=== PATIENT | male | born 1960 | race Caucasian/White ===

== ENCOUNTER 2023-11-09 09:16 | Inpatient (IN) | payer MEDICARE, SELFPAY ==
[2023-11-09] VITALS (14 sets, daily range): BP systolic 151–194; BP diastolic 68–86; PULSE 67–102; RESP 16–25; TEMP 36.3–36.8; O2SAT 96–100; BMI 25.4
--- NOTE | ~2023-11-09 | US_ITS ---
Renal-Bladder ultrasound Clinical History: Acute renal insufficiency Technique: Real-time sonographic imaging of the kidneys and urinary bladder was performed. Findings: The right kidney measures 9.4 cm in length and the left kidney measures 8.8 cm. There is mi ld bilateral hydronephrosis. No renal stone evident. Renal cortical echogenicity is within normal luna its. No renal mass lesion is identified. The urinary bladder is not visualized. Impression: Mild bilateral hydronephrosis. Urinary bladder not visualized. Reviewed, dictated and finalized at location M. Impression: Mild bilateral hydronephrosis. Urinary bladder not visualized.
--- NOTE | ~2023-11-09 | XR_ITS ---
EXAMINATION: XR retrograde pyelo w/stent BI DATE: 11/13/2023 14:24 INDICATION: Bilateral hydronephrosis. TECHNIQUE: 13 intraoperative fluoroscopic views of the abdomen and pelvis were obtained. I was not pr esent. Fluoroscopy exposure time was 39 seconds. COMPARISON: CT abdomen and pelvis 11/12/2023 FINDINGS: The bilateral retrograde pyelograms demonstrate mild hydronephrosis and hydroureter. There are bilateral internal ureteral stents in expected positions. IMPRESSION: 1. Mild bilateral hydronephrosis and hydroureter. Bilateral internal ureteral stents in expected posi tions. Reviewed, dictated and finalized at location A. IMPRESSION: 1. Mild bilateral hydronephrosis and hydroureter. Bilateral internal ureteral s tents in expected positions.
--- NOTE | ~2023-11-09 | NM_ITS ---
EXAMINATION: NM lung vent and perfusion DATE: 11/11/2023 14:58 INDICATION: Shortness of breath. TECHNIQUE: 25.7 mCi Xenon-133 was given for ventilation images. 4.7 mCi Tc-99m MAA was administered i ntravenously for perfusion images. Scintigraphic images of the chest were obtained. COMPARISON: Chest single view 11/09/2023 FINDINGS: Ventilation images demonstrate retention in the mid and lower lung zones. Perfusion images demonstrat e small defects in the lower lobes. IMPRESSION: 1. Low probability for pulmonary embolus. Reviewed, dictated and finalized at location A.
--- NOTE | ~2023-11-09 | CT_ITS ---
CT abdomen pelvis wo con Ordering provider: Reza Harvey MD History: 63 years Male with . bilateral hydronephrosis . Comparison: None. Technique: CT abdomen and pelvis without IV and without oral contrast. Automated exposure control and iterative reconstruction technique were employed. The dose-length product was 555.02 mGy-cm. Findings: VISUALIZED LOWER CHEST: Atelectatic changes in the left lung base posteriorly with minimal effusion. UPPER ABDOMINAL ORGANS: Liver: Slight hepatomegaly. Gallbladder: Contracted. Spleen: Normal. Stomach/duodenum: Normal. Pancreas: Normal. Adrenals: Normal. Kidneys: Bilateral perinephric fat stranding with mild left and moderate right hydronephrosis. No def inite ureteric stones. PELVIC ORGANS: The bladder shows markedly thickened wall with underfilling. Clinical evaluation for c ystitis advised. BOWEL AND MESENTERY: Colon: Mild sigmoid diverticulosis without diverticulitis. Postoperative changes in the rectum with t hickening and minimal fluid in the area. Fecal material is loaded in the colon. Left colostomy. Appen meli is not demonstrated. Small Bowel: Localization of the distal small bowel is noted. Slightly dilated small bowel loops is s een with no evidence of obstruction. No thickening of the wall.. Peritoneum/mesentery: No free air. Minimal right pelvic free fluid. No mesenteric lymphadenopathy. RETROPERITONEUM: Mild atheromatous disease of the abdominal aorta.. Multiple para-aortic lymph nodes with the largest measures 1.6 cm. MUSCULOSKELETAL: Superficial soft tissues: Right inguinal fat containing hernia. Small fat-containing umbilical hernia . Subcutaneous fat stranding. Otherwise, normal superficial tissues. Mild hepatomegaly. Bones: Age appropriate degenerative changes of the spine. IMPRESSION: 1. Bilateral hydronephrotic changes more on the right side with no definite stones in the ureters. 2. Thickened wall of the urinary bladder suggestive of cystitis. Clinical evaluation advised. 3. Minimal fluid in the pelvis. Clinical correlation and Follow-up advised. 4. Constipation. Reviewed, dictated and finalized at location A. IMPRESSION: 1. Bilateral hydronephrotic changes more on the right side with no definite st ones in the ureters. 2. Thickened wall of the urinary bladder suggestive of cystitis. Clinical eval uation advised. 3. Minimal fluid in the pelvis. Clinical correlation and Follow-up advised. 4. Constipation.
--- NOTE | ~2023-11-09 | XR_ITS ---
XR chest 1V portable Ordering provider: Harvey Mcknight MD History: 63 years Male with . SOB . Comparison: None. FINDINGS: MEDIASTINUM: The cardiac silhouette is not enlarged. LUNGS: No infiltrates, effusions or pneumothorax. OTHER: No free air under the diaphragm. Degenerative changes of the spine. IMPRESSION: No acute cardiopulmonary pathology. Reviewed, dictated and finalized at location A.
--- NOTE | 2023-11-09 10:17 | ED.GENADULT ---
HPI - General Adult General Chief complaint: Upper Respiratory Infection Stated complaint: cough/congestion Time Seen by Provider: 11/09/23 09:55 History of Present Illness HPI narrative: 63-year-old male presented to the emergency department for evaluation for increased cough congestion that is been going on for approximately 1 week. Patient is a smoker but denies any prior diagnosis of COPD. Patient denies any current chest pain. Patient denies any prior cardiac history. Patient does have a prior history of colorectal cancel with an ostomy since 2019 Related Data Home Medications Medication Instructions Recorded Confirmed No Home Medications 11/09/23 11/09/23 Allergies Allergy/AdvReac Type Severity Reaction Status Date / Time No Known Allergies Allergy Verified 11/09/23 17:24 Review of Systems Review of Systems: All systems reviewed & are unremarkable except as noted in HPI and below PMFSH Past Medical History Medical History (Updated 11/09/23 @ 20:54 by Gege Dickey DO) Colorectal cancer Surgical History Surgical History (Updated 11/09/23 @ 20:52 by Gege Dickey DO) Status post colostomy Family History Family History (Updated 11/09/23 @ 17:14 by Renetta Don RN) Father Cancer Mother Cancer Sibling Cancer Social History Social History Smoking packs per day: 1 Smoking cigarettes per day: 20.0 Smoking status: Current every day smoker Tobacco type: cigarettes Alcohol intake: current Drinks per week: 56 Substance use: never Do You Feel Safe in your Home?: Yes Lack of Transportation: No Lack of Food: Never True Current Housing: I Have Housing Concerned About Future Housing: No Difficulty Paying Gas/Electric Bills: No Difficulty Paying for Meds: No Currently Unemployed: No Education: Don't Know Difficulty w/ Childcare or Family Care: No Spiritual care concerns: No Exam Narrative: APPEARANCE: Well appearing, no pain, no distress, well-nourished. HEAD: normocephalic, atraumatic. EYES: PERRLA/EOMI, conjunctivae clear. NOSE: Normal no drainage EARS:TMS clear with good light reflex. THROAT: Pharynx clear, no exudate. NECK: Supple. No adenopathy, no masses. RESPIRATORY: Wheeze on exam CARDIOVASCULAR: Regular rate and rhythm without murmurs rubs or gallops. ABDOMINAL: Soft, nontender, nondistended, normal bowel sounds MUSCULOSKELETAL: Moves all extremities. Strength/ROM intact, No edema, No calf tenderness. NEURO: Alert. Cranial nerves II through XII intact. Good gait. Good coordination SKIN: Warm, dry. Normal Color PSYCHIATRIC: Normal affect/mood. Course Vital Signs Vital signs: Vital Signs Temperature 98.3 F 11/09/23 09:17 Pulse Rate 79 11/09/23 09:17 Respiratory Rate 18 11/09/23 09:17 Blood Pressure 189/86 H 11/09/23 09:17 Pulse Oximetry 100 11/09/23 09:17 Oxygen Delivery Room Air 11/09/23 09:17 Temperature 97.4 F L 11/09/23 21:23 Pulse Rate 77 11/09/23 21:41 Respiratory Rate 18 11/09/23 21:41 Blood Pressure 151/68 H 11/09/23 21:23 Pulse Oximetry 100 11/09/23 21:23 Oxygen Delivery Room Air 11/09/23 10:35 Fraction of Inspired Oxygen 21 11/09/23 10:35 Medical Decision Making [facility] Narrative Medical decision making narrative: 61-year-old male presents emergency department for evaluation for shortness of breath. Patient is afebrile with no ketosis and a stable hemoglobin of 11.3. Patient does not have any previous labs on file but does have a creatinine of 3.0. Patient denies any prior history of underlying kidney disease. Patient's potassium was 5.1. Patient was treated with IV fluids. Patient did have a urinary tract infection but had no retained urine on the bladder scan. Patient was negative for influenza RSV and for COVID. Patient was started on Rocephin for is underlying urinary tract infection and treated with Solu-Medrol for suspected COPD exacerbation. Mitchel
[2023-11-09] MEDS: ALBUTEROL SULFATE NEB 2.5 MG/3 ML INH INHALATION ×2 (10:29→21:29)
[2023-11-09 10:35] LABS: Influenza A QL RT-PCR Negative (Negative); Influenza B QL RT-PCR Negative (Negative); RSV RNA, RT-PCR Negative (Negative); SARS-CoV-2 RNA PCR Negative (Negative)
[2023-11-09 11:08] LABS: Basophils Percent Auto 0.2 % (0.2-1.2); Eosinophils Absolute Auto 0.6 K/mm3 (0-0.3); Eosinophils Percent Auto 6.1 % (0-4.4); Hematocrit 33.5 % (42.0-52.0); Hemoglobin 11.3 g/dL (14.0-18.0); Immature Granulocyte Absolute 0.03 K/mm3 (0.00-0.031); Immature Granulocyte Percent A 0.3 % (0-0.5); Lymphocytes Absolute Auto 1.36 K/mm3 (0.9-3.2); Lymphocytes Percent Auto 14.8 % (18.3-44.2); Mean Corpuscular HGB Conc 33.7 g/dl (32-36); Mean Corpuscular Hemoglobin 31.9 pg (26-34); Mean Corpuscular Volume 94.6 fl (80-100); Mean Platelet Volume 9.9 fl (7.4-10.4); Monocytes Absolute Auto 0.9 K/mm3 (0.1-0.6); Monocytes Percent Auto 9.8 % (2.6-8.5); Neutrophils Absolute Auto 6.3 K/mm3 (1.3-6.7); Neutrophils Percent Auto 68.8 % (45.5-73.1); Platelet Count Result 147 k/mm3 (150-375); Red Blood Count 3.54 M/mm3 (4.6-6.20); Red Cell Distribution Width 13.6 % (11.5-14.5); White Blood Count 9.2 K/mm3 (4.5-10.0)
[2023-11-09 11:24] LABS: D Dimer 2.32 ug/mL (<0.48)
[2023-11-09 11:26] LABS: Alanine Aminotransferase 26 U/L (6-50); Albumin Level 4.6 g/dL (3.5-5.1); Alkaline Phosphatase 105 U/L (38-126); Anion Gap 8 mmol/L (4-12); Aspartate Amino Transferase 56 U/L (17-59); Bilirubin,Total 0.7 mg/dL (0.2-1.3); Blood Urea Nitrogen 36 mg/dL (9-20); Calcium 9.2 mg/dL (8.4-10.2); Carbon Dioxide 19 mmol/L (22-30); Chloride 104 mmol/L (98-107); Estimated CRCL calculation 22 ml/min; Estimated Glomerular Filt Rate 21; Glucose 111 mg/dL (65-110); Potassium 5.1 mmol/L (3.4-5.0); Sodium 131 mmol/L (137-145)
[2023-11-09] MEDS: methylPREDNISolone SOD SUCC 125 MG VIAL IV PUSH (13:30)
[2023-11-09] MEDS: SODIUM CHLORIDE 0.9% IV 1,000 ML 999 ML IV CONT (15:16)
[2023-11-09 15:32] LABS: Add Urine Microscopic? YES; Appearance Urine Turbid (Clear); Bacteria Urine 4+ /hpf; Bilirubin Urine Negative (Negative); Blood Urine 2+ (Negative); Color Urine Yellow (Yellow); Glucose Urine UA Negative (Negative); Ketones Urine Negative (Negative); Leukocyte Esterase Ur 3+ LEU/UL (Negative); Nitrate Urine Negative (Negative); Non Pathogenic Casts 0-2; Protein Urine 1+ mg/dL (Negative); RBC Urine 0-2 /hpf (0-2); Specific Grav Ur 1.004 (1.001-1.035); Squamous Epithelial Cell Urine None Seen /hpf (Few); Urobilinogen Urine 0.2 mg/dL (<2.0); WBC Urine >100 /hpf (0-3); pH Urine 5.5 (5.0-9.0)
--- NOTE | 2023-11-09 17:12 | ADMGEN ---
This patient, Chuy Amezquita, was admitted to [facility] Surg Room 314-01. Patient/family oriented to hospital policies and general routines including ID bracelet, bed and alarms, visiting hours, pain management, procedures, bathroom and other care routines, personal items, smoking policy, room service/diet, and visiting hours. Information on how to activate the Rapid Response Team has been discussed. Patient/Family are encouraged to report perceived risks to care and to ask questions if they do not understand what they are told or what they should do. Report from [place]ra.
[2023-11-09] MEDS: methylPREDNISolone SOD SUCC 125 MG VIAL 60 MG IV PUSH (17:28)
[2023-11-09] MEDS: SODIUM CHLORIDE 0.9% IV 1,000 ML 125 ML IV CONT (20:05)
--- NOTE | 2023-11-09 20:40 | PM.IMHP ---
H&P: HPI History of Present Illness Date/Time: 11/09/23 20:40 Chief Complaint: Cough, congestion Narrative: 63-year-old male with past medical history colorectal cancer with colostomy, essential hypertension not on medications and chronic smoking who presented to the ER from home with cough and congestion for 1 week. Patient reports cough was productive and has not tried any medications at home to improve his symptoms. He reports that his brother similar symptoms recently but his brother symptoms have resolved. The patient denies a known diagnosis of COPD and does not use inhalers. He admits he has not followed up with her primary care physician since his colostomy in 2019. He still continues to smoke about 1.5 packs of cigarettes per day. He reports that he usually has smoker's cough and coughs each morning until he gets nauseated and retch is or vomits. Usually his sputum is thick and white. But over the last week his sputum has become more copious and is clear to yellow in color. He has also had significant rhinorrhea and postnasal drip which is unusual for him. He reports that his shortness of breath has improved since being nebulizers in the ER. He also received Solu-Medrol ER. He denies any fevers or chills. He denies any chest pain. He does admit to having significant decreased appetite and has not been eating or drinking well. He does admit that he has chronic urinary incontinence ever since he had his colostomy/chemotherapy and radiation therapy for his colorectal cancer. Amalia gets up and tries to urinate every 4 hours at home and attempt to not have to by his many adult diapers. He does not know if he empties his bladder completely. He reports that he does not have any sensation of when he is going to urinate so he does not know if he is having any dysuria. He has not noticed any hematuria. Postvoid residual after admission demonstrated that his bladder was completely empty. In the ER patient's labs did demonstrate an elevated creatinine to 3. Patient denies known history of kidney stones or renal disease. Patient's UA did have 4+ bacteria and significant leukocytes with some blood. The patient does not have a white count is not been having any fevers or chills. He has had slight decrease in his ostomy output but denies any abdominal pain. He has not noticed any blood in his stools. Review of Systems Review of Systems: 12 systems were reviewed with pertinent positives and negatives per HPI. Except as documented in the HPI, all other systems were reviewed and are negative. [facility] Past Medical History Medical History (Updated 11/09/23 @ 23:09 by Gege Dickey DO) Bilateral hearing loss Colorectal cancer (~2019) Treated with colectomy, radiation therapy and chemotherapy. Patient received care in [place] Essential hypertension Surgical History Surgical History (Updated 11/09/23 @ 23:09 by Gege Dickey DO) Status post cataract extraction and insertion of intraocular lens of left eye Status post colostomy (~2019) Family History Family History (Updated 11/09/23 @ 23:04 by Gege Dickey DO) Father , Age 62 Cancer ?stomach cancer? Mother Breast cancer, Onset Age: 44 Sibling Cancer ?stomach cancer? 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 Since that time he and his (depending catheter for over 20 years been for only few years) have been traveling around the [place] They are currently living with the patient's brother for the last year while he helps brother remodeled a house. He has smoked between 0.5 up to 2 packs of cigarettes per day for about 40 years. He drinks 6-9 beers a day. He sometimes go a co
[2023-11-09] MEDS: ENOXAPARIN 80 MG/0.8 ML SYRINGE 73 MG SUB-Q (21:25)
[2023-11-10] VITALS (19 sets, daily range): BP systolic 156–184; BP diastolic 81–87; PULSE 70–103; RESP 18–22; TEMP 36.3–36.5; O2SAT 94–99
[2023-11-10] MEDS: ALBUTEROL SULFATE NEB 2.5 MG/3 ML INH INHALATION ×4 (02:46→20:19)
[2023-11-10] MEDS: methylPREDNISolone SOD SUCC 125 MG VIAL 60 MG IV PUSH ×4 (06:37→17:02)
[2023-11-10 06:54] LABS: Hematocrit 33.6 % (42.0-52.0); Hemoglobin 10.8 g/dL (14.0-18.0); Immature Granulocyte Absolute 0.05 K/mm3 (0.00-0.031); Immature Granulocyte Percent A 0.9 % (0-0.5); Lymphocytes Absolute Auto 0.24 K/mm3 (0.9-3.2); Lymphocytes Percent Auto 4.2 % (18.3-44.2); Mean Corpuscular HGB Conc 32.1 g/dl (32-36); Mean Corpuscular Hemoglobin 30.9 pg (26-34); Mean Platelet Volume 9.7 fl (7.4-10.4); Monocytes Absolute Auto 0.2 K/mm3 (0.1-0.6); Monocytes Percent Auto 3.1 % (2.6-8.5); Neutrophils Absolute Auto 5.3 K/mm3 (1.3-6.7); Neutrophils Percent Auto 91.8 % (45.5-73.1); Platelet Count Result 127 k/mm3 (150-375); Red Cell Distribution Width 13.2 % (11.5-14.5); White Blood Count 5.7 K/mm3 (4.5-10.0)
[2023-11-10 07:13] LABS: Anion Gap 10 mmol/L (4-12); Blood Urea Nitrogen 49 mg/dL (9-20); Calcium 8.8 mg/dL (8.4-10.2); Carbon Dioxide 15 mmol/L (22-30); Chloride 108 mmol/L (98-107); Estimated CRCL calculation 23 ml/min; Estimated Glomerular Filt Rate 23; Glucose 283 mg/dL (65-110); Magnesium 1.9 mg/dL (1.6-2.3); Phosphorus 2.7 mg/dL (2.5-4.5); Potassium 4.1 mmol/L (3.4-5.0); Sodium 133 mmol/L (137-145)
[2023-11-10 08:10] LABS: Folic Acid 10.9 ng/mL (2.76->20)
[2023-11-10] MEDS: METOPROLOL SUCCINATE EXT REL 25 MG TABCR PO (08:26)
[2023-11-10] MEDS: FOLIC ACID 1 MG TABLET PO (08:26)
[2023-11-10] MEDS: MULTIVITAMINS THERAPEUTIC TAB (*BKC) 1 TABLET PO (08:26)
[2023-11-10] MEDS: THIAMINE HCL 100 MG TABLET PO (08:26)
[2023-11-10] MEDS: NICOTINE (*PBKC) 21 MG PATCH 1 PATCH TRANSDERM (08:27)
[2023-11-10] MEDS: AZITHROMYCIN 250 MG TABLET 500 MG PO (08:30)
[2023-11-10 09:40] LABS: Cholesterol 193 mg/dL (0-200); HDL Direct 92 mg/dL; Triglycerides 82 mg/dL (<150)
[2023-11-10 09:51] LABS: LDL Cholesterol Direct 91 mg/dL
[2023-11-10 10:09] LABS: Hemoglobin A1C 4.8 % (<5.7)
[2023-11-10] MEDS: guaiFENesin 12 HR 600 MG TABCR PO ×2 (10:48→20:40)
[2023-11-10] MEDS: SODIUM CHLORIDE 0.9% IV 1,000 ML 125 ML IV CONT ×2 (12:01→20:39)
--- NOTE | 2023-11-10 15:17 | P.PNIM_ITS ---
Progress Note: A&P Assessment and Plan (1) COPD (chronic obstructive pulmonary disease): Qualifiers: COPD type: COPD with acute exacerbation Qualified Code(s): J44.1 - Chronic obstructive pulmonary disease with (acute) exacerbation Code(s): J44.9 - Chronic obstructive pulmonary disease, unspecified Status: Acute Assessment and Plan: * Bronchodilators. * Chest x-ray: NO acute cardiopulmonary issues * incentive spirometry while awake. * steroids initiated * azithromycin 500 x 1 day/250 daily * supplemental oxygen therapy to maintain oxygen 92% on RA * Smoking cessation counseling done (2) Acute UTI: Code(s): N39.0 - Urinary tract infection, site not specified Status: Acute Assessment and Plan: * UA suspicious of UTI * patient has difficulty with incontinence ever since colostomy * worse depends * Rocephin IV pending cultures * No blood cultures done prior to antibiotic administration (3) ELIA (acute kidney injury): Code(s): N17.9 - Acute kidney failure, unspecified Status: Acute Assessment and Plan: * Could be secondary to dehydration and ETOH abuse * Gentle IV hydration. * consult nephrology if there is no improvement to renal function * Avoid nephrotoxic drugs. * Monitor antihypertensive drug therapy. * Avoid NSAIDs. * Routine CMP monitoring GFR. * Monitor electrolytes especially potassium. * Antibiotic doses depending on creatinine clearance. * Pharmacy does medications. (4) Hypertension: Code(s): I10 - Essential (primary) hypertension Status: Acute Assessment and Plan: * hypertensive systolics greater than 180s POA * hydralazine IV push p.r.n. was added * I added metoprolol 25 XL * BP per protocol * adjust BP medication as needed (5) ETOH abuse: Code(s): F10.10 - Alcohol abuse, uncomplicated Status: Acute Assessment and Plan: * HX ETOH abuse * IV fluids * Last drink 48hrs * Thiamine, folic acid, and multi-vitamin * PPI daily * librium if indicated * Ativan PRN for seizure activity * CIWA daily * Monitor and replenish electrolytes as needed * Seizure precautions if indicated Plan Code status: Full code per patient DVT prophylaxis: Lovenox Stress ulcer prophylaxis: Protonix 40 daily PT/OT notes: ambulatory Disposition: patient was admitted to medical unit for further evaluation and treatment UTI, aching home, and COPD exacerbation. Patient is ambulatory on in plan will be to discharge back to home when medically stable Time Spent With Patient Time with patient: 15 - 25 minutes Subjective Date/time seen: 11/10/23 15:17 Interval history: Patient is a 63-year-old male was admitted to the unit further evaluation and treatment COPD exacerbation, urinary tract infection, ELIA, and metabolic acidosis. 11/10/2023: Assumed Care Patient denied CP or difficulty urinating. Denied N/V, ABD pain but did report productive cough. Patient denied any issue
--- NOTE | 2023-11-10 15:17 | PM.IMPN ---
Progress Note: A&P Assessment and Plan (1) COPD (chronic obstructive pulmonary disease): Qualifiers: COPD type: COPD with acute exacerbation Qualified Code(s): J44.1 - Chronic obstructive pulmonary disease with (acute) exacerbation Code(s): J44.9 - Chronic obstructive pulmonary disease, unspecified Status: Acute Assessment and Plan: Bronchodilators. Chest x-ray: NO acute cardiopulmonary issues incentive spirometry while awake. steroids initiated azithromycin 500 x 1 day/250 daily supplemental oxygen therapy to maintain oxygen 92% on RA Smoking cessation counseling done (2) Acute UTI: Code(s): N39.0 - Urinary tract infection, site not specified Status: Acute Assessment and Plan: UA suspicious of UTI patient has difficulty with incontinence ever since colostomy worse depends Rocephin IV pending cultures No blood cultures done prior to antibiotic administration (3) ELIA (acute kidney injury): Code(s): N17.9 - Acute kidney failure, unspecified Status: Acute Assessment and Plan: Could be secondary to dehydration and ETOH abuse Gentle IV hydration. consult nephrology if there is no improvement to renal function Avoid nephrotoxic drugs. Monitor antihypertensive drug therapy. Avoid NSAIDs. Routine CMP monitoring GFR. Monitor electrolytes especially potassium. Antibiotic doses depending on creatinine clearance. Pharmacy does medications. (4) Hypertension: Code(s): I10 - Essential (primary) hypertension Status: Acute Assessment and Plan: hypertensive systolics greater than 180s POA hydralazine IV push p.r.n. was added I added metoprolol 25 XL BP per protocol adjust BP medication as needed (5) ETOH abuse: Code(s): F10.10 - Alcohol abuse, uncomplicated Status: Acute Assessment and Plan: HX ETOH abuse IV fluids Last drink 48hrs Thiamine, folic acid, and multi-vitamin PPI daily librium if indicated Ativan PRN for seizure activity CIWA daily Monitor and replenish electrolytes as needed Seizure precautions if indicated Plan Code status: Full code per patient DVT prophylaxis: Lovenox Stress ulcer prophylaxis: Protonix 40 daily PT/OT notes: ambulatory Disposition: patient was admitted to medical unit for further evaluation and treatment UTI, aching home, and COPD exacerbation. Patient is ambulatory on in plan will be to discharge back to home when medically stable Time Spent With Patient Time with patient: 15 - 25 minutes Subjective Date/time seen: 11/10/23 15:17 Interval history: Patient is a 63-year-old male was admitted to the unit further evaluation and treatment COPD exacerbation, urinary tract infection, ELIA, and metabolic acidosis. 11/10/2023: Assumed Care Patient denied CP or difficulty urinating. Denied N/V, ABD pain but did report productive cough. Patient denied any issues with his colostomy at this time. Review of Systems Review of Systems: All systems reviewed & are unremarkable except as noted in HPI and below Exam Narrative: Physical Exam: GENERAL: Alert and oriented x 3. No acute distress. HEENT: Moist mucous membranes. LUNGS: Diminished BLL auscultation bilaterally. No accessory muscle use. CARDIOVASCULAR: Regular rate and rhythm. No murmur. No JVD. S1-S2 ABDOMEN: Soft, non tenderness and non-distended. ostomy in the left periumbilical region small amount of stool present EXTREMITIES: No edema. Non-tender SKIN: No rashes or lesions. Skin warm, dry. NEUROLOGIC: No focal neurological deficits. CN II-XII grossly intact PSYCHIATRIC: Appropriate mood and affect. Good judgement and insight. No visual or auditory hallucinations. No suicidal or homicidal ideation. Objective Data Vital Signs Vital Signs: Vital Signs - 24 hr 11/09/23
[2023-11-11] VITALS (18 sets, daily range): BP systolic 160–171; BP diastolic 73–87; PULSE 68–92; RESP 16–18; TEMP 36.3–36.7; O2SAT 97–100
[2023-11-11] MEDS: methylPREDNISolone SOD SUCC 125 MG VIAL 60 MG IV PUSH ×5 (00:01→23:49)
[2023-11-11] MEDS: SODIUM CHLORIDE 0.9% IV 1,000 ML 125 ML IV CONT ×3 (02:30→23:55)
[2023-11-11] MEDS: ALBUTEROL SULFATE NEB 2.5 MG/3 ML INH INHALATION ×4 (02:37→19:50)
[2023-11-11 06:28] LABS: Hematocrit 32.6 % (42.0-52.0); Hemoglobin 10.5 g/dL (14.0-18.0); Mean Corpuscular HGB Conc 32.2 g/dl (32-36); Mean Corpuscular Hemoglobin 31.2 pg (26-34); Mean Corpuscular Volume 96.7 fl (80-100); Mean Platelet Volume 9.9 fl (7.4-10.4); Platelet Count Result 144 k/mm3 (150-375); Red Blood Count 3.37 M/mm3 (4.6-6.20); Red Cell Distribution Width 13.6 % (11.5-14.5); White Blood Count 12.4 K/mm3 (4.5-10.0)
[2023-11-11 06:37] LABS: Alanine Aminotransferase 22 U/L (6-50); Albumin Level 4.1 g/dL (3.5-5.1); Alkaline Phosphatase 78 U/L (38-126); Anion Gap 9 mmol/L (4-12); Aspartate Amino Transferase 32 U/L (17-59); Bilirubin,Total 0.3 mg/dL (0.2-1.3); Blood Urea Nitrogen 53 mg/dL (9-20); Calcium 8.9 mg/dL (8.4-10.2); Carbon Dioxide 16 mmol/L (22-30); Chloride 112 mmol/L (98-107); Estimated CRCL calculation 22 ml/min; Estimated Glomerular Filt Rate 21; Glucose 218 mg/dL (65-110); Magnesium 1.8 mg/dL (1.6-2.3); Sodium 137 mmol/L (137-145)
[2023-11-11] MEDS: METOPROLOL SUCCINATE EXT REL 50 MG TABCR PO (08:55)
[2023-11-11] MEDS: guaiFENesin 12 HR 600 MG TABCR PO ×2 (08:55→20:21)
[2023-11-11] MEDS: MULTIVITAMINS THERAPEUTIC TAB (*BKC) 1 TABLET PO (08:56)
[2023-11-11] MEDS: FOLIC ACID 1 MG TABLET PO (08:56)
[2023-11-11] MEDS: PANTOPRAZOLE 40 MG TABLET PO (08:56)
[2023-11-11] MEDS: AZITHROMYCIN 250 MG TABLET PO (08:56)
[2023-11-11] MEDS: THIAMINE HCL 100 MG TABLET PO (08:56)
--- NOTE | 2023-11-11 09:55 | PM.CNNEP ---
Assessment and Plan Assessment and plan (1) ELIA (acute kidney injury): Code(s): N17.9 - Acute kidney failure, unspecified Status: Acute Assessment and Plan: acute versus chronic versus acute on chronic??? reports no recent labs done since 2019 (back when he was living in [place], [place]) despite IVF hydration since admission, no real improvement noted acute infection (UTI) could be playing a role check urine studies, CPK, and renal ultrasound consider serological evaluation/testing as well follow trend of repeat labs and UOP (2) Acute UTI: Code(s): N39.0 - Urinary tract infection, site not specified Status: Acute Assessment and Plan: admission UA highly suggestive urine culture with Klebs aerogenes (Enterobacter) and Group B Streptococcus on antibiotics (3) Hypertension: Code(s): I10 - Essential (primary) hypertension Status: Acute Assessment and Plan: elevated on admission (180 systolic) on no medications prior to admission started on metoprolol; suspect may need another oral agent PRN IV hydralazine added follow trend of hemodynamics (4) COPD (chronic obstructive pulmonary disease): Qualifiers: COPD type: COPD with acute exacerbation Qualified Code(s): J44.1 - Chronic obstructive pulmonary disease with (acute) exacerbation Code(s): J44.9 - Chronic obstructive pulmonary disease, unspecified Status: Chronic Assessment and Plan: on bronchodilators and steroids CXR negative on azithromycin supplemental oxygen PRN follow respiratory status (5) ETOH abuse: Code(s): F10.10 - Alcohol abuse, uncomplicated Status: Chronic Assessment and Plan: known history on thiamine, folate, and MVI on CIWA IVF hydration I will continue to follow the patient with you while he remains hospitalized and make further recommendations as deemed necessary. Thank you for allowing me to participate in the care of this patient. History of Present Illness Reason for Consult Consult date: 11/11/23 Reason for consult: acute renal failure Chief Complaint Chief complaint: COPD/ELIA History of Present Illness Narrative: A 63-year-old male with a past medical history as outlined below who presented to [facility] Emergency room for further evaluation of cough and congestion. The patient reports that the symptoms have been present for the last week if not longer. His cough is productive of white/ yellow sputum has progressively worsened over the last few days. He has not tried any medications at home to improve these symptoms. He reports that his brother had similar symptoms but has resolved at this time. The patient is a known smoker but has no reported history of COPD. Further complicating matters is that he has not seen a physician in almost four years since he has colostomy in 2019. he does report a chronic cough that is worse each morning in general to the point where sometimes E has dry heaves and vomits. Other associated symptoms include postnasal drip and rhinorrhea. Given these constellation of symptoms and the fact that it has been progressively getting worse, he came to the emergency room for further assessment. Workup and evaluation emergency room demonstrated the patient to be hemodynamically stable and in no apparent distress. Given his ongoing shortness of breath and cough, he did receive a nebulizer treatment in the ER which seemed to improve his symptoms. Given his smoking history of a concern for underlying reactive airway disease / asthma / COPD, he received a dose of steroids as well. On further questioning, he denies any fevers or chills but does admit to poor oral intake and diminished eating /drinking in general. He also states that he has chronic urinary incontinence ever since his colostomy / chemotherapy plus radiation therapy for his history of colorectal cancer. No reported
--- NOTE | 2023-11-11 13:05 | P.PNIM_ITS ---
Progress Note: A&P Assessment and Plan (1) COPD (chronic obstructive pulmonary disease): Qualifiers: COPD type: COPD with acute exacerbation Qualified Code(s): J44.1 - Chronic obstructive pulmonary disease with (acute) exacerbation Code(s): J44.9 - Chronic obstructive pulmonary disease, unspecified Status: Chronic Assessment and Plan: * Bronchodilators. * Chest x-ray: NO acute cardiopulmonary issues * incentive spirometry while awake. * steroids initiated * azithromycin 500 x 1 day/250 daily * supplemental oxygen therapy to maintain oxygen 92% on RA * Smoking cessation counseling done (2) Acute UTI: Code(s): N39.0 - Urinary tract infection, site not specified Status: Acute Assessment and Plan: * UA suspicious of UTI * patient has difficulty with incontinence ever since colostomy * worse depends * Rocephin IV pending cultures * No blood cultures done prior to antibiotic administration 11/11/23: * Klebs aerogens/Group B Strep pending sensitivities (3) ELIA (acute kidney injury): Code(s): N17.9 - Acute kidney failure, unspecified Status: Acute Assessment and Plan: * Acute vs Chronic vs A/C KD * Could be secondary to dehydration and ETOH abuse * Gentle IV hydration. * consult nephrology if there is no improvement to renal function * Avoid nephrotoxic drugs. * Monitor antihypertensive drug therapy. * Avoid NSAIDs. * Routine CMP monitoring GFR. * Monitor electrolytes especially potassium. * Antibiotic doses depending on creatinine clearance. * Pharmacy does medications. 11/11/23: * CR with no improvement with fluids * Nephrology consulted for further recs * Could be from UTI * Renal US pending (4) Hypertension: Code(s): I10 - Essential (primary) hypertension Status: Acute Assessment and Plan: * hypertensive systolics greater than 180s POA * hydralazine IV push p.r.n. was added * I added metoprolol 25 XL * BP per protocol * adjust BP medication as needed 11/11/23 * Still hypertensive * Increased her metoprolol to 50 (5) ETOH abuse: Code(s): F10.10 - Alcohol abuse, uncomplicated Status: Chronic Assessment and Plan: * HX ETOH abuse * IV fluids * Last drink 48hrs * Thiamine, folic acid, and multi-vitamin * PPI daily * librium if indicated * Ativan PRN for seizure activity * CIWA daily * Monitor and replenish electrolytes as needed * Seizure precautions if indicated Plan Code status: Full code per patient DVT prophylaxis: Lovenox Stress ulcer prophylaxis: Protonix 40 daily PT/OT notes: ambulatory Disposition: patient was admitted to medical unit for further evaluation and treatment UTI, acute Kidney injury, and COPD exacerbation. Patient is ambulatory on in plan will be to discharge back to home when medically stable Time Spent With Patient Time with patient: 15 - 25 minutes Subjective Date/time seen: 11/11/23 13:05 Interval history:
--- NOTE | 2023-11-11 13:05 | PM.IMPN ---
Progress Note: A&P Assessment and Plan (1) COPD (chronic obstructive pulmonary disease): Qualifiers: COPD type: COPD with acute exacerbation Qualified Code(s): J44.1 - Chronic obstructive pulmonary disease with (acute) exacerbation Code(s): J44.9 - Chronic obstructive pulmonary disease, unspecified Status: Chronic Assessment and Plan: Bronchodilators. Chest x-ray: NO acute cardiopulmonary issues incentive spirometry while awake. steroids initiated azithromycin 500 x 1 day/250 daily supplemental oxygen therapy to maintain oxygen 92% on RA Smoking cessation counseling done (2) Acute UTI: Code(s): N39.0 - Urinary tract infection, site not specified Status: Acute Assessment and Plan: UA suspicious of UTI patient has difficulty with incontinence ever since colostomy worse depends Rocephin IV pending cultures No blood cultures done prior to antibiotic administration 11/11/23: Klebs aerogens/Group B Strep pending sensitivities (3) ELIA (acute kidney injury): Code(s): N17.9 - Acute kidney failure, unspecified Status: Acute Assessment and Plan: Acute vs Chronic vs A/C KD Could be secondary to dehydration and ETOH abuse Gentle IV hydration. consult nephrology if there is no improvement to renal function Avoid nephrotoxic drugs. Monitor antihypertensive drug therapy. Avoid NSAIDs. Routine CMP monitoring GFR. Monitor electrolytes especially potassium. Antibiotic doses depending on creatinine clearance. Pharmacy does medications. 11/11/23: CR with no improvement with fluids Nephrology consulted for further recs Could be from UTI Renal US pending (4) Hypertension: Code(s): I10 - Essential (primary) hypertension Status: Acute Assessment and Plan: hypertensive systolics greater than 180s POA hydralazine IV push p.r.n. was added I added metoprolol 25 XL BP per protocol adjust BP medication as needed 11/11/23 Still hypertensive Increased her metoprolol to 50 (5) ETOH abuse: Code(s): F10.10 - Alcohol abuse, uncomplicated Status: Chronic Assessment and Plan: HX ETOH abuse IV fluids Last drink 48hrs Thiamine, folic acid, and multi-vitamin PPI daily librium if indicated Ativan PRN for seizure activity CIWA daily Monitor and replenish electrolytes as needed Seizure precautions if indicated Plan Code status: Full code per patient DVT prophylaxis: Lovenox Stress ulcer prophylaxis: Protonix 40 daily PT/OT notes: ambulatory Disposition: patient was admitted to medical unit for further evaluation and treatment UTI, acute Kidney injury, and COPD exacerbation. Patient is ambulatory on in plan will be to discharge back to home when medically stable Time Spent With Patient Time with patient: 15 - 25 minutes Subjective Date/time seen: 11/11/23 13:05 Interval history: Patient is a 63-year-old male was admitted to the unit further evaluation and treatment COPD exacerbation, urinary tract infection, ELIA, and metabolic acidosis. 11/11/2023: Patient reported improvement to breathing still gets SOB with any activity and productive cough. Patient denied CP N/V, fever of chills. Review of Systems Review of Systems: 12 systems were reviewed with pertinent positives and negatives per HPI. Except as documented in the HPI, all other systems were reviewed and are negative. All systems reviewed & are unremarkable except as noted in HPI and below Exam Narrative: Physical Exam: GENERAL: Alert and oriented x 3. No acute distress. HEENT: Moist mucous membranes. LUNGS: Diminished BLL auscultation bilaterally. No accessory muscle use. CARDIOVASCULAR: Regular rate and rhythm. No murmur. No JVD. S1-S2 ABDOMEN: Soft, non tenderness and non-distended. ostomy in the left periumbi
[2023-11-11 15:40] LABS: Total Protein Urine Random 65 mg/dL; Ur Ttl Prot Creatinine Ratio 1.67 mg/mg (0-0.20)
[2023-11-11 15:46] LABS: Sodium Urine Random 48 meq/L; Urea Random Urine 399 MG/DL
[2023-11-11 17:03] LABS: Eosinophil Urine None Seen % (None Seen)
[2023-11-12] VITALS (18 sets, daily range): BP systolic 174–182; BP diastolic 86–90; PULSE 61–101; RESP 16–20; TEMP 36.4–36.7; O2SAT 96–100
[2023-11-12] MEDS: ALBUTEROL SULFATE NEB 2.5 MG/3 ML INH INHALATION ×4 (02:22→20:38)
[2023-11-12] MEDS: hydrALAZINE HCL 20 MG/ML VIAL 10 MG IV PUSH (04:50)
[2023-11-12] MEDS: methylPREDNISolone SOD SUCC 125 MG VIAL 60 MG IV PUSH (05:50)
[2023-11-12] MEDS: SODIUM CHLORIDE 0.9% IV 1,000 ML 125 ML IV CONT ×2 (05:50→17:01)
[2023-11-12 07:23] LABS: Hematocrit 34.5 % (42.0-52.0); Hemoglobin 11.1 g/dL (14.0-18.0); Mean Corpuscular HGB Conc 32.2 g/dl (32-36); Mean Corpuscular Hemoglobin 31.6 pg (26-34); Mean Corpuscular Volume 98.3 fl (80-100); Mean Platelet Volume 10.4 fl (7.4-10.4); Platelet Count Result 163 k/mm3 (150-375); Red Blood Count 3.51 M/mm3 (4.6-6.20); White Blood Count 10.9 K/mm3 (4.5-10.0)
[2023-11-12 07:36] LABS: Alanine Aminotransferase 29 U/L (6-50); Alkaline Phosphatase 75 U/L (38-126); Anion Gap 10 mmol/L (4-12); Aspartate Amino Transferase 34 U/L (17-59); Bilirubin,Total 0.3 mg/dL (0.2-1.3); Blood Urea Nitrogen 59 mg/dL (9-20); Calcium 8.7 mg/dL (8.4-10.2); Carbon Dioxide 17 mmol/L (22-30); Chloride 110 mmol/L (98-107); Creatine Kinase 98 U/L (55-170); Estimated CRCL calculation 23 ml/min; Estimated Glomerular Filt Rate 22; Glucose 273 mg/dL (65-110); Magnesium 1.7 mg/dL (1.6-2.3); Potassium 3.6 mmol/L (3.4-5.0); Sodium 137 mmol/L (137-145)
[2023-11-12 08:12] LABS: Thyroid Stimulating Hormone Reflex 0.387 uIU/mL (0.465-4.68)
[2023-11-12 08:47] LABS: Free T4 Free Thyroxine Reflex 0.72 ng/dL (0.78-2.19)
[2023-11-12] MEDS: PANTOPRAZOLE 40 MG TABLET PO (08:48)
[2023-11-12] MEDS: guaiFENesin 12 HR 600 MG TABCR PO ×2 (08:48→20:24)
[2023-11-12] MEDS: FOLIC ACID 1 MG TABLET PO (08:48)
[2023-11-12] MEDS: predniSONE 20 MG TABLET 40 MG PO (08:48)
[2023-11-12] MEDS: METOPROLOL SUCCINATE EXT REL 50 MG TABCR PO (08:49)
[2023-11-12] MEDS: THIAMINE HCL 100 MG TABLET PO (08:49)
[2023-11-12] MEDS: MULTIVITAMINS THERAPEUTIC TAB (*BKC) 1 TABLET PO (08:49)
--- NOTE | 2023-11-12 09:25 | WPDURCON ---
Assessment and Plan Assessment and plan (1) Bilateral hydronephrosis: Code(s): N13.30 - Unspecified hydronephrosis Status: Acute Assessment and Plan: Mild bilateral hydronephrosis noted on renal ultrasound. Will obtain CT of abdomen/pelvis for further evaluation of possible obstruction/compression. Check repeat bladder scan to ensure no evidence of retention/overflow incontinence. (2) ELIA (acute kidney injury): Code(s): N17.9 - Acute kidney failure, unspecified Status: Acute Assessment and Plan: Creatinine ranging from 2.8-3.0 this admission. No prior labs to determine baseline. (3) Abnormal finding on urinalysis: Code(s): R82.90 - Unspecified abnormal findings in urine Status: Acute Assessment and Plan: UA abnormal on presentation, however patient without any acute urinary symptoms. Urine culture is positive, however felt to be indicative of asymptomatic bacteriuria and antibiotics were discontinued Urology Consult Note HPI Date Seen: 11/12/23 Requesting Physician: Yoselyn Temple APRN Primary Care Provider: HE[employer] SCIENCES MANAGER PHYSICIAN Consult Narrative Narrative: Chuy Amezquita is a 63 year old male with history of colorectal cancer s/p chemotherapy, radiation, and colostomy with subsequent urinary incontinence who is being seen in consultation for bilateral hydronephrosis. Patient was admitted on 11/09/2023 for COPD exacerbation. He was found have an elevated creatinine of 3.0. He has been seen in consultation by Nephrology and renal ultrasound was obtained which demonstrates mild bilateral hydronephrosis without stones or mass lesion. His urinalysis on presentation was abnormal with 2+ blood and 3+ leukocytes. Urine culture has demonstrated growth of Klebsiella aerogenes and group B strep. The patient reports possibly slight worsening of his chronic urinary incontinence. He denies dysuria or hematuria. Denies flank pain or back pain. He reportedly had postvoid residual on admission that demonstrated an empty bladder. He denies suprapubic pain, fullness, or pressure. He reports a brief period of time where he required a Costa catheter after his colorectal surgery and did see a urologist for follow-up in [facility]. He did not require any additional urology follow-up and this was completed in [place]. He denies any history of kidney stones, recurrent urinary tract infections, and reports no prior urologic surgeries. Review of Systems Review of Systems: All systems reviewed & are unremarkable except as noted in HPI and below PMFSH Past Medical History Medical History (Updated 11/12/23 @ 09:31 by Anastasiya Mcdonnell PA-C) Bilateral hearing loss Colorectal cancer (~2019) Treated with colectomy, radiation therapy and chemotherapy. Patient received care in [place] Essential hypertension Surgical History Surgical History (Updated 11/09/23 @ 23:09 by Gege Dickey DO) Status post cataract extraction and insertion of intraocular lens of left eye Status post colostomy (~2019) Family History Family History (Updated 11/09/23 @ 23:04 by Gege Dickey DO) Father , Age 62 Cancer ?stomach cancer? Mother Breast cancer, Onset Age: 44 Sibling Cancer ?stomach cancer? 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 Since that time he and his (depending catheter for over 20 years been for only few years) have been traveling around the [place] They are currently living with the patient's brother for the last year while he helps brother remodeled a house. He has smoked between 0.5 up to 2 packs of cigarettes per day for about 40 years. He drinks 6-9 beers a day. He
--- NOTE | 2023-11-12 10:38 | PM.PNNEP ---
Progress Note: A&P Assessment and Plan (1) ELIA (acute kidney injury): Code(s): N17.9 - Acute kidney failure, unspecified Status: Acute Assessment and Plan: acute versus chronic versus acute on chronic??? reports no recent labs done since 2019 (back when he was living in [place], [place]) despite IVF hydration since admission, no real improvement noted acute infection (UTI) could be playing a role evaluation to date noted: renal u/s with bilateral hydronephrosis (suspect chronic) follow trend of repeat labs and UOP (2) Acute UTI: Code(s): N39.0 - Urinary tract infection, site not specified Status: Acute Assessment and Plan: admission UA highly suggestive urine culture with Klebs aerogenes (Enterobacter) and Group B Streptococcus on antibiotics (3) Hypertension: Code(s): I10 - Essential (primary) hypertension Status: Acute Assessment and Plan: elevated on admission (180 systolic) on no medications prior to admission started on metoprolol; suspect may need another oral agent PRN IV hydralazine added follow trend of hemodynamics (4) COPD (chronic obstructive pulmonary disease): Qualifiers: COPD type: COPD with acute exacerbation Qualified Code(s): J44.1 - Chronic obstructive pulmonary disease with (acute) exacerbation Code(s): J44.9 - Chronic obstructive pulmonary disease, unspecified Status: Chronic Assessment and Plan: on bronchodilators and steroids CXR negative on azithromycin supplemental oxygen PRN follow respiratory status (5) ETOH abuse: Code(s): F10.10 - Alcohol abuse, uncomplicated Status: Chronic Assessment and Plan: known history on thiamine, folate, and MVI on CIWA IVF hydration Will continue to follow. Subjective Date/time seen: 11/12/23 10:38 Interval history: Follow-up for presumed acute kidney injury/acute renal failure. Seen by Urology this morning given renal ultrasound results -- noted plans for CT of A/P for further evaluation; renal function/creatinine is essentially unchanged (no worse but not really significantly any better) in spite of interventions to date; no apparent distress noted; no issues/events overnight or earlier this morning. Exam Narrative: General: WD/WN male in NAD Heart: normal S1 and S2; no rub Lungs: clear to auscultation Abdomen: soft, nontender, nondistended, positive bowel sounds; + ostomy Extremities: no cyanosis or clubbing; no edema Skin: warm and dry Objective Data Vital Signs Vital Signs: Vital Signs Temp Pulse Resp BP Pulse Ox O2 Del Method 11/12/23 09:20 Room Air 11/12/23 09:20 178/90 H 11/12/23 09:20 81 11/12/23 08:49 72 11/12/23 07:49 86 20 11/12/23 07:34 82 20 11/12/23 07:34 96 Room Air 11/12/23 06:32 77 174/89 H 11/12/23 04:00 88 11/12/23 06:11 96 11/12/23 05:21 97.5 F L 101 H 20 182/87 H 98 11/12/23 02:29 90 16 11/12/23 02:23 84 16 11/12/23 00:00 61 11/11/23 20:00 68 11/11/23 20:38 98.0 F 83 16 165/79 H 98 11/11/23 19:57 88 16 11/11/23 19:51 85 16 11/11/23 16:00 160/79 H 11/11/23 16:00 78 11/11/23 13:37 91 18 11/11/23 13:30 86 18 11/11/23 13:13 97.4 F L 81 18 171/73 H 100 Intake/Output Intake/Output: Intake & Output 11/09/23 11/10/23 11/11/23 11/12/23 23:59 23:59 23:59 23:59 Intake Total 472 3306 6200 1760 Output Total 300 Balance 172 3306 6200 1760 Meds/Results Medications: Active Medications Generic Name Dose Route Start Last Admin Trade Name Jimmieq PRN Reason Stop Dose Admin Albuterol 2.5 mg 11/09/23 20:00 11/12/23 07:33 Albuterol Sulfate Neb 2.5 Mg/3 Ml Inh INHALATION 2.5 mg Q6HRT CLAUDIA Administration Folic Acid 1 mg 11/10/23 09:00 11/12/23 08:48 Folic Acid 1 Mg Tablet PO
--- NOTE | 2023-11-12 10:38 | P.PNNP_ITS ---
Progress Note: A&P Assessment and Plan (1) ELIA (acute kidney injury): Code(s): N17.9 - Acute kidney failure, unspecified Status: Acute Assessment and Plan: * acute versus chronic versus acute on chronic??? * reports no recent labs done since 2019 (back when he was living in [place], [place]) * despite IVF hydration since admission, no real improvement noted * acute infection (UTI) could be playing a role * evaluation to date noted: * renal u/s with bilateral hydronephrosis (suspect chronic) * * follow trend of repeat labs and UOP (2) Acute UTI: Code(s): N39.0 - Urinary tract infection, site not specified Status: Acute Assessment and Plan: * admission UA highly suggestive * urine culture with Klebs aerogenes (Enterobacter) and Group B Streptococcus * on antibiotics (3) Hypertension: Code(s): I10 - Essential (primary) hypertension Status: Acute Assessment and Plan: * elevated on admission (180 systolic) * on no medications prior to admission * started on metoprolol; suspect may need another oral agent * PRN IV hydralazine added * follow trend of hemodynamics (4) COPD (chronic obstructive pulmonary disease): Qualifiers: COPD type: COPD with acute exacerbation Qualified Code(s): J44.1 - Chronic obstructive pulmonary disease with (acute) exacerbation Code(s): J44.9 - Chronic obstructive pulmonary disease, unspecified Status: Chronic Assessment and Plan: * on bronchodilators and steroids * CXR negative * on azithromycin * supplemental oxygen PRN * follow respiratory status (5) ETOH abuse: Code(s): F10.10 - Alcohol abuse, uncomplicated Status: Chronic Assessment and Plan: * known history * on thiamine, folate, and MVI * on CIWA * IVF hydration Will continue to follow. Subjective Date/time seen: 11/12/23 10:38 Interval history: Follow-up for presumed acute kidney injury/acute renal failure. Seen by Urology this morning given renal ultrasound results -- noted plans for CT of A/P for further evaluation; renal function/creatinine is essentially unchanged (no worse but not really significantly any better) in spite of interventions to date; no apparent distress noted; no issues/events overnight or earlier this morning. Exam Narrative: General: WD/WN male in NAD Heart: normal S1 and S2; no rub Lungs: clear to auscultation Abdomen: soft, nontender, nondistended, positive bowel sounds; + ostomy Extremities: no cyanosis or clubbing; no edema Skin: warm and dry Objective Data Vital Signs Vital Signs: Vital Signs Temp Pulse Resp BP Pulse Ox O2 Del Method 11/12/23 09:20 Room Air 11/12/23 09:20 178/90 H 11/12/23 09:20 81 11/12/23 08:49 72 11/12/23 07:49 86 20 11/12/23 07:34 82 20 11/12/23 07:34 96 Room Air 11/12/23 06:32 77 174/89 H 11/12/23 04:00 88 11/12/23 06:11 96 11/12/23 05:21 97.5 F L 101 H 20 182/87 H 98 11/12/23 02:29 90 16 11/12/23 02:23 84 16 11/12/23 00:00 61 11/11/23 20:00 68 11/11/23 20:38 98.0 F 83 16 165/79 H 98 11/11/23 19:57 88 16 11/11/23 19:51 85 16 11/11/23 16:0
[2023-11-12] MEDS: levoFLOXacin 750 MG TABLET PO (12:22)
[2023-11-12] MEDS: hydrALAZINE HCL 50 MG TABLET PO ×2 (12:22→17:01)
--- NOTE | 2023-11-12 13:47 | P.PNIM_ITS ---
Progress Note: A&P Assessment and Plan (1) Bilateral hydronephrosis: Code(s): N13.30 - Unspecified hydronephrosis Status: Acute Assessment and Plan: * Urology consulted * CT ABD bilateral hydro nephrotic changes * creatinine unchanged * NPO after midnight possible procedure tomorrow 11/12/2023 * Bladder scan monitor for retention (2) COPD (chronic obstructive pulmonary disease): Qualifiers: COPD type: COPD with acute exacerbation Qualified Code(s): J44.1 - Chronic obstructive pulmonary disease with (acute) exacerbation Code(s): J44.9 - Chronic obstructive pulmonary disease, unspecified Status: Chronic Assessment and Plan: * Bronchodilators. * Chest x-ray: NO acute cardiopulmonary issues * incentive spirometry while awake. * steroids initiated * azithromycin 500 x 1 day/250 daily * supplemental oxygen therapy to maintain oxygen 92% on RA * Smoking cessation counseling done 11/12/23: * transition to p.o. prednisone (3) Acute UTI: Code(s): N39.0 - Urinary tract infection, site not specified Status: Acute Assessment and Plan: * UA suspicious of UTI * patient has difficulty with incontinence ever since colostomy * worse depends * Rocephin IV pending cultures * No blood cultures done prior to antibiotic administration 11/11/23: * Klebs aerogens/Group B Strep pending sensitivities 11/12/23: * Transitioned to PO Levaquin per sensitivities (4) ELIA (acute kidney injury): Code(s): N17.9 - Acute kidney failure, unspecified Status: Acute Assessment and Plan: * Acute vs Chronic vs A/C KD * Could be secondary to dehydration and ETOH abuse * Gentle IV hydration. * consult nephrology if there is no improvement to renal function * Avoid nephrotoxic drugs. * Monitor antihypertensive drug therapy. * Avoid NSAIDs. * Routine CMP monitoring GFR. * Monitor electrolytes especially potassium. * Antibiotic doses depending on creatinine clearance. * Pharmacy does medications. 11/11/23: * CR with no improvement with fluids * Nephrology consulted for further recs * Could be from UTI * Renal US pending (5) Hypertension: Code(s): I10 - Essential (primary) hypertension Status: Acute Assessment and Plan: * hypertensive systolics greater than 180s POA * hydralazine IV push p.r.n. was added * I added metoprolol 25 XL * BP per protocol * adjust BP medication as needed 11/11/23 * Still hypertensive * Increased her metoprolol to 50 11/12/23: * still hypertensive started on PO hydralazine BID yes (6) ETOH abuse: Code(s): F10.10 - Alcohol abuse, uncomplicated Status: Chronic Assessment and Plan: * HX ETOH abuse * IV fluids * Last drink 48hrs * Thiamine, folic acid, and multi-vitamin * PPI daily * librium if indicated * Ativan PRN for seizure activity * CIWA daily * Monitor and replenish electrolytes as needed * Seizure precautions if indicated ---------
--- NOTE | 2023-11-12 13:47 | PM.IMPN ---
Progress Note: A&P Assessment and Plan (1) Bilateral hydronephrosis: Code(s): N13.30 - Unspecified hydronephrosis Status: Acute Assessment and Plan: Urology consulted CT ABD bilateral hydro nephrotic changes creatinine unchanged NPO after midnight possible procedure tomorrow 11/12/2023 Bladder scan monitor for retention (2) COPD (chronic obstructive pulmonary disease): Qualifiers: COPD type: COPD with acute exacerbation Qualified Code(s): J44.1 - Chronic obstructive pulmonary disease with (acute) exacerbation Code(s): J44.9 - Chronic obstructive pulmonary disease, unspecified Status: Chronic Assessment and Plan: Bronchodilators. Chest x-ray: NO acute cardiopulmonary issues incentive spirometry while awake. steroids initiated azithromycin 500 x 1 day/250 daily supplemental oxygen therapy to maintain oxygen 92% on RA Smoking cessation counseling done 11/12/23: transition to p.o. prednisone (3) Acute UTI: Code(s): N39.0 - Urinary tract infection, site not specified Status: Acute Assessment and Plan: UA suspicious of UTI patient has difficulty with incontinence ever since colostomy worse depends Rocephin IV pending cultures No blood cultures done prior to antibiotic administration 11/11/23: Klebs aerogens/Group B Strep pending sensitivities 11/12/23: Transitioned to PO Levaquin per sensitivities (4) ELIA (acute kidney injury): Code(s): N17.9 - Acute kidney failure, unspecified Status: Acute Assessment and Plan: Acute vs Chronic vs A/C KD Could be secondary to dehydration and ETOH abuse Gentle IV hydration. consult nephrology if there is no improvement to renal function Avoid nephrotoxic drugs. Monitor antihypertensive drug therapy. Avoid NSAIDs. Routine CMP monitoring GFR. Monitor electrolytes especially potassium. Antibiotic doses depending on creatinine clearance. Pharmacy does medications. 11/11/23: CR with no improvement with fluids Nephrology consulted for further recs Could be from UTI Renal US pending (5) Hypertension: Code(s): I10 - Essential (primary) hypertension Status: Acute Assessment and Plan: hypertensive systolics greater than 180s POA hydralazine IV push p.r.n. was added I added metoprolol 25 XL BP per protocol adjust BP medication as needed 11/11/23 Still hypertensive Increased her metoprolol to 50 11/12/23: still hypertensive started on PO hydralazine BID yes (6) ETOH abuse: Code(s): F10.10 - Alcohol abuse, uncomplicated Status: Chronic Assessment and Plan: HX ETOH abuse IV fluids Last drink 48hrs Thiamine, folic acid, and multi-vitamin PPI daily librium if indicated Ativan PRN for seizure activity CIWA daily Monitor and replenish electrolytes as needed Seizure precautions if indicated Plan Code status: Full code per patient DVT prophylaxis: Lovenox Stress ulcer prophylaxis: Protonix 40 daily PT/OT notes: ambulatory Disposition: patient was admitted to medical unit for further evaluation and treatment UTI, acute Kidney injury, bilateral hydronephrosis, and COPD exacerbation. Patient is ambulatory on in plan will be to discharge back to home when medically stable Time Spent With Patient Time with patient: 15 - 25 minutes Subjective Date/time seen: 11/12/23 13:47 Interval history: Patient is a 63-year-old male was admitted to the unit further evaluation and treatment COPD exacerbation, urinary tract infection, ELIA, and metabolic acidosis. 11/12/2023: Patient denied SOB or CP minimal urinary symptoms but did state he has some mild lower back discomfort. Review of Systems Review of Systems: All systems reviewed & are unremarkable except as noted in HPI and below Exam Narrative:
[2023-11-13] VITALS (21 sets, daily range): BP systolic 137–192; BP diastolic 65–92; PULSE 62–95; RESP 14–20; TEMP 35.6–37.2; O2SAT 97–100
[2023-11-13] MEDS: ALBUTEROL SULFATE NEB 2.5 MG/3 ML INH INHALATION ×3 (01:55→20:48)
[2023-11-13] MEDS: hydrALAZINE HCL 20 MG/ML VIAL 10 MG IV PUSH (06:35)
[2023-11-13 06:56] LABS: Hematocrit 34.2 % (42.0-52.0); Hemoglobin 11.2 g/dL (14.0-18.0); Mean Corpuscular HGB Conc 32.7 g/dl (32-36); Mean Corpuscular Hemoglobin 31.5 pg (26-34); Mean Corpuscular Volume 96.3 fl (80-100); Mean Platelet Volume 9.8 fl (7.4-10.4); Platelet Count Result 162 k/mm3 (150-375); Red Blood Count 3.55 M/mm3 (4.6-6.20); Red Cell Distribution Width 13.6 % (11.5-14.5); White Blood Count 9.3 K/mm3 (4.5-10.0)
[2023-11-13 07:14] LABS: Alanine Aminotransferase 32 U/L (6-50); Albumin Level 3.9 g/dL (3.5-5.1); Alkaline Phosphatase 62 U/L (38-126); Anion Gap 11 mmol/L (4-12); Aspartate Amino Transferase 36 U/L (17-59); Bilirubin,Total 0.4 mg/dL (0.2-1.3); Blood Urea Nitrogen 66 mg/dL (9-20); Calcium 8.8 mg/dL (8.4-10.2); Carbon Dioxide 17 mmol/L (22-30); Chloride 111 mmol/L (98-107); Estimated CRCL calculation 21 ml/min; Estimated Glomerular Filt Rate 20; Glucose 152 mg/dL (65-110); Magnesium 1.6 mg/dL (1.6-2.3); Potassium 3.4 mmol/L (3.4-5.0); Sodium 139 mmol/L (137-145)
--- NOTE | 2023-11-13 07:40 | P.PNIM_ITS ---
Progress Note: A&P Assessment and Plan (1) Bilateral hydronephrosis: Code(s): N13.30 - Unspecified hydronephrosis Status: Acute Assessment and Plan: * Urology consulted * CT ABD bilateral hydro nephrotic changes * Creatinine slightly worsened * S/p cysto with stent and ace placement * Hoping to see creatinine decrease in the morning now that stent has been placed * Bladder scan monitor for retention (2) COPD (chronic obstructive pulmonary disease): Qualifiers: COPD type: COPD with acute exacerbation Qualified Code(s): J44.1 - Chronic obstructive pulmonary disease with (acute) exacerbation Code(s): J44.9 - Chronic obstructive pulmonary disease, unspecified Status: Chronic Assessment and Plan: * Bronchodilators. * Chest x-ray: NO acute cardiopulmonary issues * incentive spirometry while awake. * steroids initiated * azithromycin 500 x 1 day/250 daily * supplemental oxygen therapy to maintain oxygen 92% on RA * Smoking cessation counseling done 11/12/23: * transition to p.o. prednisone (3) Acute UTI: Code(s): N39.0 - Urinary tract infection, site not specified Status: Acute Assessment and Plan: * UA suspicious of UTI * patient has difficulty with incontinence ever since colostomy * worse depends * Rocephin IV pending cultures * No blood cultures done prior to antibiotic administration 11/11/23: * Klebs aerogens/Group B Strep pending sensitivities 11/12/23: * Transitioned to PO Levaquin per sensitivities for Klebs aerogens. Added amoxicillin for group B coverage. (4) ELIA (acute kidney injury): Code(s): N17.9 - Acute kidney failure, unspecified Status: Acute Assessment and Plan: * Acute vs Chronic vs A/C KD * Could be secondary to dehydration and ETOH abuse * Gentle IV hydration. * consult nephrology if there is no improvement to renal function * Avoid nephrotoxic drugs. * Monitor antihypertensive drug therapy. * Avoid NSAIDs. * Routine CMP monitoring GFR. * Monitor electrolytes especially potassium. * Antibiotic doses depending on creatinine clearance. * Pharmacy does medications. 11/11/23: * CR with no improvement with fluids * Nephrology consulted for further recs * Could be from UTI * Renal US bilateral mild bilateral hydronephrosis and urinary bladder. 11/16/23: * Cr 3.0-->2.80-->3.00-->3.00-->2.90-->3.20 * Going for cysto with stent and Ace placement * Repeat labs in the AM (5) Hypertension: Code(s): I10 - Essential (primary) hypertension Status: Acute Assessment and Plan: * hypertensive systolics greater than 180s POA * hydralazine IV push p.r.n. was added * I added metoprolol 25 XL * BP per protocol * adjust BP medication as needed 11/11/23 * Still hypertensive * Increased her metoprolol to 50 11/12/23: * still hypertensive started on PO hydralazine BID 11/13/23: * 137/80, HR 66 after sedation. 170-190/80-70 this morning. May end up adding amlodipine (6)
--- NOTE | 2023-11-13 07:40 | PM.IMPN ---
Progress Note: A&P Assessment and Plan (1) Bilateral hydronephrosis: Code(s): N13.30 - Unspecified hydronephrosis Status: Acute Assessment and Plan: Urology consulted CT ABD bilateral hydro nephrotic changes Creatinine slightly worsened S/p cysto with stent and ace placement Hoping to see creatinine decrease in the morning now that stent has been placed Bladder scan monitor for retention (2) COPD (chronic obstructive pulmonary disease): Qualifiers: COPD type: COPD with acute exacerbation Qualified Code(s): J44.1 - Chronic obstructive pulmonary disease with (acute) exacerbation Code(s): J44.9 - Chronic obstructive pulmonary disease, unspecified Status: Chronic Assessment and Plan: Bronchodilators. Chest x-ray: NO acute cardiopulmonary issues incentive spirometry while awake. steroids initiated azithromycin 500 x 1 day/250 daily supplemental oxygen therapy to maintain oxygen 92% on RA Smoking cessation counseling done 11/12/23: transition to p.o. prednisone (3) Acute UTI: Code(s): N39.0 - Urinary tract infection, site not specified Status: Acute Assessment and Plan: UA suspicious of UTI patient has difficulty with incontinence ever since colostomy worse depends Rocephin IV pending cultures No blood cultures done prior to antibiotic administration 11/11/23: Klebs aerogens/Group B Strep pending sensitivities 11/12/23: Transitioned to PO Levaquin per sensitivities for Klebs aerogens. Added amoxicillin for group B coverage. (4) ELIA (acute kidney injury): Code(s): N17.9 - Acute kidney failure, unspecified Status: Acute Assessment and Plan: Acute vs Chronic vs A/C KD Could be secondary to dehydration and ETOH abuse Gentle IV hydration. consult nephrology if there is no improvement to renal function Avoid nephrotoxic drugs. Monitor antihypertensive drug therapy. Avoid NSAIDs. Routine CMP monitoring GFR. Monitor electrolytes especially potassium. Antibiotic doses depending on creatinine clearance. Pharmacy does medications. 11/11/23: CR with no improvement with fluids Nephrology consulted for further recs Could be from UTI Renal US bilateral mild bilateral hydronephrosis and urinary bladder. 11/16/23: Cr 3.0-->2.80-->3.00-->3.00-->2.90-->3.20 Going for cysto with stent and Ace placement Repeat labs in the AM (5) Hypertension: Code(s): I10 - Essential (primary) hypertension Status: Acute Assessment and Plan: hypertensive systolics greater than 180s POA hydralazine IV push p.r.n. was added I added metoprolol 25 XL BP per protocol adjust BP medication as needed 11/11/23 Still hypertensive Increased her metoprolol to 50 11/12/23: still hypertensive started on PO hydralazine BID 11/13/23: 137/80, HR 66 after sedation. 170-190/80-70 this morning. May end up adding amlodipine (6) ETOH abuse: Code(s): F10.10 - Alcohol abuse, uncomplicated Status: Chronic Assessment and Plan: HX ETOH abuse IV fluids Last drink 48hrs Thiamine, folic acid, and multi-vitamin PPI daily Librium if indicated Ativan PRN for seizure activity CIWA daily Monitor and replenish electrolytes as needed Seizure precautions if indicated Plan Code status: Full code per patient DVT prophylaxis: Lovenox Stress ulcer prophylaxis: Protonix 40 daily PT/OT notes: ambulatory Disposition: patient was admitted to medical unit for further evaluation and treatment UTI, acute Kidney injury, bilateral hydronephrosis, and COPD exacerbation. Patient is ambulatory on in plan will be to discharge back to home when medically stable Subjective Date/time seen: 11/13/23 07:40 Interval history: No acute events overnight. He says his breathing is much improved. H
[2023-11-13] MEDS: guaiFENesin 12 HR 600 MG TABCR PO ×2 (09:00→21:04)
[2023-11-13] MEDS: hydrALAZINE HCL 50 MG TABLET PO ×2 (09:00→16:39)
[2023-11-13] MEDS: PANTOPRAZOLE 40 MG TABLET PO (09:00)
[2023-11-13] MEDS: METOPROLOL SUCCINATE EXT REL 50 MG TABCR PO (09:00)
--- NOTE | 2023-11-13 09:15 | WPDUROPN2 ---
Progress Note: A&P Assessment and Plan (1) Bilateral hydronephrosis: Code(s): N13.30 - Unspecified hydronephrosis Status: Acute Assessment and Plan: Mild bilateral hydronephrosis noted on renal ultrasound. Follow-up CT of abdomen/pelvis shows mild left and moderate right hydronephrosis with no definite stones. Will plan for cystoscopy, bilateral retrograde pyelogram, bilateral ureteral stent placement this afternoon with Dr. Harvey. Continue NPO diet. (2) ELIA (acute kidney injury): Code(s): N17.9 - Acute kidney failure, unspecified Status: Acute Assessment and Plan: Creatinine ranging from 2.8-3.2 this admission. No prior labs to determine baseline. Continue to monitor renal function closely following bilateral stent placement (3) Abnormal finding on urinalysis: Code(s): R82.90 - Unspecified abnormal findings in urine Status: Acute Assessment and Plan: UA abnormal on presentation, however patient without any acute urinary symptoms. Urine culture is positive, however felt to be indicative of asymptomatic bacteriuria and antibiotics were discontinued Subjective Subjective Date/Time Seen: 11/13/23 09:15 Interval history: Chuy is doing well today. Offers no concerns. Continues to have urinary incontinence and using depends. Denies flank pain, back pain, nausea, vomiting, fever, or chills. Review of Systems Review of Systems: All systems reviewed & are unremarkable except as noted in HPI and below Exam Narrative: General: Awake, alert, comfortable, no acute distress HEENT: Normocephalic, atraumatic, sclerae anicteric Respiratory: Normal respiratory effort, no accessory muscle use Abdomen: Nondistended, soft, nontender Skin: Normal coloration, warm and dry Neurologic: No focal neuro deficits noted Psychiatric: Appropriate mood and affect, judgment and insight intact Objective Data Vital Signs Vital Signs: Vital Signs - 24 hr 11/12/23 13:42 11/12/23 13:49 11/12/23 14:00 Temperature 98.0 F Pulse Rate 84 85 79 Respiratory Rate 20 20 16 Blood Pressure Pulse Oximetry 100 Oxygen Delivery 11/12/23 20:38 11/12/23 20:40 11/12/23 20:48 Temperature Pulse Rate 84 80 Respiratory Rate 20 20 Blood Pressure Pulse Oximetry 96 Oxygen Delivery Room Air 11/12/23 20:58 11/12/23 20:00 11/13/23 01:56 Temperature 97.8 F Pulse Rate 77 79 Respiratory Rate 18 20 Blood Pressure 176/86 H Pulse Oximetry 100 Oxygen Delivery Room Air 11/13/23 02:08 11/13/23 06:00 11/13/23 07:21 Temperature 98.8 F Pulse Rate 77 93 95 Respiratory Rate 20 20 20 Blood Pressure 192/92 H Pulse Oximetry 100 Oxygen Delivery 11/13/23 07:31 11/13/23 09:00 11/13/23 12:29 Temperature 97.6 F Pulse Rate 77 84 67 Respiratory Rate 20 Blood Pressure 171/84 H Pulse Oximetry 100 Oxygen Delivery Room Air Intake/Output Intake/Output: Intake & Output 11/10/23 11/11/23 11/12/23 11/13/23 23:59 23:59 23:59 23:59 Intake Total 3306 6200 3460 550 Balance 3306 6200 3460 550 Meds/Results Medications: Active Medications Generic Name Dose Route Start Last Admin Trade Name Freq PRN Reason Stop Dose Admin Albuterol 2.5 mg 11/09/23 20:00 11/13/23 07:20 Albuterol Sulfate Neb 2.5 Mg/3 Ml Inh INHALATION 2.5 mg Q6HRT CLAUDIA Administration Amlodipine Besylate 10 mg 11/13/23 12:05 Amlodipine Besylate 10 Mg Tablet PO DAILY CLAUDIA Folic Acid 1 mg 11/10/23 09:00 11/13/23 08:25 Folic Acid 1 Mg Tablet PO Not Given DAILY CLAUDIA Guaifenesin 600 mg 11/10/23 10:45 11/13/23 09:00 Guaifenesin 12 Hr 600 Mg Tabcr PO 600 mg Q12HR CLAUDIA Administration Hydralazine HCl 10 mg 11/09/23 20:04 11/13/23 06:35 Hydralazine Hcl 20 Mg/Ml Vial IV PUSH 10 mg Q4H PRN Administration SBP greater than 180 Hydralazine HCl 50 mg 11/12/23 11:10 11/13/23 09:00 Hydralazine Hcl 50 Mg
--- NOTE | 2023-11-13 12:05 | PC.NURSE ---
To OR per [ ], IV [ ]. Report given to [CAMPOS].
--- NOTE | 2023-11-13 12:29 | WPDHPUPDATE1 ---
History and Physical Update Update Date/Time: 11/13/23 12:29 History and Physical has been reviewed, including an updated exam of the patient. There are NO changes in the patient's condition. Risks, benefits, and alternatives have been discussed and questions answered. Patient agrees to proceed with procedure. Proceed with cystoscopy, bilateral retrogrades, bilateral ureteral stent placement.
[2023-11-13] MEDS: LACTATED RINGERS 1,000 ML 30 ML IV CONT ×2 (13:25→13:40)
--- NOTE | 2023-11-13 13:27 | WPDANESEPPF ---
Anes - Initial Pre Proc Eval Procedure: Operation Date: 11/13/23 13:30 Proposed Procedures p Cystoscopy, Bilateral Retrograde Pyelogram, Possible Bilateral Ureteral Stent Placement - Reza Harvey MD Date/Time: 11/13/23 13:27 Surgeon: Di Kovacs APRN Pre Op Diagnosis: COPD/ELIA Patient Data Age: 63 Gender: M Height: 1.7 m Weight: 73.7 kg Last Vital Signs Temp 97.6 F 11/13/23 12:29 Pulse 67 11/13/23 12:29 Resp 20 11/13/23 07:31 BP 171/84 H 11/13/23 12:29 Pulse Ox 100 11/13/23 12:29 O2 Del Method Room Air 11/13/23 12:29 FiO2 21 11/11/23 08:00 Allergies Allergy/AdvReac Type Severity Reaction Status Date / Time No Known Allergies Allergy Verified 11/09/23 17:24 Home Medications Medication Instructions Recorded Confirmed Type No Home Medications 11/09/23 11/09/23 History Laboratory Tests 11/13/23 06:42 WBC 9.3 K/mm3 (4.5-10.0) RBC 3.55 L M/mm3 (4.6-6.20) Hgb 11.2 L g/dL (14.0-18.0) Hct 34.2 L % (42.0-52.0) MCV 96.3 fl (80-100) MCH 31.5 pg (26-34) MCHC 32.7 g/dl (32-36) RDW 13.6 % (11.5-14.5) Plt Count 162 k/mm3 (150-375) MPV 9.8 fl (7.4-10.4) Sodium 139 mmol/L (137-145) Potassium 3.4 mmol/L (3.4-5.0) Chloride 111 H mmol/L (98-107) Carbon Dioxide 17 L mmol/L (22-30) Anion Gap 11 mmol/L (4-12) BUN 66 H mg/dL (9-20) Creatinine 3.20 H mg/dL (0.7-1.3) Estim Creat Clear Calc 21 ml/min Estimated GFR 20 L (59 - ) Glucose 152 H mg/dL (65-110) Calcium 8.8 mg/dL (8.4-10.2) Magnesium 1.6 mg/dL (1.6-2.3) Total Bilirubin 0.4 mg/dL (0.2-1.3) AST 36 U/L (17-59) ALT 32 U/L (6-50) Alkaline Phosphatase 62 U/L (38-126) Total Protein 7.0 g/dL (6.3-8.2) Albumin 3.9 g/dL (3.5-5.1) Patient hx anesthesia problems: none Family hx anesthesia problems: none Results Review: All pre-operative results and documents have been reviewed as part of the pre-operative evaluation. [facility] Past Medical History Medical History (Updated 11/12/23 @ 09:31 by Anastasiya Mcdonnell PA-C) Bilateral hearing loss Colorectal cancer (~2019) Treated with colectomy, radiation therapy and chemotherapy. Patient received care in [place] Essential hypertension Surgical History Surgical History (Updated 11/09/23 @ 23:09 by Gege Dickey DO) Status post cataract extraction and insertion of intraocular lens of left eye Status post colostomy (~2019) Family History Family History (Updated 11/09/23 @ 23:04 by Gege Dickey DO) Father , Age 62 Cancer ?stomach cancer? Mother Breast cancer, Onset Age: 44 Sibling Cancer ?stomach cancer? 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 Since that time he and his (depending catheter for over 20 years been for only few years) have been traveling around the [place] They are currently living with the patient's brother for the last year while he helps brother remodeled a house. He has smoked between 0.5 up to 2 packs of cigarettes per day for about 40 years. He drinks 6-9 beers a day. He sometimes go a couple of months without drinking at all. He denies history of illicit substance use. Code status: Full code (patient states that he would not want long-term ventilation or feeding tube. He states he would not want to be on a ventilator from more than a couple of weeks.) Surrogate decision maker: Kira jimenez these ) Smoking packs per day: 1.5 Smoking cigarettes per day: 30.0 Years smoked: 40 Smoking pack-years: 60.00 Smoking status: Current every day smoker Tobacco type:
[2023-11-13] MEDS: LIDOCAINE HCL 2% GEL UROJET 10 ML PKG MUCOUS MEM (14:10)
--- NOTE | 2023-11-13 14:22 | W.PM.PROC2 ---
Procedure Note - Detailed Date of Procedure 11/13/23 Pre-op Diagnosis COPD/ELIA, bilateral hydronephrosis Post-op Diagnosis Same Procedure Performed Cystoscopy, bilateral retrogrades, bilateral ureteral stent placement 4.8 Colombian contour, complex Costa catheter placement Surgeon Reza Harvey MD Anesthesia General Findings Tight UVJ bilaterally, irregular right ureter with tortuous proximal ureter Description of Procedure Patient was taken to the operative suite correctly identified. Once anesthesia was obtained was placed in dorsal lithotomy position and prepped and draped usual sterile fashion. Twenty-two Colombian scope was inserted the bladder. The bladder is nonobstructive. The bladder itself has 3 to 4+ trabeculation present. The ureteral orifice ease are on a trabeculated ridge in our an unusual location. There anterior to the ridge. I could not place a Sensor wire through either UO. At this point a ureteral catheter was placed at the opening and a pyelogram was performed on the left. This contrast made its way up into the kidney. I was able to get angled Glidewire through the orifice up to the kidney. I then advanced the ureteral catheter which appeared to somewhat dilate the orifice area. The orifice itself appears open but the narrowing is intramural. Once the catheter was advanced the Sensor wire was exchanged. 4.8 Colombian contour stent was then placed on the left with the proximal end coiled the renal pelvis and the distal in the bladder. A similar pyelogram was done on the right. Again he has somewhat of a irregular appearing ureter in the mid ureter. We were able to again advance a angled Glidewire up the ureter then became tortuous proximally. We were finally able to manipulate the angled Glidewire into the renal pelvis. This collecting system was slightly more dilated. I then exchanged the angled Glidewire for a Sensor wire. Another 4.8 Colombian contour stent was placed with the proximal end coiled in the renal pelvis and the distal in the bladder. 2% viscous lidocaine was then inserted into the urethra. Sixteen Colombian Costa was placed for maximal drainage. Will see how his interval courses. Will need to make a decision regarding stent exchange versus trial of removing the stents if his creatinine function normalizes. This completes dictation. Please send a copy of op note to my office Estimated Blood Loss 0 Urine Output 300 Drains Yes Packing No Pathology None sent Complications No immediate complications Condition Stable Disposition PACU
--- NOTE | 2023-11-13 15:33 | PC.NURSE ---
Returned from OR per [ ]. Report received from [AROLDO ].
[2023-11-13 21:01] LABS: Glucose Point of Care 235 mg/dl (65-105)
[2023-11-14] VITALS (9 sets, daily range): BP systolic 150–158; BP diastolic 69–87; PULSE 68–83; RESP 16–18; TEMP 36.4–37.2; O2SAT 98–99
[2023-11-14] MEDS: ALBUTEROL SULFATE NEB 2.5 MG/3 ML INH INHALATION ×3 (02:52→15:32)
[2023-11-14] MEDS: SODIUM CHLORIDE 0.9% IV 1,000 ML 125 ML IV CONT (06:32)
[2023-11-14 07:13] LABS: Hematocrit 35.3 % (42.0-52.0); Hemoglobin 11.4 g/dL (14.0-18.0); Mean Corpuscular HGB Conc 32.3 g/dl (32-36); Mean Corpuscular Hemoglobin 31.4 pg (26-34); Mean Corpuscular Volume 97.2 fl (80-100); Mean Platelet Volume 9.9 fl (7.4-10.4); Platelet Count Result 184 k/mm3 (150-375); Red Blood Count 3.63 M/mm3 (4.6-6.20); White Blood Count 8.3 K/mm3 (4.5-10.0)
[2023-11-14 07:27] LABS: Alanine Aminotransferase 56 U/L (6-50); Albumin Level 3.5 g/dL (3.5-5.1); Alkaline Phosphatase 61 U/L (38-126); Anion Gap 9 mmol/L (4-12); Aspartate Amino Transferase 69 U/L (17-59); Bilirubin,Total 0.5 mg/dL (0.2-1.3); Blood Urea Nitrogen 60 mg/dL (9-20); Calcium 8.5 mg/dL (8.4-10.2); Carbon Dioxide 18 mmol/L (22-30); Chloride 111 mmol/L (98-107); Estimated CRCL calculation 21 ml/min; Estimated Glomerular Filt Rate 20; Glucose 107 mg/dL (65-110); Magnesium 1.6 mg/dL (1.6-2.3); Potassium 4.1 mmol/L (3.4-5.0); Sodium 138 mmol/L (137-145)
[2023-11-14] MEDS: FOLIC ACID 1 MG TABLET PO (08:56)
[2023-11-14] MEDS: PANTOPRAZOLE 40 MG TABLET PO (08:56)
[2023-11-14] MEDS: MULTIVITAMINS THERAPEUTIC TAB (*BKC) 1 TABLET PO (08:56)
[2023-11-14] MEDS: amLODIPine BESYLATE 10 MG TABLET PO (08:56)
[2023-11-14] MEDS: guaiFENesin 12 HR 600 MG TABCR PO (08:56)
[2023-11-14] MEDS: THIAMINE HCL 100 MG TABLET PO (08:56)
[2023-11-14] MEDS: hydrALAZINE HCL 50 MG TABLET PO ×2 (08:56→16:35)
[2023-11-14] MEDS: METOPROLOL SUCCINATE EXT REL 50 MG TABCR PO (08:56)
[2023-11-14] MEDS: SODIUM BICARBONATE TAB 325 MG TABLET PO ×2 (09:17→16:35)
--- NOTE | 2023-11-14 09:35 | WPDUROPN2 ---
Progress Note: A&P Assessment and Plan (1) Bilateral hydronephrosis: Code(s): N13.30 - Unspecified hydronephrosis Status: Acute Assessment and Plan: Mild bilateral hydronephrosis noted on renal ultrasound. Follow-up CT of abdomen/pelvis shows mild left and moderate right hydronephrosis with no definite stones. Underwent cystoscopy, bilateral retrograde pyelogram, bilateral ureteral stent placement on 11/13/[address] Harvey. He tolerated this procedure well. Will determine need for stent exchange vs trial of stent removal based on renal function (2) ELIA (acute kidney injury): Code(s): N17.9 - Acute kidney failure, unspecified Status: Acute Assessment and Plan: Creatinine ranging from 2.8-3.2 this admission. No prior labs to determine baseline. Continue to monitor renal function closely following bilateral stent placement (3) Abnormal finding on urinalysis: Code(s): R82.90 - Unspecified abnormal findings in urine Status: Acute Assessment and Plan: UA abnormal on presentation, however patient without any acute urinary symptoms. Urine culture is positive, however felt to be indicative of asymptomatic bacteriuria and antibiotics were discontinued Subjective Subjective Date/Time Seen: 11/14/23 09:35 Interval history: Feeling well today. Offers no concerns. No flank pain back pain. No nausea, vomiting, fever, chills. No issues with Costa catheter which is draining clear yellow urine. He is very eager for discharge home. Review of Systems Review of Systems: All systems reviewed & are unremarkable except as noted in HPI and below Exam Narrative: General: Awake, alert, comfortable, no acute distress HEENT: Normocephalic, atraumatic, sclerae anicteric Respiratory: Normal respiratory effort, no accessory muscle use Abdomen: Nondistended, soft, nontender : Costa catheter draining clear yellow urine Skin: Normal coloration, warm and dry Neurologic: No focal neuro deficits noted Psychiatric: Appropriate mood and affect, judgment and insight intact Objective Data Vital Signs Vital Signs: Vital Signs - 24 hr 11/13/23 12:29 11/13/23 14:25 11/13/23 14:30 Temperature 97.6 F 98.3 F Pulse Rate 67 72 66 Respiratory Rate 14 14 Blood Pressure 171/84 H 144/72 H 137/80 Pulse Oximetry 100 99 100 Oxygen Delivery Room Air Simple Face Mask Simple Face Mask Oxygen Flow Rate 8 8 Fraction of Inspired Oxygen 11/13/23 14:45 11/13/23 15:00 11/13/23 15:15 Temperature Pulse Rate 67 64 63 Respiratory Rate 14 14 14 Blood Pressure 169/75 H 180/88 H 157/90 H Pulse Oximetry 100 100 98 Oxygen Delivery Room Air Room Air Room Air Oxygen Flow Rate Fraction of Inspired Oxygen 11/13/23 15:30 11/13/23 15:55 11/13/23 16:25 Temperature 96.3 F L 97.0 F L Pulse Rate 66 62 69 Respiratory Rate 18 20 20 Blood Pressure 172/86 H 182/72 H 142/65 H Pulse Oximetry 100 100 100 Oxygen Delivery Room Air Oxygen Flow Rate Fraction of Inspired Oxygen 11/13/23 19:36 11/13/23 20:48 11/13/23 20:59 Temperature 97.1 F L Pulse Rate 77 75 76 Respiratory Rate 20 20 20 Blood Pressure 156/71 H Pulse Oximetry 97 Oxygen Delivery Oxygen Flow Rate Fraction of Inspired Oxygen 11/13/23 22:00 11/13/23 20:00 11/14/23 02:54 Temperature 99.0 F Pulse Rate 70 70 72 Respiratory Rate 16 16 18 Blood Pressure 155/85 H Pulse Oximetry 99 99 Oxygen Delivery Room Air Oxygen Flow Rate Fraction of Inspired Oxygen 21 11/14/23 03:01 11/14/23 06:00 11/14/23 07:53 Temperature 99.0 F Pulse Rate 74 77 Respiratory Rate 18 16 Blood Pressure 158/87 H Pulse Oximetry 99 98 Oxygen Delivery Room Air Oxygen Flow Rate Fraction of Inspired Oxygen 11/14/23 07:53 11/14/23 08:07 11/14/23 08:56 Temperature Pulse Rate 71 68 68 Respiratory Rate 18 18 Blood Pressure Pulse Oximetry Oxygen Delivery Oxygen Marvin
[2023-11-14 10:30] LABS: Phosphorus 3.6 mg/dL (2.5-4.5)
--- NOTE | 2023-11-14 12:21 | P.PNNP_ITS ---
Progress Note: A&P Assessment and Plan (1) ELIA (acute kidney injury): Code(s): N17.9 - Acute kidney failure, unspecified Status: Acute Assessment and Plan: * acute versus chronic versus acute on chronic??? * reports no recent labs done since 2019 (back when he was living in [place], [place]) * despite IVF hydration since admission, no real improvement noted * acute infection (UTI) could be playing a role * evaluation to date noted: * renal u/s with bilateral hydronephrosis (suspect chronic) * urine eosimophils negative * urine electrolytes non-prerenal (suggestive of intrinsic renal disease) * moderate proteinuria * CPK normal * moderate proteinuria * reasonable urine output and no critical electrolytes * given the lack of improvement in renal function despite all interventions to date, I am starting to suspect that her renal function has been abnormal for a significant period of time before admission and her current creatinine may be his new baseline....however, I suppose it could improve with time... * follow trend of repeat labs and UOP (2) Acute UTI: Code(s): N39.0 - Urinary tract infection, site not specified Status: Acute Assessment and Plan: * admission UA highly suggestive * urine culture with Klebs aerogenes (Enterobacter) and Group B Streptococcus * on antibiotics (3) Hypertension: Code(s): I10 - Essential (primary) hypertension Status: Acute Assessment and Plan: * elevated on admission (180 systolic) * on no medications prior to admission * started on metoprolol; suspect may need another oral agent * PRN IV hydralazine added * follow trend of hemodynamics (4) COPD (chronic obstructive pulmonary disease): Qualifiers: COPD type: COPD with acute exacerbation Qualified Code(s): J44.1 - Chronic obstructive pulmonary disease with (acute) exacerbation Code(s): J44.9 - Chronic obstructive pulmonary disease, unspecified Status: Chronic Assessment and Plan: * on bronchodilators and steroids * CXR negative * on azithromycin * supplemental oxygen PRN * follow respiratory status (5) ETOH abuse: Code(s): F10.10 - Alcohol abuse, uncomplicated Status: Chronic Assessment and Plan: * known history * on thiamine, folate, and MVI * on CIWA * IVF hydration Will continue to follow. Subjective Date/time seen: 11/14/23 12:21 Interval history: Follow-up for presumed acute kidney injury/acute renal failure. Unable to see yesterday due to being out of room for procedure in OR -- s/p cystoscopy, bilateral retrograde pyelogram, and bilateral ureteral stent placement and tolerated the procedure reasonably well; unfortunately, no significant change noted in renal function/creatinine at this time; no apparent distress noted. Exam Narrative: General: WD/WN male in NAD Heart: normal S1 and S2; no rub Lungs: clear to auscultation Abdomen: soft, nontender, nondistended, positive bowel sounds; + ostomy Extremities: no cyanosis or clubbing; no edema Skin: warm and intact Objective Data Vital Signs Vital Signs: Vital Signs Temp Pulse Resp BP Pulse Ox O2 Del Method O2 Flow Rate 11/14/23 08:00 Room Air 11/14/23 08:56 68 11/14/23 08:07 68 18 11/14/23 07:53 71 18 11/14/23 07:53 98 Room
--- NOTE | 2023-11-14 12:21 | PM.PNNEP ---
Progress Note: A&P Assessment and Plan (1) ELIA (acute kidney injury): Code(s): N17.9 - Acute kidney failure, unspecified Status: Acute Assessment and Plan: acute versus chronic versus acute on chronic??? reports no recent labs done since 2019 (back when he was living in [place], [place]) despite IVF hydration since admission, no real improvement noted acute infection (UTI) could be playing a role evaluation to date noted: renal u/s with bilateral hydronephrosis (suspect chronic) urine eosimophils negative urine electrolytes non-prerenal (suggestive of intrinsic renal disease) moderate proteinuria CPK normal moderate proteinuria reasonable urine output and no critical electrolytes given the lack of improvement in renal function despite all interventions to date, I am starting to suspect that her renal function has been abnormal for a significant period of time before admission and her current creatinine may be his new baseline....however, I suppose it could improve with time... follow trend of repeat labs and UOP (2) Acute UTI: Code(s): N39.0 - Urinary tract infection, site not specified Status: Acute Assessment and Plan: admission UA highly suggestive urine culture with Klebs aerogenes (Enterobacter) and Group B Streptococcus on antibiotics (3) Hypertension: Code(s): I10 - Essential (primary) hypertension Status: Acute Assessment and Plan: elevated on admission (180 systolic) on no medications prior to admission started on metoprolol; suspect may need another oral agent PRN IV hydralazine added follow trend of hemodynamics (4) COPD (chronic obstructive pulmonary disease): Qualifiers: COPD type: COPD with acute exacerbation Qualified Code(s): J44.1 - Chronic obstructive pulmonary disease with (acute) exacerbation Code(s): J44.9 - Chronic obstructive pulmonary disease, unspecified Status: Chronic Assessment and Plan: on bronchodilators and steroids CXR negative on azithromycin supplemental oxygen PRN follow respiratory status (5) ETOH abuse: Code(s): F10.10 - Alcohol abuse, uncomplicated Status: Chronic Assessment and Plan: known history on thiamine, folate, and MVI on CIWA IVF hydration Will continue to follow. Subjective Date/time seen: 11/14/23 12:21 Interval history: Follow-up for presumed acute kidney injury/acute renal failure. Unable to see yesterday due to being out of room for procedure in OR -- s/p cystoscopy, bilateral retrograde pyelogram, and bilateral ureteral stent placement and tolerated the procedure reasonably well; unfortunately, no significant change noted in renal function/creatinine at this time; no apparent distress noted. Exam Narrative: General: WD/WN male in NAD Heart: normal S1 and S2; no rub Lungs: clear to auscultation Abdomen: soft, nontender, nondistended, positive bowel sounds; + ostomy Extremities: no cyanosis or clubbing; no edema Skin: warm and intact Objective Data Vital Signs Vital Signs: Vital Signs Temp Pulse Resp BP Pulse Ox O2 Del Method O2 Flow Rate 11/14/23 08:00 Room Air 11/14/23 08:56 68 11/14/23 08:07 68 18 11/14/23 07:53 71 18 11/14/23 07:53 98 Room Air 11/14/23 06:00 99.0 F 77 16 158/87 H 99 11/14/23 03:01 74 18 11/14/23 02:54 72 18 11/13/23 20:00 70 16 99 Room Air 11/13/23 22:00 99.0 F 70 16 155/85 H 99 11/13/23 20:59 76 20 11/13/23 20:48 75 20 11/13/23 19:36 97.1 F L 77 20 156/71 H 97 11/13/23 16:25 97.0 F L 69 20 142/65 H 100 11/13/23 15:55 96.3 F L 62 20 182/72 H 100 11/13/23 15:30 66 18 172/86 H 100 Room Air 11/13/23 15:15 63 14 157/90 H 98 Room Air 11/13/23 15:00 64 14 180/88 H 100 Room Air 11/13/23 14:45 67 14 169/75 H 100 Ro
[2023-11-14] MEDS: levoFLOXacin 750 MG TABLET PO (12:52)
--- NOTE | 2023-11-14 14:35 | WPDANESPN ---
Anes - Prog Note Post-Op Date/Time: 11/14/23 14:35 Vital Signs: Last Vital Signs Temp 36.4 C 11/14/23 14:00 Pulse 83 11/14/23 14:00 Resp 16 11/14/23 14:00 BP 150/69 H 11/14/23 14:00 Pulse Ox 99 11/14/23 14:00 O2 Del Method Room Air 11/14/23 08:00 O2 Flow Rate 8 11/13/23 14:30 FiO2 21 11/13/23 20:00 Pain Score (VAS): 0 I/O: Intake & Output 11/13/23 11/14/23 11/14/23 23:59 07:59 15:59 Intake Total 1860 55 700 Output Total 2250 450 Balance 1860 -2195 250 Laboratory Tests 11/14/23 06:52 11/14/23 06:52 11/13/23 11/14/23 20:48 06:52 WBC 8.3 RBC 3.63 L Hgb 11.4 L Hct 35.3 L MCV 97.2 MCH 31.4 MCHC 32.3 RDW 14.0 Plt Count 184 MPV 9.9 Sodium 138 Potassium 4.1 Chloride 111 H Carbon Dioxide 18 L Anion Gap 9 BUN 60 H Creatinine 3.20 H Estim Creat Clear Calc 21 Estimated GFR 20 L Glucose 107 POC Capillary Glucose 235 H Calcium 8.5 Phosphorus 3.6 Magnesium 1.6 Total Bilirubin 0.5 AST 69 H ALT 56 H Alkaline Phosphatase 61 Total Protein 7.0 Albumin 3.5 Patient Feedback: Patient satisfied with anesthetic care.
--- NOTE | 2023-11-14 16:12 | PM.DS ---
DS: Admitting Diagnosis Discharge Date 11/13 Admitting Diagnosis Shortness of breath DS: Discharge Diagnosis Discharge Diagnosis (1) Bilateral hydronephrosis: Code(s): N13.30 - Unspecified hydronephrosis Status: Acute Assessment and Plan: Mild bilateral hydronephrosis noted on renal ultrasound. Follow-up CT of abdomen/pelvis shows mild left and moderate right hydronephrosis with no definite stones. Underwent cystoscopy, bilateral retrograde pyelogram, bilateral ureteral stent placement on 11/13/[address] Harvey. He tolerated this procedure well. Will determine need for stent exchange vs trial of stent removal based on renal function (2) ELIA (acute kidney injury): Code(s): N17.9 - Acute kidney failure, unspecified Status: Acute Assessment and Plan: Creatinine ranging from 2.8-3.2 this admission. No prior labs to determine baseline. Continue to monitor renal function closely following bilateral stent placement (3) Abnormal finding on urinalysis: Code(s): R82.90 - Unspecified abnormal findings in urine Status: Acute Assessment and Plan: UA abnormal on presentation, however patient without any acute urinary symptoms. Urine culture is positive, however felt to be indicative of asymptomatic bacteriuria and antibiotics were discontinued DS: Summary Hospital Course Reason for hospitalization: COPD exacerbation, UTI, ELIA on CKD Hospital Course: 63-year-old male with past medical history colorectal cancer with colostomy, essential hypertension not on medications and chronic smoking who presented to the ER from home with cough and congestion for 1 week. Patient reports cough was productive and has not tried any medications at home to improve his symptoms. He reports that his brother similar symptoms recently but his brother symptoms have resolved. The patient denies a known diagnosis of COPD and does not use inhalers. He admits he has not followed up with her primary care physician since his colostomy in 2019. He still continues to smoke about 1.5 packs of cigarettes per day. He reports that he usually has smoker's cough and coughs each morning until he gets nauseated and retch is or vomits. Usually his sputum is thick and white. But over the last week his sputum has become more copious and is clear to yellow in color. He has also had significant rhinorrhea and postnasal drip which is unusual for him. He reports that his shortness of breath has improved since being nebulizers in the ER. Labs on admission showed a normal WBC of 9.2, hemoglobin 11.3, platelet of 147, sodium 131, K 5.1, Cl 104, CO2 19, BUN 36, Cr 3.00, glucose 111, and elevated D-dime of 2.32. Viral respiratory panel was negative. Chest x-ray showed no acute cardiopulmonary pathology. Based on his symptoms of worsening shortness of breath with increased production of yellow, thick sputum and his significant smoking history it was decided to treat this as a probable COPD exacerbation. He received IV steroids, nebulizers, and mucolytics. CTA was unable to be completed due to his ELIA. VQ scan showed a low probability for PE. Nephrology was consulted for his ELIA. The patient is new to the area within the last few years from [place]. He is not a good historian and it is unclear if he has CKD at baseline. He was started on IV fluids but his Cr did not improve despite this. Renal ultrasound was completed and showed mild bilateral hydronephrosis. He then had a CT abdomen and pelvis which showed bilateral hydronephrotic changes, thickened urinary bladder, minimal fluid in the pelvis, and constipation. Urology was consulted and the patient underwent cysto with bilateral ureteral stent placement and complex ace catheter placement. The following day his renal function remained unchanged. Urine culture on admission grew group b strep and klebs aerogenes (enterobacter). He was treated with Levaquin. Urology recommended follow up
[2023-11-14] MEDS: EPOETIN ALFA 20,000 UNITS/ML VIAL 20000 UNITS SUB-Q (16:39)
== END 2023-11-14 17:15 | disposition home or self-care (01) | DRG 660 ==
LOC: ANHED 15:49 → ANH3MEDSUR 16:35
PROVIDERS: Emergency Medicine; Internal Medicine; Internal Medicine Nephrology; Nurse Practitioner Family; Urology; Admitting Provider General Practice; Emergency Provider Emergency Medicine; Visit Provider Nurse Practitioner Acute Care
PROC: 0T788DZ Dilation of Bilateral Ureters with Intraluminal Device, Via Natural or Artificial Opening Endoscopic (ICD-10-PCS; CPT 52352; principal; 2023-11-13 13:30)
DX: N17.9 Acute kidney failure, unspecified (principal); E87.1 Hypo-osmolality and hyponatremia; J44.1 Chronic obstructive pulmonary disease with (acute) exacerbation; E87.21 Acute metabolic acidosis; N13.30 Unspecified hydronephrosis; R82.71 Bacteriuria; B96.1 Klebsiella pneumoniae [K. pneumoniae] as the cause of diseases classified elsewhere; B95.1 Streptococcus, group B, as the cause of diseases classified elsewhere; E86.0 Dehydration; E87.5 Hyperkalemia; I12.9 Hypertensive chronic kidney disease with stage 1 through stage 4 chronic kidney disease, or unspecified chronic kidney disease; N18.9 Chronic kidney disease, unspecified; D64.9 Anemia, unspecified; R32 Unspecified urinary incontinence; F10.10 Alcohol abuse, uncomplicated; F17.210 Nicotine dependence, cigarettes, uncomplicated; Z20.822 Contact with and (suspected) exposure to COVID-19; Z85.038 Personal history of other malignant neoplasm of large intestine; Z96.1 Presence of intraocular lens; Z98.42 Cataract extraction status, left eye
CPT/HCPCS: 36415; 71045; 74176; 74420; 76775; 78582; 80048; 80053; 80061; 81001; 82550; 82570; 82607; 82746; 82948; 83036; 83735; 84100; 84156; 84300; 84439; 84443; 84540; 85025; 85027; 85380; 85999; 87077; 87086; 87088; 87186; 87637; 94640; 96365; 96372; 96374; 96375; 99285; A9270; A9540; A9558; C1758; C1769; C2617; G0378; J0360; J0696; J1650; J2003; J2250; J2405; J2704; J2919; J3010; J7030; J7120; J7512; Q4081; Q9966

== ENCOUNTER 2023-11-30 18:07 | Inpatient (IN) | payer MEDICARE, SELFPAY ==
[2023-11-30] VITALS (22 sets, daily range): BP systolic 135–158; BP diastolic 65–99; PULSE 78–89; RESP 13–24; TEMP 36.4–36.6; O2SAT 86–100; BMI 28.2
--- NOTE | ~2023-11-30 | XR_ITS ---
XR chest 1V portable Ordering provider: Caron Mccracken MD History: 63 years Male with . sob . Comparison: November 09, 2023 FINDINGS: MEDIASTINUM: The cardiac silhouette is slightly enlarged. Congestive will. LUNGS: No effusions or pneumothorax. Bilateral interstitial thickening with prominent markings bilate rally. OTHER: No free air under the diaphragm. Degenerative spine. IMPRESSION: Cardiomegaly with cardiac decompensation and pulmonary edema. Superimposed pneumonitis is highly suggestive. Reviewed, dictated and finalized at location A.
--- NOTE | ~2023-11-30 | XR_ITS ---
EXAMINATION: XR chest 1V portable DATE: 12/03/2023 14:46 INDICATION: Congestive heart failure. TECHNIQUE: A single frontal view of the chest was obtained. COMPARISON: Chest single view 11/30/2023, CT abdomen and pelvis 11/12/2023 FINDINGS: There are airspace and interstitial opacities in all lung zones bilaterally. There are smal l pleural effusions. No pneumothorax. The heart size is normal. IMPRESSION: 1. Worsened diffuse lung disease, likely moderate pulmonary edema. 2. Small pleural effusions. Reviewed, dictated and finalized at location A.
--- NOTE | ~2023-11-30 | CT_ITS ---
CT facial bones wo con Ordering provider: Caron Mccracken MD History: . fall . Comparison: None. Technique: Thin slice axial CT of the facial bones was performed without contrast. Coronal and sagit elke reformatted images were also obtained. . Automated exposure control and iterative reconstruction technique were employed. The dose-length product was 566.62 mGy-cm. FINDINGS: PARANASAL SINUSES: Bilateral maxillary sinus BONES: No facial fracture including no nasal bone fracture. Dental caries in the lower mandible. ORBITS AND SUPERFICIAL SOFT TISSUES: The optic globes and orbits are normal. The superficial soft tis sues are normal. VISUALIZED MASTOIDS: Well aerated. LIMITED VISUALIZED BRAIN PARENCHYMA: Normal. Prominent uvula. IMPRESSION: No facial fracture. Reviewed, dictated and finalized at location A. IMPRESSION: No facial fracture.
--- NOTE | ~2023-11-30 | CT_ITS ---
CT brain wo con Ordering provider: Caron Mccracken MD History: 63 years Male with . fall . Comparison: None. Technique: CT of the head without contrast. Radiation reduction technique utilized. The dose-length product was 1362 mGy-cm. FINDINGS: BRAIN PARENCHYMA AND CSF SPACES: No midline shift, mass effect or hemorrhage. The brain parenchyma a nd CSF spaces are otherwise normal. VISUALIZED PARANASAL SINUSES: Present thickening of the left maxillary sinus MASTOIDS: Well aerated. BONES: The bones appear intact. SOFT TISSUES: Visualized nasopharynx is normal. Superficial soft tissues are normal. IMPRESSION: No acute intracranial findings. Reviewed, dictated and finalized at location A.
--- NOTE | 2023-11-30 19:10 | PC.NURSE ---
Assumed care of patient at this time.
--- NOTE | 2023-11-30 19:27 | ED.GENADULT ---
HPI - General Adult General Chief complaint: Shortness of Breath/Dyspnea Stated complaint: SOB, bilat swollen ext. Time Seen by Provider: 11/30/23 18:59 History of Present Illness HPI narrative: Patient is a 63-year-old male who presents to the emergency department this evening complaining of shortness of breath, wheezing and bilateral lower extremity edema the patient's is present with him at bedside and states that the patient complained to his primary care physician about his symptoms so he prescribed him some albuterol nebulizers. states that they only gave them the solution but the doctor did not prescribe him any actual nebulizer so they were unable to use the medication. Patient admits that he was recently admitted to our facility for kidney problems and had kidney stents placed. Patient is a current smoker but denies any known history of COPD. Patient does have a history of colorectal cancer and has a colostomy bag in place. Patient admits that within the last 2 days his stools have turned black. He is currently denying any chest pain, abdominal pain, denies any fevers or chills at home and is denying any dysuria or hematuria. Denies any additional symptoms or concerns at this time. Related Data Allergies Allergy/AdvReac Type Severity Reaction Status Date / Time No Known Allergies Allergy Verified 11/09/23 17:24 Review of Systems Review of Systems: All systems are reviewed and are negative unless stated otherwise in the HPI. [facility] Past Medical History Medical History Bilateral hearing loss Colorectal cancer (~2019) Treated with colectomy, radiation therapy and chemotherapy. Patient received care in [place] Essential hypertension Surgical History Surgical History Status post cataract extraction and insertion of intraocular lens of left eye Status post colostomy (~2019) Family History Family History Father , Age 62 Cancer ?stomach cancer? Mother Breast cancer, Onset Age: 44 Sibling Cancer ?stomach cancer? 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 Since that time he and his (depending catheter for over 20 years been for only few years) have been traveling around the [place] They are currently living with the patient's brother for the last year while he helps brother remodeled a house. He has smoked between 0.5 up to 2 packs of cigarettes per day for about 40 years. He drinks 6-9 beers a day. He sometimes go a couple of months without drinking at all. He denies history of illicit substance use. Code status: Full code (patient states that he would not want long-term ventilation or feeding tube. He states he would not want to be on a ventilator from more than a couple of weeks.) Surrogate decision maker: Kira jimenez these ) Smoking packs per day: 1.5 Smoking cigarettes per day: 30.0 Years smoked: 40 Smoking pack-years: 60.00 Smoking status: Current every day smoker Tobacco type: cigarettes Alcohol intake: current Drinks per week: 56 Substance use: never Do You Feel Safe in your Home?: Yes Lack of Transportation: No Lack of Food: Never True Current Housing: I Have Housing Concerned About Future Housing: No Difficulty Paying Gas/Electric Bills: No Difficulty Paying for Meds: No Currently Unemployed: No Education: Don't Know Difficulty w/ Childcare or Family Care: No 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
[2023-11-30 20:02] LABS: Eosinophils Percent Auto 0.1 % (0-4.4); Immature Granulocyte Absolute 0.04 K/mm3 (0.00-0.031); Immature Granulocyte Percent A 0.5 % (0-0.5); Lymphocytes Absolute Auto 0.59 K/mm3 (0.9-3.2); Lymphocytes Percent Auto 7.9 % (18.3-44.2); Mean Corpuscular HGB Conc 36.2 g/dl (32-36); Mean Corpuscular Hemoglobin 31.5 pg (26-34); Mean Corpuscular Volume 86.9 fl (80-100); Mean Platelet Volume 10.1 fl (7.4-10.4); Monocytes Absolute Auto 0.9 K/mm3 (0.1-0.6); Neutrophils Percent Auto 79.5 % (45.5-73.1); Platelet Count Result 146 k/mm3 (150-375); Red Blood Count 2.13 M/mm3 (4.6-6.20); Red Cell Distribution Width 11.9 % (11.5-14.5); White Blood Count 7.5 K/mm3 (4.5-10.0)
--- NOTE | 2023-11-30 20:07 | PC.NURSE ---
Patient was covered in own feces with his stoma open to air. Patient was cleaned up and changed. New ostomy supplies ordered from central supply and new bag placed over stoma. Patient tolerated well.
[2023-11-30 20:11] LABS: Hematocrit 18.5 % (42.0-52.0); Hemoglobin 6.7 g/dL (14.0-18.0)
[2023-11-30] MEDS: methylPREDNISolone SOD SUCC 125 MG VIAL IV PUSH (20:11)
[2023-11-30] MEDS: IPRATROPIUM 0.5 MG/ALBUTEROL SULFATE 2.5 MG AMPUL.NEB 3 ML INHALATION (20:17)
[2023-11-30 20:21] LABS: NT Pro B Type Natriuretic Pept 9310 pg/mL (19.9-100)
[2023-11-30 20:23] LABS: Alanine Aminotransferase 59 U/L (6-50); Albumin Level 3.4 g/dL (3.5-5.1); Alkaline Phosphatase 96 U/L (38-126); Anion Gap 10 mmol/L (4-12); Aspartate Amino Transferase 174 U/L (17-59); Bilirubin,Total 0.5 mg/dL (0.2-1.3); Blood Urea Nitrogen 43 mg/dL (9-20); Calcium 7.5 mg/dL (8.4-10.2); Carbon Dioxide 21 mmol/L (22-30); Chloride 76 mmol/L (98-107); Estimated CRCL calculation 24 ml/min; Estimated Glomerular Filt Rate 25; Glucose 112 mg/dL (65-110); Magnesium 1.8 mg/dL (1.6-2.3); Potassium 3.9 mmol/L (3.4-5.0); Sodium 107 mmol/L (137-145)
--- NOTE | 2023-11-30 20:29 | PC.NURSE ---
RT in room at this time given patient treatment.
[2023-11-30 20:39] LABS: Influenza A QL RT-PCR Negative (Negative); Influenza B QL RT-PCR Negative (Negative); SARS-CoV-2 RNA PCR Negative (Negative)
--- NOTE | 2023-11-30 20:51 | PM.IMHP ---
H&P: HPI History of Present Illness Date/Time: 11/30/23 20:51 Chief Complaint: blood in the stools Narrative: This is a 63-year-old male with past medical history significant for COPD/emphysema, alcohol dependence, colostomy in place. Patient presents to the emergency room due to melena present in his colostomy bag, most of the history has been obtained from who is at bedside however she is circumstantial brings several issues states that was wearing her oxygen at nighttime due to shortness of breath noted melena calming out of his colostomy bag, patient can not really give much detail in to the history. Preliminary workup was significant for hemoglobin of 6.7 hematocrit of 18 sodium is 107 chloride is 76 creatinine is 2.6 BUN is 44. later when patient arrived to the IMU he volunteered to drink of 12 pack of beer daily. XR chest 1V portable Ordering provider: Caron Mccracken MD History: 63 years Male with . sob . Comparison: November 09, 2023 FINDINGS: MEDIASTINUM: The cardiac silhouette is slightly enlarged. Congestive will. LUNGS: No effusions or pneumothorax. Bilateral interstitial thickening with prominent markings bilaterally. OTHER: No free air under the diaphragm. Degenerative spine. IMPRESSION: Cardiomegaly with cardiac decompensation and pulmonary edema. Superimposed pneumonitis is highly suggestive. CT brain wo con Ordering provider: Caron Mccracken MD History: 63 years Male with . fall . Comparison: None. Technique: CT of the head without contrast. Radiation reduction technique utilized. The dose-length product was 1362 mGy-cm. FINDINGS: BRAIN PARENCHYMA AND CSF SPACES: No midline shift, mass effect or hemorrhage. The brain parenchyma and CSF spaces are otherwise normal. VISUALIZED PARANASAL SINUSES: Present thickening of the left maxillary sinus MASTOIDS: Well aerated. BONES: The bones appear intact. SOFT TISSUES: Visualized nasopharynx is normal. Superficial soft tissues are normal. IMPRESSION: No acute intracranial findings. CT facial bones wo con Ordering provider: Caron Mccracken MD History: . fall . Comparison: None. Technique: Thin slice axial CT of the facial bones was performed without contrast. Coronal and sagittal reformatted images were also obtained. . Automated exposure control and iterative reconstruction technique were employed. The dose-length product was 566.62 mGy-cm. FINDINGS: PARANASAL SINUSES: Bilateral maxillary sinus BONES: No facial fracture including no nasal bone fracture. Dental caries in the lower mandible. ORBITS AND SUPERFICIAL SOFT TISSUES: The optic globes and orbits are normal. The superficial soft tissues are normal. VISUALIZED MASTOIDS: Well aerated. LIMITED VISUALIZED BRAIN PARENCHYMA: Normal. Prominent uvula. IMPRESSION: No facial fracture. Review of Systems Review of Systems: melena collected in colostomy bag. [facility] Past Medical History Medical History Bilateral hearing loss Colorectal cancer (~2019) Treated with colectomy, radiation therapy and chemotherapy. Patient received care in [place] Essential hypertension Surgical History Surgical History Status post cataract extraction and insertion of intraocular lens of left eye Status post colostomy (~2019) Family History Family History Father , Age 62 Cancer ?stomach cancer? Mother Breast cancer, Onset Age: 44 Sibling Cancer ?stomach cancer? 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
[2023-11-30] MEDS: FUROSEMIDE INJ 40 MG/4 ML VIAL IV PUSH (20:55)
--- NOTE | 2023-11-30 20:59 | PC.NURSE ---
Patient placed on 2L via NC for RA sat of 86% while sleeping. Patient now saturating at 95% on 2L via NC.
[2023-11-30] MEDS: SODIUM CHLORIDE 0.9% IV 250 ML 30 ML IV CONT (22:33)
[2023-11-30] MEDS: TUBING, BLOOD PLUM PUMP TUBING 1 EACH XX (22:33)
--- NOTE | 2023-11-30 23:33 | ADMGEN ---
This patient, Chuy Amezquita, was admitted to IMU Room 204-01. Patient/family oriented to hospital policies and general routines including ID bracelet, bed and alarms, visiting hours, pain management, procedures, bathroom and other care routines, personal items, smoking policy, room service/diet, and visiting hours. Information on how to activate the Rapid Response Team has been discussed. Patient/Family are encouraged to report perceived risks to care and to ask questions if they do not understand what they are told or what they should do.
[2023-12-01] VITALS (22 sets, daily range): BP systolic 139–167; BP diastolic 65–79; PULSE 89–107; RESP 18–22; TEMP 36.3–36.8; O2SAT 95–99
[2023-12-01 00:09] LABS: Total Protein Urine Random 57 mg/dL; Urea Random Urine 280 MG/DL
[2023-12-01 00:11] LABS: Sodium Urine Random 25 meq/L
[2023-12-01 00:18] LABS: Amphetamine Screen Urine Negative (Negative); Barbiturate Screen Urine Negative (Negative); Benzodiazepines Screen Urine Negative (Negative); Cannabinoid Screen Urine Negative (Negative); Cocaine Screen Urine Negative (Negative); Methadone Screen Urine Negative (Negative); Opiate Screen Urine Negative (Negative); Phencyclidine Screen Urine Negative (Negative)
[2023-12-01 00:27] LABS: IFOB Positive Control Positive; Immunochemical Fecal Occult Bl Positive (N)
[2023-12-01 01:30] LABS: Ethanol 76 mg/dL (<10)
[2023-12-01 01:34] LABS: Anion Gap 13 mmol/L (4-12); Blood Urea Nitrogen 44 mg/dL (9-20); Calcium 7.5 mg/dL (8.4-10.2); Carbon Dioxide 20 mmol/L (22-30); Chloride 76 mmol/L (98-107); Estimated CRCL calculation 25 ml/min; Estimated Glomerular Filt Rate 25; Glucose 155 mg/dL (65-110); Potassium 3.9 mmol/L (3.4-5.0); Sodium 109 mmol/L (137-145)
[2023-12-01 02:18] LABS: Hematocrit 21.6 % (42.0-52.0); Hemoglobin 7.8 g/dL (14.0-18.0)
[2023-12-01 03:05] LABS: Thyroid Stimulating Hormone Reflex 0.425 uIU/mL (0.465-4.68)
[2023-12-01 04:36] LABS: Free T4 Free Thyroxine Reflex 1.32 ng/dL (0.78-2.19)
[2023-12-01 05:02] LABS: Hematocrit 22.9 % (42.0-52.0); Hemoglobin 7.9 g/dL (14.0-18.0); Immature Granulocyte Absolute 0.03 K/mm3 (0.00-0.031); Immature Granulocyte Percent A 0.5 % (0-0.5); Lymphocytes Absolute Auto 0.13 K/mm3 (0.9-3.2); Lymphocytes Percent Auto 2.3 % (18.3-44.2); Mean Corpuscular HGB Conc 34.5 g/dl (32-36); Mean Corpuscular Hemoglobin 31.6 pg (26-34); Mean Corpuscular Volume 91.6 fl (80-100); Mean Platelet Volume 10.1 fl (7.4-10.4); Monocytes Absolute Auto 0.1 K/mm3 (0.1-0.6); Monocytes Percent Auto 1.6 % (2.6-8.5); Neutrophils Absolute Auto 5.3 K/mm3 (1.3-6.7); Neutrophils Percent Auto 95.6 % (45.5-73.1); Platelet Count Result 127 k/mm3 (150-375); Red Cell Distribution Width 11.9 % (11.5-14.5); White Blood Count 5.6 K/mm3 (4.5-10.0)
[2023-12-01 05:13] LABS: Prothrombin Time 13.2 Seconds (11.1-14.7)
[2023-12-01 05:15] LABS: Total Triiodothyronine (T3) 0.64 NG/ML (0.97-1.69)
[2023-12-01 05:19] LABS: Alanine Aminotransferase 62 U/L (6-50); Albumin Level 3.6 g/dL (3.5-5.1); Alkaline Phosphatase 99 U/L (38-126); Anion Gap 14 mmol/L (4-12); Aspartate Amino Transferase 143 U/L (17-59); Bilirubin,Total 0.9 mg/dL (0.2-1.3); Blood Urea Nitrogen 48 mg/dL (9-20); Calcium 7.9 mg/dL (8.4-10.2); Carbon Dioxide 18 mmol/L (22-30); Chloride 77 mmol/L (98-107); Estimated CRCL calculation 25 ml/min; Estimated Glomerular Filt Rate 25; Glucose 157 mg/dL (65-110); Potassium 3.9 mmol/L (3.4-5.0); Sodium 109 mmol/L (137-145)
--- NOTE | 2023-12-01 08:47 | PM.IMPN ---
Progress Note: A&P Assessment and Plan (1) Acute hyponatremia: Code(s): E87.1 - Hypo-osmolality and hyponatremia Status: Acute (2) Acute blood loss anemia: Code(s): D62 - Acute posthemorrhagic anemia Status: Acute (3) Bilateral hydronephrosis: Code(s): N13.30 - Unspecified hydronephrosis Status: Acute (4) COPD (chronic obstructive pulmonary disease): Qualifiers: COPD type: COPD with acute exacerbation Qualified Code(s): J44.1 - Chronic obstructive pulmonary disease with (acute) exacerbation Code(s): J44.9 - Chronic obstructive pulmonary disease, unspecified Status: Chronic (5) Alcohol dependence: Code(s): F10.20 - Alcohol dependence, uncomplicated Status: Acute Plan this is a 63 her male who presents to the ED with shortness of breath wheezing bilateral lower extremity edema. He was prescribed albuterol nebulized by her PCP however did not need she unable to use medication. You recently admitted for kidney problems kidney stent placed. Current smoker no prior history diagnosed COPD. History of colorectal cancer and has colostomy bag in place. Reports black stool past 2 days. No chest pain abdominal pain fever chills or urinary symptoms. In the ED evaluation his vitals were stable. He was given DuoNeb treatment and received 125 mg of Solu-Medrol. Influenza COVID swab was negative. BNP was 9310. Laboratory evaluation revealed hemoglobin 6.7 prior level earlier this month was 11. 1 unit of PRBC was initiated. Came panel shows sodium level of 107 BNP 9310 creatinine of 2.6 BUN 43 chloride 76 AST 174 ALT 59. GI has been consulted. Nephrology consulted. IV Lasix was given. Chest x-ray showed cardiomegaly with cardiac decompensation and pulmonary edema superimposed pneumonitis highly suggestive. CT brain and facial bones with no acute process. Acute on chronic anemia down to 6.7 with evidence of dark stool suggestive of GI bleed. FOBT positive. transfuse p.r.n. to get hemoglobin more than 7 GI has been consulted . Trend H&H GI bleed with melanotic stool trend H&H PPI drip. Does have history of alcohol use chronically. Mild hepatomegaly on CT. Will empirically place on octreotide drip as well. acute on chronic Hyponatremia acute severe 107 on admission. likely Hypervolemia related with bilateral lower extremity edema. Also has chronic alcohol abuse. Received IV Lasix. Continue to monitor sodium level. Nephrology on board . last sodium level normal at discharge at 138. Further diuresis per Nephrology Mildly elevated liver enzymes likely due to alcohol use ELIA creatinine 2.6 Creatinine ranged from 2.8-3.2 this admission. No prior baseline level present Recent bilateral hydronephrosis mild left moderate right with no definitive stones. Bilateral ureteral stent placement on 11/13/2023. recent urine culture grew group B Streptococcus and Klebsiella aerogenes treated with Levaquin. history of Colorectal cancer treated with colectomy radiation therapy chemotherapy Status post colostomy placement Hypertension Nicotine dependence Alcohol dependence Continue to drink 12 pack beer every day DVT prophylaxis SCDs Code status full code Subjective Date/time seen: 12/01/23 08:47 Interval history: No overnight events. No new complaints. Wants to eat. Denies any abdominal pain. No nausea vomiting. Review of Systems Review of Systems: All systems reviewed & are unremarkable except as noted in HPI and below Exam Narrative: General: Alert, awake, afebrile, in no acute distress. HEENT: PERRL, no rhinorrhea, no post nasal drip, oropharynx clear, left periorbital swelling without any tenderness to palpation, intact left extraocular movements without any evidence of entrapment. Cardiovascular: Bilateral crackles, no murmurs, rubs or gallops, bilateral lower extremity 3+ edema. Respiratory: Faint bilateral wheezing, no tachypnea, no rhonchi, no ru
[2023-12-01 09:20] LABS: Sodium 111 mmol/L (137-145)
[2023-12-01] MEDS: PANTOPRAZOLE SODIUM IV 80 MG in SODIUM CHLORIDE 0.9% IV 500 ML 50 MG IV CONT ×2 (10:30→23:48)
--- NOTE | 2023-12-01 10:36 | PM.CNNEP ---
Assessment and Plan Assessment and plan (1) Hyponatremia: Code(s): E87.1 - Hypo-osmolality and hyponatremia Status: Acute Assessment and Plan: quite severe on presentation -- sodium 107mmol/L on hospital discharge in early November 2023, sodium was 138mmol/L risk factors for low sodium: volume overload alcohol intake/abuse COPD ongoing smoking goal of therapy is a change in 6 - 8mmol/L over 24 hours hence, sodium should be no higher than 115mmol/L by 8:00pm today (2) Volume overload: Code(s): E87.70 - Fluid overload, unspecified Status: Acute (3) Chronic kidney disease, stage IV (severe): Code(s): N18.4 - Chronic kidney disease, stage 4 (severe) Status: Chronic Assessment and Plan: baseline creatinine was never clear or known no recent labs done since 2019 (back when he was living in [place], [place]) however, given the lack of improvement in renal function despite all interventions on last hospitalization (october/early November 2023), the suspicion was that his renal function had been abnormal for a significant period of time before admission and he probably has a new baseline creatinine since last hospitalization, creatinine has improved to ~ 2.6mg/dl evaluation from recent hospitalization noted: renal u/s with bilateral hydronephrosis (suspect chronic) urine eosinophils negative urine electrolytes non-prerenal (suggestive of intrinsic renal disease) moderate proteinuria CPK normal presumably underlying CKD due to hypertension, vascular disease (smokinghistory) and chronic obstructive uropathy along with age-related change (4) GI bleed: Code(s): K92.2 - Gastrointestinal hemorrhage, unspecified Status: Acute Assessment and Plan: hemoccult positive stool in ER noted history of melena noted drop in H/H s/p PRBC transfusion GI consulted on PPI follow trend of H/H (5) Hypertension: Code(s): I10 - Essential (primary) hypertension Status: Chronic Assessment and Plan: reasonable control continue home BP medications follow trend of hemodynamics (6) Anemia: Code(s): D64.9 - Anemia, unspecified Status: Acute Assessment and Plan: complicated by #3 partly related to underlying CKD as well consider empiric KASHIF/Retacrit while hospitalized follow H/H (7) COPD (chronic obstructive pulmonary disease): Qualifiers: COPD type: COPD with acute exacerbation Qualified Code(s): J44.1 - Chronic obstructive pulmonary disease with (acute) exacerbation Code(s): J44.9 - Chronic obstructive pulmonary disease, unspecified Status: Chronic Assessment and Plan: s/p nebulizer treatent and steroids in the ER viral testing for influenza/RSV/COVID negative continue breathing treatments (8) ETOH abuse: Code(s): F10.10 - Alcohol abuse, uncomplicated Status: Chronic Assessment and Plan: known history on thiamine, folate, and MVI on CIWA IVF hydration I will continue to follow the patient with you while he remains hospitalized and make further recommendations as deemed necessary. Thank you for allowing me to participate in the care of this patient. History of Present Illness Reason for Consult Consult date: 12/01/23 Reason for consult: chronic renal failure and hyponatremia Chief Complaint Chief complaint: GI bleed, hyponatremia, fluid overload, pulmonary Review of Systems Review of Systems: As per HPI. [facility] Past Medical History Medical History (Updated 12/01/23 @ 12:43 by Albert Flores MD) Bilateral hearing loss Colorectal cancer (~2019) Treated with colectomy, radiation therapy and chemotherapy. Patient received care in [place] Essential hypertension Melena Surgical History Surgical History Status post cataract extraction
--- NOTE | 2023-12-01 10:36 | P.CONNP_ITS ---
Assessment and Plan Assessment and plan (1) Hyponatremia: Code(s): E87.1 - Hypo-osmolality and hyponatremia Status: Acute Assessment and Plan: * quite severe on presentation -- sodium 107mmol/L * on hospital discharge in early November 2023, sodium was 138mmol/L * risk factors for low sodium: * volume overload * alcohol intake/abuse * COPD * ongoing smoking * * goal of therapy is a change in 6 - 8mmol/L over 24 hours * hence, sodium should be no higher than 115mmol/L by 8:00pm today (2) Volume overload: Code(s): E87.70 - Fluid overload, unspecified Status: Acute (3) Chronic kidney disease, stage IV (severe): Code(s): N18.4 - Chronic kidney disease, stage 4 (severe) Status: Chronic Assessment and Plan: * baseline creatinine was never clear or known * no recent labs done since 2019 (back when he was living in [place], [place]) * however, given the lack of improvement in renal function despite all interventions on last hospitalization (late October/early November 2023), the suspicion was that his renal function had been abnormal for a significant period of time before admission and he probably has a new baseline creatinine * since last hospitalization, creatinine has improved to ~ 2.6mg/dl * evaluation from recent hospitalization noted: * renal u/s with bilateral hydronephrosis (suspect chronic) * urine eosinophils negative * urine electrolytes non-prerenal (suggestive of intrinsic renal disease) * moderate proteinuria * CPK normal * presumably underlying CKD due to hypertension, vascular disease (smokinghistory) and chronic obstructive uropathy along with age-related change (4) GI bleed: Code(s): K92.2 - Gastrointestinal hemorrhage, unspecified Status: Acute Assessment and Plan: * hemoccult positive stool in ER * noted history of melena * noted drop in H/H * s/p PRBC transfusion * GI consulted * on PPI * follow trend of H/H (5) Hypertension: Code(s): I10 - Essential (primary) hypertension Status: Chronic Assessment and Plan: * reasonable control * continue home BP medications * follow trend of hemodynamics (6) Anemia: Code(s): D64.9 - Anemia, unspecified Status: Acute Assessment and Plan: * complicated by #3 * partly related to underlying CKD as well * consider empiric KASHIF/Retacrit while hospitalized * follow H/H (7) COPD (chronic obstructive pulmonary disease): Qualifiers: COPD type: COPD with acute exacerbation Qualified Code(s): J44.1 - Chronic obstructive pulmonary disease with (acute) exacerbation Code(s): J44.9 - Chronic obstructive pulmonary disease, unspecified Status: Chronic Assessment and Plan: * s/p nebulizer treatent and steroids in the ER * viral testing for influenza/RSV/COVID negative * continue breathing treatments (8) ETOH abuse: Code(s): F10.10 - Alcohol abuse, uncomplicated Status: Chronic Assessment and Plan: * known history * on thiamine, folate, and MVI * on CIWA * IVF hydration I will continue to follow the patient with you while he remains hospitalized and make further recommendations as deemed necessary. Thank you for allowing me to participate in the care of this patient. History of Present Illness Reason for Consult Consult date: 12/01/23 Reason for consult: chronic renal failure and hyponatremia Chief Complaint Chief complaint: GI bleed, hyponatrem
--- NOTE | 2023-12-01 12:37 | WPDGICN ---
Assessment and Plan Assessment and plan (1) Acute blood loss anemia: Code(s): D62 - Acute posthemorrhagic anemia Status: Acute Assessment and Plan: s/p blood transfusion iv protonix possible ulcer- he is alcoholic, recent hospitalization, use nsaid's, etc egd in the morning (2) GI bleed: Code(s): K92.2 - Gastrointestinal hemorrhage, unspecified Status: Acute Assessment and Plan: monitor for more signs of bleeding egd am (3) Alcohol dependence: Code(s): F10.20 - Alcohol dependence, uncomplicated Status: Acute Assessment and Plan: thiamine, nutrition support (4) Chronic kidney disease, stage IV (severe): Code(s): N18.4 - Chronic kidney disease, stage 4 (severe) Status: Chronic (5) Melena: Code(s): K92.1 - Melena Status: Acute (6) COPD (chronic obstructive pulmonary disease): Qualifiers: COPD type: COPD with acute exacerbation Qualified Code(s): J44.1 - Chronic obstructive pulmonary disease with (acute) exacerbation Code(s): J44.9 - Chronic obstructive pulmonary disease, unspecified Status: Chronic (7) Hyponatremia: Code(s): E87.1 - Hypo-osmolality and hyponatremia Status: Acute Assessment and Plan: by nephrology correcting slowly GI Consult Note Consult date/time: 12/01/23 12:37 Reason for consult: melena HPI: Chuy Amezquita is a 63 year old male with h/o COPD, alcoholis (12 pack daily for 1 year), colorectal cancer with colostomy bag about 5 years ago with recent hospitalization about 2 weeks ago with bilateral hydronephrosis noted on renal ultrasound then CT of abdomen/pelvis shows mild left and moderate right hydronephrosis with no definite stones, underwent cystoscopy, bilateral retrograde pyelogram, bilateral ureteral stent placement on 11/13/[address] Harvey and sent home. Also has CKD with creatinine 2.8-3. He is back with shortness of breath, wheezing and bilateral lower extremity edema, about 2 days ago noted dark stool in colostomy bag. Noted worsening anemia hgb 6.7 from 10, also severe hyponatremia Na 109, creat 2.6. Admitted to floor, started iv protonix. Evaluated by nephrology. He has been using nsaid's 2-3 times day for last few days. Also noted scabs in face from recent fall and facial trauma. Review of Systems Constitutional: Constitutional: Reports fatigue and Reports weakness Eyes: Eyes: Denies blurry vision ENT: Reports Normal hearing present Cardiovascular: Cardiovascular: Denies chest pain Respiratory: Respiratory: Reports dyspnea on exertion Gastrointestinal: Gastrointestinal: Denies abdominal pain and Reports melena Genitourinary: Comments: recent urological intervention Musculoskeletal: Musculoskeletal: Denies neck pain Integumentary/Breasts: Skin/Breast: Denies rash Neurologic: Denies Abnormal speech present Psychiatric: Psychiatric: Denies behavioral changes [facility] Past Medical History Medical History (Updated 12/01/23 @ 12:43 by Albert Flores MD) Bilateral hearing loss Colorectal cancer (~2019) Treated with colectomy, radiation therapy and chemotherapy. Patient received care in [place] Essential hypertension Melena Surgical History Surgical History Status post cataract extraction and insertion of intraocular lens of left eye Status post colostomy (~2019) Family History Family History Father , Age 62 Cancer ?stomach cancer? Mother Breast cancer, [place] Age: 44 Sibling Cancer ?stomach cancer? 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
[2023-12-01] MEDS: OCTREOTIDE ACETATE 500 MCG in SODIUM CHLORIDE 0.9% IV 99 ML 10 MCG IV CONT ×2 (13:02→23:49)
[2023-12-01 13:48] LABS: Sodium 113 mmol/L (137-145)
[2023-12-01 17:29] LABS: Sodium 112 mmol/L (137-145)
[2023-12-01 21:33] LABS: Sodium 113 mmol/L (137-145)
[2023-12-02] VITALS (24 sets, daily range): BP systolic 142–172; BP diastolic 60–91; PULSE 85–111; RESP 16–24; TEMP 36.1–36.8; O2SAT 93–99
[2023-12-02 01:24] LABS: Hematocrit 21.5 % (42.0-52.0); Hemoglobin 7.5 g/dL (14.0-18.0); Immature Granulocyte Absolute 0.02 K/mm3 (0.00-0.031); Immature Granulocyte Percent A 0.3 % (0-0.5); Immature Platelet Fraction Pct 4.1 % (0.9-11.2); Lymphocytes Absolute Auto 0.24 K/mm3 (0.9-3.2); Lymphocytes Percent Auto 3.2 % (18.3-44.2); Mean Corpuscular HGB Conc 34.9 g/dl (32-36); Mean Corpuscular Hemoglobin 31.4 pg (26-34); Mean Platelet Volume 10.4 fl (7.4-10.4); Monocytes Absolute Auto 0.7 K/mm3 (0.1-0.6); Monocytes Percent Auto 9.7 % (2.6-8.5); Neutrophils Absolute Auto 6.5 K/mm3 (1.3-6.7); Neutrophils Percent Auto 86.8 % (45.5-73.1); Platelet Count Result 157 k/mm3 (150-375); Red Blood Count 2.39 M/mm3 (4.6-6.20); Red Cell Distribution Width 12.4 % (11.5-14.5); White Blood Count 7.5 K/mm3 (4.5-10.0)
[2023-12-02 01:46] LABS: Alanine Aminotransferase 50 U/L (6-50); Albumin Level 3.2 g/dL (3.5-5.1); Alkaline Phosphatase 94 U/L (38-126); Anion Gap 9 mmol/L (4-12); Aspartate Amino Transferase 93 U/L (17-59); Bilirubin,Total 0.7 mg/dL (0.2-1.3); Blood Urea Nitrogen 55 mg/dL (9-20); Calcium 8.1 mg/dL (8.4-10.2); Carbon Dioxide 22 mmol/L (22-30); Chloride 85 mmol/L (98-107); Estimated CRCL calculation 26 ml/min; Estimated Glomerular Filt Rate 26; Glucose 214 mg/dL (65-110); Magnesium 1.8 mg/dL (1.6-2.3); Potassium 4.5 mmol/L (3.4-5.0); Sodium 116 mmol/L (137-145)
[2023-12-02 01:54] LABS: Anisocytosis 1+; Hypochromasia 1+; Large Platelets Present; Microcytosis 1+ (NORMAL); Platelet Estimate Adequate (Adequate)
[2023-12-02 01:55] LABS: Schistocytes None Seen
[2023-12-02 04:42] LABS: Hematocrit 22.4 % (42.0-52.0); Immature Granulocyte Absolute 0.03 K/mm3 (0.00-0.031); Immature Granulocyte Percent A 0.4 % (0-0.5); Lymphocytes Absolute Auto 0.23 K/mm3 (0.9-3.2); Mean Corpuscular HGB Conc 35.7 g/dl (32-36); Mean Corpuscular Hemoglobin 31.9 pg (26-34); Mean Corpuscular Volume 89.2 fl (80-100); Mean Platelet Volume 10.2 fl (7.4-10.4); Monocytes Absolute Auto 0.8 K/mm3 (0.1-0.6); Monocytes Percent Auto 10.6 % (2.6-8.5); Neutrophils Absolute Auto 6.6 K/mm3 (1.3-6.7); Platelet Count Result 173 k/mm3 (150-375); Red Blood Count 2.51 M/mm3 (4.6-6.20); Red Cell Distribution Width 12.3 % (11.5-14.5); White Blood Count 7.6 K/mm3 (4.5-10.0)
[2023-12-02 05:04] LABS: Platelet Estimate Adequate (Adequate)
[2023-12-02 05:06] LABS: Alanine Aminotransferase 53 U/L (6-50); Albumin Level 3.5 g/dL (3.5-5.1); Alkaline Phosphatase 96 U/L (38-126); Anion Gap 11 mmol/L (4-12); Aspartate Amino Transferase 88 U/L (17-59); Bilirubin,Total 0.8 mg/dL (0.2-1.3); Blood Urea Nitrogen 54 mg/dL (9-20); Calcium 8.1 mg/dL (8.4-10.2); Carbon Dioxide 20 mmol/L (22-30); Chloride 87 mmol/L (98-107); Estimated CRCL calculation 26 ml/min; Estimated Glomerular Filt Rate 26; Glucose 177 mg/dL (65-110); Sodium 118 mmol/L (137-145)
[2023-12-02 05:08] LABS: Anisocytosis 1+; Hypochromasia 1+; Microcytosis 1+ (NORMAL); Schistocytes None Seen
[2023-12-02 05:20] LABS: Potassium 4.3 mmol/L (3.4-5.0)
[2023-12-02 08:29] LABS: Sodium 122 mmol/L (137-145)
[2023-12-02] MEDS: DEXTROSE 5% IN WATER 500 ML 250 ML IV CONT ×2 (09:02→20:05)
[2023-12-02] MEDS: PANTOPRAZOLE SODIUM IV 80 MG in SODIUM CHLORIDE 0.9% IV 500 ML 50 MG IV CONT (09:12)
[2023-12-02] MEDS: OCTREOTIDE ACETATE 500 MCG in SODIUM CHLORIDE 0.9% IV 99 ML 10 MCG IV CONT (09:12)
--- NOTE | 2023-12-02 10:39 | PM.PNNEP ---
Subjective Date/time seen: 12/02/23 10:39 Interval history: Follow-up for chronic kidney disease and acute hyponatremia. Sodium slowly trending up and suspect his significant urine output in the last 24 hours has helped this issue but now the concern is overcorrection -- given D5W IVFs in an effort to slow down his sodium correction; no apparent distress noted at this time; currently NPO for possible GI procedure. Exam Narrative: General: WD/WN male in NAD Heart: normal S1 and S2; no rub Lungs: decreased at bases Abdomen: soft, nontender, nondistended, positive bowel sounds; + ostomy Extremities: no cyanosis or clubbing; 2+ edema Skin: warm and dry Objective Data Vital Signs Vital Signs: Vital Signs Temp Pulse Pulse Resp BP Pulse Ox O2 Del Method 12/02/23 10:00 101 H 12/02/23 08:00 103 H 12/02/23 08:00 97.6 F 98 20 151/85 H 93 12/02/23 06:00 92 12/02/23 04:00 88 12/02/23 04:00 89 20 95 Room Air 12/02/23 04:00 89 172/75 H 12/02/23 03:48 97.9 F 89 20 172/75 H 95 12/02/23 01:41 86 12/02/23 00:00 87 12/01/23 22:00 91 12/01/23 20:00 90 12/02/23 00:20 97 18 99 Room Air 12/02/23 00:20 97 159/68 H 12/02/23 00:20 98.3 F 97 18 159/68 H 99 12/01/23 19:50 91 20 97 Room Air 12/01/23 19:50 91 155/65 H 12/01/23 19:16 98.2 F 91 155/65 H 97 12/01/23 18:00 96 12/01/23 16:00 91 12/01/23 16:00 97.8 F 93 18 152/67 H 95 12/01/23 14:00 94 Intake/Output Intake/Output: Intake & Output 11/29/23 11/30/23 12/01/23 12/02/23 23:59 23:59 23:59 23:59 Intake Total 0 1768.5 1206.0 Output Total 5875 2580 Balance 0 -4106.5 -1374.0 Meds/Results Medications: Active Medications Generic Name Dose Route Start Last Admin Trade Name Freq PRN Reason Stop Dose Admin Albuterol 2.5 mg 12/02/23 14:00 Albuterol Sulfate Neb 2.5 Mg/3 Ml Inh INHALATION Q6HRT [facility] Amlodipine Besylate 10 mg 12/03/23 09:00 Amlodipine Besylate 10 Mg Tablet PO DAILY [facility] Hydralazine HCl 50 mg 12/02/23 17:00 Hydralazine Hcl 50 Mg Tablet PO BID [facility] Pantoprazole Sodium 80 mg/ 500 mls @ 50 mls/hr 12/01/23 09:00 12/02/23 11:25 Sodium Chloride IV CONT 0 mls/hr .Q10H [facility] Infusion Sodium Chloride 500 mls @ 10 mls/hr 12/02/23 11:40 12/02/23 12:40 Normal Saline Iv IV CONT 10 mls/hr .Q24H [facility] Levofloxacin 750 mg 12/03/23 09:00 Levofloxacin 750 Mg Tablet PO DAILY [facility] Metoprolol Succinate 50 mg 12/03/23 09:00 Metoprolol Succinate Ext Rel 50 Mg Tabcr PO QAM [facility] Multivitamins Therapeutic 1 tablet 12/03/23 09:00 Multivitamins Therapeutic Tab (*Bkc) PO QAM [facility] Nicotine 1 patch 12/03/23 09:00 Nicotine (*Pbkc) 21 Mg Patch TRANSDERM QAM [facility] Simethicone 0.6 ml 12/02/23 12:31 12/02/23 12:31 Simethicone Oral Suspension 20 Mg/0.3 Ml 30 Ml Bottle PO 0.6 ml ONCE PRN Administration Gas Discomfort Sodium Bicarbonate 325 mg 12/02/23 17:00 Sodium Bicarbonate Tab 325 Mg Tablet PO BID [facility] Radiology Results: ITS Impressions Chest X-Ray 11/30/23 20:24 IMPRESSION: Cardiomegaly with cardiac decompensation and pulmonary edema. Superimposed pneumonitis is highly suggestive. Head CT 11/30/23 22:01 IMPRESSION: No acute intracranial findings. Face CT 11/30/23 22:07 IMPRESSION: No facial fracture. Labs Labs: Laboratory Tests 12/02/23 04:15 12/02/23 08:01 12/02/23 04:15 Sodium 118 L* Potassium 4.3 Chloride 87 L Carbon Dioxide 20 L Anion Gap 11 BUN 54 H Creatinine 2.50 H Estim Creat Clear Calc 26 Estimated GFR 26 L Glucose 177 H Calcium 8.1 L Magnesium Total Bilirubin 0.8 AST 88 H ALT 53 H Alkaline Phosphatase 96 Total Protein 7.0 Albumin 3.5
--- NOTE | 2023-12-02 11:23 | PM.IMPN ---
Progress Note: A&P Assessment and Plan (1) Acute hyponatremia: Code(s): E87.1 - Hypo-osmolality and hyponatremia Status: Acute (2) Acute blood loss anemia: Code(s): D62 - Acute posthemorrhagic anemia Status: Acute (3) Bilateral hydronephrosis: Code(s): N13.30 - Unspecified hydronephrosis Status: Acute (4) COPD (chronic obstructive pulmonary disease): Qualifiers: COPD type: COPD with acute exacerbation Qualified Code(s): J44.1 - Chronic obstructive pulmonary disease with (acute) exacerbation Code(s): J44.9 - Chronic obstructive pulmonary disease, unspecified Status: Chronic (5) Alcohol dependence: Code(s): F10.20 - Alcohol dependence, uncomplicated Status: Acute Plan this is a 63 her male who presents to the ED with shortness of breath wheezing bilateral lower extremity edema. He was prescribed albuterol nebulized by her PCP however did not need she unable to use medication. You recently admitted for kidney problems kidney stent placed. Current smoker no prior history diagnosed COPD. History of colorectal cancer and has colostomy bag in place. Reports black stool past 2 days. No chest pain abdominal pain fever chills or urinary symptoms. In the ED evaluation his vitals were stable. He was given DuoNeb treatment and received 125 mg of Solu-Medrol. Influenza COVID swab was negative. BNP was 9310. Laboratory evaluation revealed hemoglobin 6.7 prior level earlier this month was 11. 1 unit of PRBC was initiated. Came panel shows sodium level of 107 BNP 9310 creatinine of 2.6 BUN 43 chloride 76 AST 174 ALT 59. GI has been consulted. Nephrology consulted. IV Lasix was given. Chest x-ray showed cardiomegaly with cardiac decompensation and pulmonary edema superimposed pneumonitis highly suggestive. CT brain and facial bones with no acute process. Acute on chronic anemia down to 6.7 with evidence of dark stool suggestive of GI bleed. FOBT positive. transfuse p.r.n. to get hemoglobin more than 7 GI has been consulted . Trend H&H. On PPI and octreotide drip. Stable. GI bleed with melanotic stool trend H&H PPI drip. Does have history of alcohol use chronically. Mild hepatomegaly on CT. Will empirically place on octreotide drip as well. acute on chronic Hyponatremia acute severe 107 on admission. likely Hypervolemia related with bilateral lower extremity edema. Also has chronic alcohol abuse. Received IV Lasix. Continue to monitor sodium level. Nephrology on board . last sodium level normal at discharge at 138. Further diuresis per Nephrology Mildly elevated liver enzymes likely due to alcohol use ELIA creatinine 2.6 Creatinine ranged from 2.8-3.2 this admission. No prior baseline level present Recent bilateral hydronephrosis mild left moderate right with no definitive stones. Bilateral ureteral stent placement on 11/13/2023. recent urine culture grew group B Streptococcus and Klebsiella aerogenes treated with Levaquin. history of Colorectal cancer treated with colectomy radiation therapy chemotherapy Status post colostomy placement Hypertension Nicotine dependence Alcohol dependence Continue to drink 12 pack beer every day DVT prophylaxis SCDs Code status full code Subjective Date/time seen: 12/02/23 11:23 Interval history: Feeling better. No overnight events. Going for EGD today. Review of Systems Review of Systems: All systems reviewed & are unremarkable except as noted in HPI and below Exam Narrative: General: Alert, awake, afebrile, in no acute distress. HEENT: PERRL, no rhinorrhea Cardiovascular: Bilateral crackles, no murmurs, rubs or gallops, bilateral lower extremity 3+ edema. Respiratory: Faint bilateral wheezing, no tachypnea, no rhonchi, no rubs, no respiratory distress. Abdomen: Soft, nontender, nondistended, no rebound, no guarding, no peritoneal signs, colostomy bag in place. Melena stool in bag Musculoskeletal:
--- NOTE | 2023-12-02 11:43 | WPDANESEPPF ---
Anes - Initial Pre Proc Eval Procedure: Operation Date: 12/02/23 13:00 Proposed Procedures p Esophagogastroduodenoscopy - Albert Flores MD Date/Time: 12/02/23 11:43 Surgeon: Camila Archer MD Pre Op Diagnosis: GI bleed, hyponatremia, fluid overload, pulmonary Patient Data Age: 63 Gender: M Height: 1.7 m Weight: 79.6 kg Last Vital Signs Temp 36.1 C L 12/02/23 11:37 Pulse 88 12/02/23 11:37 Resp 18 12/02/23 11:37 BP 149/60 H 12/02/23 11:37 Pulse Ox 95 12/02/23 11:37 O2 Del Method Room Air 12/02/23 11:37 O2 Flow Rate 2 12/01/23 08:37 Allergies Allergy/AdvReac Type Severity Reaction Status Date / Time No Known Allergies Allergy Verified 12/02/23 11:33 Home Medications Medication Instructions Recorded Confirmed Type albuterol sulfate 2.5 mg/3 mL 2.5 mg (3 mL) inhalation Q6HRT #75 11/14/23 12/01/23 Rx (0.083 %) solution for nebulization mL amlodipine 10 mg tablet 10 mg PO DAILY #90 tabs 11/14/23 12/01/23 Rx hydralazine 50 mg tablet 50 mg PO BID #180 tabs 11/14/23 12/01/23 Rx levofloxacin 750 mg tablet 750 mg PO DAILY #1 tablet 11/14/23 12/01/23 Rx metoprolol succinate 50 mg 50 mg PO QAM #90 tabs 11/14/23 12/01/23 Rx tablet,extended release 24 hr multivitamin with folic acid 400 1 tablet PO QAM #90 tabs 11/14/23 12/01/23 Rx mcg tablet (Thera) nicotine 21 mg/24 hr daily 1 patch transdermal QAM #28 ea 11/14/23 12/01/23 Rx transdermal patch (Nicoderm CQ) sodium bicarbonate 325 mg tablet 325 mg PO BID #180 tabs 11/14/23 12/01/23 Rx Laboratory Tests 12/01/23 12/01/23 12/01/23 13:06 17:02 21:04 WBC RBC Hgb Hct MCV MCH MCHC RDW Plt Count MPV Immature Gran % (Auto) Neut % (Auto) Lymph % (Auto) Whitman % (Auto) Eos % (Auto) Baso % (Auto) Lymph # (Auto) Whitman # (Auto) Eos # (Auto) Baso # (Auto) Abs Immat Gran (auto) Absolute Neuts (auto) Absolute Nucleated RBC Nucleated RBC % Platelet Estimate Large Platelets % Immature Plt Fraction Hypochromasia Anisocytosis Microcytosis Schistocytes Sodium 113 L* mmol/L 112 L* mmol/L 113 L* mmol/L (137-145) (137-145) (137-145) Potassium Chloride Carbon Dioxide Anion Gap BUN Creatinine Estim Creat Clear Calc Estimated GFR Glucose Calcium Magnesium Total Bilirubin AST ALT Alkaline Phosphatase Total Protein Albumin HCV RNA (PCR) IUs/ml HCV RNA PCR log IUs/ml 12/02/23 12/02/23 12/02/23 01:03 04:12 04:15 WBC 7.5 K/mm3 7.6 K/mm3 (4.5-10.0) (4.5-10.0) RBC 2.39 L M/mm3 2.51 L M/mm3 (4.6-6.20) (4.6-6.20) Hgb 7.5 L g/dL 8.0 L g/dL (14.0-18.0) (14.0-18.0) Hct 21.5 L % 22.4 L % (42.0-52.0) (42.0-52.0) MCV 90.0 fl 89.2 fl (80-100) (80-100) MCH 31.4 pg 31.9 pg (26-34) (26-34) MCHC 34.9 g/dl 35.7 g/dl (32-36) (32-36) RDW 12.4 % 12.3 % (11.5-14.5) (11.5-14.5) Plt Count 157 k/mm3 173 k/mm3 (150-375) (150-375) MPV 10.4 fl 10.2 fl (7.4-10.4) (7.4-10.4) Immature Gran % (Auto) 0.3 % 0.4 % (0-0.5) (0-0.5) Neut % (Auto) 86.8 H % 86.0 H % (45.5-73.1) (45.5-73.1) Lymph % (Auto) 3.2 L % 3.0 L % (18.3-44.2) (18.3-44.2) Whitman % (Auto) 9.7 H % 10.6 H % (2.6-8.5) (2.6-8.5) Eos % (Auto) 0.0 % 0.0 % (0-4.4) (0-4.4) Baso % (Auto) 0.0 L % 0.0 L % (
[2023-12-02] MEDS: SODIUM CHLORIDE 0.9% IV 500 ML 10 ML IV CONT (11:45)
--- NOTE | 2023-12-02 12:17 | PM.IMHP ---
H&P: HPI History of Present Illness Date/Time: 12/02/23 12:17 Chief Complaint: melena , anemia Narrative: The patient is a chronic alcohol user, admitted with several medical problems, including acute renal failure, respiratory difficulty and melena. He was found to have a hemoglobin of 6.7 I received transfusion. Here for EGD. Review of Systems Review of Systems: All systems reviewed & are unremarkable except as noted in HPI and below PMFSH Past Medical History Medical History Bilateral hearing loss Colorectal cancer (~2019) Treated with colectomy, radiation therapy and chemotherapy. Patient received care in [place] Essential hypertension Melena Surgical History Surgical History Status post cataract extraction and insertion of intraocular lens of left eye Status post colostomy (~2019) Family History Family History Father , Age 62 Cancer ?stomach cancer? Mother Breast cancer, Onset Age: 44 Sibling Cancer ?stomach cancer? 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 Since that time he and his (depending catheter for over 20 years been for only few years) have been traveling around the [place] They are currently living with the patient's brother for the last year while he helps brother remodeled a house. He has smoked between 0.5 up to 2 packs of cigarettes per day for about 40 years. He drinks 6-9 beers a day. He sometimes go a couple of months without drinking at all. He denies history of illicit substance use. Code status: Full code (patient states that he would not want long-term ventilation or feeding tube. He states he would not want to be on a ventilator from more than a couple of weeks.) Surrogate decision maker: Kira jimenez these ) Smoking packs per day: 1.5 Smoking cigarettes per day: 30.0 Years smoked: 40 Smoking pack-years: 60.00 Smoking status: Current every day smoker Alcohol intake: current Drinks per week: 84 Substance use: never Do You Feel Safe in your Home?: Yes Lack of Transportation: No Lack of Food: Never True Current Housing: I Have Housing Concerned About Future Housing: No Difficulty Paying Gas/Electric Bills: No Difficulty Paying for Meds: No Currently Unemployed: No Education: High School Diploma/GED Difficulty w/ Childcare or Family Care: No 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 Spiritual care concerns: No Meds Home Medications and Allergies Home Medications Medication Instructions Recorded Confirmed Type albuterol sulfate 2.5 mg/3 mL 2.5 mg (3 mL) inhalation Q6HRT #75 11/14/23 12/01/23 Rx (0.083 %) solution for nebulization mL amlodipine 10 mg tablet 10 mg PO DAILY #90 tabs 11/14/23 12/01/23 Rx hydralazine 50 mg tablet 50 mg PO BID #180 tabs 11/14/23 12/01/23 Rx levofloxacin 750 mg tablet 750 mg PO DAILY #1 tablet 11/14/23 12/01/23 Rx metoprolol succinate 50 mg 50 mg PO QAM #90 tabs 11/14/23 12/01/23 Rx tablet,extended release 24 hr multivitamin with folic acid 400 1 tablet PO QAM #90 tabs 11/14/23 12/01/23 Rx mcg tablet (Thera) nicotine 21 mg/24 hr daily 1 patch transdermal QAM #28 ea 11/14/23 12/01/23 Rx transdermal patch (Nicoderm CQ) sodium bicarbonate 325 mg tablet 325 mg PO BID #180 tabs 11/14/23 12/01/23 Rx Allergies Allergy/AdvReac Type Severity Reaction Status Date / Time No Known Allergies Allergy Verified 12/02/23 11:33 Vital Signs Vital Signs - 24 hr 12/01/23 14:00 12/01/23 16:00 12/01/23 16:00 Te
[2023-12-02] MEDS: SIMETHICONE ORAL SUSPENSION 20 MG/0.3 ML 30 ML BOTTLE 0.6 ML PO (12:31)
[2023-12-02] MEDS: ALBUTEROL SULFATE NEB 2.5 MG/3 ML INH INHALATION ×2 (13:55→21:19)
[2023-12-02 14:59] LABS: Protein, Total 5.8 g/dL (6.1-8.1)
[2023-12-02 14:59] LABS: Creatinine, Random Urine 39 mg/dL (20-320); Total Prot/Creat ratio mg/mg 1.077 (0.025-0.148); Total Protein/Creatinine Ratio 1077 mg/g creat (25-148)
--- NOTE | 2023-12-02 15:48 | WPDGIPROGNO ---
Progress Note: A&P Assessment and Plan (1) Gastric ulcer: Code(s): K25.9 - Gastric ulcer, unspecified as acute or chronic, without hemorrhage or perforation Status: Acute Assessment and Plan: The patient has melena and drop in hemoglobin which are explained by the presence of small, benign, not actively bleeding gastric ulcers seen today on EGD. There was some evidence of portal hypertensive gastropathy, grade 1, not actively bleeding. Given his history of alcohol abuse, it is very likely the patient has cirrhosis. He has other multiple medical problems including severe hyponatremia which may be related to his underlying liver disease, however he does not have evidence of ascites on recent CT scan. A sonogram with Doppler study will help determining or semi quantifying the degree of portal hypertension. Ideally patient should be counseled for alcohol abuse, and at discharge he can visit us for follow-up and a fibroscan will be ordered to assess the presence of chronic advanced liver disease / portal HTN. In the meantime, patient can be placed on once a day PPI and continue medical management as directed. Please feel free to contact us again if there is recurrence of melena or any other problem related to our specialty. Thank you. Time Spent With Patient Time with patient: 15 - 25 minutes Subjective Date/time seen: 12/02/23 15:48 Interval history: The patient feels well, no abdominal pain no dark stools. Exam Narrative: General: WD/WN male in NAD Heart: normal S1 and S2; no rub Lungs: decreased at bases Abdomen: soft, nontender, nondistended, positive bowel sounds; + ostomy Extremities: no cyanosis or clubbing; 2+ edema Skin: warm and dry Objective Data Vital Signs Vital Signs: Vital Signs - 24 hr 12/01/23 16:00 12/01/23 16:00 12/01/23 18:00 Temperature 97.8 F Pulse Rate 93 91 96 Pulse Rate [Monitor] Respiratory Rate 18 Blood Pressure 152/67 H Pulse Oximetry 95 Oxygen Delivery Fraction of Inspired Oxygen 12/01/23 19:16 12/01/23 19:50 12/01/23 19:50 Temperature 98.2 F Pulse Rate 91 91 Pulse Rate [Monitor] 91 Respiratory Rate 20 Blood Pressure 155/65 H 155/65 H Pulse Oximetry 97 97 Oxygen Delivery Room Air Fraction of Inspired Oxygen 12/02/23 00:20 12/02/23 00:20 12/02/23 00:20 Temperature 98.3 F Pulse Rate 97 97 Pulse Rate [Monitor] 97 Respiratory Rate 18 18 Blood Pressure 159/68 H 159/68 H Pulse Oximetry 99 99 Oxygen Delivery Room Air Fraction of Inspired Oxygen 12/01/23 20:00 12/01/23 22:00 12/02/23 00:00 Temperature Pulse Rate 90 91 87 Pulse Rate [Monitor] Respiratory Rate Blood Pressure Pulse Oximetry Oxygen Delivery Fraction of Inspired Oxygen 12/02/23 01:41 12/02/23 03:48 12/02/23 04:00 Temperature 97.9 F Pulse Rate 86 89 Pulse Rate [Monitor] 89 Respiratory Rate 20 Blood Pressure 172/75 H 172/75 H Pulse Oximetry 95 Oxygen Delivery Fraction of Inspired Oxygen 12/02/23 04:00 12/02/23 04:00 12/02/23 06:00 Temperature Pulse Rate 89 88 92 Pulse Rate [Monitor] Respiratory Rate 20 Blood Pressure Pulse Oximetry 95 Oxygen Delivery Room Air Fraction of Inspired Oxygen 12/02/23 08:00 12/02/23 08:00 12/02/23 10:00 Temperature 97.6 F Pulse Rate 98 103 H 101 H Pulse Rate [Monitor] Respiratory Rate 20 Blood Pressure 151/85 H Pulse Oximetry 93 Oxygen Delivery Fraction of Inspired Oxygen 12/02/23 11:37 12/02/23 12:40 12/02/23 12:50 Temperature 97 F L Pulse Rate 88 91 91 Pulse Rate [Monitor] Respiratory Rate 18 18 18 Blood Pressure 149/60 H 146/78 H 142/91 H Pulse Oximetry 95 96 96 Oxygen Delivery Room Air Room Air Room Air Fraction of Inspired Oxygen 12/02/23 13:00 12/02/23 13:55 12/02/23 13:55 Temperature Pulse Rate 85 85 Pulse Rate [Monitor] Respiratory Rate 18 20 Blood Press
[2023-12-02] MEDS: SODIUM BICARBONATE TAB 325 MG TABLET PO (16:26)
[2023-12-02 19:23] LABS: Sodium 126 mmol/L (137-145)
[2023-12-02] MEDS: PANTOPRAZOLE 40 MG TABLET PO (20:06)
[2023-12-02] MEDS: DESMOPRESSIN ACETATE 4 MCG/ML AMP 0.5 MCG SUB-Q (20:06)
[2023-12-02] MEDS: hydrALAZINE HCL 50 MG TABLET PO (20:06)
[2023-12-03] VITALS (20 sets, daily range): BP systolic 132–164; BP diastolic 62–77; PULSE 77–106; RESP 18–22; TEMP 36.4–37.4; O2SAT 94–100
[2023-12-03 00:57] LABS: Sodium 127 mmol/L (137-145)
[2023-12-03] MEDS: ALBUTEROL SULFATE NEB 2.5 MG/3 ML INH INHALATION ×4 (02:56→19:31)
[2023-12-03 04:30] LABS: Basophils Percent Auto 0.2 % (0.2-1.2); Eosinophils Absolute Auto 0.1 K/mm3 (0-0.3); Eosinophils Percent Auto 0.8 % (0-4.4); Hematocrit 24.6 % (42.0-52.0); Hemoglobin 8.3 g/dL (14.0-18.0); Immature Granulocyte Absolute 0.03 K/mm3 (0.00-0.031); Immature Granulocyte Percent A 0.5 % (0-0.5); Lymphocytes Absolute Auto 0.44 K/mm3 (0.9-3.2); Lymphocytes Percent Auto 7.2 % (18.3-44.2); Mean Corpuscular HGB Conc 33.7 g/dl (32-36); Mean Corpuscular Hemoglobin 31.6 pg (26-34); Mean Corpuscular Volume 93.5 fl (80-100); Mean Platelet Volume 9.4 fl (7.4-10.4); Monocytes Absolute Auto 0.8 K/mm3 (0.1-0.6); Monocytes Percent Auto 13.4 % (2.6-8.5); Neutrophils Absolute Auto 4.8 K/mm3 (1.3-6.7); Neutrophils Percent Auto 77.9 % (45.5-73.1); Platelet Count Result 161 k/mm3 (150-375); Red Blood Count 2.63 M/mm3 (4.6-6.20); Red Cell Distribution Width 13.1 % (11.5-14.5); White Blood Count 6.1 K/mm3 (4.5-10.0)
[2023-12-03 04:45] LABS: Alanine Aminotransferase 41 U/L (6-50); Albumin Level 3.4 g/dL (3.5-5.1); Alkaline Phosphatase 92 U/L (38-126); Anion Gap 6 mmol/L (4-12); Aspartate Amino Transferase 53 U/L (17-59); Bilirubin,Total 0.4 mg/dL (0.2-1.3); Blood Urea Nitrogen 55 mg/dL (9-20); Calcium 8.4 mg/dL (8.4-10.2); Carbon Dioxide 26 mmol/L (22-30); Chloride 98 mmol/L (98-107); Estimated CRCL calculation 21 ml/min; Estimated Glomerular Filt Rate 21; Glucose 179 mg/dL (65-110); Magnesium 1.7 mg/dL (1.6-2.3); Potassium 4.7 mmol/L (3.4-5.0); Sodium 130 mmol/L (137-145)
[2023-12-03] MEDS: DEXTROSE 5% IN WATER 500 ML 250 ML IV CONT (05:49)
[2023-12-03] MEDS: DESMOPRESSIN ACETATE 4 MCG/ML AMP 1 MCG SUB-Q (05:50)
[2023-12-03] MEDS: SODIUM BICARBONATE TAB 325 MG TABLET PO ×2 (08:10→16:35)
[2023-12-03] MEDS: METOPROLOL SUCCINATE EXT REL 50 MG TABCR PO (08:10)
[2023-12-03] MEDS: MULTIVITAMINS THERAPEUTIC TAB (*BKC) 1 TABLET PO (08:11)
[2023-12-03] MEDS: hydrALAZINE HCL 50 MG TABLET PO ×2 (08:11→20:49)
[2023-12-03] MEDS: amLODIPine BESYLATE 10 MG TABLET PO (08:11)
[2023-12-03] MEDS: PANTOPRAZOLE 40 MG TABLET PO ×2 (08:30→20:49)
[2023-12-03 09:35] LABS: Sodium 126 mmol/L (137-145)
--- NOTE | 2023-12-03 09:38 | PC.NURSE ---
0900 sodium level (126) reported to Dr Munson via telephone. No new orders received at this time, states I will take a look at trend and call you if I have orders .
--- NOTE | 2023-12-03 10:20 | P.PNNP_ITS ---
Progress Note: A&P Assessment and Plan (1) Hyponatremia: Code(s): E87.1 - Hypo-osmolality and hyponatremia Status: Acute Assessment and Plan: * quite severe on presentation -- sodium 107mmol/L * on hospital discharge in early November 2023, sodium was 138mmol/L * risk factors for low sodium: * volume overload * alcohol intake/abuse * COPD * ongoing smoking * liver disease (?) given alcohol history * goal of therapy is a change in 6 - 8mmol/L over 24 hours * did so in the first 24 hours * however, yesterday, overcorrection noted with stability given use of DDAVP and D5W IV fluids * his increased urine output is likely a reflection of his kidney trying to auto-correct his sodium * since sodium > 120, no need to check sodium every 4 hours * follow sodium trend (2) Chronic kidney disease, stage IV (severe): Code(s): N18.4 - Chronic kidney disease, stage 4 (severe) Status: Chronic Assessment and Plan: * baseline creatinine was never clear or known * no recent labs done since 2019 (back when he was living in [place], [place]) * however, given the lack of improvement in renal function despite all interventions on last hospitalization (late October/early November 2023), the suspicion was that his renal function had been abnormal for a significant period of time before admission and he probably has a new baseline creatinine * since last hospitalization, creatinine has improved to ~ 2.6mg/dl * evaluation from recent hospitalization noted: * renal u/s with bilateral hydronephrosis (suspect chronic) * urine eosinophils negative * urine electrolytes non-prerenal (suggestive of intrinsic renal disease) * moderate proteinuria * CPK normal * presumably underlying CKD due to hypertension, vascular disease (smokinghistory) and chronic obstructive uropathy along with age-related change (3) Volume overload: Code(s): E87.70 - Fluid overload, unspecified Status: Acute Assessment and Plan: * noted on admission by clinical exam and CXR * clinically better with auto-diuresis since admission * almost 9L negative since admission * follow volume status (4) GI bleed: Code(s): K92.2 - Gastrointestinal hemorrhage, unspecified Status: Acute Assessment and Plan: * hemoccult positive stool in ER * noted history of melena * noted drop in H/H by admission labs * s/p PRBC transfusion * GI following -- s/p EGD: * gastric ulcers, duodenitis, and evidence of portal hypertensive gastropathy * no active bleeding lesions * on PPI * follow trend of H/H (5) Hypertension: Code(s): I10 - Essential (primary) hypertension Status: Chronic Assessment and Plan: * reasonable control * continue home BP medications with further adjustments as needed * follow trend of hemodynamics (6) Anemia: Code(s): D64.9 - Anemia, unspecified Status: Acute Assessment and Plan: * complicated by #4 * partly related to underlying CKD as well * dose with empiric KASHIF/Retacrit while hospitalized * follow H/H (7) COPD (chronic obstructive pulmonary disease): Qualifiers: COPD type: COPD with acute exacerbation Qualified Code(s): J44.1 - Chronic obstructive pulmonary disease with (acute) exacerbation Code(s): J44.9 - Chronic obstructive pulmonary disease, unspecified Status: Chronic Assessment and Plan: * s/p nebulizer treatent and steroids in the ER * viral testing for influenza/RSV/
--- NOTE | 2023-12-03 10:20 | PM.PNNEP ---
Progress Note: A&P Assessment and Plan (1) Hyponatremia: Code(s): E87.1 - Hypo-osmolality and hyponatremia Status: Acute Assessment and Plan: quite severe on presentation -- sodium 107mmol/L on hospital discharge in early November 2023, sodium was 138mmol/L risk factors for low sodium: volume overload alcohol intake/abuse COPD ongoing smoking liver disease (?) given alcohol history goal of therapy is a change in 6 - 8mmol/L over 24 hours did so in the first 24 hours however, yesterday, overcorrection noted with stability given use of DDAVP and D5W IV fluids his increased urine output is likely a reflection of his kidney trying to auto-correct his sodium since sodium > 120, no need to check sodium every 4 hours follow sodium trend (2) Chronic kidney disease, stage IV (severe): Code(s): N18.4 - Chronic kidney disease, stage 4 (severe) Status: Chronic Assessment and Plan: baseline creatinine was never clear or known no recent labs done since 2019 (back when he was living in [place], [place]) however, given the lack of improvement in renal function despite all interventions on last hospitalization (late October/early November 2023), the suspicion was that his renal function had been abnormal for a significant period of time before admission and he probably has a new baseline creatinine since last hospitalization, creatinine has improved to ~ 2.6mg/dl evaluation from recent hospitalization noted: renal u/s with bilateral hydronephrosis (suspect chronic) urine eosinophils negative urine electrolytes non-prerenal (suggestive of intrinsic renal disease) moderate proteinuria CPK normal presumably underlying CKD due to hypertension, vascular disease (smokinghistory) and chronic obstructive uropathy along with age-related change (3) Volume overload: Code(s): E87.70 - Fluid overload, unspecified Status: Acute Assessment and Plan: noted on admission by clinical exam and CXR clinically better with auto-diuresis since admission almost 9L negative since admission follow volume status (4) GI bleed: Code(s): K92.2 - Gastrointestinal hemorrhage, unspecified Status: Acute Assessment and Plan: hemoccult positive stool in ER noted history of melena noted drop in H/H by admission labs s/p PRBC transfusion GI following -- s/p EGD: gastric ulcers, duodenitis, and evidence of portal hypertensive gastropathy no active bleeding lesions on PPI follow trend of H/H (5) Hypertension: Code(s): I10 - Essential (primary) hypertension Status: Chronic Assessment and Plan: reasonable control continue home BP medications with further adjustments as needed follow trend of hemodynamics (6) Anemia: Code(s): D64.9 - Anemia, unspecified Status: Acute Assessment and Plan: complicated by #4 partly related to underlying CKD as well dose with empiric KASHIF/Retacrit while hospitalized follow H/H (7) COPD (chronic obstructive pulmonary disease): Qualifiers: COPD type: COPD with acute exacerbation Qualified Code(s): J44.1 - Chronic obstructive pulmonary disease with (acute) exacerbation Code(s): J44.9 - Chronic obstructive pulmonary disease, unspecified Status: Chronic Assessment and Plan: s/p nebulizer treatent and steroids in the ER viral testing for influenza/RSV/COVID negative continue breathing treatments PRN (8) ETOH abuse: Code(s): F10.10 - Alcohol abuse, uncomplicated Status: Chronic Assessment and Plan: known history on thiamine, folate, and MVI on CIWA Will continue to follow. Subjective Date/time seen: 12/03/23 10:20 Interval history: Follow-up for chronic kidney disease and acute hyponatremia. Issues with overcorrection of sodium in the last 24 hours requiring use of D5W IV infusions and DDAVP wi
[2023-12-03 11:08] LABS: Kappa\\Lambda Light Chains 1.33 (0.26-1.65); Lambda Light Chain 28.2 mg/L (5.7-26.3)
[2023-12-03 11:19] LABS: Glucose Point of Care 210 mg/dl (65-105)
--- NOTE | 2023-12-03 13:11 | PM.IMPN ---
Progress Note: A&P Assessment and Plan (1) Acute hyponatremia: Code(s): E87.1 - Hypo-osmolality and hyponatremia Status: Acute (2) Acute blood loss anemia: Code(s): D62 - Acute posthemorrhagic anemia Status: Acute (3) Bilateral hydronephrosis: Code(s): N13.30 - Unspecified hydronephrosis Status: Acute (4) COPD (chronic obstructive pulmonary disease): Qualifiers: COPD type: COPD with acute exacerbation Qualified Code(s): J44.1 - Chronic obstructive pulmonary disease with (acute) exacerbation Code(s): J44.9 - Chronic obstructive pulmonary disease, unspecified Status: Chronic (5) Alcohol dependence: Code(s): F10.20 - Alcohol dependence, uncomplicated Status: Acute Plan this is a 63 her male who presents to the ED with shortness of breath wheezing bilateral lower extremity edema. He was prescribed albuterol nebulized by her PCP however did not need she unable to use medication. You recently admitted for kidney problems kidney stent placed. Current smoker no prior history diagnosed COPD. History of colorectal cancer and has colostomy bag in place. Reports black stool past 2 days. No chest pain abdominal pain fever chills or urinary symptoms. In the ED evaluation his vitals were stable. He was given DuoNeb treatment and received 125 mg of Solu-Medrol. Influenza COVID swab was negative. BNP was 9310. Laboratory evaluation revealed hemoglobin 6.7 prior level earlier this month was 11. 1 unit of PRBC was initiated. Came panel shows sodium level of 107 BNP 9310 creatinine of 2.6 BUN 43 chloride 76 AST 174 ALT 59. GI has been consulted. Nephrology consulted. IV Lasix was given. Chest x-ray showed cardiomegaly with cardiac decompensation and pulmonary edema superimposed pneumonitis highly suggestive. CT brain and facial bones with no acute process. Acute on chronic anemia down to 6.7 with evidence of dark stool suggestive of GI bleed. FOBT positive. transfuse p.r.n. to get hemoglobin more than 7 GI has been consulted . Trend H&H. On PPI and octreotide drip. Stable. On PPI and octreotide drip. On oral PPI twice daily GI bleed with melanotic stool trend H&H PPI drip. Does have history of alcohol use chronically. Mild hepatomegaly on CT. Will empirically place on octreotide drip as well. No signs of varices and octreotide drip stopped. Back to oral PPI. acute on chronic Hyponatremia acute severe 107 on admission. likely Hypervolemia related with bilateral lower extremity edema. Also has chronic alcohol abuse. Received IV Lasix. Continue to monitor sodium level. Nephrology on board . last sodium level normal at discharge at 138. Further diuresis per Nephrology. Required D5 water and dDAVP due to over-correction. Mildly elevated liver enzymes likely due to alcohol use ELIA creatinine 2.6 Creatinine ranged from 2.8-3.2 this admission. No prior baseline level present Recent bilateral hydronephrosis mild left moderate right with no definitive stones. Bilateral ureteral stent placement on 11/13/2023. recent urine culture grew group B Streptococcus and Klebsiella aerogenes treated with Levaquin. history of Colorectal cancer treated with colectomy radiation therapy chemotherapy Status post colostomy placement Hypertension resume home medication Nicotine dependence Alcohol dependence Continue to drink 12 pack beer every day. Alcohol rehabilitation information provided DVT prophylaxis SCDs Code status full code Subjective Date/time seen: 12/03/23 13:11 Interval history: Overnight events. Patient feels better. Eating. Shortness of breath has improved. Leg swelling is improved. Review of Systems Review of Systems: All systems reviewed & are unremarkable except as noted in HPI and below Exam Narrative: General: Alert, awake, afebrile, in no acute distress. HEENT: PERRL, no rhinorrhea Cardiovascular: Bilateral crackles, no murmurs, rubs
[2023-12-03 13:44] LABS: Sodium 129 mmol/L (137-145)
[2023-12-03] MEDS: EPOETIN ALFA-EPBX 20,000 UNITS/ML VIAL 20000 UNITS SUB-Q (14:35)
[2023-12-03 15:38] LABS: Albumin 3.3 g/dL (3.8-4.8); Alpha 1 Globulin 0.5 g/dL (0.2-0.3); Alpha 2 Globulin 0.6 g/dL (0.5-0.9); Beta 1 Globulin 0.4 g/dL (0.4-0.6); Gamma Globulin 0.7 g/dL (0.8-1.7)
[2023-12-03 16:08] LABS: Osmolality, Urine 280 mOsm/kg (50-1200)
--- NOTE | 2023-12-03 17:48 | WPDANESPN ---
Anes - Prog Note Post-Op Date/Time: 12/03/23 17:48 Cardiovascular status: normal Respiratory status: normal Airway patency: baseline Mental status: baseline Post-Op hydration status: normal Vital Signs: Last Vital Signs Temp 36.9 C 12/03/23 16:00 Pulse 93 12/03/23 16:00 Resp 20 12/03/23 16:00 BP 132/62 12/03/23 16:00 Pulse Ox 97 12/03/23 16:00 O2 Del Method Room Air 12/03/23 13:29 O2 Flow Rate 2 12/01/23 08:37 FiO2 21 12/03/23 08:00 Pain Score (VAS): 0 I/O: Intake & Output 12/03/23 12/03/23 12/03/23 07:59 15:59 23:59 Intake Total 780 480 980 Output Total 4450 800 800 Balance -3670 -320 180 Laboratory Tests 12/03/23 04:11 12/03/23 12:56 11/30/23 12/01/23 12/01/23 23:38 01:12 02:08 WBC RBC Hgb Hct MCV MCH MCHC RDW Plt Count MPV Immature Gran % (Auto) Neut % (Auto) Lymph % (Auto) [place] % (Auto) Eos % (Auto) Baso % (Auto) Lymph # (Auto) [place] # (Auto) Eos # (Auto) Baso # (Auto) Abs Immat Gran (auto) Absolute Neuts (auto) Absolute Nucleated RBC Nucleated RBC % Sodium Potassium Chloride Carbon Dioxide Anion Gap BUN Creatinine Estim Creat Clear Calc Estimated GFR Glucose POC Capillary Glucose Serum Osmolality 267 L Calcium Magnesium Total Bilirubin AST ALT Alkaline Phosphatase Total Protein Albumin 3.3 L Ryndq-6-Gkgogmbsj 0.5 H Kfcpw-5-Zmbaebyza 0.6 Bylm-3-Udighyut 0.4 Oqkv-7-Qierdmsa 0.3 Gamma Globulins 0.7 L PEP Interpretation See note Urine Osmolality 280 [place]/Lambda Ratio 1.33 Free [place] Light Chains 37.5 H Free [place] Light Chain 28.2 H 12/02/23 12/03/23 12/03/23 18:58 00:41 04:11 WBC 6.1 RBC 2.63 L Hgb 8.3 L Hct 24.6 L MCV 93.5 MCH 31.6 MCHC 33.7 RDW 13.1 Plt Count 161 MPV 9.4 Immature Gran % (Auto) 0.5 Neut % (Auto) 77.9 H Lymph % (Auto) 7.2 L [place] % (Auto) 13.4 H Eos % (Auto) 0.8 Baso % (Auto) 0.2 Lymph # (Auto) 0.44 L [place] # (Auto) 0.8 H Eos # (Auto) 0.1 Baso # (Auto) 0.0 Abs Immat Gran (auto) 0.03 Absolute Neuts (auto) 4.8 Absolute Nucleated RBC 0.000 Nucleated RBC % 0.0 Sodium 126 L 127 L 130 L Potassium 4.7 Chloride 98 Carbon Dioxide 26 Anion Gap 6 BUN 55 H Creatinine 3.10 H Estim Creat Clear Calc 21 Estimated GFR 21 L Glucose 179 H POC Capillary Glucose Serum Osmolality Calcium 8.4 Magnesium 1.7 Total Bilirubin 0.4 AST 53 ALT 41 Alkaline Phosphatase 92 Total Protein 6.0 L Albumin 3.4 L Rjdtc-9-Vwwsoudjm Peuga-9-Mvkvheoou Qcnr-9-Zyxmgsey Pafm-9-Jrublcoh Gamma Globulins PEP Interpretation Urine Osmolality [place]/Lambda Ratio Free [place] Light Chains Free Lambda Light Chain 12/03/23 12/03/23 12/03/23 09:07 11:00 12:56 WBC RBC Hgb Hct MCV MCH MCHC RDW Plt Count MPV Immature Gran % (Auto) Neut % (Auto) Lymph % (Auto) [place] % (Auto) Eos % (Auto) Baso % (Auto) Lymph # (Auto) [place] # (Auto) Eos # (Auto) Baso # (Auto) Abs Immat Gran (auto) Absolute Neuts (auto) Absolute Nucleated RBC Nucleated RBC % Sodium 126 L 129 L Potassium Chloride Carbon Dioxide Anion Gap BUN Creatinine Estim Creat Clear Calc Estimated GFR Glucose POC Capillary Glucose 210 H Serum Osmolality Calcium Magnesium Total Bilirubin AST ALT Alkaline Phosphatase Total Protein Albumin Isvgt-0-Ttxamhgtj Tubom-2-Ygqdfjngt Umen-1-Wnbjckqq Jyux-3-Hjvlrtps Gamma Globulins PEP Interpretation Urine Osmolality [place]/Lambda Ratio Free [place] Light Chains Free Lambda Light Chain Post-procedural complaints: none Patient Feedback: [facility]
[2023-12-03 20:02] LABS: Sodium 127 mmol/L (137-145)
[2023-12-04] VITALS (10 sets, daily range): BP systolic 141–154; BP diastolic 65–75; PULSE 80–92; RESP 18–20; TEMP 36.6–37.4; O2SAT 95–100
[2023-12-04] MEDS: ALBUTEROL SULFATE NEB 2.5 MG/3 ML INH INHALATION ×3 (02:12→14:04)
[2023-12-04 05:05] LABS: Basophils Percent Auto 0.3 % (0.2-1.2); Eosinophils Absolute Auto 0.7 K/mm3 (0-0.3); Eosinophils Percent Auto 9.8 % (0-4.4); Hematocrit 25.6 % (42.0-52.0); Hemoglobin 8.4 g/dL (14.0-18.0); Immature Granulocyte Absolute 0.04 K/mm3 (0.00-0.031); Immature Granulocyte Percent A 0.6 % (0-0.5); Lymphocytes Absolute Auto 0.82 K/mm3 (0.9-3.2); Lymphocytes Percent Auto 11.4 % (18.3-44.2); Mean Corpuscular HGB Conc 32.8 g/dl (32-36); Mean Corpuscular Hemoglobin 31.3 pg (26-34); Mean Corpuscular Volume 95.5 fl (80-100); Mean Platelet Volume 9.3 fl (7.4-10.4); Monocytes Absolute Auto 1.2 K/mm3 (0.1-0.6); Monocytes Percent Auto 16.2 % (2.6-8.5); Neutrophils Absolute Auto 4.4 K/mm3 (1.3-6.7); Neutrophils Percent Auto 61.7 % (45.5-73.1); Platelet Count Result 186 k/mm3 (150-375); Red Blood Count 2.68 M/mm3 (4.6-6.20); Red Cell Distribution Width 12.9 % (11.5-14.5); White Blood Count 7.2 K/mm3 (4.5-10.0)
[2023-12-04 05:16] LABS: Alanine Aminotransferase 33 U/L (6-50); Albumin Level 3.3 g/dL (3.5-5.1); Alkaline Phosphatase 82 U/L (38-126); Anion Gap 8 mmol/L (4-12); Aspartate Amino Transferase 37 U/L (17-59); Bilirubin,Total 0.4 mg/dL (0.2-1.3); Blood Urea Nitrogen 50 mg/dL (9-20); Calcium 8.5 mg/dL (8.4-10.2); Carbon Dioxide 25 mmol/L (22-30); Chloride 99 mmol/L (98-107); Estimated CRCL calculation 21 ml/min; Estimated Glomerular Filt Rate 21; Glucose 134 mg/dL (65-110); Magnesium 1.6 mg/dL (1.6-2.3); Potassium 4.6 mmol/L (3.4-5.0); Sodium 132 mmol/L (137-145)
[2023-12-04] MEDS: METOPROLOL SUCCINATE EXT REL 50 MG TABCR PO (08:18)
[2023-12-04] MEDS: PANTOPRAZOLE 40 MG TABLET PO (08:18)
[2023-12-04] MEDS: SODIUM BICARBONATE TAB 325 MG TABLET PO (08:18)
[2023-12-04] MEDS: amLODIPine BESYLATE 10 MG TABLET PO (08:20)
[2023-12-04] MEDS: hydrALAZINE HCL 50 MG TABLET PO (08:20)
[2023-12-04] MEDS: MULTIVITAMINS THERAPEUTIC TAB (*BKC) 1 TABLET PO (08:20)
[2023-12-04] MEDS: EPOETIN ALFA-EPBX 10,000 UNITS/ML VIAL 10000 UNITS SUB-Q (08:21)
--- NOTE | 2023-12-04 15:14 | PM.DS ---
DS: Admitting Diagnosis Discharge Date 12/04/23 Admitting Diagnosis Blood in stool DS: Discharge Diagnosis Discharge Diagnosis (1) Acute hyponatremia: Code(s): E87.1 - Hypo-osmolality and hyponatremia Status: Acute (2) Acute blood loss anemia: Code(s): D62 - Acute posthemorrhagic anemia Status: Acute (3) Bilateral hydronephrosis: Code(s): N13.30 - Unspecified hydronephrosis Status: Acute (4) COPD (chronic obstructive pulmonary disease): Qualifiers: COPD type: COPD with acute exacerbation Qualified Code(s): J44.1 - Chronic obstructive pulmonary disease with (acute) exacerbation Code(s): J44.9 - Chronic obstructive pulmonary disease, unspecified Status: Chronic (5) Alcohol dependence: Code(s): F10.20 - Alcohol dependence, uncomplicated Status: Acute (6) Chronic kidney disease, stage IV (severe): Code(s): N18.4 - Chronic kidney disease, stage 4 (severe) Status: Chronic DS: Summary Hospital Course Reason for hospitalization: 63yo male with COPD, alcoholism and CKD here for blood is stool. Please see H&P for details. Hospital Course: In the ED, laboratory evaluation revealed hemoglobin 6.7 with prior level earlier this month at 11. CMP showing sodium level of 107, creatinine of 2.6, BUN 43, chloride 76, AST 174 and ALT 59. BNP 9310. Chest x-ray showed cardiomegaly with cardiac decompensation and pulmonary edema. Superimposed pneumonitis was highly suggestive. Head CT showing no acute intracranial findings. Facial trauma noted. Facial CT showing no fracture. GI and Nephrology consulted. IV Lasix was given. 1 unit of PRBC was transfused. FOBT positive. Started on PPI and octreotide drip. Slight hepatomegaly noted by CT scan earlier this month. He was educated about the benefits of abstaining from alcohol. EGD performed showing a few superficial chronic benign gastric ulcers in the antrum. The ulcers were clean based without signs of bleeding. There was a mosaic pattern in the fundic and gastric mucosa but no petechiae or fundal varices. Biopsies were taken. He also had severe diffuse hemorrhagic white night is at the duodenal bulb. The duodenitis had a severe erosive change. Hemoglobin climbed to the 7-8 range and there remained stable. Sodium was 107 on admission. Serial sodium levels were checked. Sodium corrected with supportive care. CXR showed persistent pulmonary edema but he did not receive any further doses of Lasix except for the dose in the emergency room. He self diuresed with a cumulative fluid balance of-9.3 L. He did require D5 water and dDAVP once due to over-correction. Mildly elevated liver enzymes likely due to alcohol use and LFTs normalized. HepC RNA PCR negative. UDS negative. Alcohol level 76. Creatinine 2.6 on admission with creatinine ranged from 2.8-3.2 this admission. No prior baseline level present but Cr improved to 2.6 last admission. Found to have mild left and moderate right bilateral hydronephrosis with no definitive stones. Bilateral ureteral stent placement on 11/13/2023. Recent urine culture grew group B Streptococcus and Klebsiella aerogenes that was treated with Levaquin. History of Colorectal cancer treated with colectomy status post colostomy, radiation and chemotherapy. He lives with his . he feels ready for discharge. He is walking in the room. Nephrology felt patietn could be discharged and GI has signed off. Patient overall did well and was able to be discharged home on 12/04/23. Status at Discharge Cognitive/behavioral status at discharge: stable Time Spent with Patient Time attestation: Total time spent providing and/or coordinating discharge services: 38 minutes Time spent: Greater than 30 minutes Exam Narrative: AF 97.9 154/65 81 18 100% ra Gen - NARD Chest - scattered expiratory rhonchi, nml RR CV - RRR S1/S2. Abd - Soft, NT/ND, Positive BS. colostomy in the LLQ wi
[2023-12-04 15:33] LABS: Hepatitis C Viral RNA PCR <15 NOT DETECTED IU/mL (NOT DETECTED)
== END 2023-12-04 16:50 | disposition home or self-care (01) | DRG 378 ==
LOC: ANHED 22:19 → ANHIMU 22:58
PROVIDERS: Internal Medicine; Internal Medicine Gastroenterology; Internal Medicine Nephrology; Admitting Provider Internal Medicine; Emergency Provider Emergency Medicine; Visit Provider Internal Medicine
PROC: 0DJ08ZZ Inspection of Upper Intestinal Tract, Via Natural or Artificial Opening Endoscopic (ICD-10-PCS; CPT 43235; principal; 2023-12-02 13:00)
DX: K29.81 Duodenitis with bleeding (principal); D62 Acute posthemorrhagic anemia; E87.1 Hypo-osmolality and hyponatremia; N18.4 Chronic kidney disease, stage 4 (severe); K76.6 Portal hypertension; N13.30 Unspecified hydronephrosis; K31.89 Other diseases of stomach and duodenum; K25.7 Chronic gastric ulcer without hemorrhage or perforation; I12.9 Hypertensive chronic kidney disease with stage 1 through stage 4 chronic kidney disease, or unspecified chronic kidney disease; E87.70 Fluid overload, unspecified; J44.9 Chronic obstructive pulmonary disease, unspecified; F10.20 Alcohol dependence, uncomplicated; F17.210 Nicotine dependence, cigarettes, uncomplicated; Z20.822 Contact with and (suspected) exposure to COVID-19; Z85.038 Personal history of other malignant neoplasm of large intestine; Z93.3 Colostomy status
CPT/HCPCS: 36415; 36430; 70450; 70486; 71045; 80048; 80053; 80307; 81050; 82077; 82274; 82533; 82570; 82948; 83735; 83880; 83883; 83930; 83935; 84155; 84156; 84165; 84166; 84295; 84300; 84439; 84443; 84480; 84540; 85014; 85018; 85025; 85055; 85610; 86850; 86900; 86901; 86923; 87522; 87636; 88305; 94640; 96374; 96375; 99285; A9270; J1940; J2003; J2354; J2470; J2597; J2704; J2919; J7040; J7050; J7060; P9016; Q5105

== ENCOUNTER 2024-03-11 08:23 | Outpatient (CLI) | payer MEDICARE, SELFPAY ==
[2024-03-11 09:14] LABS: Albumin Level 4.1 g/dL (3.5-5.1); Anion Gap 12 mmol/L (4-12); Blood Urea Nitrogen 24 mg/dL (9-20); Calcium 8.8 mg/dL (8.4-10.2); Carbon Dioxide 20 mmol/L (22-30); Chloride 105 mmol/L (98-107); Estimated Glomerular Filt Rate 26; Glucose 112 mg/dL (65-110); Phosphorus 2.9 mg/dL (2.5-4.5); Potassium 4.2 mmol/L (3.4-5.0); Sodium 137 mmol/L (137-145)
[2024-03-11 09:53] LABS: Creatinine Urine 45.3 mg/dL; Total Protein Urine Random 171 mg/dL; Ur Ttl Prot Creatinine Ratio 3.77 mg/mg (0-0.20)
[2024-03-11 10:02] LABS: Parathyroid Intact 149.6 pg/mL (14.5-75.2)
[2024-03-11 10:07] LABS: Vitamin D 25 Hydroxy 18.8 ng/mL
== END 2024-03-11 08:24 | disposition home or self-care (01) ==
PROVIDERS: PCP Urology; Visit Provider Internal Medicine Nephrology
DX: N18.4 Chronic kidney disease, stage 4 (severe) (principal); N25.81 Secondary hyperparathyroidism of renal origin; E55.9 Vitamin D deficiency, unspecified
CPT/HCPCS: 36415; 80069; 82306; 82570; 83970; 84156

== ENCOUNTER 2024-05-01 12:51 | Inpatient (IN) | payer MEDICARE, SELFPAY ==
[2024-05-01] VITALS (29 sets, daily range): BP systolic 120–163; BP diastolic 61–111; PULSE 98–120; RESP 16–34; TEMP 36.7–37; O2SAT 93–100; BMI 26.4
--- NOTE | ~2024-05-01 | XR_ITS ---
XR chest 1V portable Ordering provider: Uzma Kearney MD History: 64 years Male with . cough, hypoxia . Comparison: December 03, 2023 FINDINGS: MEDIASTINUM: The cardiac silhouette is not enlarged. LUNGS: No effusions or pneumothorax. Opacification in the right mid and lower zone suggestive of pneumonia. OTHER: No free air under the diaphragm. Degenerative changes of the spine. IMPRESSION: Pneumonia in the right lower lobe. Reviewed, dictated and finalized at location A.
--- NOTE | 2024-05-01 13:02 | PC.NURSE ---
Pts O2 saturation after ambulating from triage to ED RM 11 was 87% on room air. Pt is currently 97% on 2L o2 NC
[2024-05-01 13:24] LABS: Basophils Percent Auto 0.1 % (0.2-1.2); Eosinophils Percent Auto 0.3 % (0-4.4); Hematocrit 29.9 % (42.0-52.0); Hemoglobin 9.7 g/dL (14.0-18.0); Immature Granulocyte Percent A 0.8 % (0-0.5); Immature Platelet Fraction Pct 6.7 % (0.9-11.2); Lymphocytes Absolute Auto 1.06 K/mm3 (0.9-3.2); Mean Corpuscular HGB Conc 32.4 g/dl (32-36); Mean Corpuscular Hemoglobin 30.6 pg (26-34); Mean Corpuscular Volume 94.3 fl (80-100); Mean Platelet Volume 10.9 fl (7.4-10.4); Monocytes Absolute Auto 1.9 K/mm3 (0.1-0.6); Neutrophils Absolute Auto 10.3 K/mm3 (1.3-6.7); Neutrophils Percent Auto 76.8 % (45.5-73.1); Platelet Count Result 102 k/mm3 (150-375); Red Blood Count 3.17 M/mm3 (4.6-6.20); Red Cell Distribution Width 15.3 % (11.5-14.5); White Blood Count 13.3 K/mm3 (4.5-10.0)
[2024-05-01 13:37] LABS: Alanine Aminotransferase 44 U/L (6-50); Albumin Level 3.6 g/dL (3.5-5.1); Alkaline Phosphatase 170 U/L (38-126); Anion Gap 16 mmol/L (4-12); Aspartate Amino Transferase 76 U/L (17-59); Bilirubin,Total 0.5 mg/dL (0.2-1.3); Blood Urea Nitrogen 24 mg/dL (9-20); Calcium 7.6 mg/dL (8.4-10.2); Carbon Dioxide 17 mmol/L (22-30); Chloride 94 mmol/L (98-107); Estimated CRCL calculation 21 ml/min; Estimated Glomerular Filt Rate 21; Glucose 197 mg/dL (65-110); Lipase 84 U/L (23-300); Potassium 3.9 mmol/L (3.4-5.0); Sodium 127 mmol/L (137-145)
[2024-05-01 13:58] LABS: Influenza A QL RT-PCR Negative (Negative); Influenza B QL RT-PCR Negative (Negative); RSV RNA, RT-PCR Negative (Negative); SARS-CoV-2 RNA PCR Positive (Negative)
--- NOTE | 2024-05-01 14:32 | PC.NURSE ---
Pt states his hacking cough causes him to vomit. Pt denies nausea.
--- NOTE | 2024-05-01 15:44 | ED_ITS ---
HPI - URI/Sore Throat General Chief Complaint: Upper Respiratory Infection Stated Complaint: +Covid contacts, Upper resp symptoms Time Seen by Provider: 05/01/24 14:30 Source: patient Mode of arrival: ambulatory Limitations: no limitations History of Present Illness HPI Narrative: 64-year-old with a history of hypertension, chronic alcohol user, status post colon cancer with the colectomy now having colostomy here with complaints of cough, shortness of breath, not feeling well for past few days. He states that his and his brother being diagnosed with COVID recently. He denies having any chest pain. Has occasional cough which is nonproductive in nature. Patient was hypoxic upon arrival his SpO2 was 88% on room air MD elicited complaint: cough and nasal congestion Onset (ago): day(s) (2) Consistency: constant Exacerbating factors: nothing Relieving factors: nothing Context: sick contacts Related Data Allergies Allergy/AdvReac Type Severity Reaction Status Date / Time No Known Allergies Allergy Verified 05/01/24 12:53 Review of Systems 2 Review of Systems: All systems reviewed & are unremarkable except as noted in HPI and below Constitutional: Constitutional: Reports no additional constitutional complaints Eyes: Eyes: Reports no additional eye complaints ENT: Reports system reviewed and no additional complaints, except as documented Cardiovascular: Cardiovascular: Reports no additional cardiovascular complaints Respiratory: Respiratory: Reports as per HPI Gastrointestinal: Gastrointestinal: Reports no additional gastrointestinal complaints Musculoskeletal: Musculoskeletal: Reports no additional musculoskeletal complaints Neurologic: Reports system reviewed and no additional complaints, except as documented [facility] Past Medical History Medical History Melena Bilateral hearing loss Essential hypertension Colorectal cancer (~2019) Treated with colectomy, radiation therapy and chemotherapy. Patient received care in [place] Surgical History Surgical History Status post cataract extraction and insertion of intraocular lens of left eye Status post colostomy (~2019) Family History Family History Father , Age 62 Cancer ?stomach cancer? Mother Breast cancer, Onset Age: 44 Sibling Cancer ?stomach cancer? 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 Since that time he and his (depending catheter for over 20 years been for only few years) have been traveling around the [place] They are currently living with the patient's brother for the last year while he helps brother remodeled a house. He has smoked between 0.5 up to 2 packs of cigarettes per day for about 40 years. He drinks 6-9 beers a day. He sometimes go a couple of months without drinking at all. He denies history of illicit substance use. Code status: Full code (patient states that he would not want long-term ventilation or feeding tube. He states he would not want to be on a ventilator from more than a couple of weeks.) Surrogate decision maker: Kira jimenez these ) Smoking packs per day: 1.5 Smoking cigarettes per day: 30.0 Years smoked: 40 Smoking pack-years: 60.00 Smoking status: Current every day smoker Alcohol intake: current Drinks per week: 84 Substance use: never Do You Feel Safe in your Home?: Yes Lack of Transportation: No Lack of Food: Never True Current Housing: I Have Housing Concerned About Future Housing: No Difficulty Paying Gas/Electric Bills: No Difficulty Paying for Meds: No Currently Unemployed: No Education: High School Diploma/GED Difficulty w/ Childcare or Family Care: No 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 HEAD: Normocephalic, atraumatic. EYES: PERRLA and EOMI. ENT: Nares clear, no rhinorrhea or epistaxis. Mucous membranes moist. NECK: Supple. CHEST: Clear to auscultation. No respiratory distress. HEART: Regular rate and rhythm. No murmur heard. Normal peripheral pulses. ABDOMEN: Soft, nontender, nondistended, normal active bowel sounds. Colostomy bag EXTREMITIES: Normal range of motion. No edema. SKIN: Warm, dry, no rash. NEURO: No focal deficits. Alert and oriented x3. PSYCH: Normal mood and affect. Course Course Emergency Course: Patient was hypoxic upon arrival on 2 L he is now up to 94%. Patient insisted that he needs to be admitted to the same room where his is upstairs. I had to explain to him that is against hospital policy and all the rooms of prior with. He finally agreed to stay. I did inform him about his lab work, chest x- ray findings. i discussed with hospitalist accepted the patient Vital Signs Vital signs: Vital Signs Temperature 37.0 C 05/01/24 12:54 Pulse Rate 108 H 05/01/24 12:54 Respiratory Rate 16 05/01/24 12:54 Blood Pressure 133/61 05/01/24 12:54 Pulse Oximetry 95 05/01/24 12:54 Temperature 37.0 C 05/01/24 12:54 Pulse Rate 105 H 05/01/24 14:16 Respiratory Rate 24 H 05/01/24 14:16 Blood Pressure 146/67 H 05/01/24 14:16 Pulse Oximetry 96 05/01/24 14:16 Oxygen Delivery Nasal Cannula 05/01/24 13:20 Oxygen Flow Rate 2 05/01/24 13:20 MDM - URI/Sore Throat Differential Diagnosis Differential diagnosis: Likely upper respiratory infection, viral infection, bronchitis and other (pneumonia) Medical Records Attestation: I reviewed the patient's medical records. Lab Data Attestation: I reviewed the patient's lab results. 05/01/24 13:18 05/01/24 13:18 Labs: Lab Results 05/01/24 Range/Units 13:18 WBC 13.3 H (4.5-10.0) K/mm3 RBC 3.17 L (4.6-6.20) M/mm3 Hgb 9.7 L (14.0-18.0) g/dL Hct 29.9 L (42.0-52.0) % MCV 94.3 (80-100) fl MCH 30.6 (26-34) pg MCHC 32.4 (32-36) g/dl RDW 15.3 H (11.5-14.5) % Plt Count 102 L (150-375) k/mm3 MPV 10.9 H (7.4-10.4) fl Immature Gran % (Auto) 0.8 H (0-0.5) % Neut % (Auto) 76.8 H (45.5-73.1) % Lymph % (Auto) 8.0 L (18.3-44.2) % Glasscock % (Auto) 14.0 H (2.6-8.5) % Eos % (Auto) 0.3 (0-4.4) % Baso % (Auto) 0.1 L (0.2-1.2) % Lymph # (Auto) 1.06 (0.9-3.2) K/mm3 Glasscock # (Auto) 1.9 H (0.1-0.6) K/mm3 Eos # (Auto) 0.0 (0-0.3) K/mm3 Baso # (Auto) 0.0 (0.0-0.1) K/mm3 Abs Immat Gran (auto) 0.10 H (0.00-0.031) K/mm3 Absolute Neuts (auto) 10.3 H (1.3-6.7) K/mm3 Absolute Nucleated RBC 0.000 (0.0-0.012) K/mm3 Nucleated RBC % 0.0 (0.0-0.2) % % Immature Plt Fraction 6.7 (0.9-11.2) % Sodium 127 L (137-145) mmol/L Potassium 3.9 (3.4-5.0) mmol/L Chloride 94 L (98-107) mmol/L Carbon Dioxide 17 L (22-30) mmol/L Anion Gap 16 H (4-12) mmol/L BUN 24 H (9-20) mg/dL Creatinine 3.03 H (0.7-1.3) mg/dL Estim Creat Clear Calc 21 ml/min Estimated GFR 21 L (59 - ) Glucose 197 H (65-110) mg/dL Calcium 7.6 L (8.4-10.2) mg/dL Total Bilirubin 0.5 (0.2-1.3) mg/dL AST 76 H (17-59) U/L ALT 44 (6-50) U/L Alkaline Phosphatase 170 H (38-126) U/L Total Protein 7.0 (6.3-8.2) g/dL Albumin 3.6 (3.5-5.1) g/dL Lipase 84 (23-300) U/L Influenza A (RT-PCR) Negative (Negative) Influenza B (RT-PCR) Negative (Negative) RSV (RT-PCR) Negative (Negative) SARS-CoV-2 RNA (RT-PCR) Positive A (Negative) Imaging Data Radiologist's impression: ITS Impressions Chest X-Ray 05/01/24 13:39 IMPRESSION: Pneumonia in the right lower lobe. Discharge Plan Discharge Clinical Impression: ELIA (acute kidney injury), COVID Pneumonia Qualifiers: Pneumonia type: due to unspecified organism Laterality: right Lung location: l ower lobe of lung Qualified Code(s): J18.9 - Pneumonia, unspecified organism Patient Disposition: Still a Patient Condition: Stable Patient Language: American Prescriptions: No Action thiamine HCl (vitamin B1) [Vitamin B-1] 100 mg Tablet 100 mg PO QAM Qty: 30 0RF pantoprazole 40 mg Tablet,Delayed Release (Dr/Ec) 40 mg PO DAILY Qty: 30 2RF albuterol sulfate 2.5 mg /3 mL (0.083 %) Solution For Nebulization 2.5 mg inhalation Q6HRT Qty: 75 0RF amlodipine 10 mg Tablet 10 mg PO DAILY Qty: 90 0RF hydralazine 50 mg Tablet 50 mg PO BID Qty: 180 0RF metoprolol succinate 50 mg Tablet Extended Release 24 Hr 50 mg PO QAM Qty: 90 0RF multivitamin with folic acid [Thera] 400 mcg Tablet 1 tablet PO QAM Qty: 90 0RF sodium bicarbonate 325 mg Tablet 325 mg PO BID Qty: 180 0RF Follow-up/Referrals: PHYSICIAN,INTERVENTIONAL NURSE [Primary Care Provider] - Time of Disposition: 15:52
--- NOTE | 2024-05-01 15:57 | P.HP_ITS ---
H&P: HPI History of Present Illness Date/Time: 05/01/24 15:57 Chief Complaint: Shortness of breath Narrative: 64-year-old male with history of GI bleed and colorectal cancer in 2020, colostomy and hypertension presents the hospital with shortness of breath. He was found to be hypoxic on room air at 86%. Patient states that his is in the hospital with COVID. Patient makes conflicting statements on when he 1st got sick. Need started 2 days ago may have started today unsure. He also states that he quit drinking a long time ago. However he may have last drink 2 days ago. He states that he drinks about 8-10 shots of fireball. Patient complains of cough denies fever and chills. In the ED the patient had leukocytosis at 13.3, anemia at 9.7, sodium of 127, carbon dioxide 17, anion gap is 16, BUN of 24, creatinine of 3.03 with baseline being around 2.5, GFR of 21, calcium is 7.6, AST of 76, alkaline phos of 170, influenza A/B, RSV negative COVID is positive. Chest x-ray shows pneumonia in the right lower lobe. Blood cultures and urine cultures pending. Patient started on Rocephin, doxy, and IV fluids for hydration, dexamethasone. Review of Systems Review of Systems: 12 systems were reviewed and are negativ e except for as per HPI. COUNTS INCLUDE 234 BEDS AT THE [facility] Past Medical History Medical History Melena Bilateral hearing loss Essential hypertension Colorectal cancer (~2019) Treated with colectomy, radiation therapy and chemotherapy. Patient received care in [place] Surgical History Surgical History Status post cataract extraction and insertion of intraocular lens of left eye Status post colostomy (~2019) Family History Family History Father , Age 62 Cancer ?stomach cancer? Mother Breast cancer, Onset Age: 44 Sibling Cancer ?stomach cancer? 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 Since that time he and his (depending catheter for over 20 years been for only few years) have been traveling around the [place] They are currently living with the patient's brother for the last year while he helps brother remodeled a house. He has smoked between 0.5 up to 2 packs of cigarettes per day for about 40 years. He drinks 6-9 beers a day. He sometimes go a couple of months without drinking at all. He denies history of illicit substance use. Code status: Full code (patient states that he would not want long-term ventilation or feeding tube. He states he would not want to be on a ventilator from more than a couple of weeks.) Surrogate decision maker: Kira jimenez these ) Smoking packs per day: 1.5 Smoking cigarettes per day: 30.0 Years smoked: 40 Smoking pack-years: 60.00 Smoking status: Former smoker Tobacco type: cigarettes Smoking end date: 11/12/23 Alcohol intake: former Drinks per week: 84 Substance use: never Substance use type: does not use Do You Feel Safe in your Home?: Yes Lack of Transportation: No Lack of Food: Never True Current Housing: I Have Housing Concerned About Future Housing: No Difficulty Paying Gas/Electric Bills: No Difficulty Paying for Meds: No Currently Unemployed: No Education: Don't Know Difficulty w/ Childcare or Family Care: No 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 Spiritual care concerns: No Meds Home Medications and Allergies Home Medications ?Medication ?Instructions ?Recorded ?Confirmed ?Type amlodipine 10 mg tablet 10 mg PO DAILY #90 tabs 11/14/23 05/01/24 Rx multivitamin with folic acid 400 1 tablet PO QAM #90 tabs 11/14/23 05/01/24 Rx mcg tablet (Thera) pantoprazole 40 mg tablet,delayed 40 mg PO DAILY #30 tabs 12/04/23 05/01/24 Rx release thiamine HCl (vitamin B1) 100 mg 100 mg PO QAM #30 tabs 12/04/23 05/01/24 Rx tablet (Vitamin B-1) Allergies Allergy/AdvReac Type Severity Reaction Status Date / Time No Known Allergies Allergy Verified 05/01/24 12:53 Vital Signs Vital Signs - 24 hr 05/01/24 12:54 05/01/24 13:20 05/01/24 13:54 Temperature 98.6 F Pulse Rate 108 H 108 H Respiratory Rate 16 31 H Blood Pressure 133/61 Pulse Oximetry 95 100 93 Oxygen Delivery Nasal Cannula Oxygen Flow Rate 2 05/01/24 14:02 05/01/24 14:03 05/01/24 14:15 Temperature Pulse Rate 109 H 108 H 104 H Respiratory Rate 24 H 25 H 19 Blood Pressure 133/94 H Pulse Oximetry 98 97 96 Oxygen Delivery Oxygen Flow Rate 05/01/24 14:16 Temperature Pulse Rate 105 H Respiratory Rate 24 H Blood Pressure 146/67 H Pulse Oximetry 96 Oxygen Delivery Oxygen Flow Rate Exam Narrative: General: well appearing, appears stated age. HEENT: normocephalic, atraumatic. Mucous membranes moist. EOMI, PERRLA, bilateral sclera anicteric, no conjunctival injection. Neck supple without JVD, lymphadenopathy, or bruit. Respiratory: Course to ascultation bilaterally. No rales/rhonic/wheezes. Using accessory muscles Cardiovascular: Regular rate and rhythm, normal S1-S2 upon ascultation. No murmurs, rubs, or clicks. PMI is nondisplaced, capillary refill less than 3 second. Abdomen: Soft, round, no pulsatile masses, distended and nontender. No rebound, no guarding. No CVA tenderness, no hepatosplenomegaly. Bowel sounds present to all four quadrants. No high pitch or tinkling sounds, resonant to percussion. Colostomy Extremities: No cyanosis, clubbing, or edema present. Pulses are palpable 2/2. Active ROM to all four extremities. Neuro: Alert and orientated x 4. PERRLA. Cranial nerves 2-12 intact without focal deficit. Skin: Warm, dry, and intact, without rash, erythema, or lesion. Psych: pleasant, cooperative, normal speech, normal affect, no hallucinations, no dysarthia Costa catheter H&P: Results Labs Labs: Short CBC 05/01/24 Range/Units 13:18 WBC 13.3 H (4.5-10.0) K/mm3 Hgb 9.7 L (14.0-18.0) g/dL Hct 29.9 L (42.0-52.0) % Plt Count 102 L (150-375) k/mm3 BMP 05/01/24 13:18 Sodium 127 L Potassium 3.9 Chloride 94 L Carbon Dioxide 17 L BUN 24 H Creatinine 3.03 H Glucose 197 H Calcium 7.6 L Liver Function 05/01/24 Range/Units 13:18 Total Bilirubin 0.5 (0.2-1.3) mg/dL AST 76 H (17-59) U/L ALT 44 (6-50) U/L Alkaline Phosphatase 170 H (38-126) U/L Albumin 3.6 (3.5-5.1) g/dL Assessment and Plan Assessment and plan (1) Acute respiratory failure: Code(s): J96.00 - Acute respiratory failure, unspecified whether with hypoxia or hypercapnia Status: Acute Assessment and Plan: SpO2 86% on room air, secondary to COVID and pneumonia with history of COPD Wean oxygen as able ABG BiPAP p.r.n. and at night (2) COVID: Code(s): U07.1 - COVID-19 Status: Acute Assessment and Plan: dexamethasone Remdesivir Hepatic panel and PT INR Q 48 hours (3) Pneumonia: Qualifiers: Laterality: right Lung location: lower lobe of lung Pneumonia type: due to unspecified organism Qualified Code(s): J18.9 - Pneumonia, unspecified organism Code(s): J18.9 - Pneumonia, unspecified organism Status: Acute Assessment and Plan: IV Rocephin and azithromycin DuoNebs Incentive spirometer Robitussin Supportive care (4) Hyponatremia: Code(s): E87.1 - Hypo-osmolality and hyponatremia Status: Acute Assessment and Plan: Likely due to alcohol abuse IV fluids for hydration Gentle correction of sodium (5) ELIA (acute kidney injury): Code(s): N17.9 - Acute kidney failure, unspecified Status: Acute Assessment and Plan: On CKD stage 4, creatinine baseline around 2.5 IV fluids for hydration Avoid nephrotoxic medications (6) ETOH abuse: Code(s): F10.10 - Alcohol abuse, uncomplicated Status: Chronic Assessment and Plan: Monitor for withdrawals CIWA protocol with thiamine Ativan, lithium and folic acid (7) Hypertension: Code(s): I10 - Essential (primary) hypertension Status: Chronic Assessment and Plan: Continue home Norvasc Quality VTE Prophylaxis VTE prophylaxis: mechanical ordered and pharmacologic ordered Hospitalist MIPS Advance Care Plan I have confirmed that the patient's Advanced Care Plan is present, code status is documented, or surrogate decision maker is listed in patient medical record.: Yes Medication Reconciliation I have utilized all available resources to obtain, update and review the patients current medications (includes all prescriptions, OTC, herbals, cannabis, and nutritional supplements).: Yes
[2024-05-01] MEDS: dexAMETHasone SOD PHOS INJ 10 MG/ML 1 ML VIAL 6 MG IV PUSH (16:00)
[2024-05-01] MEDS: SODIUM CHLORIDE 0.9% IV 1,000 ML 125 ML IV CONT (16:01)
[2024-05-01] MEDS: DOXYCYCLINE 100 MG/NS 100 ML 100 MG/100 ML BAG IVPB (16:41)
[2024-05-01 16:44] LABS: Procalcitonin 8.5 ng/mL
--- NOTE | 2024-05-01 20:10 | ADMGEN ---
This patient, Chuy Amezquita, was admitted to Medical Room 247-. Patient/family oriented to hospital policies and general routines including ID bracelet, bed and alarms, visiting hours, pain management, procedures, bathroom and other care routines, personal items, smoking policy, room service/diet, and visiting hours. Information on how to activate the Rapid Response Team has been discussed. Patient/Family are encouraged to report perceived risks to care and to ask questions if they do not understand what they are told or what they should do.
[2024-05-01] MEDS: guaiFENesin/DEXTROMETHORPHAN 10 ML UDC PO (20:31)
[2024-05-01] MEDS: chlordiazePOXIDE (*CRX) 25 MG CAPSULE PO (20:31)
[2024-05-01] MEDS: IPRATROPIUM 0.5 MG/ALBUTEROL SULFATE 2.5 MG AMPUL.NEB 3 ML INHALATION (20:49)
[2024-05-01 21:28] LABS: Glucose Point of Care 221 mg/dl (65-105)
[2024-05-01 21:53] LABS: Add Urine Microscopic? YES; Appearance Urine Clear (Clear); Bacteria Urine Rare /hpf; Bilirubin Urine Negative (Negative); Blood Urine 1+ (Negative); Color Urine Yellow (Yellow); Glucose Urine UA Trace mg/dL (Negative); Ketones Urine Negative (Negative); Leukocyte Esterase Ur Trace LEU/UL (Negative); Need Manual Microscopic Reviewed; Nitrate Urine Negative (Negative); Non Pathogenic Casts 0-2; Protein Urine 1+ mg/dL (Negative); Specific Grav Ur 1.004 (1.001-1.035); Squamous Epithelial Cell Urine Occasional /hpf (Few); Urobilinogen Urine 0.2 mg/dL (<2.0); pH Urine 5.5 (5.0-9.0)
[2024-05-01 21:58] LABS: Alveolar/Arterial O2 Gradient 68.7 mmHg; Base Excess ABG -8.8 mEq/l (+/-2.0); Fractional Inspired Oxygen 28 %; HCO3 ABG 17.6 mEq/l (22.0-26.0); Oxygen Content ABG 14.5 %vol (16.0-22.0); Oxygen Saturation ABG 94.9 % (95.0-100.0); Oxyhemoglobin 94.8 % THb (90.0-100.0); PCO2 ABG 39.9 mmHg (35.0-45.0); PO2 ABG 83.9 mmHg (80.0-100.0); Total Hemoglobin 10.8 g/dL (12.0-18.0)
[2024-05-01 22:08] LABS: Lactic Acid Reflex 0.8 mmol/L (0.7-2.0)
[2024-05-01 22:09] LABS: Alanine Aminotransferase 44 U/L (6-50); Albumin Level 3.7 g/dL (3.5-5.1); Alkaline Phosphatase 188 U/L (38-126); Aspartate Amino Transferase 73 U/L (17-59); Bilirubin,Total 0.5 mg/dL (0.2-1.3)
[2024-05-01] MEDS: REMDESIVIR 200 MG/NS 250 ML 200 MG/250 ML BAG 250 MG IVPB (22:18)
[2024-05-01 22:43] LABS: Device NASAL CANNULA; Modified Allen's Test Pass; Site Drawn RIGHT RADIAL; pH ABG 7.263 (7.350-7.450)
[2024-05-01 23:05] LABS: Prothrombin Time 13.3 Seconds (11.1-14.7)
[2024-05-02] VITALS (25 sets, daily range): BP systolic 147–170; BP diastolic 70–89; PULSE 76–119; RESP 16–25; TEMP 36.4–37.1; O2SAT 94–100
[2024-05-02] MEDS: guaiFENesin/DEXTROMETHORPHAN 10 ML UDC PO ×5 (00:20→18:40)
[2024-05-02] MEDS: chlordiazePOXIDE (*CRX) 25 MG CAPSULE 50 MG PO ×4 (00:20→18:40)
[2024-05-02] MEDS: IPRATROPIUM 0.5 MG/ALBUTEROL SULFATE 2.5 MG AMPUL.NEB 3 ML INHALATION ×4 (01:47→20:02)
[2024-05-02 05:28] LABS: Basophils Percent Auto 0.1 % (0.2-1.2); Hematocrit 31.4 % (42.0-52.0); Immature Granulocyte Absolute 0.07 K/mm3 (0.00-0.031); Immature Platelet Fraction Pct 5.3 % (0.9-11.2); Lymphocytes Absolute Auto 0.22 K/mm3 (0.9-3.2); Mean Corpuscular HGB Conc 31.8 g/dl (32-36); Mean Corpuscular Hemoglobin 30.4 pg (26-34); Mean Corpuscular Volume 95.4 fl (80-100); Mean Platelet Volume 10.7 fl (7.4-10.4); Monocytes Absolute Auto 0.7 K/mm3 (0.1-0.6); Monocytes Percent Auto 9.8 % (2.6-8.5); Neutrophils Absolute Auto 6.2 K/mm3 (1.3-6.7); Neutrophils Percent Auto 86.1 % (45.5-73.1); Platelet Count Result 82 k/mm3 (150-375); Red Blood Count 3.29 M/mm3 (4.6-6.20); Red Cell Distribution Width 15.7 % (11.5-14.5); White Blood Count 7.2 K/mm3 (4.5-10.0)
[2024-05-02 05:37] LABS: Anion Gap 14 mmol/L (4-12); Blood Urea Nitrogen 29 mg/dL (9-20); Calcium 8.2 mg/dL (8.4-10.2); Carbon Dioxide 15 mmol/L (22-30); Chloride 105 mmol/L (98-107); Estimated CRCL calculation 24 ml/min; Estimated Glomerular Filt Rate 24; Glucose 186 mg/dL (65-110); Phosphorus 4.4 mg/dL (2.5-4.5); Potassium 4.1 mmol/L (3.4-5.0); Sodium 134 mmol/L (137-145)
[2024-05-02] MEDS: SODIUM CHLORIDE 0.9% IV 1,000 ML 125 ML IV CONT (05:46)
[2024-05-02 06:33] LABS: Glucose Point of Care 172 mg/dl (65-105)
[2024-05-02] MEDS: FOLIC ACID 1 MG TABLET PO (08:46)
[2024-05-02] MEDS: amLODIPine BESYLATE 10 MG TABLET PO (08:46)
[2024-05-02] MEDS: PANTOPRAZOLE 40 MG TABLET PO (08:46)
[2024-05-02] MEDS: dexAMETHasone SOD PHOS INJ 10 MG/ML 1 ML VIAL 6 MG IV PUSH (08:46)
[2024-05-02] MEDS: THIAMINE HCL 200 MG/2 ML VIAL 100 MG IV PUSH (08:47)
--- NOTE | 2024-05-02 11:16 | P.PNIM_ITS ---
Progress Note: A&P Assessment and Plan (1) Acute respiratory failure: Code(s): J96.00 - Acute respiratory failure, unspecified whether with hypoxia or hypercapnia Status: Acute Assessment and Plan: * Currently on room air, tachypneic * Continue to wean O2 for sat greater than 92% * Chest x-ray showing right lower lobe pneumonia * Continue Rocephin and doxycycline * Continue DuoNebs * Respiratory panel positive for COVID * Continue remdesivir and Decadron (2) COVID: Code(s): U07.1 - COVID-19 Status: Acute Assessment and Plan: * Respiratory panel positive for COVID * Continue remdesivir Decadron (3) Pneumonia: Qualifiers: Laterality: right Lung location: lower lobe of lung Pneumonia type: due to unspecified organism Qualified Code(s): J18.9 - Pneumonia, unspecified organism Code(s): J18.9 - Pneumonia, unspecified organism Status: Acute Assessment and Plan: * Chest x-ray showing right lower lobe pneumonia * Continue Rocephin and azithromycin * Continue to wean O2 sat greater 92% * Currently room air, tachypneic * Continue Duonebs * Respiratory panel positive for COVID (4) High anion gap metabolic acidosis: Code(s): E87.29 - Other acidosis Status: Acute Assessment and Plan: * Bicarb 15, Anion gap 14, pH 7.263 * Likely from diarrhea * continue to monitor (5) Hyponatremia: Code(s): E87.1 - Hypo-osmolality and hyponatremia Status: Acute Assessment and Plan: * Initial sodium 127, now up to 134 * Appears to be chronic * Continue to trend * Stop IV fluids (6) ELIA (acute kidney injury): Code(s): N17.9 - Acute kidney failure, unspecified Status: Acute Assessment and Plan: * Initial Creatinine 3.03, EGFR 21 * Appears to be at baseline * Today creatinine down to 2.72, EGFR 24 (7) ETOH abuse: Code(s): F10.10 - Alcohol abuse, uncomplicated Status: Chronic Assessment and Plan: * Continue CIWA protocol * Increase thiamin to 500 mg daily * Continue folic acid * Currently having bilateral tremors * States he quit but then admitted to drinking a few days ago (8) Hypertension: Code(s): I10 - Essential (primary) hypertension Status: Chronic Assessment and Plan: * Blood pressure ranging 128/72 to 170/81 * Continue amlodipine Time Spent With Patient Time with patient: 25 - 35 minutes Subjective Date/time seen: 05/02/24 11:16 Interval history: Interval summary: This is a 64-year-old male with a significant past medical history of colorectal cancer status post colectomy, radiation and chemotherapy, hyperten floridalma, former smoker, alcohol abuse who presented to the hospital with shortness of breath and hypoxia. Workup in the hospital included a chest x-ray which shown right lower lobe pneumonia. Initial labs showed a white blood cell count of 13.3, hemoglobin 9.7, platelet count 102, sodium 127, chloride 94, bicarb 17, anion gap 16, creatinine 3.03, EGFR 21, blood sugars ranging 172-221, alkaline phosphate 170. UA was obtained which showed 1+ urine protein, trace urine glucose, 1+ urine blood, trace leukocytes, 3-5 urine RBC, 6-10 urine WBC, rare bacteria present. Respiratory panel was positive for COVID. Urine and blood cultures were obtained and pending. Patient was started on Rocephin, doxycycline, remdesivir, Decadron, and IV fluids while in the ED. Subjective: Patient reports diarrhea, productive cough, currently on room air, bilateral hand tremors noted. Labs and imaging reviewed. Review of Systems Review of Systems: 12 systems were reviewed and are negativ e except for as per HPI. Exam Narrative: General: In no acute distress, well nourished Head: atraumatic, no encephalopathy Eyes: PERRLA, sclera clear ENT: moist mucous membranes, nasal passages clear Neck: supple, no JVD, no adenopathy, trachea midline Cardiac: Normal S1 and S2. No murmur, gallops or friction rubs, peripheral pulses intact. Respiratory:Wheezing and course bilaterally, no other adventitious lung sounds, productive cough with green thick sputum, tachypneic, currently on room air Gastrointestinal: soft, non-distended, non-tender, normoactive bowel sounds. Reporting diarrhea : voiding without difficulty. Extremities: moves all extremities well, no edema Skin: clean, dry, intact. No wounds or lesions. Neuro: Alert and oriented x3, cranial nerves intact, no neuro deficits. Psych: normal mood, normal affect,Tremors in bilateral hands-likely due to alcohol withdrawal, interactive Objective Data Vital Signs Vital Signs: Vital Signs - 24 hr 05/01/24 12:54 05/01/24 13:20 05/01/24 13:54 Temperature 98.6 F Pulse Rate 108 H 108 H Respiratory Rate 16 31 H Blood Pressure 133/61 Pulse Oximetry 95 100 93 Oxygen Delivery Nasal Cannula Oxygen Flow Rate 2 05/01/24 14:02 05/01/24 14:03 05/01/24 14:15 Temperature Pulse Rate 109 H 108 H 104 H Respiratory Rate 24 H 25 H 19 Blood Pressure 133/94 H Pulse Oximetry 98 97 96 Oxygen Delivery Oxygen Flow Rate 05/01/24 14:16 05/01/24 14:30 05/01/24 14:32 Temperature Pulse Rate 105 H Respiratory Rate 24 H Blood Pressure 146/67 H 120/76 Pulse Oximetry 96 95 96 Oxygen Delivery Oxygen Flow Rate 05/01/24 15:13 05/01/24 15:15 05/01/24 15:16 Temperature Pulse Rate 102 H 107 H 107 H Respiratory Rate 17 17 20 Blood Pressure 149/111 H Pulse Oximetry 96 97 97 Oxygen Delivery Oxygen Flow Rate 05/01/24 15:41 05/01/24 15:45 05/01/24 15:46 Temperature Pulse Rate 99 101 H 98 Respiratory Rate 28 H 25 H 24 H Blood Pressure 128/72 Pulse Oximetry 96 96 98 Oxygen Delivery Oxygen Flow Rate 05/01/24 16:00 05/01/24 16:28 05/01/24 16:30 Temperature Pulse Rate 106 H 111 H 115 H Respiratory Rate 27 H 31 H 29 H Blood Pressure Pulse Oximetry 98 100 Oxygen Delivery Oxygen Flow Rate 05/01/24 16:45 05/01/24 16:46 05/01/24 16:47 Temperature Pulse Rate 110 H 111 H 112 H Respiratory Rate 25 H 34 H 33 H Blood Pressure 159/72 H Pulse Oximetry 100 100 100 Oxygen Delivery Oxygen Flow Rate 05/01/24 19:20 05/01/24 19:51 05/01/24 20:09 Temperature Pulse Rate 104 H 120 H 107 H Respiratory Rate 22 H 22 H Blood Pressure 155/72 H Pulse Oximetry 97 Oxygen Delivery Oxygen Flow Rate 05/01/24 20:24 05/01/24 20:49 05/01/24 20:49 Temperature Pulse Rate 107 H 107 H Respiratory Rate 22 H 22 H Blood Pressure Pulse Oximetry 97 97 Oxygen Delivery Nasal Cannula Nasal Cannula Oxygen Flow Rate 2 2 05/01/24 22:00 05/01/24 22:48 05/01/24 23:45 Temperature 98.0 F Pulse Rate 112 H 107 H Respiratory Rate 18 31 H 22 H Blood Pressure 163/87 H Pulse Oximetry 98 97 Oxygen Delivery BiPAP Oxygen Flow Rate 05/02/24 00:00 05/02/24 00:04 05/02/24 01:47 Temperature 98.3 F Pulse Rate 90 83 107 H Respiratory Rate 18 22 H Blood Pressure 167/81 H Pulse Oximetry 100 Oxygen Delivery Oxygen Flow Rate 05/02/24 01:58 05/02/24 02:29 05/02/24 04:00 Temperature Pulse Rate 107 H 107 H 97 Respiratory Rate 22 H 23 H Blood Pressure Pulse Oximetry 97 Oxygen Delivery BiPAP Oxygen Flow Rate 05/02/24 04:51 05/02/24 05:35 05/02/24 06:00 Temperature 97.8 F 97.7 F Pulse Rate 79 84 Respiratory Rate 18 18 Blood Pressure 167/89 H 170/81 H Pulse Oximetry 100 98 98 Oxygen Delivery Nasal Cannula Oxygen Flow Rate 2 05/02/24 07:49 05/02/24 07:49 05/02/24 08:50 Temperature Pulse Rate 91 98 Respiratory Rate 24 H 20 Blood Pressure 160/75 H Pulse Oximetry 98 100 Oxygen Delivery Nasal Cannula Oxygen Flow Rate 1 Intake/Output Intake/Output: Intake & Output 04/29/24 04/30/24 05/01/24 05/02/24 23:59 23:59 23:59 23:59 Intake Total 400 1240 Output Total 2580 Balance 400 -1340 Meds/Results Medications: Active Medications Generic Name Dose Route Start Last Admin Trade Name Freq PRN Reason Stop Dose Admin Acetaminophen 650 mg 05/01/24 15:53 Acetaminophen 325 Mg Tablet PO Q4H PRN Mild Pain (1-3) or Fever Albuterol/Ipratropium 3 ml 05/01/24 20:00 05/02/24 07:49 Ipratropium 0.5 Mg/Albuterol Sulfate 2.5 Mg Ampul.Neb 3 Ml INHALATION 3 ml Q6HRT CLAUDIA Administration Amlodipine Besylate 10 mg 05/02/24 09:00 05/02/24 08:46 Amlodipine Besylate 10 Mg Tablet PO 10 mg DAILY CLAUDIA Administration Chlordiazepoxide HCl 50 mg 05/02/24 00:00 05/02/24 05:29 Chlordiazepoxide (*Crx) 25 Mg Capsule PO 50 mg Q6HR CLAUDIA Administration Dexamethasone Sodium Phosphate 6 mg 05/02/24 09:00 05/02/24 08:46 Dexamethasone Sod Phos Inj 10 Mg/Ml 1 Ml Vial IV PUSH 05/11/24 09:01 6 mg DAILY CLAUDIA Administration Enoxaparin Sodium 30 mg 05/02/24 09:00 Enoxaparin 30 Mg/0.3 Ml Syringe SUB-Q DAILY CLAUDIA Folic Acid 1 mg 05/02/24 09:00 05/02/24 08:46 Folic Acid 1 Mg Tablet PO 1 mg DAILY CLAUDIA Administration Guaifenesin/Dextromethorphan 10 ml 05/01/24 17:00 05/02/24 08:46 Guaifenesin/Dextromethorphan 10 Ml Udc PO 10 ml Q4HR CLAUDIA Administration Sodium Chloride 1,000 mls @ 125 mls/hr 05/01/24 15:55 05/02/24 05:46 Normal Saline Iv IV CONT 125 mls/hr .Q8H CLAUDIA Administration Remdesivir 100 mg in 250 mls @ 250 mls/hr 05/02/24 22:00 IVPB 05/05/24 22:59 Q24H CLAUDIA Lorazepam 2 mg 05/01/24 16:05 Lorazepam Inj (*Crx) 2 Mg/Ml Vial IV PUSH Q2H PRN CIWA > 15 Ondansetron HCl 4 mg 05/01/24 15:53 Ondansetron Inj 4 Mg/2 Ml Vial IV PUSH Q4H PRN Nausea Pantoprazole Sodium 40 mg 05/02/24 09:00 05/02/24 08:46 Pantoprazole 40 Mg Tablet PO 40 mg DAILY CLAUDIA Administration Thiamine HCl 100 mg 05/02/24 09:00 05/02/24 08:47 Thiamine Hcl 200 Mg/2 Ml Vial IV PUSH 100 mg DAILY CLAUDIA Administration Radiology Results: ITS Impressions Chest X-Ray 05/01/24 13:39 IMPRESSION: Pneumonia in the right lower lobe. Labs Labs: Laboratory Results - last 24 hr 05/01/24 05/01/24 05/01/24 13:18 21:25 21:31 WBC 13.3 H RBC 3.17 L Hgb 9.7 L Hct 29.9 L MCV 94.3 MCH 30.6 MCHC 32.4 RDW 15.3 H Plt Count 102 L MPV 10.9 H Immature Gran % (Auto) 0.8 H Neut % (Auto) 76.8 H Lymph % (Auto) 8.0 L [place] % (Auto) 14.0 H Eos % (Auto) 0.3 Baso % (Auto) 0.1 L Lymph # (Auto) 1.06 [place] # (Auto) 1.9 H Eos # (Auto) 0.0 Baso # (Auto) 0.0 Abs Immat Gran (auto) 0.10 H Absolute Neuts (auto) 10.3 H Absolute Nucleated RBC 0.000 Nucleated RBC % 0.0 % Immature Plt Fraction 6.7 PT INR Puncture Site ABG pH ABG pCO2 ABG pO2 ABG PO2/FiO2 Ratio ABG HCO3 ABG O2 Saturation ABG O2 Content ABG Base Excess A-a Gradient Oxyhemoglobin Total Hemoglobin O2 Delivery Device O2 Liters/Min FiO2 Sodium 127 L Potassium 3.9 Chloride 94 L Carbon Dioxide 17 L Anion Gap 16 H BUN 24 H Creatinine 3.03 H Estim Creat Clear Calc 21 Estimated GFR 21 L Glucose 197 H POC Capillary Glucose 221 H Lactic Acid Calcium 7.6 L Phosphorus Magnesium Total Bilirubin 0.5 Direct Bilirubin AST 76 H ALT 44 Alkaline Phosphatase 170 H Total Protein 7.0 Albumin 3.6 Lipase 84 Procalcitonin 8.5 Urine Color Yellow Urine Appearance Clear Urine pH 5.5 Ur Specific Center 1.004 Urine Protein 1+ H Urine Glucose (UA) Trace H Urine Ketones Negative Ur Blood (Man) 1+ H Urine Nitrate Negative Urine Bilirubin Negative Urine Urobilinogen 0.2 Add Ur Microanalysis Reviewed Leukocyte Esterase Rfl Trace H Urine RBC 3-5 H Urine WBC 6-10 H Ur Squamous Epith Cells Occasional Urine Bacteria Rare Urine Casts 0-2 Influenza A (RT-PCR) Negative Influenza B (RT-PCR) Negative RSV (RT-PCR) Negative SARS-CoV-2 RNA (RT-PCR) Positive A 05/01/24 05/01/24 05/01/24 21:46 21:50 22:25 WBC RBC Hgb Hct MCV MCH MCHC RDW Plt Count MPV Immature Gran % (Auto) Neut % (Auto) Lymph % (Auto) [place] % (Auto) Eos % (Auto) Baso % (Auto) Lymph # (Auto) [place] # (Auto) Eos # (Auto) Baso # (Auto) Abs Immat Gran (auto) Absolute Neuts (auto) Absolute Nucleated RBC Nucleated RBC % % Immature Plt Fraction PT 13.3 INR 1.0 Puncture Site Right radial ABG pH 7.263 L* ABG pCO2 39.9 ABG pO2 83.9 ABG PO2/FiO2 Ratio 3.00 ABG HCO3 17.6 L ABG O2 Saturation 94.9 L ABG O2 Content 14.5 L ABG Base Excess -8.8 A-a Gradient 68.7 Oxyhemoglobin 94.8 Total Hemoglobin 10.8 L O2 Delivery Device Nasal cannula O2 Liters/Min 2.0 FiO2 28 Sodium Potassium Chloride Carbon Dioxide Anion Gap BUN Creatinine Estim Creat Clear Calc Estimated GFR Glucose POC Capillary Glucose Lactic Acid 0.8 Calcium Phosphorus Magnesium Total Bilirubin 0.5 Direct Bilirubin 0.0 AST 73 H ALT 44 Alkaline Phosphatase 188 H Total Protein 7.0 Albumin 3.7 Lipase Procalcitonin Urine Color Urine Appearance Urine pH Ur Specific Center Urine Protein Urine Glucose (UA) Urine Ketones Ur Blood (Man) Urine Nitrate Urine Bilirubin Urine Urobilinogen Add Ur Microanalysis Leukocyte Esterase Rfl Urine RBC Urine WBC Ur Squamous Epith Cells Urine Bacteria Urine Casts Influenza A (RT-PCR) Influenza B (RT-PCR) RSV (RT-PCR) SARS-CoV-2 RNA (RT-PCR) 05/02/24 05/02/24 05:05 06:30 WBC 7.2 RBC 3.29 L Hgb 10.0 L Hct 31.4 L MCV 95.4 MCH 30.4 MCHC 31.8 L RDW 15.7 H Plt Count 82 L MPV 10.7 H Immature Gran % (Auto) 1.0 H Neut % (Auto) 86.1 H Lymph % (Auto) 3.0 L [place] % (Auto) 9.8 H Eos % (Auto) 0.0 Baso % (Auto) 0.1 L Lymph # (Auto) 0.22 L [place] # (Auto) 0.7 H Eos # (Auto) 0.0 Baso # (Auto) 0.0 Abs Immat Gran (auto) 0.07 H Absolute Neuts (auto) 6.2 Absolute Nucleated RBC 0.000 Nucleated RBC % 0.0 % Immature Plt Fraction 5.3 PT INR Puncture Site ABG pH ABG pCO2 ABG pO2 ABG PO2/FiO2 Ratio ABG HCO3 ABG O2 Saturation ABG O2 Content ABG Base Excess A-a Gradient Oxyhemoglobin Total Hemoglobin O2 Delivery Device O2 Liters/Min FiO2 Sodium 134 L Potassium 4.1 Chloride 105 Carbon Dioxide 15 L Anion Gap 14 H BUN 29 H Creatinine 2.72 H Estim Creat Clear Calc 24 Estimated GFR 24 L Glucose 186 H POC Capillary Glucose 172 H Lactic Acid Calcium 8.2 L Phosphorus 4.4 Magnesium 2.0 Total Bilirubin Direct Bilirubin AST ALT Alkaline Phosphatase Total Protein Albumin Lipase Procalcitonin Urine Color Urine Appearance Urine pH Ur Specific Center Urine Protein Urine Glucose (UA) Urine Ketones Ur Blood (Man) Urine Nitrate Urine Bilirubin Urine Urobilinogen Add Ur Microanalysis Leukocyte Esterase Rfl Urine RBC Urine WBC Ur Squamous Epith Cells Urine Bacteria Urine Casts Influenza A (RT-PCR) Influenza B (RT-PCR) RSV (RT-PCR) SARS-CoV-2 RNA (RT-PCR) Quality VTE Prophylaxis VTE prophylaxis: mechanical ordered and pharmacologic ordered
[2024-05-02 12:53] LABS: Glucose Point of Care 381 mg/dl (65-105)
[2024-05-02 18:41] LABS: Glucose Point of Care 354 mg/dl (65-105)
[2024-05-02] MEDS: INSULIN ASPART (*BKC) 100 UNITS/ML SUB-Q ×2 (18:46→22:11)
[2024-05-02] MEDS: REMDESIVIR 100 MG/NS 250 ML 100 MG/250 ML BAG 250 MG IVPB (22:18)
[2024-05-02 23:31] LABS: Glucose Point of Care 348 mg/dl (65-105)
[2024-05-03] VITALS (9 sets, daily range): BP systolic 162–163; BP diastolic 82–91; PULSE 97–112; RESP 16–24; TEMP 36.5–36.7; O2SAT 97–100
[2024-05-03] MEDS: chlordiazePOXIDE (*CRX) 25 MG CAPSULE 50 MG PO ×2 (00:41→06:41)
[2024-05-03] MEDS: SODIUM CHLORIDE 0.9% IV 1,000 ML 125 ML IV CONT (00:41)
[2024-05-03] MEDS: guaiFENesin/DEXTROMETHORPHAN 10 ML UDC PO ×3 (00:41→08:37)
[2024-05-03] MEDS: IPRATROPIUM 0.5 MG/ALBUTEROL SULFATE 2.5 MG AMPUL.NEB 3 ML INHALATION ×2 (01:56→08:06)
[2024-05-03 06:03] LABS: Alanine Aminotransferase 35 U/L (6-50); Albumin Level 3.4 g/dL (3.5-5.1); Alkaline Phosphatase 182 U/L (38-126); Aspartate Amino Transferase 42 U/L (17-59); Bilirubin,Total 0.3 mg/dL (0.2-1.3)
[2024-05-03 06:10] LABS: Prothrombin Time 13.8 Seconds (11.1-14.7)
[2024-05-03 07:28] LABS: Glucose Point of Care 257 mg/dl (65-105)
[2024-05-03] MEDS: FOLIC ACID 1 MG TABLET PO (08:37)
[2024-05-03] MEDS: PANTOPRAZOLE 40 MG TABLET PO (08:37)
[2024-05-03] MEDS: amLODIPine BESYLATE 10 MG TABLET PO (08:37)
[2024-05-03] MEDS: dexAMETHasone SOD PHOS INJ 10 MG/ML 1 ML VIAL 6 MG IV PUSH (08:38)
[2024-05-03] MEDS: THIAMINE 500 MG/NS 100 ML 500 MG/100 ML BAG 200 MG IVPB (08:49)
[2024-05-03] MEDS: INSULIN ASPART (*BKC) 100 UNITS/ML SUB-Q (08:52)
--- NOTE | 2024-05-03 11:00 | PM.DS ---
DS: Admitting Diagnosis Discharge Date 05/03/24 Admitting Diagnosis Acute respiratory failure COVID Pneumonia Hyponatremia Acute kidney injury ETOH abuse Hypertension DS: Discharge Diagnosis Discharge Diagnosis (1) Acute respiratory failure: Code(s): J96.00 - Acute respiratory failure, unspecified whether with hypoxia or hypercapnia Status: Acute (2) COVID: Code(s): U07.1 - COVID-19 Status: Acute (3) Pneumonia: Qualifiers: Laterality: right Lung location: lower lobe of lung Pneumonia type: due to unspecified organism Qualified Code(s): J18.9 - Pneumonia, unspecified organism Code(s): J18.9 - Pneumonia, unspecified organism Status: Acute (4) High anion gap metabolic acidosis: Code(s): E87.29 - Other acidosis Status: Acute (5) Hyponatremia: Code(s): E87.1 - Hypo-osmolality and hyponatremia Status: Acute (6) ELIA (acute kidney injury): Code(s): N17.9 - Acute kidney failure, unspecified Status: Acute (7) ETOH abuse: Code(s): F10.10 - Alcohol abuse, uncomplicated Status: Chronic (8) Hypertension: Code(s): I10 - Essential (primary) hypertension Status: Chronic DS: Summary Hospital Course Reason for hospitalization: Acute respiratory failure COVID Pneumonia Hyponatremia Acute kidney injury ETOH abuse Hypertension Hospital Course: This is a 64-year-old male with a significant past medical history of colorectal cancer status post colectomy, radiation and chemotherapy, hypertension, former smoker, alcohol abuse who presented to the hospital with shortness of breath and hypoxia. Workup in the hospital included a chest x-ray which shown right lower lobe pneumonia. Initial labs showed a white blood cell count of 13.3, hemoglobin 9.7, platelet count 102, sodium 127, chloride 94, bicarb 17, anion gap 16, creatinine 3.03, EGFR 21, blood sugars ranging 172-221, alkaline phosphate 170. UA was obtained which showed 1+ urine protein, trace urine glucose, 1+ urine blood, trace leukocytes, 3-5 urine RBC, 6-10 urine WBC, rare bacteria present. Respiratory panel was positive for COVID. Urine and blood cultures were obtained and pending. Patient was started on Rocephin, doxycycline, remdesivir, Decadron, and IV fluids while in the ED. Patient wanting to be discharged today. Patient is stable for discharge, currently on room air however he does still have a frequent coughing fits with wheezing/tightness. He agrees to use nebulizer at home and will continue on oral antibiotics. He was given a steroid taper as well. He will need to follow up with a primary care provider in 1 week. Final diagnosis: Acute respiratory failure with hypoxia, COVID-19, community-acquired pneumonia, alcohol withdrawal Status at Discharge Cognitive/behavioral status at discharge: Alert oriented x4 Functional status at discharge: independent ambulation Overall status at discharge: patient is progressing back to baseline Time Spent with Patient Time attestation: Total time spent providing and/or coordinating discharge services: Time spent: Greater than 30 minutes Exam Narrative: General: In no acute distress, well nourished Cardiac: Normal S1 and S2. No murmur, gallops or friction rubs, peripheral pulses intact. Respiratory: Mild Wheezing and course bilaterally, no other adventitious lung sounds, productive cough with green thick sputum, tachypneic, currently on room air Gastrointestinal: soft, non-distended, non-tender, normoactive bowel sounds. Reporting diarrhea : voiding without difficulty. Neuro: Alert and oriented x3 Psych: Tremors in bilateral hands-likely due to alcohol withdrawal, interactive DS: Data Data Completed and Pending Completed studies during hospitalization: Chest x-ray Pending studies at discharge: Blood cultures Labs on day of discharge: Labs from last 24 hours 05/03/24 05/03/24 05/02/24 07:24 05:32 22:15 PT 13.8 INR 1.0 POC Capillary Glucose 257 H 348 H Total Bilirubin 0.3 Direct Bilirubin 0.0 AST 42 ALT 35 Alkaline Phosphatase 182 H Total Protein 7.0 Albumin 3.4 L 05/02/24 05/02/24 18:37 12:49 PT INR POC Capillary Glucose 354 H 381 H Total Bilirubin Direct Bilirubin AST ALT Alkaline Phosphatase Total Protein Albumin Preliminary micro results at discharge 05/01/24 15:43 Blood Culture - Preliminary Blood 05/01/24 15:59 Blood Culture - Preliminary Blood Procedures/Treatments: None Discharge Plan Discharge Attending physician on discharge: Geronimo Torres Discharging Clinician: Aileen Trevino Anticipated Discharge Date/Time: 05/03/24 10:50 Patient Disposition: Home, Self-Care Activity: as tolerated Diet: as tolerated and heart healthy Discharge Instructions: Make sure you finish all your antibiotic as prescribed even if your feeling better Continue breathing treatments with DuoNeb every 6 hours for the next 72 hours and then you can switch back to just your inhalers Continue Solu-Medrol Dosepak until completed Continue to taper down on your Librium according to the instructions given to you by pharmacy. Follow-up with your primary care doctor in 1 week Patient Instructions: Antibiotic Form Patient Language: Hungarian Stand Alone Forms: General Discharge Information Follow-up/Referrals: Pranay Oakes MD [Physician] - 1 Week Discharge Medications: New ipratropium-albuterol 0.5 mg-3 mg(2.5 mg base)/3 mL Solution For Nebulization 3 ml inhalation Q6HRT Qty: 30 0RF dextromethorphan-guaifenesin 10-100 mg/5 mL Syrup 10 ml PO Q4HR Qty: 250 0RF chlordiazepoxide HCl 10 mg capsule 10 mg PO Q12H Qty: 16 0RF Rx Instructions: Taper instructions *Take 40 mg starting tonight, Then decrease to 30 mg x2 days Then decrease to 20 mg x2 days Then decrease to 10 mg x2 days Then discontinue use levofloxacin 750 mg tablet 750 mg PO DAILY 5 Days Qty: 5 0RF methylprednisolone [Medrol (Tesfaye)] 4 mg tablets,dose pack See Rx Instructions .ROUTE .COMPLEX Qty: 21 0RF Rx Instructions: orally per package directions Continued thiamine HCl (vitamin B1) [Vitamin B-1] 100 mg Tablet 100 mg PO QAM Qty: 30 0RF pantoprazole 40 mg Tablet,Delayed Release (Dr/Ec) 40 mg PO DAILY Qty: 30 2RF amlodipine 10 mg Tablet 10 mg PO DAILY Qty: 90 0RF multivitamin with folic acid [Thera] 400 mcg Tablet 1 tablet PO QAM Qty: 90 0RF Date of admission: 05/01/24 15:53 Primary Care Provider: PHYSICIAN,CABLE SPLICER APPRENTICE Admitting Provider: Denisha Devlin Attending physician on admission: Aileen Trevino Condition: Improved Quality VTE Prophylaxis VTE prophylaxis: mechanical ordered and pharmacologic ordered Hospitalist MIPS Heart Failure (Exclusion) Patient has history of Heart Transplant or Left Ventricular Assistive Device?: No IF YES, STOP HERE Heart Failure (Qualifier) Patient has current or prior documentation of LVEF less than or equal to 40%, or mod/servere depressed LVSF?: No IF NO, STOP HERE
== END 2024-05-03 11:39 | disposition home or self-care (01) | DRG 177 ==
LOC: ANHED 15:52 → ANH3MEDSUR 17:37 → ANH2MED 19:31
PROVIDERS: Nurse Practitioner Gerontology; Student in an Organized Health Care Education/Training Program; Admitting Provider Hospitalist; Emergency Provider Family Medicine; Visit Provider Nurse Practitioner Acute Care
DX: U07.1 COVID-19 (principal); J18.9 Pneumonia, unspecified organism; J96.01 Acute respiratory failure with hypoxia; E87.1 Hypo-osmolality and hyponatremia; N17.9 Acute kidney failure, unspecified; E87.29 Other acidosis; I10 Essential (primary) hypertension; F10.10 Alcohol abuse, uncomplicated; F17.210 Nicotine dependence, cigarettes, uncomplicated; Z85.038 Personal history of other malignant neoplasm of large intestine; Z93.3 Colostomy status
CPT/HCPCS: 36415; 36600; 71045; 80048; 80053; 80076; 81001; 82805; 82948; 83605; 83690; 83735; 84100; 84145; 85018; 85025; 85055; 85610; 87040; 87086; 87637; 94002; 94003; 94640; 96365; 96367; 96375; 99285; A9270; J0248; J0696; J1100; J1650; J1815; J3411; J7030

== ENCOUNTER 2024-07-13 12:35 | Inpatient (IN) | payer MEDICARE, SELFPAY ==
--- NOTE | ~2024-07-13 | CT_ITS ---
EXAMINATION: CT abdomen pelvis wo con DATE: 07/13/2024 14:43 INDICATION: Epigastric pain TECHNIQUE: Computed tomography (CT) of the abdomen and pelvis was performed without intravenous contr ast. The mA was adjusted according to patient size. Iterative reconstruction technique was employed. The dose-length product was 399.62 mGy-cm. COMPARISON: 11/12/2023 FINDINGS: 11 x 7 mm pleural-based nodule in the right lower lobe. Lung bases are otherwise clear. Heart size no rmal. Atherosclerotic coronary artery calcific lesion. No pericardial or pleural effusion. Diffuse he patic steatosis. Gallbladder, spleen, pancreas, bilateral adrenal glands are normal. There is bilater al perinephric stranding without hydronephrosis and wall thickening of the bilateral renal pelvises w hich is suspicious for bilateral ascending urinary tract infections with pyelitis. No urolithiasis. T here is also prominent thickening of the wall of the decompressed bladder suspicious for cystitis. St atus post distal colectomy with left lower quadrant and colostomy. There are foci of gas and fluid at the operative bed in the region of the anorectal resection, unclear whether external or internal. A few small high attenuation foci consistent with either calcification or surgical clips at the periphe ry of a 2.1 x 2.6 x 1.5 cm loculated fluid collection surrounded by stranding in the presacral space. No bowel obstruction. Normal appendix. Small fat-containing right inguinal hernia. There are also fe w very small fat-containing ventral hernias along the superior umbilical midline anterior abdominal w all. Mild lumbar dextrocurvature with severe lumbar and lower thoracic spondylosis. IMPRESSION: 1. Bladder wall thickening, bilateral perinephric stranding and wall thickening at the renal pelvises without hydronephrosis which is suspicious for cystitis with bilateral ascending urinary tract infec tions. Correlate with urinalysis. 2. Diffuse hepatic steatosis. 3. 2.6 x 2.1 x 1.5 cm loculated fluid collection within a region of scarring in the presacral space l ikely representing a residual postoperative seroma at the site of a prior distal colectomy with left lower quadrant and colostomy placement. Additional small collection of gas and fluid more caudally in the region of the likely resected anus, unclear whether this is external or internal to the patient. 4. A a few very small fat-containing supraumbilical ventral hernias and small fat-containing right in guinal hernia. Reviewed, dictated and finalized at location A. IMPRESSION: 1. Bladder wall thickening, bilateral perinephric stranding and wall thickening at the renal pelvises without hydronephrosis which is suspicious for cystitis with bilateral ascending urinary tract infections. Correlate with urinalysis. 2. Diffuse hepatic steatosis. 3. 2.6 x 2.1 x 1.5 cm loculated fluid collection within a region of scarring in the presacral space likely representing a residual postoperative seroma at the site of a prior distal colectomy with left lower quadrant and colostomy placem ent. Additional small collection of gas and fluid more caudally in the region o f the likely resected anus, unclear whether this is external or internal to the patient. 4. A a few very small fat-containing supraumbilical ventral hernias and small f at-containing right inguinal hernia.
[2024-07-13 12:42] VITALS: BP 139/74; PULSE 91; RESP 18; TEMP 36.4; O2SAT 98
[2024-07-13 13:51] LABS: Basophils Percent Auto 0.4 % (0.2-1.2); Eosinophils Absolute Auto 0.4 K/mm3 (0-0.3); Eosinophils Percent Auto 3.5 % (0-4.4); Hematocrit 30.5 % (42.0-52.0); Hemoglobin 10.5 g/dL (14.0-18.0); Immature Granulocyte Absolute 0.09 K/mm3 (0.00-0.031); Immature Granulocyte Percent A 0.9 % (0-0.5); Lymphocytes Absolute Auto 1.13 K/mm3 (0.9-3.2); Lymphocytes Percent Auto 11.3 % (18.3-44.2); Mean Corpuscular HGB Conc 34.4 g/dl (32-36); Mean Corpuscular Hemoglobin 30.7 pg (26-34); Mean Corpuscular Volume 89.2 fl (80-100); Monocytes Absolute Auto 1.3 K/mm3 (0.1-0.6); Monocytes Percent Auto 12.9 % (2.6-8.5); Neutrophils Absolute Auto 7.1 K/mm3 (1.3-6.7); Platelet Count Result 163 k/mm3 (150-375); Red Blood Count 3.42 M/mm3 (4.6-6.20); Red Cell Distribution Width 13.8 % (11.5-14.5)
[2024-07-13 13:57] LABS: Alanine Aminotransferase 32 U/L (6-50); Alkaline Phosphatase 147 U/L (38-126); Anion Gap 10 mmol/L (4-12); Aspartate Amino Transferase 51 U/L (17-59); Bilirubin,Total 0.7 mg/dL (0.2-1.3); Blood Urea Nitrogen 25 mg/dL (9-20); Calcium 8.7 mg/dL (8.4-10.2); Carbon Dioxide 9 mmol/L (22-30); Chloride 95 mmol/L (98-107); Estimated CRCL calculation 23 ml/min; Estimated Glomerular Filt Rate 22; Glucose 92 mg/dL (65-110); Lipase 241 U/L (23-300); Potassium 4.2 mmol/L (3.4-5.0); Sodium 114 mmol/L (137-145)
[2024-07-13] MEDS: ONDANSETRON INJ 4 MG/2 ML VIAL IV PUSH (14:29)
[2024-07-13] MEDS: SODIUM CHLORIDE 0.9% IV 1,000 ML 999 ML IV CONT ×2 (14:29→17:20)
[2024-07-13 14:56] LABS: Add Urine Microscopic? YES; Appearance Urine Cloudy (Clear); Bacteria Urine 2+ /hpf; Bilirubin Urine Negative (Negative); Blood Urine 1+ (Negative); Color Urine Yellow (Yellow); Glucose Urine UA Negative (Negative); Ketones Urine Negative (Negative); Leukocyte Esterase Ur 3+ LEU/UL (Negative); Need Manual Microscopic Reviewed; Nitrate Urine Negative (Negative); Protein Urine 1+ mg/dL (Negative); RBC Urine 0-2 /hpf (0-2); Specific Grav Ur 1.004 (1.001-1.035); Squamous Epithelial Cell Urine None Seen /hpf (Few); Urobilinogen Urine 0.2 mg/dL (<2.0); WBC Urine >100 /hpf (0-3)
[2024-07-13 16:25] LABS: Lactic Acid Reflex 0.5 mmol/L (0.7-2.0)
--- NOTE | 2024-07-13 16:39 | ED.GENADULT ---
HPI - General Adult General Chief complaint: Weakness Stated complaint: Weakness, nausea/vomiting Time Seen by Provider: 07/13/24 13:49 History of Present Illness HPI narrative: Patient is a 64-year-old male who presents ER with multiple complaints. Aching lower abdominal pain worsening over last 2 weeks. Associated with nausea and vomiting. No alleviating factors. He has history of colon cancer with surgical excision and ostomy placement. He reports diarrhea output which is abnormal for him over the same 2 weeks. No blood. No fevers or chills. He has been trying to keep up with output by drinking plenty of water. He reports he feels nauseous whenever he eats and drinks. Related Data Home Medications ?Medication ?Instructions ?Recorded ?Confirmed ?Last Taken ?Type No Home Medications 07/13/24 07/13/24 Unknown History Allergies Allergy/AdvReac Type Severity Reaction Status Date / Time No Known Allergies Allergy Verified 07/13/24 12:45 Review of Systems Review of Systems: All systems reviewed & are unremarkable except as noted in HPI and below Constitutional: Constitutional: Reports no additional constitutional complaints ENT: Reports system reviewed and no additional complaints, except as documented Cardiovascular: Cardiovascular: Reports no additional cardiovascular complaints Respiratory: Respiratory: Reports no additional respiratory complaints Gastrointestinal: Gastrointestinal: Reports no additional gastrointestinal complaints [facility] Past Medical History Medical History Melena Bilateral hearing loss Essential hypertension Colorectal cancer (~2019) Treated with colectomy, radiation therapy and chemotherapy. Patient received care in [place] Surgical History Surgical History Status post cataract extraction and insertion of intraocular lens of left eye Status post colostomy (~2019) Family History Family History Father , Age 62 Cancer ?stomach cancer? Mother Breast cancer, Onset Age: 44 Sibling Cancer ?stomach cancer? 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 Since that time he and his (depending catheter for over 20 years been for only few years) have been traveling around the [place] They are currently living with the patient's brother for the last year while he helps brother remodeled a house. He has smoked between 0.5 up to 2 packs of cigarettes per day for about 40 years. He drinks 6-9 beers a day. He sometimes go a couple of months without drinking at all. He denies history of illicit substance use. Code status: Full code (patient states that he would not want long-term ventilation or feeding tube. He states he would not want to be on a ventilator from more than a couple of weeks.) Surrogate decision maker: Kira jimenez these ) Smoking packs per day: 1.5 Smoking cigarettes per day: 30.0 Years smoked: 40 Smoking pack-years: 60.00 Smoking status: Current every day smoker Tobacco type: cigars Smoking end date: 04/11/24 Alcohol intake: current Drinks per week: 42 Substance use: never Substance use type: does not use Do You Feel Safe in your Home?: Yes Lack of Transportation: No Lack of Food: Never True Current Housing: I Have Housing Concerned About Future Housing: No Difficulty Paying Gas/Electric Bills: No Difficulty Paying for Meds: No Currently Unemployed: No Education: Decline to Answer Difficulty w/ Childcare or Family Care: No 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 HEAD: Normocephalic, atraumatic. ENT: Mucous membranes moist. CHEST: Clear to auscultation. No respiratory distress. HEART: Regular rate and rhythm. Normal peripheral pulses. ABDOMEN: Soft, nontender, nondistended, ostomy left lower quadrant. EXTREMITIES: Normal range of motion. No edema. SKIN: Warm, dry, no rash. NEURO: Alert and oriented x3. PSYCH: Normal mood and affect. Course Course Emergency Course: Patient resting comfortably. Informed of results. Admit to hospitalist service. Patient has received 1 L IV fluid, hospitalist request a 2nd. Patient also received ceftriaxone for pyelonephritis. Vital Signs Vital signs: Vital Signs Temperature 97.6 F 07/13/24 12:42 Pulse Rate 91 07/13/24 12:42 Respiratory Rate 18 07/13/24 12:42 Blood Pressure 139/74 07/13/24 12:42 Pulse Oximetry 98 07/13/24 12:42 Oxygen Delivery Room Air 07/13/24 12:42 Temperature 98.1 F 07/13/24 19:54 Pulse Rate 67 07/13/24 19:54 Respiratory Rate 18 07/13/24 19:54 Blood Pressure 143/63 H 07/13/24 19:54 Pulse Oximetry 100 07/13/24 19:54 Oxygen Delivery Room Air 07/13/24 12:42 Medical Decision Making Vital Signs Vital Signs: Vital Signs Temperature 97.6 F 07/13/24 12:42 Pulse Rate 91 07/13/24 12:42 Respiratory Rate 18 07/13/24 12:42 Blood Pressure 139/74 07/13/24 12:42 Pulse Oximetry 98 07/13/24 12:42 Oxygen Delivery Room Air 07/13/24 12:42 Temperature 98.1 F 07/13/24 19:54 Pulse Rate 67 07/13/24 19:54 Respiratory Rate 18 07/13/24 19:54 Blood Pressure 143/63 H 07/13/24 19:54 Pulse Oximetry 100 07/13/24 19:54 Oxygen Delivery Room Air 07/13/24 12:42 Lab Data 07/13/24 13:37 07/13/24 18:54 Labs: Lab Results 07/13/24 07/13/24 07/13/24 Range/Units 13:37 14:17 15:45 WBC 10.0 (4.5-10.0) K/mm3 RBC 3.42 L (4.6-6.20) M/mm3 Hgb 10.5 L (14.0-18.0) g/dL Hct 30.5 L (42.0-52.0) % MCV 89.2 (80-100) fl MCH 30.7 (26-34) pg MCHC 34.4 (32-36) g/dl RDW 13.8 (11.5-14.5) % Plt Count 163 D (150-375) k/mm3 MPV 10.0 (7.4-10.4) fl Immature Gran % (Auto) 0.9 H (0-0.5) % Neut % (Auto) 71.0 (45.5-73.1) % Lymph % (Auto) 11.3 L (18.3-44.2) % [place] % (Auto) 12.9 H (2.6-8.5) % Eos % (Auto) 3.5 (0-4.4) % Baso % (Auto) 0.4 (0.2-1.2) % Lymph # (Auto) 1.13 (0.9-3.2) K/mm3 [place] # (Auto) 1.3 H (0.1-0.6) K/mm3 Eos # (Auto) 0.4 H (0-0.3) K/mm3 Baso # (Auto) 0.0 (0.0-0.1) K/mm3 Abs Immat Gran (auto) 0.09 H (0.00-0.031) K/mm3 Absolute Neuts (auto) 7.1 H (1.3-6.7) K/mm3 Absolute Nucleated RBC 0.000 (0.0-0.012) K/mm3 Nucleated RBC % 0.0 (0.0-0.2) % Sodium 114 L* (137-145) mmol/L Potassium 4.2 (3.4-5.0) mmol/L Chloride 95 L (98-107) mmol/L Carbon Dioxide 9 L (22-30) mmol/L Anion Gap 10 (4-12) mmol/L BUN 25 H (9-20) mg/dL Creatinine 2.86 H (0.7-1.3) mg/dL Estim Creat Clear Calc 23 ml/min Estimated GFR 22 L (59 - ) Glucose 92 (65-110) mg/dL Lactic Acid 0.5 L (0.7-2.0) mmol/L Calcium 8.7 (8.4-10.2) mg/dL Total Bilirubin 0.7 (0.2-1.3) mg/dL AST 51 (17-59) U/L ALT 32 (6-50) U/L Alkaline Phosphatase 147 H (38-126) U/L Total Protein 8.0 (6.3-8.2) g/dL Albumin 4.0 (3.5-5.1) g/dL Lipase 241 (23-300) U/L Urine Color Yellow (Yellow) Urine Appearance Cloudy H (Clear) Urine pH 6.0 (5.0-9.0) Ur Specific [place] 1.004 (1.001-1.035) Urine Protein 1+ H (Negative) mg/dL Urine Glucose (UA) Negative (Negative) mg/dL Urine Ketones Negative (Negative) mg/dL Ur Blood (Man) 1+ H (Negative) Urine Nitrate Negative (Negative) Urine Bilirubin Negative (Negative) Urine Urobilinogen 0.2 (<2.0) mg/dL Add Ur Microanalysis Reviewed Leukocyte Esterase Rfl 3+ H (Negative) RED/UL Urine RBC 0-2 (0-2) /hpf Urine WBC >100 H (0-3) /hpf Ur Squamous Epith Cells None seen (Few) /hpf Urine Bacteria 2+ H /hpf Urine Casts 3-5 Critical Care Time Critical Care Time Critical Care Time: Yes Total Critical Care Time: 35 Discharge Plan Discharge Clinical Impression: Pyelonephritis, Acute hyponatremia Patient Disposition: Still a Patient Condition: Stable
[2024-07-13 16:44] VITALS: BP 140/53; PULSE 93; RESP 19; O2SAT 99
--- NOTE | 2024-07-13 17:50 | ADMGEN ---
This patient, Chuy Amezquita, was admitted to Medical Room 341-01. Patient/family oriented to hospital policies and general routines including ID bracelet, bed and alarms, visiting hours, pain management, procedures, bathroom and other care routines, personal items, smoking policy, room service/diet, and visiting hours. Information on how to activate the Rapid Response Team has been discussed. Patient/Family are encouraged to report perceived risks to care and to ask questions if they do not understand what they are told or what they should do.
[2024-07-13 18:07] VITALS: BMI 25.9
[2024-07-13 19:23] LABS: Anion Gap 6 mmol/L (4-12); Blood Urea Nitrogen 27 mg/dL (9-20); Calcium 7.9 mg/dL (8.4-10.2); Carbon Dioxide 13 mmol/L (22-30); Chloride 99 mmol/L (98-107); Estimated CRCL calculation 24 ml/min; Estimated Glomerular Filt Rate 25; Glucose 159 mg/dL (65-110); Sodium 118 mmol/L (137-145)
[2024-07-13] MEDS: DEXTROSE 5%/0.45% SOD CHL 1,000 ML 100 ML IV CONT (19:41)
[2024-07-13 19:54] VITALS: BP 143/63; PULSE 67; RESP 18; TEMP 36.7; O2SAT 100
[2024-07-13 20:00] VITALS: PULSE 94
--- NOTE | 2024-07-13 21:28 | PM.IMHP ---
H&P: HPI History of Present Illness Date/Time: 07/13/24 21:28 Chief Complaint: ?The usual stuff? Narrative: 64-year-old male with a past medical history of chronic alcohol dependence, prior gastric ulcer and duodenitis 2023, essential hypertension, colorectal cancer status post colostomy, chronic kidney disease stage 4 with bilateral hydronephrosis with UPJ narrowing on prior cystoscopy and prior hospitalizations for hyponatremia presented to the ER with nausea vomiting and diarrhea for 2 weeks. The patient reports he has been nauseated any time he tries to eat or drink anything. He has been having vomiting and reports abdominal pain only with vomiting. He has had loose output from his ostomy has sounds like it may be looser than his normal. He has had empty his ostomy bag more than usual. He reports the pain is in his lower abdomen. He has also been having bilateral flank pain. He denies any dysuria or changes in urinary frequency. He has been drinking about 4 glasses of water a day and feels that this is plenty of water to make up for his stool output. He reports he has not been able to keep any food or drink down for the last 2 weeks until today. Patient denies any hematemesis or coffee-ground emesis but he does have dried material in his frias that appears quite dark in color. He denies having prior history of EGD but patient has had prior EGD at our facility that demonstrated chronic gastric ulcer in 2023 and severe erosive duodenitis with bleeding. He was discharged on Protonix but did not follow-up with a physician to get refills on his medications. He reports he does not take any home meds but it sounds like he has been trying to manage heartburn symptoms with Rolaids. He states he does occasionally have difficulty with swallowing. Despite normal orientation the patient is a poor historian subsequently the majority of HPI and past medical history was obtained from review of past medical records. UA in the ER was suggestive of UTI and CT of the abdomen pelvis demonstrated bilateral wall thickening with bilateral perinephric stranding as well as wall thickening the renal pelvis sees without hydronephrosis suspicious for cystitis with bilateral sending UTI. Given the patient's report of bilateral flank pain patient was admitted for treatment of suspected bilateral pyelonephritis. CT also demonstrated multiple findings that appears to be chronic including loculated fluid collection pre sacral space and diffuse hepatic steatosis. Review of Systems Review of Systems: 12 systems were reviewed with pertinent positives and negatives per HPI. Except as documented in the HPI, all other systems were reviewed and are negative. [facility] Past Medical History Medical History (Updated 07/13/24 @ 22:06 by Gege Dickey DO) Gastric ulcer Chronic gastric ulcer Noted on EGD 11/2023 Melena Bilateral hearing loss Essential hypertension Colorectal cancer (~2019) Treated with colectomy, radiation therapy and chemotherapy. Patient received care in [place] Surgical History Surgical History Status post cataract extraction and insertion of intraocular lens of left eye Status post colostomy (~2019) Family History Family History Father , Age 62 Cancer ?stomach cancer? Mother Breast cancer, Onset Age: 44 Sibling Cancer ?stomach cancer? 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 Since that time he and his (for over 20 years been for only few years) have been traveling around the [place] They are currently living with the patient's brother for while he helps brother remodel a house. He has smoked between 0.5 up to 2 packs of cigarettes per day for about 40 years he reports that he quit smoking in April of 2024. He drinks 6-9 beers a day. He sometimes go a couple of months without drinking at all. He denies history of illicit substance use. Code status: Full code (patient states that he would not want long-term ventilation or feeding tube. He states he would not want to be on a ventilator from more than a couple of weeks.) Surrogate decision maker: Panda Amezquita (Brother) Smoking packs per day: 1.5 Smoking cigarettes per day: 30.0 Years smoked: 40 Smoking pack-years: 60.00 Smoking status: Current every day smoker Tobacco type: cigars Smoking end date: 04/11/24 Alcohol intake: current Drinks per week: 42 Substance use: never Substance use type: does not use Do You Feel Safe in your Home?: Yes Lack of Transportation: No Lack of Food: Never True Current Housing: I Have Housing Concerned About Future Housing: No Difficulty Paying Gas/Electric Bills: No Difficulty Paying for Meds: No Currently Unemployed: No Education: Decline to Answer Difficulty w/ Childcare or Family Care: No 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 Spiritual care concerns: No Meds Home Medications and Allergies Home Medications ?Medication ?Instructions ?Recorded ?Confirmed ?Type No Home Medications 07/13/24 07/13/24 History Allergies Allergy/AdvReac Type Severity Reaction Status Date / Time No Known Allergies Allergy Verified 07/13/24 12:45 Vital Signs Vital Signs - 24 hr 07/13/24 12:42 07/13/24 16:44 07/13/24 19:54 Temperature 97.6 F 98.1 F Pulse Rate 91 93 67 Respiratory Rate 18 19 18 Blood Pressure 139/74 140/53 L 143/63 H Pulse Oximetry 98 99 100 Oxygen Delivery Room Air Exam Narrative: Weight 75 kg BMI 25.9 Const: Other: Disheveled, appears older than stated age, mildly ill-appearing HENMT: Other: Mucous membranes are dry, poor dentition, no oral pharyngeal erythema Eyes: Other: Pupils are equal and reactive with evidence of left lens replacement noted, mild conjunctival pallor, no scleral icterus Neck: Other: No JVD, no obvious thyromegaly Resp: Other: Diffuse wheezing in lung dwyer, no increased work of breathing Cardio: Other: Sinus tachycardia, 2+ bilateral radial and pedal pulses, no JVD GI: Other: Distended, nontender, ostomy in the lower abdomen with light brown soft watery stool present Skin: Other: No jaundice, no pallor Neuro: Other: Alert oriented, speech is clear, no obvious facial asymmetry, cranial nerves 2-12 appear to be grossly intact, no localizing neurologic deficits noted during the course of conversation Extrem: Other: No clubbing, cyanosis or edema, moves all extremities equally Psych: Appearance: disheveled Affect: Depressed mood present Other: Guarded, avoids eye contact, poor judgment and insight H&P: Results Labs Labs: Laboratory Tests 07/13/24 13:37 07/13/24 18:54 07/13/24 07/13/24 07/13/24 13:37 14:17 15:45 WBC 10.0 RBC 3.42 L Hgb 10.5 L Hct 30.5 L MCV 89.2 MCH 30.7 MCHC 34.4 RDW 13.8 Plt Count 163 D MPV 10.0 Immature Gran % (Auto) 0.9 H Neut % (Auto) 71.0 Lymph % (Auto) 11.3 L [place] % (Auto) 12.9 H Eos % (Auto) 3.5 Baso % (Auto) 0.4 Lymph # (Auto) 1.13 [place] # (Auto) 1.3 H Eos # (Auto) 0.4 H Baso # (Auto) 0.0 Abs Immat Gran (auto) 0.09 H Absolute Neuts (auto) 7.1 H Absolute Nucleated RBC 0.000 Nucleated RBC % 0.0 Sodium 114 L* Potassium 4.2 Chloride 95 L Carbon Dioxide 9 L Anion Gap 10 BUN 25 H Creatinine 2.86 H Estim Creat Clear Calc 23 Estimated GFR 22 L Glucose 92 Lactic Acid 0.5 L Calcium 8.7 Total Bilirubin 0.7 AST 51 ALT 32 Alkaline Phosphatase 147 H Total Protein 8.0 Albumin 4.0 Lipase 241 Urine Color Yellow Urine Appearance Cloudy H Urine pH 6.0 Ur Specific [place] 1.004 Urine Protein 1+ H Urine Glucose (UA) Negative Urine Ketones Negative Ur Blood (Man) 1+ H Urine Nitrate Negative Urine Bilirubin Negative Urine Urobilinogen 0.2 Add Ur Microanalysis Reviewed Leukocyte Esterase Rfl 3+ H Urine RBC 0-2 Urine WBC >100 H Ur Squamous Epith Cells None seen Urine Bacteria 2+ H Urine Casts 3-5 07/13/24 18:54 WBC RBC Hgb Hct MCV MCH MCHC RDW Plt Count MPV Immature Gran % (Auto) Neut % (Auto) Lymph % (Auto) [place] % (Auto) Eos % (Auto) Baso % (Auto) Lymph # (Auto) [place] # (Auto) Eos # (Auto) Baso # (Auto) Abs Immat Gran (auto) Absolute Neuts (auto) Absolute Nucleated RBC Nucleated RBC % Sodium 118 L* Potassium 4.0 Chloride 99 Carbon Dioxide 13 L Anion Gap 6 BUN 27 H Creatinine 2.65 H Estim Creat Clear Calc 24 Estimated GFR 25 L Glucose 159 H Lactic Acid Calcium 7.9 L Total Bilirubin AST ALT Alkaline Phosphatase Total Protein Albumin Lipase Urine Color Urine Appearance Urine pH Ur Specific [place] Urine Protein Urine Glucose (UA) Urine Ketones Ur Blood (Man) Urine Nitrate Urine Bilirubin Urine Urobilinogen Add Ur Microanalysis Leukocyte Esterase Rfl Urine RBC Urine WBC Ur Squamous Epith Cells Urine Bacteria Urine Casts Impressions Abdomen/Pelvis CT 07/13/24 14:45 IMPRESSION: 1. Bladder wall thickening, bilateral perinephric stranding and wall thickening at the renal pelvises without hydronephrosis which is suspicious for cystitis with bilateral ascending urinary tract infections. Correlate with urinalysis. 2. Diffuse hepatic steatosis. 3. 2.6 x 2.1 x 1.5 cm loculated fluid collection within a region of scarring in the presacral space likely representing a residual postoperative seroma at the site of a prior distal colectomy with left lower quadrant and colostomy placement. Additional small collection of gas and fluid more caudally in the region of the likely resected anus, unclear whether this is external or internal to the patient. 4. A a few very small fat-containing supraumbilical ventral hernias and small fat-containing right inguinal hernia. Assessment and Plan Assessment and plan (1) Acute hyponatremia: Code(s): E87.1 - Hypo-osmolality and hyponatremia Status: Acute (2) Nausea vomiting and diarrhea: Code(s): R11.2 - Nausea with vomiting, unspecified; R19.7 - Diarrhea, unspecified Status: Acute (3) Abnormal finding on urinalysis: Code(s): R82.90 - Unspecified abnormal findings in urine Status: Acute (4) Gastric ulcer: Qualifiers: Gastric ulcer chronicity: chronic Gastric ulcer complication status: unspecified whether hemorrhage or perforation present Qualified Code(s): K25.7 - Chronic gastric ulcer without hemorrhage or perforation Code(s): K25.9 - Gastric ulcer, unspecified as acute or chronic, without hemorrhage or perforation Status: Acute (5) Chronic kidney disease, stage IV (severe): Code(s): N18.4 - Chronic kidney disease, stage 4 (severe) Status: Chronic (6) Alcohol dependence: Qualifiers: Substance use status: uncomplicated Qualified Code(s): F10.20 - Alcohol dependence, uncomplicated Code(s): F10.20 - Alcohol dependence, uncomplicated Status: Acute (7) COPD (chronic obstructive pulmonary disease): Qualifiers: COPD type: unspecified COPD Qualified Code(s): J44.9 - Chronic obstructive pulmonary disease, unspecified Code(s): J44.9 - Chronic obstructive pulmonary disease, unspecified Status: Chronic Plan Patient presents with nausea vomiting and diarrhea and was found to have severe hyponatremia. Hyponatremia is likely multifactorial due to patient's history of alcohol use and relative volume depletion given increased GI output. Patient received 2 L IV fluid bolus in the ER with improvement in sodium from 114-118. And improvement in his serum bicarb from 5 up to 13. Will change IV fluids to D5 half-normal saline at 100 mL an hour is this rate of increases faster than what is ideal.. Will aim for no greater than 2 point change in sodium in a 4 hour interval. Will repeat sodium levels every 4 hours and adjust fluids as needed. Patient reports increased watery stools from his ostomy. He denied any recent antibiotic exposure. But will check stool for C diff. the patient reports significant heartburn symptoms as well as sensation of intermittent dysphagia in the setting of prior EGD demonstrating gastritis and duodenitis. Will place patient on Protonix 40 mg IV q.12 hours. Will repeat CBC in a.m. and monitor hemoglobin. If significant drop in hemoglobin will consider GI consult for possible EGD. Patient denies any further nausea or vomiting since IV fluid administration and Zofran in the ER. Will continue antiemetics as needed. Patient does have an abnormal urine that could be consistent with UTI but denies dysuria hematuria or changes in urinary frequency. He also does not have a white count. However CT does demonstrate evidence of possible pyelonephritis and the patient does report back pain for the last 2 weeks. Subsequently patient was started on Rocephin and blood cultures and urine cultures are pending. Patient does have history of alcohol dependence in drinks about 6 beers a day. Is unclear when he last drink alcohol. Will monitor CIWA scores q.4 hours and will provide Librium as needed. Patient is actively wheezing he denies any acute respiratory symptoms. Will place patient on DuoNebs q.6 hours as needed for shortness of breath and wheezing. Quality VTE Prophylaxis VTE prophylaxis: mechanical ordered (SCDs) Hospitalist MIPS Advance Care Plan I have confirmed that the patient's Advanced Care Plan is present, code status is documented, or surrogate decision maker is listed in patient medical record.: Yes Medication Reconciliation I have utilized all available resources to obtain, update and review the patients current medications (includes all prescriptions, OTC, herbals, cannabis, and nutritional supplements).: Yes
[2024-07-13] MEDS: PANTOPRAZOLE SODIUM IV 40 MG VIAL IV PUSH (21:57)
[2024-07-13] MEDS: CALCIUM CARBONATE (TUMS) 500 MG (200 MG ELEMENTAL) PO (21:57)
[2024-07-13 22:06] VITALS: O2SAT 99
[2024-07-13] MEDS: THIAMINE HCL 200 MG/2 ML VIAL 100 MG IV PUSH (22:47)
[2024-07-14] VITALS (9 sets, daily range): BP systolic 130–138; BP diastolic 67–76; PULSE 72–97; RESP 14–18; TEMP 36.3–36.6; O2SAT 97–100
[2024-07-14 00:04] LABS: Anion Gap 4 mmol/L (4-12); Blood Urea Nitrogen 28 mg/dL (9-20); Calcium 7.9 mg/dL (8.4-10.2); Carbon Dioxide 12 mmol/L (22-30); Chloride 103 mmol/L (98-107); Estimated CRCL calculation 24 ml/min; Estimated Glomerular Filt Rate 24; Glucose 121 mg/dL (65-110); Potassium 4.1 mmol/L (3.4-5.0); Sodium 119 mmol/L (137-145)
[2024-07-14] MEDS: DEXTROSE 5% 1,000 ML 1,000 ML 100 ML IV CONT ×2 (00:48→11:52)
[2024-07-14 04:57] LABS: Hematocrit 29.9 % (42.0-52.0); Hemoglobin 9.6 g/dL (14.0-18.0); Mean Corpuscular HGB Conc 32.1 g/dl (32-36); Mean Corpuscular Volume 93.4 fl (80-100); Mean Platelet Volume 10.1 fl (7.4-10.4); Platelet Count Result 137 k/mm3 (150-375); Red Cell Distribution Width 14.2 % (11.5-14.5); White Blood Count 7.1 K/mm3 (4.5-10.0)
[2024-07-14 05:08] LABS: Anion Gap 6 mmol/L (4-12); Blood Urea Nitrogen 27 mg/dL (9-20); Calcium 8.1 mg/dL (8.4-10.2); Carbon Dioxide 12 mmol/L (22-30); Chloride 103 mmol/L (98-107); Estimated CRCL calculation 24 ml/min; Estimated Glomerular Filt Rate 24; Glucose 125 mg/dL (65-110); Sodium 121 mmol/L (137-145)
[2024-07-14] MEDS: CALCIUM CARBONATE (TUMS) 500 MG (200 MG ELEMENTAL) PO (05:14)
[2024-07-14 07:29] LABS: Anion Gap 9 mmol/L (4-12); Blood Urea Nitrogen 26 mg/dL (9-20); Calcium 8.8 mg/dL (8.4-10.2); Carbon Dioxide 13 mmol/L (22-30); Chloride 102 mmol/L (98-107); Estimated CRCL calculation 23 ml/min; Estimated Glomerular Filt Rate 22; Glucose 124 mg/dL (65-110); Potassium 4.2 mmol/L (3.4-5.0); Sodium 124 mmol/L (137-145)
[2024-07-14 07:29] LABS: Toxigenic C. Diff POSITIVE (NEGATIVE)
--- NOTE | 2024-07-14 08:04 | P.PNIM_ITS ---
Progress Note: A&P Assessment and Plan (1) Acute hyponatremia: Code(s): E87.1 - Hypo-osmolality and hyponatremia Status: Acute Assessment and Plan: * In ED: Na 114 * Received 2L IV fluid bolus, improved to 118 * IVF changed to D5 half-NS @ 100mL/hr * Repeat Na levels q4hrs, adjust fluids as needed * /: Na 124 (2) C. difficile colitis: Code(s): A04.72 - Enterocolitis due to Clostridium difficile, not specified as recurrent Status: Acute Assessment and Plan: * Presenting to ED w/ n/v/d for 2 weeks * C Diff + * Will start oral vancomycin * Monitor blood cultures (3) Nausea vomiting and diarrhea: Code(s): R11.2 - Nausea with vomiting, unspecified; R19.7 - Diarrhea, unspecified Status: Acute Assessment and Plan: * IVF and antiemetics * See above (4) Pyelonephritis: Code(s): N12 - Tubulo-interstitial nephritis, not specified as acute or chronic Status: Acute Assessment and Plan: * CT Abd/pelvis: Bladder wall thickening, bilateral perinephric stranding and wall thickening at the renal pelvises without hydronephrosis which is suspicious for cystitis with bilateral ascending urinary tract infections. Correlate with urinalysis. * Pt reports back pain [id number] * IV Rocephin * BC and UC Pending (5) Gastric ulcer: Qualifiers: Gastric ulcer chronicity: chronic Gastric ulcer complication status: unspecified whether hemorrhage or perforation present Qualified Code(s): K25.7 - Chronic gastric ulcer without hemorrhage or perforation Code(s): K25.9 - Gastric ulcer, unspecified as acute or chronic, without hemorrhage or perforation Status: Acute Assessment and Plan: * Endorsing heartburn & sensation of dysphagia * Protonix 40mg IV q12hrs * Denies current N/v since IVF & antiemetics in ER * If Hgb drops, consult GI for possible EGD (6) Chronic kidney disease, stage IV (severe): Code(s): N18.4 - Chronic kidney disease, stage 4 (severe) Status: Chronic Assessment and Plan: -Creatinine: 2.88, GFR: 22, BUN: 26 -IV Fluids: Dextrose 5% @ 100mls/hr -Trend renal function -trend electrolytes, correct as needed (7) Alcohol dependence: Qualifiers: Substance use status: uncomplicated Qualified Code(s): F10.20 - Alcohol dependence, uncomplicated Code(s): F10.20 - Alcohol dependence, uncomplicated Status: Acute Assessment and Plan: * Consumes roughly 6 beers/day * Unclear when last drink was * CIWA monitoring q4hr * Provide librium as needed (8) COPD (chronic obstructive pulmonary disease): Qualifiers: COPD type: unspecified COPD Qualified Code(s): J44.9 - Chronic obstructive pulmonary disease, unspecified Code(s): J44.9 - Chronic obstructive pulmonary disease, unspecified Status: Chronic Assessment and Plan: * Monitor vital signs, I&Os, neuro status and patient is a fall risk * Monitor serum electrolytes, cultures and CBC * Monitor Oxygen saturation, Oxygen via NC; wean oxygen as tolerated, keep SpO2 greater than 88% * No SOB at this time Subjective Date/time seen: 07/14/24 08:04 Interval history: 64-year-old male with a pmhx chronic alcohol dependence, prior gastric ulcer and duodenitis 2023, HTN, colorectal cancer s/p colostomy, CKD stage 4 with bilateral hydronephrosis with UPJ narrowing on prior cystoscopy and prior hospitalizations for hyponatremia presented to the ER with n/v and diarrhea for 2 weeks. 07/14/2024 Patient sitting comfortably in bed at time of examination. Denies any chest pain, shortness a breath, abdominal pain, or nausea or vomiting at this time. Patient denies any episodes of emesis or diarrhea since yesterday morning. Patient found to be C diff positive, will initiate p.o. vancomycin. Sodium continues to be low 124, improving steadily all maintain IV fluid hydration with D5 NS and will adjust as necessary. Patient is otherwise stable has no complaints at this time. Review of Systems Review of Systems: 12 systems were reviewed with pertinent positives and negatives per HPI. Except as documented in the HPI, all other systems were reviewed and are negative. Exam Narrative: Weight 75 kg BMI 25.9 Const: Other: Disheveled, appears older than stated age, mildly ill-appearing HENMT: Other: Mucous membranes are dry, poor dentition, no oral pharyngeal erythema Eyes: Other: Pupils are equal and reactive with evidence of left lens replacement noted, mild conjunctival pallor, no scleral icterus Neck: Other: No JVD, no obvious thyromegaly Resp: Other: Diffuse wheezing in lung dwyer, no increased work of breathing Cardio: Other: Sinus tachycardia, 2+ bilateral radial and pedal pulses, no JVD GI: Other: Distended, nontender, ostomy in the lower abdomen with light brown soft watery stool present Skin: Other: No jaundice, no pallor Neuro: Other: Alert oriented, speech is clear, no obvious facial asymmetry, cranial nerves 2- 12 appear to be grossly intact, no localizing neurologic deficits noted during the course of conversation Extrem: Other: No clubbing, cyanosis or edema, moves all extremities equally Psych: Appearance: disheveled Affect: Depressed mood present Other: Guarded, avoids eye contact, poor judgment and insight Objective Data Vital Signs Vital Signs: Vital Signs - 24 hr 07/13/24 12:42 07/13/24 16:44 07/13/24 19:54 Temperature 97.6 F 98.1 F Pulse Rate 91 93 67 Respiratory Rate 18 19 18 Blood Pressure 139/74 140/53 L 143/63 H Pulse Oximetry 98 99 100 Oxygen Delivery Room Air 07/13/24 20:00 07/13/24 22:06 07/14/24 00:00 Temperature Pulse Rate 94 88 Respiratory Rate Blood Pressure Pulse Oximetry 99 Oxygen Delivery Room Air 07/14/24 04:00 07/14/24 05:57 Temperature 97.3 F L Pulse Rate 89 84 Respiratory Rate 18 Blood Pressure 130/69 Pulse Oximetry 97 Oxygen Delivery Intake/Output Intake/Output: Intake & Output 07/11/24 07/12/24 07/13/24 07/14/24 23:59 23:59 23:59 23:59 Intake Total 1050 500 Balance 1050 500 Meds/Results Medications: Active Medications Generic Name Dose Route Start Last Admin Trade Name Freq PRN Reason Stop Dose Admin Acetaminophen 650 mg 07/13/24 17:02 Acetaminophen 325 Mg Tablet PO Q4H PRN Mild Pain (1-3) or Fever Hydrocodone Bitart/Acetaminophen 1 tab 07/13/24 17:02 Hydrocodone/Acetaminophen (*Crx) 5-325 Mg Tablet PO Q4H PRN Pain Rated 4-6 Albuterol/Ipratropium 3 ml 07/13/24 22:12 Ipratropium 0.5 Mg/Albuterol Sulfate 2.5 Mg Ampul.Neb 3 Ml INHALATION Q6HRT PRN Shortness of breath/wheezing Calcium Carbonate 200 mg 07/13/24 21:33 07/14/24 05:14 Calcium Carbonate (Tums) 500 Mg (200 Mg Elemental) PO 200 mg Q6H PRN Administration Indigestion Chlordiazepoxide HCl 25 mg 07/13/24 22:20 Chlordiazepoxide (*Crx) 25 Mg Capsule PO Q8H PRN CIWA score greater than 8 Ceftriaxone Sodium 1 gm in 50 mls @ 100 mls/hr 07/14/24 15:00 Rocephin 1 Gm/Ns 50 Ml IVPB Q24H CLAUDIA Dextrose 1,000 mls @ 100 mls/hr 07/14/24 00:30 07/14/24 00:48 Dextrose 5% 1,000 Ml IV CONT 100 mls/hr .Q10H CLAUDIA Administration Morphine Sulfate 2 mg 07/13/24 22:11 Morphine Sulfate (*Crx) 2 Mg/Ml Inj IV PUSH Q4H PRN Pain Rated 7-10 Ondansetron HCl 4 mg 07/13/24 17:02 Ondansetron Inj 4 Mg/2 Ml Vial IV PUSH Q4H PRN Nausea Pantoprazole Sodium 40 mg 07/13/24 21:35 07/13/24 21:57 Pantoprazole Sodium Iv 40 Mg Vial IV PUSH 40 mg Q12HR CLAUDIA Administration Thiamine HCl 100 mg 07/14/24 09:00 Thiamine Hcl 200 Mg/2 Ml Vial IV PUSH QAM [facility] Radiology Results: ITS Impressions Abdomen/Pelvis CT 07/13/24 14:45 IMPRESSION: 1. Bladder wall thickening, bilateral perinephric stranding and wall thickening at the renal pelvises without hydronephrosis which is suspicious for cystitis with bilateral ascending urinary tract infections. Correlate with urinalysis. 2. Diffuse hepatic steatosis. 3. 2.6 x 2.1 x 1.5 cm loculated fluid collection within a region of scarring in the presacral space likely representing a residual postoperative seroma at the site of a prior distal colectomy with left lower quadrant and colostomy placement. Additional small collection of gas and fluid more caudally in the region of the likely resected anus, unclear whether this is external or internal to the patient. 4. A a few very small fat-containing supraumbilical ventral hernias and small fat-containing right inguinal hernia. Labs Labs: Laboratory Results - last 24 hr 07/13/24 07/13/24 07/13/24 04:26 13:37 14:17 WBC 10.0 RBC 3.42 L Hgb 10.5 L Hct 30.5 L MCV 89.2 MCH 30.7 MCHC 34.4 RDW 13.8 Plt Count 163 D MPV 10.0 Immature Gran % (Auto) 0.9 H Neut % (Auto) 71.0 Lymph % (Auto) 11.3 L [place] % (Auto) 12.9 H Eos % (Auto) 3.5 Baso % (Auto) 0.4 Lymph # (Auto) 1.13 [place] # (Auto) 1.3 H Eos # (Auto) 0.4 H Baso # (Auto) 0.0 Abs Immat Gran (auto) 0.09 H Absolute Neuts (auto) 7.1 H Absolute Nucleated RBC 0.000 Nucleated RBC % 0.0 Sodium 114 L* Potassium 4.2 Chloride 95 L Carbon Dioxide 9 L Anion Gap 10 BUN 25 H Creatinine 2.86 H Estim Creat Clear Calc 23 Estimated GFR 22 L Glucose 92 Lactic Acid Calcium 8.7 Total Bilirubin 0.7 AST 51 ALT 32 Alkaline Phosphatase 147 H Total Protein 8.0 Albumin 4.0 Lipase 241 Urine Color Yellow Urine Appearance Cloudy H Urine pH 6.0 Ur Specific [place] 1.004 Urine Protein 1+ H Urine Glucose (UA) Negative Urine Ketones Negative Ur Blood (Man) 1+ H Urine Nitrate Negative Urine Bilirubin Negative Urine Urobilinogen 0.2 Add Ur Microanalysis Reviewed Leukocyte Esterase Rfl 3+ H Urine RBC 0-2 Urine WBC >100 H Ur Squamous Epith Cells None seen Urine Bacteria 2+ H Urine Casts 3-5 C. difficile (PCR) Positive A* 07/13/24 07/13/24 07/13/24 15:45 18:54 23:40 WBC RBC Hgb Hct MCV MCH MCHC RDW Plt Count MPV Immature Gran % (Auto) Neut % (Auto) Lymph % (Auto) [place] % (Auto) Eos % (Auto) Baso % (Auto) Lymph # (Auto) [place] # (Auto) Eos # (Auto) Baso # (Auto) Abs Immat Gran (auto) Absolute Neuts (auto) Absolute Nucleated RBC Nucleated RBC % Sodium 118 L* 119 L* Potassium 4.0 4.1 Chloride 99 103 Carbon Dioxide 13 L 12 L Anion Gap 6 4 BUN 27 H 28 H Creatinine 2.65 H 2.68 H Estim Creat Clear Calc 24 24 Estimated GFR 25 L 24 L Glucose 159 H 121 H Lactic Acid 0.5 L Calcium 7.9 L 7.9 L Total Bilirubin AST ALT Alkaline Phosphatase Total Protein Albumin Lipase Urine Color Urine Appearance Urine pH Ur Specific [place] Urine Protein Urine Glucose (UA) Urine Ketones Ur Blood (Man) Urine Nitrate Urine Bilirubin Urine Urobilinogen Add Ur Microanalysis Leukocyte Esterase Rfl Urine RBC Urine WBC Ur Squamous Epith Cells Urine Bacteria Urine Casts C. difficile (PCR) 07/14/24 07/14/24 04:14 07:08 WBC 7.1 RBC 3.20 L Hgb 9.6 L Hct 29.9 L MCV 93.4 MCH 30.0 MCHC 32.1 RDW 14.2 Plt Count 137 L MPV 10.1 Immature Gran % (Auto) Neut % (Auto) Lymph % (Auto) [place] % (Auto) Eos % (Auto) Baso % (Auto) Lymph # (Auto) [place] # (Auto) Eos # (Auto) Baso # (Auto) Abs Immat Gran (auto) Absolute Neuts (auto) Absolute Nucleated RBC Nucleated RBC % Sodium 121 L 124 L Potassium 4.0 4.2 Chloride 103 102 Carbon Dioxide 12 L 13 L Anion Gap 6 9 BUN 27 H 26 H Creatinine 2.72 H 2.88 H Estim Creat Clear Calc 24 23 Estimated GFR 24 L 22 L Glucose 125 H 124 H Lactic Acid Calcium 8.1 L 8.8 Total Bilirubin AST ALT Alkaline Phosphatase Total Protein Albumin Lipase Urine Color Urine Appearance Urine pH Ur Specific [place] Urine Protein Urine Glucose (UA) Urine Ketones Ur Blood (Man) Urine Nitrate Urine Bilirubin Urine Urobilinogen Add Ur Microanalysis Leukocyte Esterase Rfl Urine RBC Urine WBC Ur Squamous Epith Cells Urine Bacteria Urine Casts C. difficile (PCR) Quality VTE Prophylaxis VTE prophylaxis: mechanical ordered (SCDs)
[2024-07-14] MEDS: PANTOPRAZOLE SODIUM IV 40 MG VIAL IV PUSH ×2 (08:55→20:28)
[2024-07-14] MEDS: THIAMINE HCL 200 MG/2 ML VIAL 100 MG IV PUSH (08:55)
[2024-07-14] MEDS: VANCOMYCIN HCL 125 MG ORAL CAPSULE PO ×2 (11:52→17:38)
[2024-07-14 12:49] LABS: Anion Gap 7 mmol/L (4-12); Blood Urea Nitrogen 28 mg/dL (9-20); Calcium 8.2 mg/dL (8.4-10.2); Carbon Dioxide 13 mmol/L (22-30); Chloride 103 mmol/L (98-107); Estimated CRCL calculation 24 ml/min; Estimated Glomerular Filt Rate 23; Glucose 95 mg/dL (65-110); Potassium 4.3 mmol/L (3.4-5.0); Sodium 123 mmol/L (137-145)
[2024-07-15] VITALS (9 sets, daily range): BP systolic 128–136; BP diastolic 67–80; PULSE 77–106; RESP 16–18; TEMP 36.7–36.8; O2SAT 97–99
[2024-07-15] MEDS: VANCOMYCIN HCL 125 MG ORAL CAPSULE PO ×4 (00:13→17:41)
[2024-07-15] MEDS: DEXTROSE 5% 1,000 ML 1,000 ML 100 ML IV CONT ×2 (05:26→17:43)
[2024-07-15 07:43] LABS: Basophils Absolute Auto 0.1 K/mm3 (0.0-0.1); Basophils Percent Auto 0.8 % (0.2-1.2); Eosinophils Absolute Auto 0.5 K/mm3 (0-0.3); Eosinophils Percent Auto 6.2 % (0-4.4); Hematocrit 30.1 % (42.0-52.0); Hemoglobin 9.7 g/dL (14.0-18.0); Immature Granulocyte Absolute 0.06 K/mm3 (0.00-0.031); Immature Granulocyte Percent A 0.8 % (0-0.5); Lymphocytes Absolute Auto 0.69 K/mm3 (0.9-3.2); Lymphocytes Percent Auto 9.5 % (18.3-44.2); Mean Corpuscular HGB Conc 32.2 g/dl (32-36); Mean Corpuscular Hemoglobin 30.4 pg (26-34); Mean Corpuscular Volume 94.4 fl (80-100); Mean Platelet Volume 9.8 fl (7.4-10.4); Monocytes Absolute Auto 0.9 K/mm3 (0.1-0.6); Monocytes Percent Auto 11.6 % (2.6-8.5); Neutrophils Absolute Auto 5.2 K/mm3 (1.3-6.7); Neutrophils Percent Auto 71.1 % (45.5-73.1); Platelet Count Result 146 k/mm3 (150-375); Red Blood Count 3.19 M/mm3 (4.6-6.20); Red Cell Distribution Width 14.6 % (11.5-14.5); White Blood Count 7.3 K/mm3 (4.5-10.0)
[2024-07-15 08:03] LABS: Alanine Aminotransferase 23 U/L (6-50); Albumin Level 3.6 g/dL (3.5-5.1); Alkaline Phosphatase 106 U/L (38-126); Anion Gap 6 mmol/L (4-12); Aspartate Amino Transferase 31 U/L (17-59); Bilirubin,Total 0.3 mg/dL (0.2-1.3); Blood Urea Nitrogen 28 mg/dL (9-20); Calcium 8.6 mg/dL (8.4-10.2); Carbon Dioxide 15 mmol/L (22-30); Chloride 106 mmol/L (98-107); Estimated CRCL calculation 20 ml/min; Estimated Glomerular Filt Rate 19; Glucose 158 mg/dL (65-110); Potassium 4.5 mmol/L (3.4-5.0); Sodium 127 mmol/L (137-145); Total Protein 6.8 g/dL (6.3-8.2)
--- NOTE | 2024-07-15 08:57 | P.PNIM_ITS ---
Progress Note: A&P Assessment and Plan (1) Acute hyponatremia: Code(s): E87.1 - Hypo-osmolality and hyponatremia Status: Acute Assessment and Plan: * In ED: Na 114 * Received 2L IV fluid bolus, improved to 118 * IVF changed to D5 half-NS @ 100mL/hr * Repeat Na levels q4hrs, adjust fluids as needed * 6/: Na 127 (2) C. difficile colitis: Code(s): A04.72 - Enterocolitis due to Clostridium difficile, not specified as recurrent Status: Acute Assessment and Plan: * Presenting to ED w/ n/v/d for 2 weeks * C Diff + * Will start oral vancomycin * Monitor blood cultures - preliminary result negative for growth (3) Nausea vomiting and diarrhea: Code(s): R11.2 - Nausea with vomiting, unspecified; R19.7 - Diarrhea, unspecified Status: Acute Assessment and Plan: * IVF and antiemetics * See above (4) Pyelonephritis: Code(s): N12 - Tubulo-interstitial nephritis, not specified as acute or chronic Status: Acute Assessment and Plan: * CT Abd/pelvis: Bladder wall thickening, bilateral perinephric stranding and wall thickening at the renal pelvises without hydronephrosis which is suspicious for cystitis with bilateral ascending urinary tract infections. Co rrelate with urinalysis. * Pt reports back pain [id number] * IV Rocephin * BC preliminary results negative for growth * Urine culture showed growth of group B Streptococcus (5) Gastric ulcer: Qualifiers: Gastric ulcer chronicity: chronic Gastric ulcer complication status: unspecified whether hemorrhage or perforation present Qualified Code(s): K25.7 - Chronic gastric ulcer without hemorrhage or perforation Code(s): K25.9 - Gastric ulcer, unspecified as acute or chronic, without hemorrhage or perforation Status: Acute Assessment and Plan: * Endorsing heartburn & sensation of dysphagia * Protonix 40mg IV q12hrs * Denies current N/v since IVF & antiemetics in ER * If Hgb drops, consult GI for possible EGD (6) Chronic kidney disease, stage IV (severe): Code(s): N18.4 - Chronic kidney disease, stage 4 (severe) Status: Chronic Assessment and Plan: -Creatinine: 2.88, GFR: 22, BUN: 26 -IV Fluids: Dextrose 5% @ 100mls/hr -Trend renal function -trend electrolytes, correct as needed - 07/15: Cr 3.26, baseline appears to be around 2.5-2.6, will maintain IV fluid hydration (7) Alcohol dependence: Qualifiers: Substance use status: uncomplicated Qualified Code(s): F10.20 - Alcohol dependence, uncomplicated Code(s): F10.20 - Alcohol dependence, uncomplicated Status: Acute Assessment and Plan: * Consumes roughly 6 beers/day * Unclear when last drink was * CIWA monitoring q4hr * Provide librium as needed (8) COPD (chronic obstructive pulmonary disease): Qualifiers: COPD type: unspecified COPD Qualified Code(s): J44.9 - Chronic obstructive pulmonary disease, unspecified Code(s): J44.9 - Chronic obstructive pulmonary disease, unspecified Status: Chronic Assessment and Plan: * Monitor vital signs, I&Os, neuro status and patient is a fall risk * Monitor serum electrolytes, cultures and CBC * Monitor Oxygen saturation, Oxygen via NC; wean oxygen as tolerated, keep SpO2 greater than 88% * No SOB at this time Subjective Date/time seen: 07/15/24 08:57 Interval history: 64-year-old male with a pmhx chronic alcohol dependence, prior gastric ulcer and duodenitis 2023, HTN, colorectal cancer s/p colostomy, CKD stage 4 with bilateral hydronephrosis with UPJ narrowing on prior cystoscopy and prior hospitalizations for hyponatremia presented to the ER with n/v and diarrhea for 2 weeks. 07/15/2024 Patient sitting comfortably in bed at time of examination. Denies any chest pain, n/v, SOB, abdominal pain. Vital signs remain stable. CBC unchanged, CMP did show worsening Cr, up to 3.26 (baseline around 2.5-2.7), will maintain on IVF hydration. Pt reports solid stool passage this morning. Na improved from 123 to 127 this am. Patient expressed interest in being discharged today but discussed that likely he will need to stay until tomorrow to monitor sodium and kidney function. Patient agreed to this but will likely be very adamant on being discharged tomorrow. Review of Systems Review of Systems: 12 systems were reviewed with pertinent positives and negatives per HPI. Except as documented in the HPI, all other systems were reviewed and are negative. Exam Narrative: Weight 75 kg BMI 25.9 Const: Other: Disheveled, appears older than stated age, mildly ill-appearing HENMT: Other: Mucous membranes are dry, poor dentition, no oral pharyngeal erythema Eyes: Other: Pupils are equal and reactive with evidence of left lens replacement noted, mild conjunctival pallor, no scleral icterus Neck: Other: No JVD, no obvious thyromegaly Resp: Other: Diffuse wheezing in lung dwyer, no increased work of breathing Cardio: Other: Sinus tachycardia, 2+ bilateral radial and pedal pulses, no JVD GI: Other: Distended, nontender, ostomy in the lower abdomen with light brown soft watery stool present Skin: Other: No jaundice, no pallor Neuro: Other: Alert oriented, speech is clear, no obvious facial asymmetry, cranial nerves 2- 12 appear to be grossly intact, no localizing neurologic deficits noted during the course of conversation Extrem: Other: No clubbing, cyanosis or edema, moves all extremities equally Psych: Appearance: disheveled Affect: Depressed mood present Other: Guarded, avoids eye contact, poor judgment and insight Objective Data Vital Signs Vital Signs: Vital Signs - 24 hr 07/14/24 12:05 07/14/24 14:00 07/14/24 16:05 Temperature 97.9 F Pulse Rate 91 72 97 Respiratory Rate 18 Blood Pressure 137/76 Pulse Oximetry 100 Oxygen Delivery 07/14/24 20:00 07/14/24 20:00 07/14/24 22:00 Temperature 97.8 F Pulse Rate 79 76 Respiratory Rate 14 Blood Pressure 138/67 Pulse Oximetry 100 Oxygen Delivery Room Air 07/15/24 00:00 07/15/24 04:00 07/15/24 06:00 Temperature 98.1 F Pulse Rate 90 87 84 Respiratory Rate 16 Blood Pressure 134/69 Pulse Oximetry 99 Oxygen Delivery Intake/Output Intake/Output: Intake & Output 07/12/24 07/13/24 07/14/24 07/15/24 23:59 23:59 23:59 23:59 Intake Total 1050 3770 Balance 1050 3770 Meds/Results Medications: Active Medications Generic Name Dose Route Start Last Admin Trade Name Freq PRN Reason Stop Dose Admin Acetaminophen 650 mg 07/13/24 17:02 Acetaminophen 325 Mg Tablet PO Q4H PRN Mild Pain (1-3) or Fever Hydrocodone Bitart/Acetaminophen 1 tab 07/13/24 17:02 Hydrocodone/Acetaminophen (*Crx) 5-325 Mg Tablet PO Q4H PRN Pain Rated 4-6 Albuterol/Ipratropium 3 ml 07/13/24 22:12 Ipratropium 0.5 Mg/Albuterol Sulfate 2.5 Mg Ampul.Neb 3 Ml INHALATION Q6HRT PRN Shortness of breath/wheezing Calcium Carbonate 200 mg 07/13/24 21:33 07/14/24 05:14 Calcium Carbonate (Tums) 500 Mg (200 Mg Elemental) PO 200 mg Q6H PRN Administration Indigestion Chlordiazepoxide HCl 25 mg 07/13/24 22:20 Chlordiazepoxide (*Crx) 25 Mg Capsule PO Q8H PRN CIWA score greater than 8 Ceftriaxone Sodium 1 gm in 50 mls @ 100 mls/hr 07/14/24 15:00 07/14/24 15:11 Rocephin 1 Gm/Ns 50 Ml IVPB 100 mls/hr Q24H CLAUDIA Administration Dextrose 1,000 mls @ 100 mls/hr 07/14/24 00:30 07/15/24 05:26 Dextrose 5% 1,000 Ml IV CONT 100 mls/hr .Q10H CLAUDIA Administration Morphine Sulfate 2 mg 07/13/24 22:11 Morphine Sulfate (*Crx) 2 Mg/Ml Inj IV PUSH Q4H PRN Pain Rated 7-10 Ondansetron HCl 4 mg 07/13/24 17:02 Ondansetron Inj 4 Mg/2 Ml Vial IV PUSH Q4H PRN Nausea Pantoprazole Sodium 40 mg 07/13/24 21:35 07/14/24 20:28 Pantoprazole Sodium Iv 40 Mg Vial IV PUSH 40 mg Q12HR CLAUDIA Administration Thiamine HCl 100 mg 07/14/24 09:00 07/14/24 08:55 Thiamine Hcl 200 Mg/2 Ml Vial IV PUSH 100 mg QAM CLAUDIA Administration Vancomycin HCl 125 mg 07/14/24 11:00 07/15/24 05:24 Vancomycin Hcl 125 Mg Oral Capsule PO 07/24/24 10:59 125 mg Q6HR CLAUDIA Administration Radiology Results: ITS Impressions Abdomen/Pelvis CT 07/13/24 14:45 IMPRESSION: 1. Bladder wall thickening, bilateral perinephric stranding and wall thickening at the renal pelvises without hydronephrosis which is suspicious for cystitis with bilateral ascending urinary tract infections. Correlate with urinalysis. 2. Diffuse hepatic steatosis. 3. 2.6 x 2.1 x 1.5 cm loculated fluid collection within a region of scarring in the presacral space likely representing a residual postoperative seroma at the s ite of a prior distal colectomy with left lower quadrant and colostomy placement. Additional small collection of gas and fluid more caudally in the region of the likely resected anus, unclear whether this is external or internal to the patient. 4. A a few very small fat-containing supraumbilical ventral hernias and small fat-containing right inguinal hernia. Labs Labs: Laboratory Results - last 24 hr 07/14/24 07/15/24 12:28 07:35 WBC 7.3 RBC 3.19 L Hgb 9.7 L Hct 30.1 L MCV 94.4 MCH 30.4 MCHC 32.2 RDW 14.6 H Plt Count 146 L MPV 9.8 Immature Gran % (Auto) 0.8 H Neut % (Auto) 71.1 Lymph % (Auto) 9.5 L [place] % (Auto) 11.6 H Eos % (Auto) 6.2 H Baso % (Auto) 0.8 Lymph # (Auto) 0.69 L [place] # (Auto) 0.9 H Eos # (Auto) 0.5 H Baso # (Auto) 0.1 Abs Immat Gran (auto) 0.06 H Absolute Neuts (auto) 5.2 Absolute Nucleated RBC 0.000 Nucleated RBC % 0.0 Sodium 123 L 127 L Potassium 4.3 4.5 Chloride 103 106 Carbon Dioxide 13 L 15 L Anion Gap 7 6 BUN 28 H 28 H Creatinine 2.75 H 3.26 H Estim Creat Clear Calc 24 20 Estimated GFR 23 L 19 L Glucose 95 158 H Calcium 8.2 L 8.6 Total Bilirubin 0.3 AST 31 ALT 23 Alkaline Phosphatase 106 Total Protein 6.8 Albumin 3.6 Quality VTE Prophylaxis VTE prophylaxis: mechanical ordered (SCDs)
[2024-07-15] MEDS: PANTOPRAZOLE SODIUM IV 40 MG VIAL IV PUSH (09:05)
[2024-07-15] MEDS: THIAMINE HCL 200 MG/2 ML VIAL 100 MG IV PUSH (09:05)
[2024-07-15] MEDS: CEPHALEXIN 250 MG CAPSULE PO ×2 (12:53→20:16)
[2024-07-16] VITALS: PULSE 85
[2024-07-16] MEDS: VANCOMYCIN HCL 125 MG ORAL CAPSULE PO ×2 (00:34→06:10)
[2024-07-16 04:00] VITALS: PULSE 99
[2024-07-16] MEDS: DEXTROSE 5% 1,000 ML 1,000 ML 100 ML IV CONT (04:12)
[2024-07-16 05:09] VITALS: BP 140/63; PULSE 76; RESP 16; TEMP 36.8; O2SAT 100
[2024-07-16 05:48] LABS: Basophils Absolute Auto 0.1 K/mm3 (0.0-0.1); Basophils Percent Auto 0.8 % (0.2-1.2); Eosinophils Absolute Auto 0.5 K/mm3 (0-0.3); Hemoglobin 9.3 g/dL (14.0-18.0); Immature Granulocyte Absolute 0.07 K/mm3 (0.00-0.031); Immature Granulocyte Percent A 1.1 % (0-0.5); Lymphocytes Absolute Auto 0.74 K/mm3 (0.9-3.2); Lymphocytes Percent Auto 11.8 % (18.3-44.2); Mean Corpuscular HGB Conc 32.1 g/dl (32-36); Mean Corpuscular Hemoglobin 30.5 pg (26-34); Mean Corpuscular Volume 95.1 fl (80-100); Mean Platelet Volume 10.2 fl (7.4-10.4); Monocytes Absolute Auto 0.8 K/mm3 (0.1-0.6); Monocytes Percent Auto 12.7 % (2.6-8.5); Neutrophils Absolute Auto 4.1 K/mm3 (1.3-6.7); Neutrophils Percent Auto 65.6 % (45.5-73.1); Platelet Count Result 162 k/mm3 (150-375); Red Blood Count 3.05 M/mm3 (4.6-6.20); Red Cell Distribution Width 14.3 % (11.5-14.5); White Blood Count 6.3 K/mm3 (4.5-10.0)
[2024-07-16 06:15] LABS: Alanine Aminotransferase 21 U/L (6-50); Albumin Level 3.4 g/dL (3.5-5.1); Alkaline Phosphatase 93 U/L (38-126); Anion Gap 5 mmol/L (4-12); Aspartate Amino Transferase 30 U/L (17-59); Bilirubin,Total 0.2 mg/dL (0.2-1.3); Blood Urea Nitrogen 31 mg/dL (9-20); Calcium 8.7 mg/dL (8.4-10.2); Carbon Dioxide 17 mmol/L (22-30); Chloride 108 mmol/L (98-107); Estimated CRCL calculation 20 ml/min; Estimated Glomerular Filt Rate 19; Glucose 145 mg/dL (65-110); Potassium 4.8 mmol/L (3.4-5.0); Sodium 130 mmol/L (137-145); Total Protein 6.5 g/dL (6.3-8.2)
[2024-07-16] MEDS: THIAMINE HCL 50 MG TABLET PO (08:49)
[2024-07-16] MEDS: PANTOPRAZOLE SOD SESQUIHYDRATE 20 MG TAB PO (08:49)
[2024-07-16] MEDS: CEPHALEXIN 250 MG CAPSULE PO (08:49)
--- NOTE | 2024-07-16 09:15 | PM.DS ---
DS: Admitting Diagnosis Discharge Date 07/16/2024 Admitting Diagnosis Hyponatremia, Pyelonephritis DS: Discharge Diagnosis Discharge Diagnosis (1) Acute hyponatremia: Code(s): E87.1 - Hypo-osmolality and hyponatremia Status: Acute (2) C. difficile colitis: Code(s): A04.72 - Enterocolitis due to Clostridium difficile, not specified as recurrent Status: Acute (3) Nausea vomiting and diarrhea: Code(s): R11.2 - Nausea with vomiting, unspecified; R19.7 - Diarrhea, unspecified Status: Acute (4) Pyelonephritis: Code(s): N12 - Tubulo-interstitial nephritis, not specified as acute or chronic Status: Acute (5) Gastric ulcer: Qualifiers: Gastric ulcer chronicity: chronic Gastric ulcer complication status: unspecified whether hemorrhage or perforation present Qualified Code(s): K25.7 - Chronic gastric ulcer without hemorrhage or perforation Code(s): K25.9 - Gastric ulcer, unspecified as acute or chronic, without hemorrhage or perforation Status: Acute (6) Chronic kidney disease, stage IV (severe): Code(s): N18.4 - Chronic kidney disease, stage 4 (severe) Status: Chronic (7) Alcohol dependence: Qualifiers: Substance use status: uncomplicated Qualified Code(s): F10.20 - Alcohol dependence, uncomplicated Code(s): F10.20 - Alcohol dependence, uncomplicated Status: Acute (8) COPD (chronic obstructive pulmonary disease): Qualifiers: COPD type: unspecified COPD Qualified Code(s): J44.9 - Chronic obstructive pulmonary disease, unspecified Code(s): J44.9 - Chronic obstructive pulmonary disease, unspecified Status: Chronic DS: Summary Hospital Course Reason for hospitalization: n/v/d Hospital Course: 64-year-old male with a past medical history of chronic alcohol dependence, prior gastric ulcer and duodenitis 2023, essential hypertension, colorectal cancer status post colostomy, chronic kidney disease stage 4 with bilateral hydronephrosis with UPJ narrowing on prior cystoscopy and prior hospitalizations for hyponatremia presented to the ER with nausea vomiting and diarrhea for 2 weeks. The patient reports he has been nauseated any time he tries to eat or drink anything. He has been having vomiting and reports abdominal pain only with vomiting. He has had loose output from his ostomy has sounds like it may be looser than his normal. He has had empty his ostomy bag more than usual. He reports the pain is in his lower abdomen. He has also been having bilateral flank pain. He denies any dysuria or changes in urinary frequency. He has been drinking about 4 glasses of water a day and feels that this is plenty of water to make up for his stool output. He reports he has not been able to keep any food or drink down for the last 2 weeks until today. Patient denies any hematemesis or coffee-ground emesis but he does have dried material in his frias that appears quite dark in color. He denies having prior history of EGD but patient has had prior EGD at our facility that demonstrated chronic gastric ulcer in 2023 and severe erosive duodenitis with bleeding. He was discharged on Protonix but did not follow-up with a physician to get refills on his medications. He reports he does not take any home meds but it sounds like he has been trying to manage heartburn symptoms with Rolaids. He states he does occasionally have difficulty with swallowing. Despite normal orientation the patient is a poor historian subsequently the majority of HPI and past medical history was obtained from review of past medical records. UA in the ER was suggestive of UTI and CT of the abdomen pelvis demonstrated bilateral wall thickening with bilateral perinephric stranding as well as wall thickening the renal pelvis sees without hydronephrosis suspicious for cystitis with bilateral sending UTI. Given the patient's report of bilateral flank pain patient was admitted for treatment of suspected bilateral pyelonephritis. CT also demonstrated multiple findings that appears to be chronic including loculated fluid collection pre sacral space and diffuse hepatic steatosis. On 07/14, patient was found to be C diff positive. P.o. vancomycin was initiated. His sodium continued to be low but steadily improving over the course of his hospitalization. IV fluid hydration was maintained with D5 NS and his sodium steadily jacklyn to 130 on 07/16. On 07/14, he is still having any episodes of diarrhea. Throughout the next few days, he denies any nausea, vomiting, no diarrhea. On the day of discharge, he also denied any chest pain, shortness a breath, abdominal pain, or lower back pain. Patient's creatinine was also elevated, however given his history of CKD, he appears to be near his baseline. Patient expressed great interest in being discharged at this time, stating that he will be ?leaving hospital either way ?. Patient is otherwise hemodynamically stable and without any clinical indication to remain hospitalized at this time. He is neurovascularly intact, and x4, and is able to intake p.o. medications at this time. He will be discharged p.o. vancomycin as well as Keflex for continued coverage of his urinary tract infection. Patient is amenable to this plan and is agreeable to get blood work obtained in the next 3 days to monitor his sodium levels and kidney function. Plan to discharge home at this time Status at Discharge Functional status at discharge: independent ambulation Overall status at discharge: patient is back to baseline Time Spent with Patient Time attestation: Total time spent providing and/or coordinating discharge services: 35 Exam Narrative: Weight 75 kg BMI 25.9 Const: Other: Disheveled, appears older than stated age, mildly ill-appearing HENMT: Other: Mucous membranes are dry, poor dentition, no oral pharyngeal erythema Eyes: Other: Pupils are equal and reactive with evidence of left lens replacement noted, mild conjunctival pallor, no scleral icterus Neck: Other: No JVD, no obvious thyromegaly Resp: Other: Diffuse wheezing in lung dwyer, no increased work of breathing Cardio: Other: Sinus tachycardia, 2+ bilateral radial and pedal pulses, no JVD GI: Other: Distended, nontender, ostomy in the lower abdomen with light brown soft watery stool present Skin: Other: No jaundice, no pallor Neuro: Other: Alert oriented, speech is clear, no obvious facial asymmetry, cranial nerves 2-12 appear to be grossly intact, no localizing neurologic deficits noted during the course of conversation Extrem: Other: No clubbing, cyanosis or edema, moves all extremities equally Psych: Appearance: disheveled Affect: Depressed mood present Other: Guarded, avoids eye contact, poor judgment and insight DS: Data Data Completed and Pending Labs on day of discharge: Labs from last 24 hours 07/16/24 05:24 WBC 6.3 RBC 3.05 L Hgb 9.3 L Hct 29.0 L MCV 95.1 MCH 30.5 MCHC 32.1 RDW 14.3 Plt Count 162 MPV 10.2 Immature Gran % (Auto) 1.1 H Neut % (Auto) 65.6 Lymph % (Auto) 11.8 L [place] % (Auto) 12.7 H Eos % (Auto) 8.0 H Baso % (Auto) 0.8 Lymph # (Auto) 0.74 L [place] # (Auto) 0.8 H Eos # (Auto) 0.5 H Baso # (Auto) 0.1 Abs Immat Gran (auto) 0.07 H Absolute Neuts (auto) 4.1 Absolute Nucleated RBC 0.000 Nucleated RBC % 0.0 Sodium 130 L Potassium 4.8 Chloride 108 H Carbon Dioxide 17 L Anion Gap 5 BUN 31 H Creatinine 3.24 H Estim Creat Clear Calc 20 Estimated GFR 19 L Glucose 145 H Calcium 8.7 Total Bilirubin 0.2 AST 30 ALT 21 Alkaline Phosphatase 93 Total Protein 6.5 Albumin 3.4 L Preliminary micro results at discharge 07/13/24 15:45 Blood Culture - Preliminary Blood 07/13/24 15:54 Blood Culture - Preliminary Blood Discharge Plan Discharge Attending physician on discharge: Stefany Nichols Consulting providers: Pranay Oakes; Sreekanth Hansen Discharging Clinician: Sreekanth Hansen Anticipated Discharge Date/Time: 07/16/24 08:58 Patient Disposition: Home Activity: as tolerated Diet: as tolerated Discharge Instructions: You will be given a prescription for oral vancomycin for your C diff infection. You will be also placed on Keflex for urinary tract infection. Take both of these medications for the entire course even if you are feeling better I will also be giving you in order to fill out blood work in the next 3 days to monitor your sodium. Get this order filled out at a location of your convenience. Eat well balanced meals and stay hydrated Keep active to remain strong Trend urine output If you should experience any chest pain, shortness of breath, temps >100.4 or any other worrisome symptoms please follow up with your PCP come back to the hospital Follow up with your primary in 2-3 weeks It has been a pleasure taking care of you thank you for using our services Patient Instructions: Antibiotic Form Patient Language: Occitan Stand Alone Forms: General Discharge Information Follow-up/Referrals: PHYSICIAN,DIRECTOR OF INTERCOLLEGIATE ATHLETICS [Primary Care Provider] - Discharge Medications: New cephalexin 250 mg Capsule 250 mg PO Q12HR Qty: 7 0RF vancomycin 125 mg Capsule 125 mg PO Q6HR Qty: 32 0RF Other Ambulatory Orders: Comprehensive Metabolic Panel (Routine) Timeframe: 3 Days Location: Determined by Patient Ordered By: Sreekanth Hansen Date of admission: 07/13/24 18:11 Primary Care Provider: PHYSICIAN,DIRECTOR OF INTERCOLLEGIATE ATHLETICS Admitting Provider: Gege Dickey Attending physician on admission: Gege Dickey Condition: Stable Quality VTE Prophylaxis VTE prophylaxis: mechanical ordered (SCDs)
== END 2024-07-16 10:05 | disposition home or self-care (01) | DRG 690 ==
LOC: ANHED 14:11 → ANH3MED 17:31
PROVIDERS: Family Medicine; Admitting Provider Internal Medicine; Emergency Provider Emergency Medicine; Visit Provider Physician Assistant
DX: N12 Tubulo-interstitial nephritis, not specified as acute or chronic (principal); A04.72 Enterocolitis due to Clostridium difficile, not specified as recurrent; E87.1 Hypo-osmolality and hyponatremia; N18.4 Chronic kidney disease, stage 4 (severe); I12.9 Hypertensive chronic kidney disease with stage 1 through stage 4 chronic kidney disease, or unspecified chronic kidney disease; K25.7 Chronic gastric ulcer without hemorrhage or perforation; F10.20 Alcohol dependence, uncomplicated; F17.290 Nicotine dependence, other tobacco product, uncomplicated; R82.90 Unspecified abnormal findings in urine; J44.9 Chronic obstructive pulmonary disease, unspecified; H91.93 Unspecified hearing loss, bilateral; Z93.3 Colostomy status; Z85.048 Personal history of other malignant neoplasm of rectum, rectosigmoid junction, and anus; Z96.1 Presence of intraocular lens; Z98.42 Cataract extraction status, left eye
CPT/HCPCS: 36415; 74176; 80048; 80053; 81001; 83605; 83690; 85025; 85027; 87040; 87086; 87493; 96361; 96365; 96375; 96376; 99285; A9270; G0378; J0696; J2405; J2470; J3411; J7030; J7070

== ENCOUNTER 2024-07-20 11:13 | Outpatient (CLI) | payer MEDICARE, SELFPAY ==
[2024-07-20 11:52] LABS: Creatinine Urine 119.2 mg/dL; Total Protein Urine Random 87 mg/dL; Ur Ttl Prot Creatinine Ratio 0.73 mg/mg (0-0.20)
[2024-07-20 11:54] LABS: Albumin Level 3.7 g/dL (3.5-5.1); Anion Gap 10 mmol/L (4-12); Blood Urea Nitrogen 31 mg/dL (9-20); Calcium 8.9 mg/dL (8.4-10.2); Carbon Dioxide 15 mmol/L (22-30); Chloride 113 mmol/L (98-107); Estimated Glomerular Filt Rate 20; Glucose 173 mg/dL (65-110); Phosphorus 3.8 mg/dL (2.5-4.5); Potassium 3.8 mmol/L (3.4-5.0); Sodium 138 mmol/L (137-145)
[2024-07-20 11:55] LABS: Alanine Aminotransferase 29 U/L (6-50); Albumin Level 3.7 g/dL (3.5-5.1); Alkaline Phosphatase 79 U/L (38-126); Anion Gap 10 mmol/L (4-12); Aspartate Amino Transferase 39 U/L (17-59); Bilirubin,Total 0.2 mg/dL (0.2-1.3); Blood Urea Nitrogen 30 mg/dL (9-20); Calcium 8.9 mg/dL (8.4-10.2); Carbon Dioxide 15 mmol/L (22-30); Chloride 113 mmol/L (98-107); Estimated Glomerular Filt Rate 20; Glucose 174 mg/dL (65-110); Potassium 3.8 mmol/L (3.4-5.0); Sodium 138 mmol/L (137-145)
[2024-07-20 12:39] LABS: Vitamin D 25 Hydroxy < 12.8 ng/mL
== END 2024-07-20 11:14 | disposition home or self-care (01) ==
PROVIDERS: Physician Assistant; Visit Provider Internal Medicine Nephrology
DX: I12.9 Hypertensive chronic kidney disease with stage 1 through stage 4 chronic kidney disease, or unspecified chronic kidney disease (principal); N18.4 Chronic kidney disease, stage 4 (severe); E55.9 Vitamin D deficiency, unspecified; E87.1 Hypo-osmolality and hyponatremia
CPT/HCPCS: 36415; 80053; 80069; 82306; 82570; 84156

== ENCOUNTER 2024-09-22 04:23 | Inpatient (IN) | payer MEDICARE, SELFPAY ==
[2024-09-22] VITALS (34 sets, daily range): BP systolic 145–180; BP diastolic 68–87; PULSE 82–104; RESP 16–28; TEMP 36.6–37.1; O2SAT 87–100; BMI 28.3
--- NOTE | ~2024-09-22 | XR_ITS ---
EXAMINATION: XR chest 1V portable 09/23/2024 06:29 INDICATION: Hypoxia PROCEDURE: AP portable chest COMPARISON: Comparison to multiple prior studies sequentially, with oldest reviewed study dated 11/11. FINDINGS: The lungs are clear. The cardiomediastinal silhouette is within normal limits. There are no pleural effusions. There is no pneumothorax suspected. IMPRESSION: 1: NO ACUTE CARDIOPULMONARY DISEASE. Reviewed, dictated and finalized at location A.
--- NOTE | ~2024-09-22 | XR_ITS ---
XR abdomen/kub 1V 09/23/2024 14:36 Indication: Vomiting Procedure: KUB Comparison: No prior studies for comparison. Findings: Study technically limited due to technique and patient body habitus. Nonspecific bowel gas pattern. Severe lumbar spondylosis. Evaluation for renal stones Limited. Impression: 1: Limited study. Nonspecific bowel gas pattern. Consider correlation with CT abdomen. Reviewed, dictated and finalized at location A. Impression: 1: Limited study. Nonspecific bowel gas pattern. Consider correlation with CT a bdomen.
--- NOTE | ~2024-09-22 | XR_ITS ---
XR chest 2V 09/22/2024 04:55 Indication: Chest pain and heart palpitations Procedure: 2 view chest Comparison: Comparison to multiple prior studies sequentially, with oldest reviewed study dated 11/08. Findings: Right middle lobe airspace disease is present. Heart size normal. No pleural effusion, priyank a or pneumothorax. No acute osseous abnormality. There is a healed left 10th rib fracture. Impression: 1: Right middle lobe pneumonia. Reviewed, dictated and finalized at location A. Impression: 1: Right middle lobe pneumonia.
--- NOTE | 2024-09-22 04:25 | ECG_ITS ---
Test Date: 2024-09-22 04:32:48 Measurements Intervals [place] Rate: 91 P: 74 HI: 190 QRS: -27 QRSD: 106 T: 63 QT: 370 QTc: 456 Interpretive Statements SINUS RHYTHM PEAKED T WAVES- CONSIDER HYPERKALEMIA BASELINE ARTIFACT- I, II, III, AVR, AVL, AVF, V1-V6 ABNORMAL ECG No previous ECG available for comparison Electronically Signed On 09-22-2024 06:14:26 CDT by Edgar Guzman D.O.
[2024-09-22 04:41] LABS: Hematocrit 30.2 % (42.0-52.0); Hemoglobin 10.2 g/dL (14.0-18.0); Immature Granulocyte Percent A 0.6 % (0-0.5); Lymphocytes Absolute Auto 0.84 K/mm3 (0.9-3.2); Mean Corpuscular HGB Conc 33.8 g/dl (32-36); Mean Corpuscular Hemoglobin 29.9 pg (26-34); Mean Corpuscular Volume 88.6 fl (80-100); Nucleated Red Blood Cells Absolute Auto 0.000 K/mm3 (0.0-0.012); Nucleated Red Blood Cells Perc 0.0 % (0.0-0.2); Platelet Count Result 195 k/mm3 (150-375); Red Blood Count 3.41 M/mm3 (4.6-6.20); White Blood Count 9.8 K/mm3 (4.5-10.0)
[2024-09-22 04:55] LABS: INR 1.0; Prothrombin Time 13.1 Seconds (11.1-14.7)
[2024-09-22 04:56] LABS: Partial Thromboplastin Time 33.3 Seconds (22.3-36.8)
--- NOTE | 2024-09-22 05:05 | ED.ARRPALP ---
HPI - Arrhythmia/Palpitations General Chief Complaint: Arrhythmia/Palpitations Stated Complaint: Im trying to detox and my hearts poundin Time Seen by Provider: 09/22/24 04:31 History of Present Illness HPI narrative: 64-year-old male with history of alcohol abuse, chronic kidney disease, COPD. He also has a history of colon cancer status post diverting colostomy. Patient presents to the emergency department with headache, nauseousness and vomiting as well as chest pain. He states he is trying to start detoxing from alcohol as he states he has a problem and drinks multiple shots per day including significant amounts of beers and liquor. His last alcohol intake was 6 hours prior to arrival. States that he has been having profound nausea vomiting and started developing a headache. Ambulatory without significant difficulty or ataxia. Complaining of left-sided chest discomfort as well. No subjective shortness of breath, fever, chills. No shakiness or tremulousness. States he has never had issues with withdrawal before or withdrawal seizures but has been admitted multiple times for deranged electrolytes secondary to his alcoholism and drinking. No traumatic injuries or falls. He was otherwise in his normal state of health. Related Data Allergies Allergy/AdvReac Type Severity Reaction Status Date / Time No Known Allergies Allergy Verified 09/22/24 04:24 Review of Systems Review of Systems: As reviewed above in HPI [facility] Past Medical History Medical History Gastric ulcer Chronic gastric ulcer Noted on EGD 11/2023 Melena Bilateral hearing loss Essential hypertension Colorectal cancer (~2019) Treated with colectomy, radiation therapy and chemotherapy. Patient received care in [place] Surgical History Surgical History Status post cataract extraction and insertion of intraocular lens of left eye Status post colostomy (~2019) Family History Family History Father , Age 62 Cancer ?stomach cancer? Mother Breast cancer, Onset Age: 44 Sibling Cancer ?stomach cancer? 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 Since that time he and his (for over 20 years been for only few years) have been traveling around the [place] They are currently living with the patient's brother for while he helps brother remodel a house. He has smoked between 0.5 up to 2 packs of cigarettes per day for about 40 years he reports that he quit smoking in April of 2024. He drinks 6-9 beers a day. He sometimes go a couple of months without drinking at all. He denies history of illicit substance use. Code status: Full code (patient states that he would not want long-term ventilation or feeding tube. He states he would not want to be on a ventilator from more than a couple of weeks.) Surrogate decision maker: Panda Amezquita (Brother) Smoking packs per day: 1.5 Smoking cigarettes per day: 30.0 Years smoked: 40 Smoking pack-years: 60.00 Smoking status: Current every day smoker Tobacco type: cigars Smoking end date: 04/11/24 Alcohol intake: current Drinks per week: 42 Substance use: never Substance use type: does not use Do You Feel Safe in your Home?: Yes Lack of Transportation: No Lack of Food: Never True Current Housing: I Have Housing Concerned About Future Housing: No Difficulty Paying Gas/Electric Bills: No Difficulty Paying for Meds: No Currently Unemployed: No Education: Decline to Answer Difficulty w/ Childcare or Family Care: No 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 Mucous membranes moist. NECK: Supple. CHEST: [Clear to auscultation. No respiratory distress.] HEART: [Regular rate and rhythm]. No murmur heard. [Normal peripheral pulses.] ABDOMEN: [Soft, nondistended], [nontender], [No rigidity or guarding] colostomy bag without any overlying skin changes or infection signs EXTREMITIES: Normal range of motion. [No edema.] SKIN: Warm, dry, no rash. NEURO: [No focal deficits]. Alert and oriented [x3.] PSYCH: [Normal mood and affect.] Vital Signs Vital signs: Vital Signs Temperature 36.6 C 09/22/24 04:29 Pulse Rate 90 09/22/24 04:29 Respiratory Rate 20 09/22/24 04:29 Blood Pressure 162/79 H 09/22/24 04:29 Pulse Oximetry 98 09/22/24 04:29 Oxygen Delivery Room Air 09/22/24 04:29 Temperature 36.6 C 09/22/24 04:29 Pulse Rate 90 09/22/24 04:29 Respiratory Rate 20 09/22/24 04:29 Blood Pressure 162/79 H 09/22/24 04:29 Pulse Oximetry 98 09/22/24 04:29 Oxygen Delivery Room Air 09/22/24 04:29 MDM - Arrhythmia/Palpitations MDM Narrative Medical decision making narrative: 64-year-old male with history of alcohol abuse, chronic kidney disease, COPD. He also has a history of colon cancer status post diverting colostomy. Patient presents to the emergency department with headache, nauseousness and vomiting as well as chest pain. He states he is trying to start detoxing from alcohol as he states he has a problem and drinks multiple shots per day including significant amounts of beers and liquor. His last alcohol intake was 6 hours prior to arrival. States that he has been having profound nausea vomiting and started developing a headache. Ambulatory without significant difficulty or ataxia. Complaining of left-sided chest discomfort as well. No subjective shortness of breath, fever, chills. No shakiness or tremulousness. States he has never had issues with withdrawal before or withdrawal seizures but has been admitted multiple times for deranged electrolytes secondary to his alcoholism and drinking. No traumatic injuries or falls. He was otherwise in his normal state of health. Patient is chronically ill-appearing, not in any acute distress, vital signs are reassuring without any significant hypertension, tachycardia, fever or hypoxia. Abdominal examination is benign, diverting colostomy is noted. No signs of active infection. No neurological findings. Patient is complaining of a headache and having retching and vomiting during the exam. He was given Zofran. Laboratory studies obtained including alcohol level, troponin, EKG and chest x-ray ordered. Laboratory studies show significant hyponatremia of 116 combined with his significant nausea vomiting headache places him at severely symptomatic range. On review of the EMR he has had severe hyponatremia in the past down to 107 in 2023 that was corrected with combination of therapies including vasopressin, fluid restriction, diuresis and hypertonic. Call was paged out to Nephrology for assistance, discussed with Pharmacy initiation of hypertonic saline 150 mL 3% bolus x1 over 20 minutes in addition to 2 mcg of desmopressin q.8 hours to prevent over-correction given his previous rapid corrections. Remaining laboratory studies are pending. TSH, serum osmoles, urine osmolality and urine studies including creatinine sodium and osmolality obtained with drug screen ordered. Hyponatremia likely hypervolemic from significant amounts of alcohol intake, beer potomania induced, or secondary to his kidney disease with liver disease from drinking. Patient has improved after current medication regimen. Laboratory studies otherwise reveal chronic kidney disease without any acute exacerbation. GFR approximately 30, glucose 155. Troponin negative. LFTs normal. Lipase normal. Urine studies obtained and pending. Alcohol level is 26. Chest x-ray without any significant signs of volume overload but does have some increased interstitial markings without any consolidation. EKG appears to have some peaked T-waves but potassium is normal. No ST segment elevations or depressions. Spoke to Dr. Munson from Nephrology with recommendations to obtain a sodium after 3 hours of current regimen and will re-evaluate for additional hypertonic needs. Recommends admission and patient will go to the ICU based on his sodium and severe symptoms. Spoke to the ICU attending Dr. Carmichale who accepted the patient to the ICU after we went over patient's clinical exam, sodium levels and plan of care with current regimen. Awaiting discussion with the hospitalist. Spoke to the hospitalist who accepted the patient to the hospital at this time. ICU bed pending. Medical Records Attestation: I reviewed the patient's medical records. Lab Data Attestation: I reviewed the patient's lab results. 09/22/24 04:34 09/22/24 04:34 Labs: Lab Results 09/22/24 09/22/24 Range/Units 04:34 04:35 WBC 9.8 (4.5-10.0) K/mm3 RBC 3.41 L (4.6-6.20) M/mm3 Hgb 10.2 L (14.0-18.0) g/dL Hct 30.2 L (42.0-52.0) % MCV 88.6 (80-100) fl MCH 29.9 (26-34) pg MCHC 33.8 (32-36) g/dl RDW 14.4 (11.5-14.5) % Plt Count 195 (150-375) k/mm3 MPV 9.4 (7.4-10.4) fl Immature Gran % (Auto) 0.6 H (0-0.5) % Neut % (Auto) 78.1 H (45.5-73.1) % Lymph % (Auto) 8.6 L (18.3-44.2) % [place] % (Auto) 10.7 H (2.6-8.5) % Eos % (Auto) 1.8 (0-4.4) % Baso % (Auto) 0.2 (0.2-1.2) % Lymph # (Auto) 0.84 L (0.9-3.2) K/mm3 [place] # (Auto) 1.1 H (0.1-0.6) K/mm3 Eos # (Auto) 0.2 (0-0.3) K/mm3 Baso # (Auto) 0.0 (0.0-0.1) K/mm3 Abs Immat Gran (auto) 0.06 H (0.00-0.031) K/mm3 Absolute Neuts (auto) 7.6 H (1.3-6.7) K/mm3 Absolute Nucleated RBC 0.000 (0.0-0.012) K/mm3 Nucleated RBC % 0.0 (0.0-0.2) % PT 13.1 (11.1-14.7) Seconds INR 1.0 APTT 33.3 (22.3-36.8) Seconds Sodium 116 L* (137-145) mmol/L Potassium 3.6 (3.4-5.0) mmol/L Chloride 89 L (98-107) mmol/L Carbon Dioxide 18 L (22-30) mmol/L Anion Gap 9 (4-12) mmol/L BUN 18 D (9-20) mg/dL Creatinine 2.21 H (0.7-1.3) mg/dL Estim Creat Clear Calc 28 ml/min Estimated GFR 30 L (59 - ) Glucose 155 H (65-110) mg/dL Calcium 8.6 (8.4-10.2) mg/dL Total Bilirubin 0.5 (0.2-1.3) mg/dL AST 39 (17-59) U/L ALT 23 (6-50) U/L Alkaline Phosphatase 99 (38-126) U/L Troponin I < 0.012 (0.000-0.034) ng/mL Total Protein 7.4 (6.3-8.2) g/dL Albumin 3.9 (3.5-5.1) g/dL Lipase 104 (23-300) U/L Ethyl Alcohol 26 (<10) mg/dL Imaging Data Attestation: I personally reviewed and interpreted this imaging study as follows: My impression: No significant consolidations or pneumothorax. Some interstitial increased markings. Critical Care Time Critical Care Time Critical Care Time: Yes Total Critical Care Time: 75 Discharge Plan Discharge Clinical Impression: Acute hyponatremia, ETOH abuse, Intractable nausea and vomiting Alcohol dependence Qualifiers: Substance use status: uncomplicated Qualified Code(s): F10.20 - Alcohol dependence, uncomplicated Patient Disposition: Still a Patient Condition: Stable Patient Language: Urdu Prescriptions: No Action cephalexin 250 mg Capsule 250 mg PO Q12HR Qty: 7 0RF vancomycin 125 mg Capsule 125 mg PO Q6HR Qty: 32 0RF Follow-up/Referrals: PHYSICIAN,PAINT FORMULATOR [Primary Care Provider] - Time of Disposition: 06:08
--- NOTE | 2024-09-22 05:09 | PC.NURSE ---
ok to hold asa per germán limon
[2024-09-22 05:10] LABS: Alanine Aminotransferase 23 U/L (6-50); Albumin Level 3.9 g/dL (3.5-5.1); Alkaline Phosphatase 99 U/L (38-126); Anion Gap 9 mmol/L (4-12); Aspartate Amino Transferase 39 U/L (17-59); Bilirubin,Total 0.5 mg/dL (0.2-1.3); Blood Urea Nitrogen 18 mg/dL (9-20); Calcium 8.6 mg/dL (8.4-10.2); Carbon Dioxide 18 mmol/L (22-30); Chloride 89 mmol/L (98-107); Estimated CRCL calculation 28 ml/min; Estimated Glomerular Filt Rate 30; Glucose 155 mg/dL (65-110); Lipase 104 U/L (23-300); Potassium 3.6 mmol/L (3.4-5.0); Sodium 116 mmol/L (137-145); Total Protein 7.4 g/dL (6.3-8.2); Troponin I < 0.012 ng/mL (0.000-0.034)
[2024-09-22] MEDS: ONDANSETRON INJ 4 MG/2 ML VIAL IV PUSH (05:26)
[2024-09-22] MEDS: SODIUM CHLORIDE 3% 150 ML 450 ML IV CONT (05:49)
[2024-09-22] MEDS: DESMOPRESSIN ACETATE 4 MCG/ML AMP 2 MCG IV PUSH (06:17)
[2024-09-22 06:43] LABS: Thyroid Stimulating Hormone Reflex 1.150 uIU/mL (0.465-4.68)
[2024-09-22 06:50] LABS: Cannabinoid Screen Urine Negative (Negative)
--- NOTE | 2024-09-22 07:32 | ADMGEN ---
This patient, Chuy Amezquita, was admitted to Intensive Care Unit-6. Patient/family oriented to hospital policies and general routines including ID bracelet, bed and alarms, visiting hours, pain management, procedures, bathroom and other care routines, personal items, smoking policy, room service/diet, and visiting hours. Information on how to activate the Rapid Response Team has been discussed. Patient/Family are encouraged to report perceived risks to care and to ask questions if they do not understand what they are told or what they should do.
[2024-09-22 07:46] LABS: MRSA (PCR) NOT DETECTED (NOT DETECTE)
[2024-09-22 08:28] LABS: Troponin I < 0.012 ng/mL (0.000-0.034)
[2024-09-22] MEDS: THIAMINE HCL 200 MG/2 ML VIAL 100 MG IV PUSH (09:26)
[2024-09-22] MEDS: LORazepam INJ (*CRX) 2 MG/ML VIAL IV PUSH (09:26)
[2024-09-22] MEDS: FOLIC ACID 1 MG/0.2 ML INJ IV PUSH (09:26)
--- NOTE | 2024-09-22 09:26 | P.CONIN_ITS ---
Assessment and Plan Assessment and plan (1) Acute hyponatremia: Code(s): E87.1 - Hypo-osmolality and hyponatremia Status: Acute Assessment and Plan: Hyponatremia is likely multifactorial due to patient's history of alcohol use, hypervolemia, kidney disease. possible liver dysfunction. Received 3% Saline in ER with DDAVP - Nephrology following, started on NS -pt is asymptomatic at this time -continue to monitor BMP and sodium, level (2) ETOH abuse: Code(s): F10.10 - Alcohol abuse, uncomplicated Status: Chronic Assessment and Plan: Pt has h/o ETOH abuse, - CIWA protocol, with PRN Ativan - Started Librium - Started thiamine and folic acid - Monitor for withdrawal (3) Alcohol dependence: Qualifiers: Substance use status: uncomplicated Qualified Code(s): F10.20 - Alcohol dependence, uncomplicated Code(s): F10.20 - Alcohol dependence, uncomplicated Status: Acute Assessment and Plan: as above (4) Hypertension: Code(s): I10 - Essential (primary) hypertension Status: Chronic Assessment and Plan: stable blood pressures (5) Chronic kidney disease, stage IV (severe): Code(s): N18.4 - Chronic kidney disease, stage 4 (severe) Status: Chronic Assessment and Plan: chronic renal failure stage 4 creatinine stable and baseline -monitor UO, electrolytes and renal function (6) COPD (chronic obstructive pulmonary disease): Qualifiers: COPD type: unspecified COPD Qualified Code(s): J44.9 - Chronic obstructive pulmonary disease, unspecified Code(s): J44.9 - Chronic obstructive pulmonary disease, unspecified Status: Chronic Assessment and Plan: pt was wheezing, started on duonebs (7) Cigarette smoker: Code(s): F17.210 - Nicotine dependence, cigarettes, uncomplicated Status: Acute Assessment and Plan: counseled pt on smoking cessation Plan DVT prophylaxis: Heparin Stress ulcer prophylaxis:not indicated Nutrition:renal diet Code Status: Full code Critical Care Time Spent: 48 minutes Due to a high probability of clinically significant, life threatening deterioration, the patient required my highest level of preparedness to intervene emergently and I personally spent this critical care time directly and personally managing the patient. This critical care time included obtaining a history; examining the patient; pulse oximetry; ordering and review of studies; arranging urgent treatment with development of a management plan; evaluation of patient's response to treatment; frequent reassessment; and discussions with other providers. It was exclusive of separately billable procedures and treating other patients and teaching time. Please see Assessment and Plan section and the rest of the note for further information on patient assessment and treatment This dictation may have been done utilizing a voice recognition system. Attempts have been made to correct errors. However, there may be uncorrected grammatical, spelling, and recognitions errors present. Trim Mounter Consult Note Consult date: 09/22/24 Reason for consult: Nausea, vomiting, abdominal pain, alcohol abuse, acute severe hyponatremia HPI: Chuy Amezquita is a 64 year old male with past medical history of colorectal cancer in 2019 status post colostomy, gastric ulcer, hearing loss, essential hypertension, chronic kidney disease stage 4, hepatic steatosis, UTI/cystitis, history of C diff in July 2024, COPD, tobacco abuse, alcohol abuse recent history of hyponatremia in July 2024 where he presented with sodium levels of 114. Patient presented the ED early this morning on 09/22/2024 with complains of palpitations that he was trying to detox himself, also had nausea, vomiting along with chest pain. His last drink was last night (09/21). Patient states he drinks significant amount of beer and liquor including multiple shots per day. Patient denies any shortness of breath or diaphoresis. He denies any fevers or chills. In the ED stated that he has had deranged electrolytes multiple times due to his alcoholism. In the ER patient was tachycardia, hypertensive with systolics in the 160s. Labs in the ER showed a WBC count of 9.8, hemoglobin 10.2, platelets 195, sodium 116, potassium 3.6, chloride 89, CO2 18, BUN 18, creatinine 2.21, blood sugars 155, normal LFTs, ETOH level was 26, urine drug screen was negative, troponin x1 was < 0.012. MRSA screen was negative Chest x-ray showed right middle lobe airspace disease Patient seen and examined in the ICU upon arrival to the ICU, is awake, alert, oriented, answers to questions appropriately and follows simple commands in all extremities. Patient complains he is hungry and thirsty. Denies any chest pain at this time, no nausea, vomiting or abdominal pain. He denies any fevers or chills, no diarrhea, patient does have ostomy colostomy his right lower quadrant. Patient is hard of hearing. Smokes cigars daily, denies any illicit drug use, he does drink as mentioned above, last drink was last night. Review of Systems 2 Review of Systems: All systems reviewed & are unremarkable except as noted in HPI and below PMFSH Past Medical History Medical History Gastric ulcer Chronic gastric ulcer Noted on EGD 11/2023 Melena Bilateral hearing loss Essential hypertension Colorectal cancer (~2019) Treated with colectomy, radiation therapy and chemotherapy. Patient received care in [place] Surgical History Surgical History Status post cataract extraction and insertion of intraocular lens of left eye Status post colostomy (~2019) Family History Family History Father , Age 62 Cancer ?stomach cancer? Mother Breast cancer, Onset Age: 44 Sibling Cancer ?stomach cancer? 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 Since that time he and his (for over 20 years been for only few years) have been traveling around the [place] They are currently living with the patient's brother for while he helps brother remodel a house. He has smoked between 0.5 up to 2 packs of cigarettes per day for about 40 years he reports that he quit smoking in April of 2024. He drinks 6-9 beers a day. He sometimes go a couple of months without drinking at all. He denies history of illicit substance use. Code status: Full code (patient states that he would not want long-term ventilation or feeding tube. He states he would not want to be on a ventilator from more than a couple of weeks.) Surrogate decision maker: Panda Amezquita (Brother) Smoking packs per day: 1.5 Smoking cigarettes per day: 30.0 Years smoked: 40 Smoking pack-years: 60.00 Smoking status: Current every day smoker Tobacco type: cigarettes Smoking end date: 04/11/24 Alcohol intake: current Drinks per week: 54 Substance use: never Substance use type: does not use Do You Feel Safe in your Home?: Yes Lack of Transportation: No Lack of Food: Never True Current Housing: I Have Housing Concerned About Future Housing: No Difficulty Paying Gas/Electric Bills: No Difficulty Paying for Meds: No Currently Unemployed: No Education: High School Diploma/GED Difficulty w/ Childcare or Family Care: No 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 Spiritual care concerns: No Meds Home Medications and Allergies Home Medications ?Medication ?Instructions ?Recorded ?Confirmed ?Type No Home Medications 09/22/24 09/22/24 History Allergies Allergy/AdvReac Type Severity Reaction Status Date / Time No Known Allergies Allergy Verified 09/22/24 04:24 Vital Signs Vital Signs - 24 hr 09/22/24 04:29 09/22/24 04:33 09/22/24 04:35 Temperature 98 F Pulse Rate 90 89 Pulse Rate [Bilateral Radial Palpation] Respiratory Rate 20 21 H Blood Pressure 162/79 H 162/79 H Pulse Oximetry 98 96 100 Oxygen Delivery Room Air 09/22/24 04:45 09/22/24 04:46 09/22/24 05:00 Temperature Pulse Rate 89 88 87 Pulse Rate [Bilateral Radial Palpation] Respiratory Rate 22 H 22 H 20 Blood Pressure 166/75 H Pulse Oximetry 96 94 Oxygen Delivery 09/22/24 05:19 09/22/24 05:30 09/22/24 05:45 Temperature Pulse Rate 90 88 91 Pulse Rate [Bilateral Radial Palpation] Respiratory Rate 20 22 H 20 Blood Pressure Pulse Oximetry Oxygen Delivery 09/22/24 06:01 09/22/24 06:15 09/22/24 06:30 Temperature Pulse Rate 90 91 95 Pulse Rate [Bilateral Radial Palpation] Respiratory Rate 17 21 H 19 Blood Pressure Pulse Oximetry 98 Oxygen Delivery 09/22/24 06:48 09/22/24 08:53 09/22/24 09:06 Temperature Pulse Rate 97 Pulse Rate [Bilateral Radial Palpation] 90 Respiratory Rate 22 H Blood Pressure 165/80 H Pulse Oximetry 100 96 Oxygen Delivery Room Air Exam 2 Narrative: General: Pleasant gentleman in no acute distress, hard of hearing HEENT:? Pupils equal and reactive, sclerae sclera, dry oral mucosa Neck:? Supple Respiratory:? Expiratory wheezing auscultated, adequate air entry, no rales Cardiac:? S1-S2 normal, regular rate and rhythm Abdomen:? Soft, nontender, nondistended, right colostomy with brown stool, normoactive bowel sound Extremities:? Trace edema, palpable pedal pulses Neuro:? Patient is awake, alert, oriented, nonfocal, answers to questions appropriately and follows simple commands in all extremities Skin:? Warm and dry Psych:? Normal mentation and affect Results Labs 09/22/24 04:34 09/22/24 09:10 Labs: Short CBC 09/22/24 Range/Units 04:34 WBC 9.8 (4.5-10.0) K/mm3 Hgb 10.2 L (14.0-18.0) g/dL Hct 30.2 L (42.0-52.0) % Plt Count 195 (150-375) k/mm3 BMP 09/22/24 04:34 Sodium 116 L* Potassium 3.6 Chloride 89 L Carbon Dioxide 18 L BUN 18 D Creatinine 2.21 H Glucose 155 H Calcium 8.6 Cardiac Enzymes 09/22/24 09/22/24 Range/Units 04:34 07:51 Troponin I < 0.012 < 0.012 (0.000-0.034) ng/mL Liver Function 09/22/24 Range/Units 04:34 Total Bilirubin 0.5 (0.2-1.3) mg/dL AST 39 (17-59) U/L ALT 23 (6-50) U/L Alkaline Phosphatase 99 (38-126) U/L Albumin 3.9 (3.5-5.1) g/dL Quality VTE Prophylaxis VTE prophylaxis: pharmacologic ordered Hospitalist [facility] Advance Care Plan I have confirmed that the patient's Advanced Care Plan is present, code status is documented, or surrogate decision maker is listed in patient medical record.: Yes Medication Reconciliation I have utilized all available resources to obtain, update and review the patients current medications (includes all prescriptions, OTC, herbals, cannabis, and nutritional supplements).: Yes
[2024-09-22 09:38] LABS: Anion Gap 5 mmol/L (4-12); Blood Urea Nitrogen 20 mg/dL (9-20); Calcium 8.6 mg/dL (8.4-10.2); Carbon Dioxide 22 mmol/L (22-30); Chloride 91 mmol/L (98-107); Estimated CRCL calculation 30 ml/min; Estimated Glomerular Filt Rate 33; Glucose 109 mg/dL (65-110); Potassium 4.4 mmol/L (3.4-5.0); Sodium 118 mmol/L (137-145)
[2024-09-22 09:40] LABS: Troponin I < 0.012 ng/mL (0.000-0.034)
[2024-09-22] MEDS: SODIUM CHLORIDE 0.9% IV 1,000 ML 75 ML IV CONT (10:05)
[2024-09-22] MEDS: IPRATROPIUM 0.5 MG/ALBUTEROL SULFATE 2.5 MG AMPUL.NEB 3 ML INHALATION ×3 (10:06→19:41)
--- NOTE | 2024-09-22 11:28 | P.CONNP_ITS ---
Assessment and Plan Assessment and plan (1) Hyponatremia: Code(s): E87.1 - Hypo-osmolality and hyponatremia Status: Acute Assessment and Plan: * slow and steady improvement * quite significant on presentation -- sodium 116mmol/L * HOWEVER, has been as low as 107mmol/L in the past... * risk factors for low sodium: * prerenal factors * known alcohol intake/abuse * COPD * ongoing smoking * liver disease (?) given alcohol history * propensity for volume overload * goal of therapy is a change in 6 - 8mmol/L over 24 hours * this has been achieved * s/p 3% saline x 1 * start normal saline IVFs for now (urine electrolytes look prerenal) * follow sodium trend (2) Stage 4 chronic kidney disease: Code(s): N18.4 - Chronic kidney disease, stage 4 (severe) Status: Acute Assessment and Plan: * baseline creatinine runs around 2.6 - 3.1mg/dL * thought to be due to hypertension, vascular disease (smoking history) and chronic obstructive uropathy along with age-related change * previous evaluation noted: * renal u/s with bilateral hydronephrosis (suspect chronic) * urine eosinophils negative * moderate proteinuria * CPK normal * relatively stable at this time (3) Hypertension: Code(s): I10 - Essential (primary) hypertension Status: Chronic Assessment and Plan: * reasonable control * continue home BP medications with further adjustments as needed * follow trend of hemodynamics (4) Anemia: Code(s): D64.9 - Anemia, unspecified Status: Acute Assessment and Plan: * partly related to underlying CKD as well * dose with empiric KASHIF/Retacrit while hospitalized PRN * follow H/H (5) COPD (chronic obstructive pulmonary disease): Qualifiers: COPD type: unspecified COPD Qualified Code(s): J44.9 - Chronic obstructive pulmonary disease, unspecified Code(s): J44.9 - Chronic obstructive pulmonary disease, unspecified Status: Chronic Assessment and Plan: * no evidence of exacerbation * continue breathing treatments PRN (6) ETOH abuse: Code(s): F10.10 - Alcohol abuse, uncomplicated Status: Chronic Assessment and Plan: * known history * on thiamine, folate, and MVI * on CIWA I will continue to follow the patient with you while he remains hospitalized and make further recommendations as deemed necessary. Thank you for allowing me to participate in the care of this patient. L History of Present Illness Reason for Consult Consult date: 09/22/24 Reason for consult: hyponatremia Chief Complaint Chief complaint: acute severe symptomatic hyponatremia History of Present Illness Narrative: The patient is a 64 year old male with past medical history as outlined below who presented the ED early this morning on 09/22/2024 with multiple complains including palpitations, nausea, vomiting, and chest pain. Apparently, the patient was trying to detox himself from his known history of alcohol abuse. He drinks a significant amount of beer and liquor including multiple shots per day. His last drink was on 09/21/24. He reported no other symptoms with regarding to fevers, chills, shortness of breath, or diaphoresis. along with with his chest discomfort and GI symptoms, Nevertheless, given the persistence of these symptoms, he presented to the ER for further assessment. Upon presentation to the ER, he was noted to be hypertensive with systolic BP in the 160s and tachycardic but afebrile. Routine labs demonstrated a WBC count of 9.8, hemoglobin 10.2, platelets 195, sodium 116, potassium 3.6, chloride 89, CO2 18, BUN 18, creatinine 2.21, blood sugars 155, normal LFTs, ETOH level was 26, neative urine drug screen, troponin x 1 was < 0.012. His chest x-ray showed right middle lobe airspace disease. Due to concerns that his he had symptomatic hyponatremia, he was given 3% saline AND DDAVP (apparently to prevent overcorrection of his sodium) and subsequently admitted to the ICU for further evaluation and therapy. Since admission, his sodium level has been slowly improving with current interventions/therapy to date. renal consultation was requested due to his acute hyponatremia in conjunction with his known history of chronic kidney disease. The patient is somewhat familiar to me as I have taken care of him before on previous hospitalizations here at [facility] and see him in the office for management of his chronic kidney disease. His baseline creatinine usually runs around 2.6-3.1 mg/dL but does fluctuate depending on his hydration status in general. He has had numerous admissions here at [facility] for electrolyte derangements as noted on this admission particularly with regard to hyponatremia. His acute hyponatremia is usually due to a combination of mild volume overload, alcohol intake/ abuse, his underlying COPD, and his ongoing smoking history in conjunction with his underlying kidney disease. From review his records, his sodium level has been as low as 107 millimoles per L on a previous hospitalization. Is difficult to say if his sodium level of 116 millimoles per L on admission was symptomatic as his alcohol withdrawal symptoms could be partly responsible for his admission presentation. Nonetheless, as already mentioned, he received 3% saline in the emergency room and was subsequently admitted to the ICU. Currently, at the time of my visit, he appears in no apparent distress. Review of Systems 2 Review of Systems: As per HPI. [facility] Past Medical History Medical History Gastric ulcer Chronic gastric ulcer Noted on EGD 11/2023 Melena Bilateral hearing loss Essential hypertension Colorectal cancer (~2019) Treated with colectomy, radiation therapy and chemotherapy. Patient received care in [place] Surgical History Surgical History Status post cataract extraction and insertion of intraocular lens of left eye Status post colostomy (~2019) Family History Family History Father , Age 62 Cancer ?stomach cancer? Mother Breast cancer, Onset Age: 44 Sibling Cancer ?stomach cancer? 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 Since that time he and his (for over 20 years been for only few years) have been traveling around the [place] They are currently living with the patient's brother for while he helps brother remodel a house. He has smoked between 0.5 up to 2 packs of cigarettes per day for about 40 years he reports that he quit smoking in April of 2024. He drinks 6-9 beers a day. He sometimes go a couple of months without drinking at all. He denies history of illicit substance use. Code status: Full code (patient states that he would not want long-term ventilation or feeding tube. He states he would not want to be on a ventilator from more than a couple of weeks.) Surrogate decision maker: Panda Amezquita (Brother) Smoking packs per day: 1.5 Smoking cigarettes per day: 30.0 Years smoked: 40 Smoking pack-years: 60.00 Smoking status: Current every day smoker Tobacco type: cigarettes Smoking end date: 04/11/24 Alcohol intake: current Drinks per week: 54 Substance use: never Substance use type: does not use Do You Feel Safe in your Home?: Yes Lack of Transportation: No Lack of Food: Never True Current Housing: I Have Housing Concerned About Future Housing: No Difficulty Paying Gas/Electric Bills: No Difficulty Paying for Meds: No Currently Unemployed: No Education: High School Diploma/GED Difficulty w/ Childcare or Family Care: No 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 care concerns: No Meds Home Medications and Allergies Home Medications ?Medication ?Instructions ?Recorded ?Confirmed ?Type No Home Medications 09/22/24 09/22/24 H istory amlodipine 10 mg tablet 10 mg PO DAILY #30 tabs 09/11 06/05 Rx multivitamin,tx-minerals 1 cap PO DAILY #90 caps 09/11 06/05 Rx (Multi-Vitamin HP/Minerals capsule) Allergies Allergy/AdvReac Type Severity Reaction Status Date / Time No Known Allergies Allergy Verified 09/22/24 04:24 Vital Signs Vital Signs Temp Pulse Pulse Resp BP Pulse Ox O2 Del Method 09/22/24 10:39 96 Nasal Cannula 09/22/24 10:33 87 L Room Air 09/22/24 10:20 97 17 09/22/24 10:08 90 21 H 09/22/24 10:00 89 09/22/24 10:00 88 18 165/80 H 97 09/22/24 09:06 96 Room Air 09/22/24 08:53 90 165/80 H 09/22/24 08:00 98.5 F 87 16 180/75 H 96 09/22/24 08:00 91 09/22/24 08:00 Room Air 09/22/24 06:48 97 22 H 100 09/22/24 06:30 95 19 98 09/22/24 06:15 91 21 H 09/22/24 06:01 90 17 09/22/24 05:45 91 20 09/22/24 05:30 88 22 H 09/22/24 05:19 90 20 09/22/24 05:00 87 20 09/22/24 04:46 88 22 H 166/75 H 94 09/22/24 04:45 89 22 H 96 09/22/24 04:35 89 21 H 162/79 H 100 09/22/24 04:33 96 09/22/24 04:29 98 F 90 20 162/79 H 98 Room Air Exam 2 Narrative: GENERAL APPEARANCE: well developed well nourished male in no acute distress HEENT: normocephalic, atraumatic, normal conjunctiva and sclera, nares patient NECK: no lymphadenopathy, thyromegaly, or JVD MOUTH: normal lips, teeth, and gums CARDIOVASCULAR: RRR, normal S1 and S2, no rub RESPIRATORY: coarse breath sounds ABDOMEN: soft, nontender, nondistended, positive bowel sounds present; + colostomy EXTREMITIES: no evidence of cyanosis, clubbing; 1+ edema NEUROLOGICAL: alert and oriented x 3; CN II - XII intact bilaterally; no focal deficits noted Results Lab Results 09/24/24 04:08 09/24/24 04:08 Lab results: Most recent lab results Calcium 8.1 mg/dL (8.4-10.2) L 09/22/24 15:15 Urine Creatinine 48.8 mg/dL 09/22/24 06:26
[2024-09-22] MEDS: chlordiazePOXIDE (*CRX) 25 MG CAPSULE PO ×2 (11:54→16:50)
--- NOTE | 2024-09-22 14:25 | P.HP_ITS ---
H&P: HPI History of Present Illness Date/Time: 09/22/24 14:25 Chief Complaint: Palpitations Narrative: 64-year-old male who presents to the ED with headache nausea vomiting as well as chest pain. He stated he was trying to start detoxing from alcohol. He drinks every day multiple shocks per day. Last drink was last evening. The chest pain is left-sided no associated shortness of breath fever chills. He had been admitted in the past with alcohol withdrawal. In the ED his vitals were stable. He received some Zofran for his nausea vomiting. Laboratory study showed sodium level of 116 potassium 3.6 chloride 89 bicarbonate 18 BUN 18 creatinine 2.2 blood glucose 155. WBC is 9.8 hemoglobin 10.2 hematocrit 30.2 platelet count 195. LFTs were normal troponin was negative lipase was normal alcohol level was 26. Chest x-ray showed no acute findings. EKG had nonspecific ST-T changes. Patient was admitted to the ICU for further treatment nephrology in ICU were contacted. He has been started on normal saline since admission. His CIWA scores reviewed. Review of Systems Review of Systems: - CONSTITUTIONAL: Denies weight loss, fe mahin and chills. - HEENT: Denies changes in vision and he aring - RESPIRATORY: Denies SOB and cough. - CV: Denies palpitations and CP. - GI: Denies abdominal pain, reports anthony sea, vomiting and denies diarrhea. - : Denies dysuria and urinary frequen cy. - MSK: Denies myalgia and joint pain. - SKIN: Denies rash and pruritus. - NEUROLOGICAL: Reports headache and de nies syncope. - PSYCHIATRIC: Denies recent changes in mood. Denies anxiety and depression. [facility] Past Medical History Medical History Gastric ulcer Chronic gastric ulcer Noted on EGD 11/2023 Melena Bilateral hearing loss Essential hypertension Colorectal cancer (~2019) Treated with colectomy, radiation therapy and chemotherapy. Patient received care in [place] Surgical History Surgical History Status post cataract extraction and insertion of intraocular lens of left eye Status post colostomy (~2019) Family History Family History Father , Age 62 Cancer ?stomach cancer? Mother Breast cancer, Onset Age: 44 Sibling Cancer ?stomach cancer? 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 Since that time he and his (for over 20 years been for only few years) have been traveling around the [place] They are currently living with the patient's brother for while he helps brother remodel a house. He has smoked between 0.5 up to 2 packs of cigarettes per day for about 40 years he reports that he quit smoking in April of 2024. He drinks 6-9 beers a day. He sometimes go a couple of months without drinking at all. He denies history of illicit substance use. Code status: Full code (patient states that he would not want long-term ventilation or feeding tube. He states he would not want to be on a ventilator from more than a couple of weeks.) Surrogate decision maker: Panda Amezquita (Brother) Smoking packs per day: 1.5 Smoking cigarettes per day: 30.0 Years smoked: 40 Smoking pack-years: 60.00 Smoking status: Current every day smoker Tobacco type: cigarettes Smoking end date: 04/11/24 Alcohol intake: current Drinks per week: 54 Substance use: never Substance use type: does not use Do You Feel Safe in your Home?: Yes Lack of Transportation: No Lack of Food: Never True Current Housing: I Have Housing Concerned About Future Housing: No Difficulty Paying Gas/Electric Bills: No Difficulty Paying for Meds: No Currently Unemployed: No Education: High School Diploma/GED Difficulty w/ Childcare or Family Care: No 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 Spiritual care concerns: No Meds Home Medications and Allergies Home Medications ?Medication ?Instructions ?Recorded ?Confirmed ?Type No Home Medications 09/22/24 09/22/24 History Allergies Allergy/AdvReac Type Severity Reaction Status Date / Time No Known Allergies Allergy Verified 09/22/24 04:24 Vital Signs Vital Signs - 24 hr 09/22/24 04:29 09/22/24 04:33 09/22/24 04:35 Temperature 98 F Pulse Rate 90 89 Pulse Rate [Bilateral Radial Palpation] Respiratory Rate 20 21 H Blood Pressure 162/79 H 162/79 H Pulse Oximetry 98 96 100 Oxygen Delivery Room Air Oxygen Flow Rate 09/22/24 04:45 09/22/24 04:46 09/22/24 05:00 Temperature Pulse Rate 89 88 87 Pulse Rate [Bilateral Radial Palpation] Respiratory Rate 22 H 22 H 20 Blood Pressure 166/75 H Pulse Oximetry 96 94 Oxygen Delivery Oxygen Flow Rate 09/22/24 05:19 09/22/24 05:30 09/22/24 05:45 Temperature Pulse Rate 90 88 91 Pulse Rate [Bilateral Radial Palpation] Respiratory Rate 20 22 H 20 Blood Pressure Pulse Oximetry Oxygen Delivery Oxygen Flow Rate 09/22/24 06:01 09/22/24 06:15 09/22/24 06:30 Temperature Pulse Rate 90 91 95 Pulse Rate [Bilateral Radial Palpation] Respiratory Rate 17 21 H 19 Blood Pressure Pulse Oximetry 98 Oxygen Delivery Oxygen Flow Rate 09/22/24 06:48 09/22/24 08:00 09/22/24 08:00 Temperature Pulse Rate 97 91 Pulse Rate [Bilateral Radial Palpation] Respiratory Rate 22 H Blood Pressure Pulse Oximetry 100 Oxygen Delivery Room Air Oxygen Flow Rate 09/22/24 08:00 09/22/24 08:53 09/22/24 09:06 Temperature 98.5 F Pulse Rate 87 Pulse Rate [Bilateral Radial Palpation] 90 Respiratory Rate 16 Blood Pressure 180/75 H 165/80 H Pulse Oximetry 96 96 Oxygen Delivery Room Air Oxygen Flow Rate 09/22/24 10:00 09/22/24 10:00 09/22/24 10:08 Temperature Pulse Rate 88 89 90 Pulse Rate [Bilateral Radial Palpation] Respiratory Rate 18 21 H Blood Pressure 165/80 H Pulse Oximetry 97 Oxygen Delivery Oxygen Flow Rate 09/22/24 10:20 09/22/24 10:33 09/22/24 10:39 Temperature Pulse Rate 97 Pulse Rate [Bilateral Radial Palpation] Respiratory Rate 17 Blood Pressure Pulse Oximetry 87 L 96 Oxygen Delivery Room Air Nasal Cannula Oxygen Flow Rate 1 09/22/24 11:55 09/22/24 12:00 09/22/24 12:00 Temperature Pulse Rate 90 Pulse Rate [Bilateral Radial Palpation] 92 Respiratory Rate Blood Pressure 147/68 H Pulse Oximetry 95 Oxygen Delivery Nasal Cannula Oxygen Flow Rate 1 09/22/24 12:00 09/22/24 13:51 09/22/24 13:59 Temperature 98.7 F Pulse Rate 92 90 85 Pulse Rate [Bilateral Radial Palpation] Respiratory Rate 17 20 20 Blood Pressure 164/71 H Pulse Oximetry 95 Oxygen Delivery Oxygen Flow Rate Exam Narrative: General: Pleasant gentleman in no acute distress, hard of hearing HEENT:? Pupils equal and reactive, sclerae sclera, dry oral mucosa Neck:? Supple Respiratory:? No wheezes, adequate air entry, no rales Cardiac:? S1-S2 normal, regular rate and rhythm Abdomen:? Soft, nontender, nondistended, right colostomy with brown stool, normoactive bowel sound Extremities:? Trace edema, palpable pedal pulses Neuro:? Patient is awake, alert, oriented, nonfocal, answers to questions appropriately and follows simple commands in all extremities Skin:? Warm and dry Psych:? Normal mentation and affect H&P: Results Labs Labs: Short CBC 09/22/24 Range/Units 04:34 WBC 9.8 (4.5-10.0) K/mm3 Hgb 10.2 L (14.0-18.0) g/dL Hct 30.2 L (42.0-52.0) % Plt Count 195 (150-375) k/mm3 BMP 09/22/24 09/22/24 04:34 09:10 Sodium 116 L* 118 L* Potassium 3.6 4.4 Chloride 89 L 91 L Carbon Dioxide 18 L 22 BUN 18 D 20 Creatinine 2.21 H 2.05 H Glucose 155 H 109 Calcium 8.6 8.6 Cardiac Enzymes 09/22/24 09/22/24 09/22/24 Range/Units 04:34 07:51 09:10 Troponin I < 0.012 < 0.012 < 0.012 (0.000-0.034) ng/mL Liver Function 09/22/24 Range/Units 04:34 Total Bilirubin 0.5 (0.2-1.3) mg/dL AST 39 (17-59) U/L ALT 23 (6-50) U/L Alkaline Phosphatase 99 (38-126) U/L Albumin 3.9 (3.5-5.1) g/dL Assessment and Plan Assessment and plan (1) Acute hyponatremia: Code(s): E87.1 - Hypo-osmolality and hyponatremia Status: Acute (2) ETOH abuse: Code(s): F10.10 - Alcohol abuse, uncomplicated Status: Chronic (3) Alcohol dependence: Qualifiers: Substance use status: uncomplicated Qualified Code(s): F10.20 - Alcohol dependence, uncomplicated Code(s): F10.20 - Alcohol dependence, uncomplicated Status: Acute (4) Hypertension: Code(s): I10 - Essential (primary) hypertension Status: Chronic (5) Chronic kidney disease, stage IV (severe): Code(s): N18.4 - Chronic kidney disease, stage 4 (severe) Status: Chronic (6) COPD (chronic obstructive pulmonary disease): Qualifiers: COPD type: unspecified COPD Qualified Code(s): J44.9 - Chronic obstructive pulmonary disease, unspecified Code(s): J44.9 - Chronic obstructive pulmonary disease, unspecified Status: Chronic (7) Cigarette smoker: Code(s): F17.210 - Nicotine dependence, cigarettes, uncomplicated Status: Acute Plan 64-year-old male who presents to the ED with headache nausea vomiting as well as chest pain. He stated he was trying to start detoxing from alcohol. He drinks every day multiple shocks per day. Last drink was last evening. The chest pain is left-sided no associated shortness of breath fever chills. He had been admitted in the past with alcohol withdrawal. In the ED his vitals were stable. He received some Zofran for his nausea vomiting. Laboratory study showed sodium level of 116 potassium 3.6 chloride 89 bicarbonate 18 BUN 18 creatinine 2.2 blood glucose 155. WBC is 9.8 hemoglobin 10.2 hematocrit 30.2 platelet count 195. LFTs were normal troponin was negative lipase was normal alcohol level was 26. Chest x-ray showed no acute findings. EKG had nonspecific ST-T changes. Patient was admitted to the ICU for further treatment nephrology in ICU were contacted. He has been started on normal saline since admission. His CIWA scores reviewed. Hyponatremia received 3% saline in the ER with DDAVP. Nephrology following. Started on normal saline Alcohol abuse on CIWA protocol started on thiamine Librium and folic acid. On Ativan p.r.n. Hypertension stable CKD stage 4 creatinine stable at baseline continue to monitor COPD not in exacerbation DuoNeb as ordered Tobacco abuse History of colorectal cancer status post colectomy radiation therapy chemotherapy and status post colostomy Bilateral hydronephrosis with UPJ obstruction with history of stent placement in the past History of gastric ulcer/severe erosive duodenitis with bleeding DVT prophylaxis heparin subQ Code status full code Hospitalist MIPS Advance Care Plan I have confirmed that the patient's Advanced Care Plan is present, code status is documented, or surrogate decision maker is listed in patient medical record.: Yes Medication Reconciliation I have utilized all available resources to obtain, update and review the patients current medications (includes all prescriptions, OTC, herbals, cannabis, and nutritional supplements).: Yes
[2024-09-22 15:38] LABS: Anion Gap 2 mmol/L (4-12); Blood Urea Nitrogen 23 mg/dL (9-20); Calcium 8.1 mg/dL (8.4-10.2); Carbon Dioxide 22 mmol/L (22-30); Chloride 91 mmol/L (98-107); Estimated CRCL calculation 28 ml/min; Estimated Glomerular Filt Rate 30; Glucose 184 mg/dL (65-110); Potassium 3.5 mmol/L (3.4-5.0); Sodium 115 mmol/L (137-145)
[2024-09-22 19:45] LABS: Anion Gap 5 mmol/L (4-12); Blood Urea Nitrogen 24 mg/dL (9-20); Calcium 8.1 mg/dL (8.4-10.2); Carbon Dioxide 22 mmol/L (22-30); Chloride 92 mmol/L (98-107); Estimated CRCL calculation 27 ml/min; Estimated Glomerular Filt Rate 29; Glucose 152 mg/dL (65-110); Potassium 3.5 mmol/L (3.4-5.0); Sodium 119 mmol/L (137-145)
[2024-09-22 23:10] LABS: Anion Gap 4 mmol/L (4-12); Blood Urea Nitrogen 24 mg/dL (9-20); Calcium 8.3 mg/dL (8.4-10.2); Carbon Dioxide 23 mmol/L (22-30); Chloride 93 mmol/L (98-107); Estimated CRCL calculation 27 ml/min; Estimated Glomerular Filt Rate 29; Glucose 125 mg/dL (65-110); Potassium 3.6 mmol/L (3.4-5.0); Sodium 120 mmol/L (137-145)
[2024-09-23] VITALS (23 sets, daily range): BP systolic 141–182; BP diastolic 59–107; PULSE 75–100; RESP 16–27; TEMP 36.3–36.9; O2SAT 94–100
[2024-09-23] MEDS: SODIUM CHLORIDE 0.9% IV 1,000 ML 60 ML IV CONT (01:09)
[2024-09-23] MEDS: IPRATROPIUM 0.5 MG/ALBUTEROL SULFATE 2.5 MG AMPUL.NEB 3 ML INHALATION ×4 (01:26→20:16)
[2024-09-23 03:56] LABS: Hematocrit 28.6 % (42.0-52.0); Hemoglobin 9.2 g/dL (14.0-18.0); Immature Granulocyte Percent A 0.2 % (0-0.5); Lymphocytes Absolute Auto 0.66 K/mm3 (0.9-3.2); Mean Corpuscular HGB Conc 32.2 g/dl (32-36); Mean Corpuscular Hemoglobin 29.6 pg (26-34); Mean Corpuscular Volume 92.0 fl (80-100); Nucleated Red Blood Cells Absolute Auto 0.000 K/mm3 (0.0-0.012); Nucleated Red Blood Cells Perc 0.0 % (0.0-0.2); Platelet Count Result 152 k/mm3 (150-375); Red Blood Count 3.11 M/mm3 (4.6-6.20); White Blood Count 8.3 K/mm3 (4.5-10.0)
[2024-09-23 04:31] LABS: Alanine Aminotransferase 18 U/L (6-50); Albumin Level 3.2 g/dL (3.5-5.1); Alkaline Phosphatase 94 U/L (38-126); Anion Gap 2 mmol/L (4-12); Aspartate Amino Transferase 29 U/L (17-59); Bilirubin,Total 0.4 mg/dL (0.2-1.3); Blood Urea Nitrogen 22 mg/dL (9-20); Calcium 8.2 mg/dL (8.4-10.2); Carbon Dioxide 24 mmol/L (22-30); Chloride 94 mmol/L (98-107); Estimated CRCL calculation 27 ml/min; Estimated Glomerular Filt Rate 29; Glucose 180 mg/dL (65-110); Magnesium 1.9 mg/dL (1.6-2.3); Potassium 3.3 mmol/L (3.4-5.0); Sodium 120 mmol/L (137-145); Total Protein 6.3 g/dL (6.3-8.2)
[2024-09-23] MEDS: chlordiazePOXIDE (*CRX) 25 MG CAPSULE PO ×4 (05:04→23:23)
[2024-09-23] MEDS: POTASSIUM CHLORIDE 20 MEQ ER TABLET 40 MEQ PO (08:00)
[2024-09-23] MEDS: THIAMINE HCL 200 MG/2 ML VIAL 100 MG IV PUSH (08:01)
[2024-09-23] MEDS: FOLIC ACID 1 MG/0.2 ML INJ IV PUSH (08:01)
[2024-09-23 08:07] LABS: Anion Gap 3 mmol/L (4-12); Blood Urea Nitrogen 21 mg/dL (9-20); Calcium 8.4 mg/dL (8.4-10.2); Carbon Dioxide 22 mmol/L (22-30); Chloride 96 mmol/L (98-107); Estimated CRCL calculation 28 ml/min; Estimated Glomerular Filt Rate 30; Glucose 116 mg/dL (65-110); Potassium 3.8 mmol/L (3.4-5.0); Sodium 121 mmol/L (137-145)
[2024-09-23] MEDS: ONDANSETRON INJ 4 MG/2 ML VIAL IV PUSH (09:08)
--- NOTE | 2024-09-23 11:11 | P.PNINT_ITS ---
Progress Note: A&P Assessment and Plan (1) Acute hyponatremia: Code(s): E87.1 - Hypo-osmolality and hyponatremia Status: Acute Assessment and Plan: Hyponatremia is likely multifactorial due to patient's history of alcohol use, hypervolemia, kidney disease. possible liver dysfunction. Received 3% Saline in ER with DDAVP - Nephrology following, started on NS 75 mL/hour -pt is asymptomatic at this time -sodium levels gradually improving and is 121 this morning -continue to monitor (2) ETOH abuse: Code(s): F10.10 - Alcohol abuse, uncomplicated Status: Chronic Assessment and Plan: Pt has h/o ETOH abuse, - CIWA protocol, with PRN Ativan -continue Librium 25 mg p.o. q.6 hours - Started thiamine and folic acid - Monitor for withdrawal (3) Alcohol dependence: Qualifiers: Substance use status: uncomplicated Qualified Code(s): F10.20 - Alcohol dependence, uncomplicated Code(s): F10.20 - Alcohol dependence, uncomplicated Status: Acute Assessment and Plan: as above (4) Hypertension: Code(s): I10 - Essential (primary) hypertension Status: Chronic Assessment and Plan: Elevated blood pressures, added amlodipine -continue p.r.n. hydralazine for SBP> 150 mmHg (5) Chronic kidney disease, stage IV (severe): Code(s): N18.4 - Chronic kidney disease, stage 4 (severe) Status: Chronic Assessment and Plan: chronic renal failure stage 4 creatinine stable and baseline -monitor UO, electrolytes and renal function -appreciate Nephrology evaluation a recommendation (6) COPD (chronic obstructive pulmonary disease): Qualifiers: COPD type: unspecified COPD Qualified Code(s): J44.9 - Chronic obstructive pulmonary disease, unspecified Code(s): J44.9 - Chronic obstructive pulmonary disease, unspecified Status: Chronic Assessment and Plan: No wheezing noted this morning, -continue DuoNebs (7) Cigarette smoker: Code(s): F17.210 - Nicotine dependence, cigarettes, uncomplicated Status: Acute Assessment and Plan: counseled pt on smoking cessation Plan DVT prophylaxis: Heparin Stress ulcer prophylaxis:not indicated Nutrition:renal diet Code Status: Full code Critical Care Time Spent: 31 minutes Patient may transfer out of the ICU if okay with hospitalist Due to a high probability of clinically significant, life threatening deterioration, the patient required my highest level of preparedness to intervene emergently and I personally spent this critical care time directly and personally managing the patient. This critical care time included obtaining a history; examining the patient; pulse oximetry; ordering and review of studies; arranging urgent treatment with development of a management plan; evaluation of patient's response to treatment; frequent reassessment; and discussions with other providers. It was exclusive of separately billable procedures and treating other patients and teaching time. Please see Assessment and Plan section and the rest of the note for further information on patient assessment and treatment This dictation may have been done utilizing a voice recognition system. Attempts have been made to correct errors. However, there may be uncorrected grammatical, spelling, and recognitions errors present. Subjective Date/time seen: 09/23/24 11:11 Interval history: Reason for consult: Nausea, vomiting, abdominal pain, alcohol abuse, acute severe hyponatremia (115) 09/23/2024: Patient seen and examined the ICU, is awake, alert, oriented, his questions appropriately and follows commands. Denies any chest pain, shortness of breath, abdominal pain, nausea vomiting at this time. Patient states he is hungry even that he just got his breakfast. It was asking about what time is lunch. Her afebrile, adequate urine output -no issues overnight, sodium level this morning 121. Review of Systems Review of Systems: All systems reviewed & are unremarkable except as noted in HPI and below Exam Narrative: General: Pleasant gentleman in no acute distress, hard of hearing HEENT:? Pupils equal and reactive, sclerae sclera, dry oral mucosa Neck:? Supple Respiratory:? Expiratory wheezing auscultated, adequate air entry, no rales Cardiac:? S1-S2 normal, regular rate and rhythm Abdomen:? Soft, nontender, nondistended, right colostomy with brown stool, normoactive bowel sound Extremities:? Trace edema, palpable pedal pulses Neuro:? Patient is awake, alert, oriented, nonfocal, answers to questions appropriately and follows simple commands in all extremities Skin:? Warm and dry Psych:? Normal mentation and affect Objective Data Vital Signs Vital Signs: Vital Signs - 24 hr 09/22/24 11:55 09/22/24 12:00 09/22/24 12:00 Temperature Pulse Rate 90 Pulse Rate [Bilateral Radial Palpation] 92 Respiratory Rate Blood Pressure 147/68 H Pulse Oximetry 95 Oxygen Delivery Nasal Cannula Oxygen Flow Rate 1 Fraction of Inspired Oxygen 09/22/24 12:00 09/22/24 13:51 09/22/24 13:59 Temperature 98.7 F Pulse Rate 92 90 85 Pulse Rate [Bilateral Radial Palpation] Respiratory Rate 17 20 20 Blood Pressure 164/71 H Pulse Oximetry 95 Oxygen Delivery Oxygen Flow Rate Fraction of Inspired Oxygen 09/22/24 14:00 09/22/24 14:00 09/22/24 16:00 Temperature 97.9 F Pulse Rate 88 89 82 Pulse Rate [Bilateral Radial Palpation] Respiratory Rate 17 Blood Pressure 155/83 H Pulse Oximetry 95 Oxygen Delivery Oxygen Flow Rate Fraction of Inspired Oxygen 09/22/24 16:00 09/22/24 16:00 09/22/24 16:00 Temperature 98.3 F Pulse Rate 82 Pulse Rate [Bilateral Radial Palpation] 82 Respiratory Rate 22 H Blood Pressure 145/85 H 145/85 H Pulse Oximetry 96 96 Oxygen Delivery Nasal Cannula Oxygen Flow Rate 1 Fraction of Inspired Oxygen 09/22/24 18:00 09/22/24 19:41 09/22/24 19:44 Temperature Pulse Rate 103 H 96 Pulse Rate [Bilateral Radial Palpation] Respiratory Rate 21 H 20 Blood Pressure 166/76 H Pulse Oximetry 96 98 Oxygen Delivery Nasal Cannula Oxygen Flow Rate 1 Fraction of Inspired Oxygen 24 09/22/24 19:56 09/22/24 19:56 09/22/24 20:00 Temperature 98.2 F Pulse Rate 96 95 Pulse Rate [Bilateral Radial Palpation] Respiratory Rate 20 25 H Blood Pressure 175/87 H Pulse Oximetry 100 100 Oxygen Delivery Nasal Cannula Oxygen Flow Rate 1 Fraction of Inspired Oxygen 09/22/24 20:00 09/22/24 22:00 09/22/24 22:04 Temperature Pulse Rate 104 H 101 H 102 H Pulse Rate [Bilateral Radial Palpation] Respiratory Rate 28 H Blood Pressure 178/84 H Pulse Oximetry 93 Oxygen Delivery Oxygen Flow Rate Fraction of Inspired Oxygen 09/23/24 00:00 09/23/24 00:00 09/23/24 00:00 Temperature 98.1 F Pulse Rate 92 93 Pulse Rate [Bilateral Radial Palpation] Respiratory Rate 25 H Blood Pressure 180/91 H Pulse Oximetry 99 99 Oxygen Delivery Nasal Cannula Oxygen Flow Rate 2 Fraction of Inspired Oxygen 09/23/24 01:00 09/23/24 01:26 09/23/24 01:39 Temperature Pulse Rate 94 99 100 Pulse Rate [Bilateral Radial Palpation] Respiratory Rate 27 H 20 20 Blood Pressure 171/77 H Pulse Oximetry 99 Oxygen Delivery Oxygen Flow Rate Fraction of Inspired Oxygen 09/23/24 02:00 09/23/24 02:00 09/23/24 04:00 Temperature 98.5 F Pulse Rate 93 93 Pulse Rate [Bilateral Radial Palpation] Respiratory Rate 26 H Blood Pressure 176/81 H Pulse Oximetry 99 98 Oxygen Delivery Nasal Cannula Oxygen Flow Rate 2 Fraction of Inspired Oxygen 09/23/24 04:00 09/23/24 04:00 09/23/24 06:00 Temperature 97.6 F Pulse Rate 88 88 75 Pulse Rate [Bilateral Radial Palpation] Respiratory Rate 16 Blood Pressure 162/76 H Pulse Oximetry 98 Oxygen Delivery Oxygen Flow Rate Fraction of Inspired Oxygen 09/23/24 06:23 09/23/24 08:00 09/23/24 08:00 Temperature 98.4 F Pulse Rate 94 88 Pulse Rate [Bilateral Radial Palpation] Respiratory Rate 16 26 H Blood Pressure 182/79 H 161/107 H Pulse Oximetry 100 100 100 Oxygen Delivery Nasal Cannula Oxygen Flow Rate 2 Fraction of Inspired Oxygen 09/23/24 08:00 09/23/24 10:02 09/23/24 10:03 Temperature 97.3 F L Pulse Rate 86 85 Pulse Rate [Bilateral Radial Palpation] Respiratory Rate 23 H Blood Pressure 153/77 H Pulse Oximetry 95 100 Oxygen Delivery Nasal Cannula Oxygen Flow Rate 1 Fraction of Inspired Oxygen 09/23/24 10:05 09/23/24 10:11 Temperature Pulse Rate 82 85 Pulse Rate [Bilateral Radial Palpation] Respiratory Rate 20 20 Blood Pressure Pulse Oximetry Oxygen Delivery Oxygen Flow Rate Fraction of Inspired Oxygen Intake/Output Intake/Output: Intake & Output 09/20/24 09/21/24 09/22/24 09/23/24 23:59 23:59 23:59 23:59 Intake Total 1915 1596 Output Total 1100 850 Balance 815 746 Meds/Results Medications: Active Medications Generic Name Dose Route Start Last Admin Trade Name Freq PRN Reason Stop Dose Admin Acetaminophen 650 mg 09/22/24 06:09 Acetaminophen 650 Mg Suppository RECTAL Q6H PRN Mild Pain (1-3) or Fever Albuterol/Ipratropium 3 ml 09/22/24 14:00 09/23/24 09:58 Ipratropium 0.5 Mg/Albuterol Sulfate 2.5 Mg Ampul.Neb 3 Ml INHALATION 3 ml Q6HRT CLAUDIA Administration Amlodipine Besylate 10 mg 09/23/24 09:00 09/23/24 08:01 Amlodipine Besylate 10 Mg Tablet PO 10 mg DAILY CLAUDIA Administration Chlordiazepoxide HCl 25 mg 09/22/24 12:00 09/23/24 05:04 Chlordiazepoxide (*Crx) 25 Mg Capsule PO 25 mg Q6HR CLAUDIA Administration Folic Acid 1 mg 09/22/24 09:30 09/23/24 08:01 Folic Acid 1 Mg/0.2 Ml Inj IV PUSH 1 mg DAILY CLAUDIA Administration Heparin Sodium (Porcine) 5,000 units 09/22/24 14:00 09/23/24 05:04 Heparin Sodium 5,000 Units/Ml Vial SUB-Q 5,000 units Q8HR CLAUDIA Administration Hydralazine HCl 10 mg 09/23/24 07:44 09/23/24 08:01 Hydralazine Hcl 20 Mg/Ml Vial IV PUSH 10 mg Q4H PRN Administration Blood Pressure - High Sodium Chloride 1,000 mls @ 75 mls/hr 09/22/24 09:45 09/23/24 06:44 Normal Saline Iv IV CONT 75 mls/hr .[id number] CLAUDIA Infusion Lorazepam 2 mg 09/22/24 08:52 Lorazepam Inj (*Crx) 2 Mg/Ml Vial IV PUSH Q2H PRN CIWA>8, HR>100, or DBP>100 Ondansetron HCl 4 mg 09/22/24 06:09 09/23/24 09:08 Ondansetron Inj 4 Mg/2 Ml Vial IV PUSH 4 mg Q4H PRN Administration Nausea Thiamine HCl 100 mg 09/22/24 09:30 09/23/24 08:01 Thiamine Hcl 200 Mg/2 Ml Vial IV PUSH 100 mg DAILY CLAUDIA Administration Radiology Results: ITS Impressions Chest X-Ray 09/23/24 06:32 IMPRESSION: 1: NO ACUTE CARDIOPULMONARY DISEASE. Labs Labs: Laboratory Results - last 24 hr 09/22/24 09/22/24 09/22/24 12:41 15:15 19:03 WBC RBC Hgb Hct MCV MCH MCHC RDW Plt Count MPV Immature Gran % (Auto) Neut % (Auto) Lymph % (Auto) [place] % (Auto) Eos % (Auto) Baso % (Auto) Lymph # (Auto) [place] # (Auto) Eos # (Auto) Baso # (Auto) Abs Immat Gran (auto) Absolute Neuts (auto) Absolute Nucleated RBC Nucleated RBC % Sodium 115 L* 119 L* Potassium 3.5 3.5 Chloride 91 L 92 L Carbon Dioxide 22 22 Anion Gap 2 L 5 BUN 23 H 24 H Creatinine 2.23 H 2.32 H Estim Creat Clear Calc 28 27 Estimated GFR 30 L 29 L Glucose 184 H 152 H POC Capillary Glucose 247 H Calcium 8.1 L 8.1 L Phosphorus Magnesium Total Bilirubin AST ALT Alkaline Phosphatase Total Protein Albumin 09/22/24 09/22/24 09/23/24 22:41 23:47 03:44 WBC 8.3 RBC 3.11 L Hgb 9.2 L Hct 28.6 L MCV 92.0 MCH 29.6 MCHC 32.2 RDW 14.6 H Plt Count 152 MPV 9.1 Immature Gran % (Auto) 0.2 Neut % (Auto) 78.6 H Lymph % (Auto) 7.9 L [place] % (Auto) 9.8 H Eos % (Auto) 3.1 Baso % (Auto) 0.4 Lymph # (Auto) 0.66 L [place] # (Auto) 0.8 H Eos # (Auto) 0.3 Baso # (Auto) 0.0 Abs Immat Gran (auto) 0.02 Absolute Neuts (auto) 6.6 Absolute Nucleated RBC 0.000 Nucleated RBC % 0.0 Sodium 120 L 120 L Potassium 3.6 3.3 L Chloride 93 L 94 L Carbon Dioxide 23 24 Anion Gap 4 2 L BUN 24 H 22 H Creatinine 2.29 H 2.28 H Estim Creat Clear Calc 27 27 Estimated GFR 29 L 29 L Glucose 125 H 180 H POC Capillary Glucose 111 H Calcium 8.3 L 8.2 L Phosphorus 3.5 Magnesium 1.9 Total Bilirubin 0.4 AST 29 ALT 18 Alkaline Phosphatase 94 Total Protein 6.3 Albumin 3.2 L 09/23/24 07:41 WBC RBC Hgb Hct MCV MCH MCHC RDW Plt Count MPV Immature Gran % (Auto) Neut % (Auto) Lymph % (Auto) [place] % (Auto) Eos % (Auto) Baso % (Auto) Lymph # (Auto) [place] # (Auto) Eos # (Auto) Baso # (Auto) Abs Immat Gran (auto) Absolute Neuts (auto) Absolute Nucleated RBC Nucleated RBC % Sodium 121 L Potassium 3.8 Chloride 96 L Carbon Dioxide 22 Anion Gap 3 L BUN 21 H Creatinine 2.21 H Estim Creat Clear Calc 28 Estimated GFR 30 L Glucose 116 H POC Capillary Glucose Calcium 8.4 Phosphorus Magnesium Total Bilirubin AST ALT Alkaline Phosphatase Total Protein Albumin Quality VTE Prophylaxis VTE prophylaxis: pharmacologic ordered
[2024-09-23 12:32] LABS: Anion Gap 5 mmol/L (4-12); Blood Urea Nitrogen 22 mg/dL (9-20); Calcium 8.2 mg/dL (8.4-10.2); Carbon Dioxide 23 mmol/L (22-30); Chloride 94 mmol/L (98-107); Estimated CRCL calculation 29 ml/min; Estimated Glomerular Filt Rate 32; Glucose 178 mg/dL (65-110); Potassium 3.9 mmol/L (3.4-5.0); Sodium 122 mmol/L (137-145)
--- NOTE | 2024-09-23 12:35 | P.PNNP_ITS ---
Progress Note: A&P Assessment and Plan (1) Hyponatremia: Code(s): E87.1 - Hypo-osmolality and hyponatremia Status: Acute Assessment and Plan: * slow and steady improvement * quite significant on presentation -- sodium 116mmol/L * HOWEVER, has been as low as 107mmol/L in the past... * risk factors for low sodium: * prerenal factors * known alcohol intake/abuse * COPD * ongoing smoking * liver disease (?) given alcohol history * propensity for volume overload * goal of therapy is a change in 6 - 8mmol/L over 24 hours * this has been achieved * s/p 3% saline x 1 * continue normal saline IVFs for now * follow sodium trend (2) Stage 4 chronic kidney disease: Code(s): N18.4 - Chronic kidney disease, stage 4 (severe) Status: Acute Assessment and Plan: * baseline creatinine runs around 2.6 - 3.1mg/dL * thought to be due to hypertension, vascular disease (smoking history) and chronic obstructive uropathy along with age-related change * previous evaluation noted: * renal u/s with bilateral hydronephrosis (suspect chronic) * urine eosinophils negative * moderate proteinuria * CPK normal * relatively stable at this time (3) Hypertension: Code(s): I10 - Essential (primary) hypertension Status: Chronic Assessment and Plan: * reasonable control * continue home BP medications with further adjustments as needed * follow trend of hemodynamics (4) Anemia: Code(s): D64.9 - Anemia, unspecified Status: Acute Assessment and Plan: * partly related to underlying CKD as well * dose with empiric KASHIF/Retacrit while hospitalized PRN * follow H/H (5) COPD (chronic obstructive pulmonary disease): Qualifiers: COPD type: unspecified COPD Qualified Code(s): J44.9 - Chronic obstructive pulmonary disease, unspecified Code(s): J44.9 - Chronic obstructive pulmonary disease, unspecified Status: Chronic Assessment and Plan: * no evidence of exacerbation * continue breathing treatments PRN (6) ETOH abuse: Code(s): F10.10 - Alcohol abuse, uncomplicated Status: Chronic Assessment and Plan: * known history * on thiamine, folate, and MVI * on CIWA Will continue to follow. L Subjective Date/time seen: 09/23/24 12:22 Interval history: Follow-up for acute hyponatremia and chronic kidney disease. Sodium has been slowly improving with current interventions/therapy to date; no apparent distress noted at the time of my visit; mentation remains stable and eating/drinking reasonably well; no other issues/events overnight or earlier this morning. Exam 2 Narrative: General: WD/WN male in NAD Heart: normal S1 and S2; no rub Lungs: decreased at bases Abdomen: soft, nontender, nondistended, positive bowel sounds; + ostomy Extremities: no cyanosis or clubbing; trace edema Skin: warm and dry Objective Data Vital Signs Vital Signs: Vital Signs Temp Pulse Resp BP Pulse Ox O2 Del Method O2 Flow Rate 09/23/24 12:17 159/59 H 09/23/24 12:00 97 09/23/24 12:00 98.3 F 97 26 H 98 09/23/24 10:11 85 20 09/23/24 10:05 82 20 09/23/24 10:03 97.3 F L 85 23 H 153/77 H 100 09/23/24 10:02 95 Nasal Cannula 1 09/23/24 08:00 86 09/23/24 08:00 100 Nasal Cannula 2 09/23/24 08:00 98.4 F 88 26 H 161/107 H 100 09/23/24 06:23 94 16 182/79 H 100 09/23/24 06:00 75 09/23/24 04:00 97.6 F 88 16 162/76 H 98 09/23/24 04:00 88 09/23/24 04:00 98 Nasal Cannula 2 09/23/24 02:00 93 09/23/24 02:00 98.5 F 93 26 H 176/81 H 99 09/23/24 01:39 100 20 09/23/24 01:26 99 20 09/23/24 01:00 94 27 H 171/77 H 99 09/23/24 00:00 93 09/23/24 00:00 99 Nasal Cannula 2 09/23/24 00:00 98.1 F 92 25 H 180/91 H 99 09/22/24 22:04 102 H 28 H 178/84 H 93 09/22/24 22:00 101 H 09/22/24 20:00 104 H 09/22/24 20:00 100 Nasal Cannula 1 09/22/24 19:56 98.2 F 95 25 H 175/87 H 100 09/22/24 19:56 96 20 09/22/24 19:44 98 Nasal Cannula 1 09/22/24 19:41 96 20 Intake/Output Intake/Output: Intake & Output 09/20/24 09/21/24 09/22/24 09/23/24 23:59 23:59 23:59 23:59 Intake Total 1915 1596 Output Total 1100 2050 Balance 815 -454 Meds/Results Medications: Active Medications Generic Name Dose Route Start Last Admin Trade Name Freq PRN Reason Stop Dose Admin Acetaminophen 650 mg 09/22/24 06:09 Acetaminophen 650 Mg Suppository RECTAL Q6H PRN Mild Pain (1-3) or Fever Albuterol/Ipratropium 3 ml 09/22/24 14:00 09/23/24 14:48 Ipratropium 0.5 Mg/Albuterol Sulfate 2.5 Mg Ampul.Neb 3 Ml INHALATION 3 ml Q6HRT CLAUDIA Administration Amlodipine Besylate 10 mg 09/23/24 09:00 09/23/24 08:01 Amlodipine Besylate 10 Mg Tablet PO 10 mg DAILY CLAUDIA Administration Chlordiazepoxide HCl 25 mg 09/22/24 12:00 09/23/24 17:57 Chlordiazepoxide (*Crx) 25 Mg Capsule PO 25 mg Q6HR CLAUDIA Administration Folic Acid 1 mg 09/22/24 09:30 09/23/24 08:01 Folic Acid 1 Mg/0.2 Ml Inj IV PUSH 1 mg DAILY CLAUDIA Administration Heparin Sodium (Porcine) 5,000 units 09/22/24 14:00 09/23/24 14:50 Heparin Sodium 5,000 Units/Ml Vial SUB-Q 5,000 units Q8HR CLAUDIA Administration Hydralazine HCl 10 mg 09/23/24 07:44 09/23/24 08:01 Hydralazine Hcl 20 Mg/Ml Vial IV PUSH 10 mg Q4H PRN Administration Blood Pressure - High Sodium Chloride 1,000 mls @ 75 mls/hr 09/22/24 09:45 09/23/24 06:44 Normal Saline Iv IV CONT 75 mls/hr .[id number] CLAUDIA Infusion Lorazepam 2 mg 09/22/24 08:52 Lorazepam Inj (*Crx) 2 Mg/Ml Vial IV PUSH Q2H PRN CIWA>8, HR>100, or DBP>100 Ondansetron HCl 4 mg 09/22/24 06:09 09/23/24 09:08 Ondansetron Inj 4 Mg/2 Ml Vial IV PUSH 4 mg Q4H PRN Administration Nausea Thiamine HCl 100 mg 09/22/24 09:30 09/23/24 08:01 Thiamine Hcl 200 Mg/2 Ml Vial IV PUSH 100 mg DAILY CLAUDIA Administration Radiology Results: ITS Impressions Chest X-Ray 09/23/24 06:32 IMPRESSION: 1: NO ACUTE CARDIOPULMONARY DISEASE. Abdomen X-Ray 09/23/24 14:37 Impression: 1: Limited study. Nonspecific bowel gas pattern. Consider correlation with CT abdomen. Labs Labs: Laboratory Tests 09/23/24 03:44 09/23/24 12:04
--- NOTE | 2024-09-23 14:29 | P.PNIM_ITS ---
Progress Note: A&P Assessment and Plan (1) Acute hyponatremia: Code(s): E87.1 - Hypo-osmolality and hyponatremia Status: Acute (2) ETOH abuse: Code(s): F10.10 - Alcohol abuse, uncomplicated Status: Chronic (3) Alcohol dependence: Qualifiers: Substance use status: uncomplicated Qualified Code(s): F10.20 - Alcohol dependence, uncomplicated Code(s): F10.20 - Alcohol dependence, uncomplicated Status: Acute (4) Hypertension: Code(s): I10 - Essential (primary) hypertension Status: Chronic (5) Chronic kidney disease, stage IV (severe): Code(s): N18.4 - Chronic kidney disease, stage 4 (severe) Status: Chronic (6) COPD (chronic obstructive pulmonary disease): Qualifiers: COPD type: unspecified COPD Qualified Code(s): J44.9 - Chronic obstructive pulmonary disease, unspecified Code(s): J44.9 - Chronic obstructive pulmonary disease, unspecified Status: Chronic (7) Cigarette smoker: Code(s): F17.210 - Nicotine dependence, cigarettes, uncomplicated Status: Acute Plan 64-year-old male who presents to the ED with headache nausea vomiting as well as chest pain. He stated he was trying to start detoxing from alcohol. He drinks every day multiple shocks per day. Last drink was last evening. The chest pain is left-sided no associated shortness of breath fever chills. He had been admitted in the past with alcohol withdrawal. In the ED his vitals were stable. He received some Zofran for his nausea vomiting. Laboratory study showed sodium level of 116 potassium 3.6 chloride 89 bica rbonate 18 BUN 18 creatinine 2.2 blood glucose 155. WBC is 9.8 hemoglobin 10.2 hematocrit 30.2 platelet count 195. LFTs were normal troponin was negative lipase was normal alcohol level was 26. Chest x-ray showed no acute findings. EKG had nonspecific ST-T changes. Patient was admitted to the ICU for further treatment nephrology in ICU were contacted. He has been started on normal saline since admission. His CIWA scores reviewed. Hyponatremia received 3% saline in the ER with DDAVP. Nephrology following. Started on normal saline Alcohol abuse on CIWA protocol started on thiamine Librium and folic acid. On Ativan p.r.n. Hypertension stable CKD stage 4 creatinine stable at baseline continue to monitor COPD not in exacerbation DuoNeb as ordered Tobacco abuse History of colorectal cancer status post colectomy radiation therapy chemotherapy and status post colostomy Bilateral hydronephrosis with UPJ obstruction with history of stent placement in the past History of gastric ulcer/severe erosive duodenitis with bleeding DVT prophylaxis heparin subQ Code status full code patient remains clinically stable, does not show any sign or symptoms of withdrawl, his sodium is trending up, patient is seen by recreation attendant, patient is being monitor with CIWA protocol and Librium as needed. Subjective Date/time seen: 09/23/24 14:29 Interval history: H&P-Narrative: 64-year-old male who presents to the ED with headache nausea vomiting as well as chest pain. He stated he was trying to start detoxing from alcohol. He drinks every day multiple shocks per day. Last drink was last evening. The chest pain is left-sided no associated shortness of breath fever chills. He had been admitted in the past with alcohol withdrawal. In the ED his vitals were stable. He received some Zofran for his nausea vomiting. Laboratory study showed sodium level of 116 potassium 3.6 chloride 89 bicarbonate 18 BUN 18 creatinine 2.2 blood glucose 155. WBC is 9.8 hemoglobin 10.2 hematocrit 30.2 platelet count 195. LFTs were normal troponin was negative lipase was normal alcohol level was 26. Chest x-ray showed no acute findings. EKG had nonspecific ST-T changes. Patient was admitted to the ICU for further treatment nephrology in ICU were contacted. He has been started on normal saline since admission. His CIWA scores reviewed. patient remains clinically stable, does not show any sign or symptoms of withdrawl, his sodium is trending up, patient is seen by recreation attendant, patient is being monitor with CIWA protocol and Librium as needed. Review of Systems Review of Systems: - CONSTITUTIONAL: Denies weight loss, fe mahin and chills. - HEENT: Denies changes in vision and he aring - RESPIRATORY: Denies SOB and cough. - CV: Denies palpitations and CP. - GI: Denies abdominal pain, reports anth[place] sea, vomiting and denies diarrhea. - : Denies dysuria and urinary frequen cy. - MSK: Denies myalgia and joint pain. - SKIN: Denies rash and pruritus. - NEUROLOGICAL: Reports headache and de nies syncope. - PSYCHIATRIC: Denies recent changes in mood. Denies anxiety and depression. Exam Narrative: Patient is comfortable, NAD HEENT: eyes are clear and none icteric LUNGS:CTA HEART: RR S1S2 ABD: BS+, Soft and nontender Lower extremities: no edema SKIN: nonjaundiced Neuro: grossly intact. Objective Data Vital Signs Vital Signs: Vital Signs - 24 hr 09/22/24 16:00 09/22/24 16:00 09/22/24 16:00 Temperature 36.8 C Pulse Rate 82 82 Pulse Rate [Bilateral Radial Palpation] 82 Respiratory Rate 22 H Blood Pressure 145/85 H 145/85 H Pulse Oximetry 96 Oxygen Delivery Oxygen Flow Rate Fraction of Inspired Oxygen 09/22/24 16:00 09/22/24 18:00 09/22/24 19:41 Temperature Pulse Rate 103 H 96 Pulse Rate [Bilateral Radial Palpation] Respiratory Rate 21 H 20 Blood Pressure 166/76 H Pulse Oximetry 96 96 Oxygen Delivery Nasal Cannula Oxygen Flow Rate 1 Fraction of Inspired Oxygen 09/22/24 19:44 09/22/24 19:56 09/22/24 19:56 Temperature 36.8 C Pulse Rate 96 95 Pulse Rate [Bilateral Radial Palpation] Respiratory Rate 20 25 H Blood Pressure 175/87 H Pulse Oximetry 98 100 Oxygen Delivery Nasal Cannula Oxygen Flow Rate 1 Fraction of Inspired Oxygen 24 09/22/24 20:00 09/22/24 20:00 09/22/24 22:00 Temperature Pulse Rate 104 H 101 H Pulse Rate [Bilateral Radial Palpation] Respiratory Rate Blood Pressure Pulse Oximetry 100 Oxygen Delivery Nasal Cannula Oxygen Flow Rate 1 Fraction of Inspired Oxygen 09/22/24 22:04 09/23/24 00:00 09/23/24 00:00 Temperature 36.7 C Pulse Rate 102 H 92 Pulse Rate [Bilateral Radial Palpation] Respiratory Rate 28 H 25 H Blood Pressure 178/84 H 180/91 H Pulse Oximetry 93 99 99 Oxygen Delivery Nasal Cannula Oxygen Flow Rate 2 Fraction of Inspired Oxygen 09/23/24 00:00 09/23/24 01:00 09/23/24 01:26 Temperature Pulse Rate 93 94 99 Pulse Rate [Bilateral Radial Palpation] Respiratory Rate 27 H 20 Blood Pressure 171/77 H Pulse Oximetry 99 Oxygen Delivery Oxygen Flow Rate Fraction of Inspired Oxygen 09/23/24 01:39 09/23/24 02:00 09/23/24 02:00 Temperature 36.9 C Pulse Rate 100 93 93 Pulse Rate [Bilateral Radial Palpation] Respiratory Rate 20 26 H Blood Pressure 176/81 H Pulse Oximetry 99 Oxygen Delivery Oxygen Flow Rate Fraction of Inspired Oxygen 09/23/24 04:00 09/23/24 04:00 09/23/24 04:00 Temperature 36.4 C Pulse Rate 88 88 Pulse Rate [Bilateral Radial Palpation] Respiratory Rate 16 Blood Pressure 162/76 H Pulse Oximetry 98 98 Oxygen Delivery Nasal Cannula Oxygen Flow Rate 2 Fraction of Inspired Oxygen 09/23/24 06:00 09/23/24 06:23 09/23/24 08:00 Temperature 36.9 C Pulse Rate 75 94 88 Pulse Rate [Bilateral Radial Palpation] Respiratory Rate 16 26 H Blood Pressure 182/79 H 161/107 H Pulse Oximetry 100 100 Oxygen Delivery Oxygen Flow Rate Fraction of Inspired Oxygen 09/23/24 08:00 09/23/24 08:00 09/23/24 10:02 Temperature Pulse Rate 86 Pulse Rate [Bilateral Radial Palpation] Respiratory Rate Blood Pressure Pulse Oximetry 100 95 Oxygen Delivery Nasal Cannula Nasal Cannula Oxygen Flow Rate 2 1 Fraction of Inspired Oxygen 09/23/24 10:03 09/23/24 10:05 09/23/24 10:11 Temperature 36.3 C L Pulse Rate 85 82 85 Pulse Rate [Bilateral Radial Palpation] Respiratory Rate 23 H 20 20 Blood Pressure 153/77 H Pulse Oximetry 100 Oxygen Delivery Oxygen Flow Rate Fraction of Inspired Oxygen 09/23/24 12:00 09/23/24 12:00 09/23/24 12:17 Temperature 36.8 C Pulse Rate 97 97 Pulse Rate [Bilateral Radial Palpation] Respiratory Rate 26 H Blood Pressure 159/59 H Pulse Oximetry 98 Oxygen Delivery Oxygen Flow Rate Fraction of Inspired Oxygen Intake/Output Intake/Output: Intake & Output 09/20/24 09/21/24 09/22/24 09/23/24 23:59 23:59 23:59 23:59 Intake Total 1915 1596 Output Total 1100 850 Balance 815 746 Meds/Results Medications: Active Medications Generic Name Dose Route Start Last Admin Trade Name Freq PRN Reason Stop Dose Admin Acetaminophen 650 mg 09/22/24 06:09 Acetaminophen 650 Mg Suppository RECTAL Q6H PRN Mild Pain (1-3) or Fever Albuterol/Ipratropium 3 ml 09/22/24 14:00 09/23/24 09:58 Ipratropium 0.5 Mg/Albuterol Sulfate 2.5 Mg Ampul.Neb 3 Ml INHALATION 3 ml Q6HRT CLAUDIA Administration Amlodipine Besylate 10 mg 09/23/24 09:00 09/23/24 08:01 Amlodipine Besylate 10 Mg Tablet PO 10 mg DAILY CLAUDIA Administration Chlordiazepoxide HCl 25 mg 09/22/24 12:00 09/23/24 12:05 Chlordiazepoxide (*Crx) 25 Mg Capsule PO 25 mg Q6HR CLAUDIA Administration Folic Acid 1 mg 09/22/24 09:30 09/23/24 08:01 Folic Acid 1 Mg/0.2 Ml Inj IV PUSH 1 mg DAILY CLAUDIA Administration Heparin Sodium (Porcine) 5,000 units 09/22/24 14:00 09/23/24 05:04 Heparin Sodium 5,000 Units/Ml Vial SUB-Q 5,000 units Q8HR CLAUDIA Administration Hydralazine HCl 10 mg 09/23/24 07:44 09/23/24 08:01 Hydralazine Hcl 20 Mg/Ml Vial IV PUSH 10 mg Q4H PRN Administration Blood Pressure - High Sodium Chloride 1,000 mls @ 75 mls/hr 09/22/24 09:45 09/23/24 06:44 Normal Saline Iv IV CONT 75 mls/hr .[id number] CLAUDIA Infusion Lorazepam 2 mg 09/22/24 08:52 Lorazepam Inj (*Crx) 2 Mg/Ml Vial IV PUSH Q2H PRN CIWA>8, HR>100, or DBP>100 Ondansetron HCl 4 mg 09/22/24 06:09 09/23/24 09:08 Ondansetron Inj 4 Mg/2 Ml Vial IV PUSH 4 mg Q4H PRN Administration Nausea Thiamine HCl 100 mg 09/22/24 09:30 09/23/24 08:01 Thiamine Hcl 200 Mg/2 Ml Vial IV PUSH 100 mg DAILY CLAUDIA Administration Radiology Results: ITS Impressions Chest X-Ray 09/23/24 06:32 IMPRESSION: 1: NO ACUTE CARDIOPULMONARY DISEASE. Labs Labs: Laboratory Results - last 24 hr 09/22/24 09/22/24 09/22/24 15:15 19:03 22:41 WBC RBC Hgb Hct MCV MCH MCHC RDW Plt Count MPV Immature Gran % (Auto) Neut % (Auto) Lymph % (Auto) [place] % (Auto) Eos % (Auto) Baso % (Auto) Lymph # (Auto) [place] # (Auto) Eos # (Auto) Baso # (Auto) Abs Immat Gran (auto) Absolute Neuts (auto) Absolute Nucleated RBC Nucleated RBC % Sodium 115 L* 119 L* 120 L Potassium 3.5 3.5 3.6 Chloride 91 L 92 L 93 L Carbon Dioxide 22 22 23 Anion Gap 2 L 5 4 BUN 23 H 24 H 24 H Creatinine 2.23 H 2.32 H 2.29 H Estim Creat Clear Calc 28 27 27 Estimated GFR 30 L 29 L 29 L Glucose 184 H 152 H 125 H POC Capillary Glucose Calcium 8.1 L 8.1 L 8.3 L Phosphorus Magnesium Total Bilirubin AST ALT Alkaline Phosphatase Total Protein Albumin 09/22/24 09/23/24 09/23/24 23:47 03:44 07:41 WBC 8.3 RBC 3.11 L Hgb 9.2 L Hct 28.6 L MCV 92.0 MCH 29.6 MCHC 32.2 RDW 14.6 H Plt Count 152 MPV 9.1 Immature Gran % (Auto) 0.2 Neut % (Auto) 78.6 H Lymph % (Auto) 7.9 L [place] % (Auto) 9.8 H Eos % (Auto) 3.1 Baso % (Auto) 0.4 Lymph # (Auto) 0.66 L [place] # (Auto) 0.8 H Eos # (Auto) 0.3 Baso # (Auto) 0.0 Abs Immat Gran (auto) 0.02 Absolute Neuts (auto) 6.6 Absolute Nucleated RBC 0.000 Nucleated RBC % 0.0 Sodium 120 L 121 L Potassium 3.3 L 3.8 Chloride 94 L 96 L Carbon Dioxide 24 22 Anion Gap 2 L 3 L BUN 22 H 21 H Creatinine 2.28 H 2.21 H Estim Creat Clear Calc 27 28 Estimated GFR 29 L 30 L Glucose 180 H 116 H POC Capillary Glucose 111 H Calcium 8.2 L 8.4 Phosphorus 3.5 Magnesium 1.9 Total Bilirubin 0.4 AST 29 ALT 18 Alkaline Phosphatase 94 Total Protein 6.3 Albumin 3.2 L 09/23/24 09/23/24 11:29 12:04 WBC RBC Hgb Hct MCV MCH MCHC RDW Plt Count MPV Immature Gran % (Auto) Neut % (Auto) Lymph % (Auto) [place] % (Auto) Eos % (Auto) Baso % (Auto) Lymph # (Auto) [place] # (Auto) Eos # (Auto) Baso # (Auto) Abs Immat Gran (auto) Absolute Neuts (auto) Absolute Nucleated RBC Nucleated RBC % Sodium 122 L Potassium 3.9 Chloride 94 L Carbon Dioxide 23 Anion Gap 5 BUN 22 H Creatinine 2.11 H Estim Creat Clear Calc 29 Estimated GFR 32 L Glucose 178 H POC Capillary Glucose 182 H Calcium 8.2 L Phosphorus Magnesium Total Bilirubin AST ALT Alkaline Phosphatase Total Protein Albumin Quality VTE Prophylaxis VTE prophylaxis: pharmacologic ordered
[2024-09-23 15:24] LABS: Anion Gap 3 mmol/L (4-12); Blood Urea Nitrogen 23 mg/dL (9-20); Calcium 8.1 mg/dL (8.4-10.2); Carbon Dioxide 22 mmol/L (22-30); Chloride 97 mmol/L (98-107); Estimated CRCL calculation 30 ml/min; Estimated Glomerular Filt Rate 32; Glucose 175 mg/dL (65-110); Potassium 3.8 mmol/L (3.4-5.0); Sodium 122 mmol/L (137-145)
[2024-09-23 19:12] LABS: Sodium 123 mmol/L (137-145)
--- NOTE | 2024-09-23 19:28 | PC.NURSE ---
This patient, Chuy Amezquita, was transferred on 09/23/24 to [facility]. Personal belongings sent with patient. Report given to Mena. Appropriate documentation sent with patient.
--- NOTE | 2024-09-23 20:17 | PC.NURSE ---
This patient, Chuy Amezquita, was transferred to [facility] on 09/23/24 at 1959. Personal belongings sent with patient. Report given by boaz RN, Kendra Lunsford RN. This RN offered bedside report to Sophia SLATER who states all her questions are answered. Appropriate documentation sent with patient.
[2024-09-24] VITALS (9 sets, daily range): BP systolic 139; BP diastolic 66; PULSE 79–100; RESP 16–20; TEMP 36.7; O2SAT 98
[2024-09-24] MEDS: IPRATROPIUM 0.5 MG/ALBUTEROL SULFATE 2.5 MG AMPUL.NEB 3 ML INHALATION ×3 (02:07→13:27)
[2024-09-24 04:07] LABS: Osmolality, Urine 165 mOsmol/kg (.)
[2024-09-24 04:45] LABS: Hematocrit 25.9 % (42.0-52.0); Hemoglobin 8.2 g/dL (14.0-18.0); Immature Granulocyte Percent A 0.4 % (0-0.5); Lymphocytes Absolute Auto 0.72 K/mm3 (0.9-3.2); Mean Corpuscular HGB Conc 31.7 g/dl (32-36); Mean Corpuscular Hemoglobin 29.8 pg (26-34); Mean Corpuscular Volume 94.2 fl (80-100); Nucleated Red Blood Cells Absolute Auto 0.000 K/mm3 (0.0-0.012); Nucleated Red Blood Cells Perc 0.0 % (0.0-0.2); Platelet Count Result 154 k/mm3 (150-375); Red Blood Count 2.75 M/mm3 (4.6-6.20); White Blood Count 7.0 K/mm3 (4.5-10.0)
[2024-09-24 04:58] LABS: Alanine Aminotransferase 17 U/L (6-50); Albumin Level 3.1 g/dL (3.5-5.1); Alkaline Phosphatase 78 U/L (38-126); Anion Gap 3 mmol/L (4-12); Aspartate Amino Transferase 29 U/L (17-59); Bilirubin,Total 0.2 mg/dL (0.2-1.3); Blood Urea Nitrogen 23 mg/dL (9-20); Calcium 8.4 mg/dL (8.4-10.2); Carbon Dioxide 21 mmol/L (22-30); Chloride 104 mmol/L (98-107); Estimated CRCL calculation 26 ml/min; Estimated Glomerular Filt Rate 28; Glucose 133 mg/dL (65-110); Magnesium 1.9 mg/dL (1.6-2.3); Potassium 4.1 mmol/L (3.4-5.0); Sodium 128 mmol/L (137-145); Total Protein 6.2 g/dL (6.3-8.2)
[2024-09-24] MEDS: chlordiazePOXIDE (*CRX) 25 MG CAPSULE PO (05:09)
[2024-09-24] MEDS: SODIUM CHLORIDE 0.9% IV 1,000 ML 75 ML IV CONT (05:11)
[2024-09-24] MEDS: THIAMINE HCL 200 MG/2 ML VIAL 100 MG IV PUSH (08:47)
[2024-09-24] MEDS: FOLIC ACID 1 MG/0.2 ML INJ IV PUSH (12:47)
--- NOTE | 2024-09-24 13:11 | P.DS_ITS ---
DS: Admitting Diagnosis Discharge Date 09/24/24 Admitting Diagnosis Palpitations DS: Discharge Diagnosis Discharge Diagnosis (1) Acute hyponatremia: Code(s): E87.1 - Hypo-osmolality and hyponatremia Status: Acute (2) ETOH abuse: Code(s): F10.10 - Alcohol abuse, uncomplicated Status: Chronic (3) Alcohol dependence: Qualifiers: Substance use status: uncomplicated Qualified Code(s): F10.20 - Alcohol dependence, uncomplicated Code(s): F10.20 - Alcohol dependence, uncomplicated Status: Acute (4) Hypertension: Code(s): I10 - Essential (primary) hypertension Status: Chronic (5) Chronic kidney disease, stage IV (severe): Code(s): N18.4 - Chronic kidney disease, stage 4 (severe) Status: Chronic (6) COPD (chronic obstructive pulmonary disease): Qualifiers: COPD type: unspecified COPD Qualified Code(s): J44.9 - Chronic obstructive pulmonary disease, unspecified Code(s): J44.9 - Chronic obstructive pulmonary disease, unspecified Status: Chronic (7) Cigarette smoker: Code(s): F17.210 - Nicotine dependence, cigarettes, uncomplicated Status: Acute Plan 64-year-old male who presents to the ED with headache nausea vomiting as well as chest pain. He stated he was trying to start detoxing from alcohol. He drinks every day multiple shocks per day. Last drink was last evening. The chest pain is left-sided no associated shortness of breath fever chills. He had been admitted in the past with alcohol withdrawal. In the ED his vitals were stable. He received some Zofran for his nausea vomiting. Laboratory study showed sodium level of 116 potassium 3.6 chloride 89 bicarbonate 18 BUN 18 creatinine 2.2 blood glucose 155. WBC is 9.8 hemoglobin 10.2 hematocrit 30.2 platelet count 195. LFTs were normal troponin was negative lipase was normal alcohol level was 26. Chest x-ray showed no acute findings. EKG had nonspecific ST-T changes. Patient was admitted to the ICU for further treatment nephrology in ICU were contacted. He has been started on normal saline since admission. His CIWA scores reviewed. Hyponatremia received 3% saline in the ER with DDAVP. Nephrology following. Started on normal saline Alcohol abuse on CIWA protocol started on thiamine Librium and folic acid. On Ativan p.r.n. Hypertension stable CKD stage 4 creatinine stable at baseline continue to monitor COPD not in exacerbation DuoNeb as ordered Tobacco abuse History of colorectal cancer status post colectomy radiation therapy chemotherapy and status post colostomy Bilateral hydronephrosis with UPJ obstruction with history of stent placement in the past History of gastric ulcer/severe erosive duodenitis with bleeding DVT prophylaxis heparin subQ Code status full code patient remains clinically stable, does not show any sign or symptoms of withdrawl, his sodium is trending up, patient is seen by certified rehabilitation counselor, patient is being monitor with CIWA protocol and Librium as needed. DS: Summary Hospital Course Hospital Course: patient remains clinically stable, does not show any sign or symptoms of withdrawal, his sodium is trending up, patient was seen by certified rehabilitation counselor, patient was monitored with CIWA protocol and Librium as needed. His CIWA scores are low, he is clinically stable, will discharge patient today. Time Spent with Patient Time attestation: Total time spent providing and/or coordinating discharge services: Exam Narrative: Patient is comfortable, NAD HEENT: eyes are clear and none icteric LUNGS:CTA HEART: RR S1S2 ABD: BS+, Soft and nontender Lower extremities: no edema SKIN: nonjaundiced Neuro: grossly intact. DS: Data Data Completed and Pending Labs on day of discharge: Labs from last 24 hours 09/24/24 09/24/24 09/23/24 12:01 04:08 23:25 WBC 7.0 RBC 2.75 L Hgb 8.2 L Hct 25.9 L MCV 94.2 MCH 29.8 MCHC 31.7 L RDW 14.6 H Plt Count 154 MPV 9.3 Immature Gran % (Auto) 0.4 Neut % (Auto) 70.3 Lymph % (Auto) 10.3 L [place] % (Auto) 11.7 H Eos % (Auto) 6.7 H Baso % (Auto) 0.6 Lymph # (Auto) 0.72 L [place] # (Auto) 0.8 H Eos # (Auto) 0.5 H Baso # (Auto) 0.0 Abs Immat Gran (auto) 0.03 Absolute Neuts (auto) 4.9 Absolute Nucleated RBC 0.000 Nucleated RBC % 0.0 Sodium 128 L Potassium 4.1 Chloride 104 Carbon Dioxide 21 L Anion Gap 3 L BUN 23 H Creatinine 2.37 H Estim Creat Clear Calc 26 Estimated GFR 28 L Glucose 133 H POC Capillary Glucose 155 H 168 H Calcium 8.4 Phosphorus 3.2 Magnesium 1.9 Total Bilirubin 0.2 AST 29 ALT 17 Alkaline Phosphatase 78 Total Protein 6.2 L Albumin 3.1 L Urine Osmolality 09/23/24 09/23/24 09/23/24 18:48 17:39 15:03 WBC RBC Hgb Hct MCV MCH MCHC RDW Plt Count MPV Immature Gran % (Auto) Neut % (Auto) Lymph % (Auto) [place] % (Auto) Eos % (Auto) Baso % (Auto) Lymph # (Auto) [place] # (Auto) Eos # (Auto) Baso # (Auto) Abs Immat Gran (auto) Absolute Neuts (auto) Absolute Nucleated RBC Nucleated RBC % Sodium 123 L 122 L Potassium 3.8 Chloride 97 L Carbon Dioxide 22 Anion Gap 3 L BUN 23 H Creatinine 2.09 H Estim Creat Clear Calc 30 Estimated GFR 32 L Glucose 175 H POC Capillary Glucose 166 H Calcium 8.1 L Phosphorus Magnesium Total Bilirubin AST ALT Alkaline Phosphatase Total Protein Albumin Urine Osmolality 09/22/24 06:26 WBC RBC Hgb Hct MCV MCH MCHC RDW Plt Count MPV Immature Gran % (Auto) Neut % (Auto) Lymph % (Auto) [place] % (Auto) Eos % (Auto) Baso % (Auto) Lymph # (Auto) [place] # (Auto) Eos # (Auto) Baso # (Auto) Abs Immat Gran (auto) Absolute Neuts (auto) Absolute Nucleated RBC Nucleated RBC % Sodium Potassium Chloride Carbon Dioxide Anion Gap BUN Creatinine Estim Creat Clear Calc Estimated GFR Glucose POC Capillary Glucose Calcium Phosphorus Magnesium Total Bilirubin AST ALT Alkaline Phosphatase Total Protein Albumin Urine Osmolality 165 Discharge Plan Discharge Attending physician on discharge: Kalpesh Fletcher Consulting providers: Pranay Oakes; Cassie Munson; Sudheer Carmichael; Edgar Guzmna; Mehran Ballard Discharging Clinician: Stefany Nichols Patient Disposition: Home Activity: as tolerated Diet: heart healthy Discharge Instructions: patient is instructed to avoid alcohol, patient to follow up with his primary care provider as soon as possible, patient is instructed if any symptoms worsen to go to nearest ER. Patient Instructions: Antibiotic Form, Hyponatremia (DC), [place] Catheter Placement and Care (DC), Abuse of Alcohol (DC) Patient Language: Syriac Stand Alone Forms: General Discharge Information Follow-up/Referrals: Cassie Munson MD [Physician] - PHYSICIAN,[employer]ER [Primary Care Provider] - Pranay Oakes MD [Physician] - Discharge Medications: New amlodipine 10 mg Tablet 10 mg PO DAILY Qty: 30 0RF Multi-Vitamin HP/Minerals Capsule 1 cap PO DAILY Qty: 90 0RF No Action No Home Medications Date of admission: 09/22/24 06:09 Primary Care Provider: PHYSICIAN,[employer] ATT[employer]ER Admitting Provider: Kalpesh Fletcher Attending physician on admission: Stefany Nichols Condition: Stable
--- NOTE | 2024-09-24 13:52 | PC.NURSE ---
Patient voided after removal of his ace catheter and was successfully weaned off of supplemental oxygen. His o2 sats were 100% 30 minutes after removal of o2.
[2024-09-25 05:29] LABS: Osmolality, Serum 251 mOsmol/kg (280-301)
== END 2024-09-24 13:50 | disposition home or self-care (01) | DRG 641 ==
LOC: ANHED 06:08 → ANHICU 09-23 02:35 → ANH2MED 09-24 13:08 → ANHICU 09-25 11:56
PROVIDERS: Internal Medicine; Internal Medicine Nephrology; Admitting Provider Internal Medicine; Emergency Provider Student in an Organized Health Care Education/Training Program; Visit Provider Family Medicine
DX: E87.1 Hypo-osmolality and hyponatremia (principal); N18.4 Chronic kidney disease, stage 4 (severe); F10.20 Alcohol dependence, uncomplicated; I12.9 Hypertensive chronic kidney disease with stage 1 through stage 4 chronic kidney disease, or unspecified chronic kidney disease; J44.9 Chronic obstructive pulmonary disease, unspecified; K76.0 Fatty (change of) liver, not elsewhere classified; F17.210 Nicotine dependence, cigarettes, uncomplicated; Z87.11 Personal history of peptic ulcer disease; Z85.038 Personal history of other malignant neoplasm of large intestine; Z93.3 Colostomy status
CPT/HCPCS: 36415; 71045; 71046; 74018; 80048; 80053; 80307; 82077; 82570; 82948; 83690; 83735; 83930; 83935; 84100; 84295; 84300; 84443; 84484; 85025; 85610; 85730; 87641; 93005; 94640; 96361; 96374; 96375; 96376; 99285; A9270; J0360; J1644; J2060; J2405; J2597; J3411; J7030; J7131

== ENCOUNTER 2024-09-28 12:56 | Outpatient (CLI) | payer MEDICARE, SELFPAY ==
[2024-09-28 14:20] LABS: Total Protein Urine Random 154 mg/dL; Ur Ttl Prot Creatinine Ratio 2.12 mg/mg (0-0.20)
[2024-09-28 14:25] LABS: Albumin Level 3.7 g/dL (3.5-5.1); Anion Gap 8 mmol/L (4-12); Blood Urea Nitrogen 35 mg/dL (9-20); Calcium 9.1 mg/dL (8.4-10.2); Carbon Dioxide 23 mmol/L (22-30); Chloride 107 mmol/L (98-107); Estimated Glomerular Filt Rate 22; Glucose 145 mg/dL (65-110); Potassium 4.1 mmol/L (3.4-5.0); Sodium 138 mmol/L (137-145)
[2024-09-28 14:35] LABS: Parathyroid Intact 71.2 pg/mL (14.5-75.2)
== END 2024-09-28 12:57 | disposition home or self-care (01) ==
PROVIDERS: Visit Provider Internal Medicine Nephrology
DX: E87.1 Hypo-osmolality and hyponatremia (principal); E55.9 Vitamin D deficiency, unspecified; N25.81 Secondary hyperparathyroidism of renal origin; I12.9 Hypertensive chronic kidney disease with stage 1 through stage 4 chronic kidney disease, or unspecified chronic kidney disease; N18.4 Chronic kidney disease, stage 4 (severe)
CPT/HCPCS: 36415; 80069; 82306; 82570; 83970; 84156

== ENCOUNTER 2024-12-11 08:45 | Inpatient (IN) | payer MEDICARE, SELFPAY ==
[2024-12-11] VITALS (58 sets, daily range): BP systolic 0–179; BP diastolic 0–87; PULSE 0–113; RESP 10–34; TEMP 33.6–36.4; O2SAT 60–98; BMI 26.2; BMI 25.4
--- NOTE | ~2024-12-11 | XR_ITS ---
EXAMINATION: XR chest ET placement, XR abdomen gastric tube insert DATE: 12/11/2024 09:56 INDICATION: Endotracheal tube placement. Nasogastric tube placement. TECHNIQUE: 1. Frontal view of the chest was obtained. 2. AP view of the abdomen was obtained. COMPARISON: Chest radiograph dated 12/11/2024 at 9:07 AM 09/23/2024 FINDINGS: Chest: Endotracheal tube tip extending into the orifice of the right mainstem bronchus. Recommend Again seen are acute large airspace opacities in the bilateral mid lung zones, left more extensive than right. No pulmonary edema, pleural effusion or pneumothorax. The cardiomediastinal silhouette is normal. Abdomen: Nasogastric tube tip and proximal side port in the prominently gas-distended stomach. Mild lumbar dextrocurvature with moderate to severe spondylosis. IMPRESSION: 1. Endotracheal tube tip just within the right mainstem bronchus. Recommend withdrawal by 2-[address] Nichloe discussed these findings with Dr. Nichole who was aware of these findings at 9:55 AM. 2. Nasogastric tube in expected position within the markedly gas distended stomach which could be related to prior bag mask ventilation. 3. Large airspace opacities in the bilateral mid lung zones, new since 09/25/2024 which could represent pneumonia or pulmonary infarcts. Reviewed, dictated and finalized at location A. IMPRESSION: 1. Endotracheal tube tip just within the right mainstem bronchus. Recommend wit hdrawal by 2-[address] Nichole discussed these findings with Dr. Nichole who was aware of these findings at 9:55 AM. 2. Nasogastric tube in expected position within the markedly gas distended stom ach which could be related to prior bag mask ventilation. 3. Large airspace opacities in the bilateral mid lung zones, new since which could represent pneumonia or pulmonary infarcts. IMPRESSION: 1. Endotracheal tube tip just within the right mainstem bronchus. Recommend wit hdrawal by 2-[address] Nichole discussed these findings with Dr. Nichole who was aware of these findings at 9:55 AM. 2. Nasogastric tube in expected position within the markedly gas distended stom ach which could be related to prior bag mask ventilation. 3. Large airspace opacities in the bilateral mid lung zones, new since 5 which could represent pneumonia or pulmonary infarcts.
--- NOTE | ~2024-12-11 | XR_ITS ---
EXAMINATION: XR chest 1V portable COMPARISON: No comparisons available. HISTORY: shortness of breath FINDINGS: There are large bilateral infiltrates most marked in the upper lobes superimposed on chronic lung disease. No pneumothorax. Heart is normal size. Mediastinal and hilar contours are within normal limits. Bony thorax no acute abnormality. Miscellaneous: None Impression: Bilateral pneumonia Reviewed, dictated and finalized at location P. Impression: Bilateral pneumonia
--- NOTE | ~2024-12-11 | CT_ITS ---
EXAMINATION: CT brain wo con DATE: 12/11/2024 10:53 INDICATION: Altered mental status. TECHNIQUE: Computed tomography (CT) of the head was performed without intravenous contrast. The mA was adjusted according to patient size. Iterative reconstruction technique was employed. The dose-length product was 605.33 mGy-cm. COMPARISON: Head CT 11/30/2023 FINDINGS: There is no intracranial hemorrhage, acute infarction, or abnormal intracranial mass lesion. There are scattered areas of low attenuation in the cerebral white matter, which is within normal limits for the patient's age. The ventricles are normal in size. There is mucosal thickening and fluid in the paranasal sinuses. There are likely changes of left ocular lens replacement surgery. The mastoid air cells are normal. IMPRESSION: 1. Normal aging brain. Reviewed, dictated and finalized at location E. IMPRESSION: 1. Normal aging brain.
--- NOTE | ~2024-12-11 | XR_ITS ---
Examination: XR chest ET placement Clinical History: ET placement Comparison: Hours earlier Technique: Portable AP Findings: ET tube, NG tube. Unchanged cardiomegaly. Unchanged large bilateral airspace disease. No sizable effusion or pneumothorax. No acute bony abnormality. IMPRESSION: 1. ET tube tip now well positioned. 2. Unchanged bilateral airspace disease. Reviewed, dictated and finalized at location R.
--- NOTE | ~2024-12-11 | CT_ITS ---
EXAMINATION: CT chest abdomen pelvis wo con DATE: 12/11/2024 10:54 INDICATION: Pneumonia. Renal failure. TECHNIQUE: Computed tomography (CT) of the chest, abdomen, and pelvis was performed without intravenous contrast. Automated exposure control and iterative reconstruction technique were employed. The dose-length product was 1147.79 mGy-cm. COMPARISON: CT abdomen and pelvis 07/13/2024 FINDINGS: CHEST CT: There are patchy airspace opacities, groundglass opacities, nodules, and crazy paving in the lungs with variable components of these abnormalities involving the upper lobes and lower lobes, consistent with pneumonia. No pleural effusion. The heart size is normal. There are coronary artery calcifications. No pericardial effusion. The nasogastric tube tip is in the stomach. The endotracheal tube tip is in expected position. There is bilateral gynecomastia. There is severe thoracic spondylosis. There is mild chronic anterior wedging of multiple vertebral bodies. ABDOMEN/PELVIS CT: The liver demonstrates steatosis and surface nodularity, consistent with cirrhosis. The gallbladder, spleen, pancreas, and adrenal glands are normal. There is cortical thinning in the kidneys. There is a Costa catheter in expected position. There is an end colostomy on the left. There is a chronic thick-walled cavity in the presacral region containing gas. There are no dilated loops of bowel. The appendix is normal. There are no pathologically enlarged lymph nodes. There is no free intraperitoneal fluid. There is severe lumbar spondylosis. IMPRESSION: 1. Diffuse lung disease, consistent with pneumonia. 2. Cirrhosis of the liver. 3. Chronic thick-walled cavity in the presacral region containing gas. It is not clear if this finding is a Moustapha pouch with surrounding scarring or an extraluminal postsurgical cavity. Reviewed, dictated and finalized at location A. IMPRESSION: 1. Diffuse lung disease, consistent with pneumonia. 2. Cirrhosis of the liver. 3. Chronic thick-walled cavity in the presacral region containing gas. It is no t clear if this finding is a Moustapha pouch with surrounding scarring or an ext raluminal postsurgical cavity.
--- NOTE | ~2024-12-11 | US_ITS ---
EXAMINATION: US venous doppler [facility] DATE: 12/11/2024 12:05 INDICATION: Respiratory failure with shortness of breath. TECHNIQUE: Grayscale ultrasound images without and with compression and Doppler ultrasound images of the bilateral lower extremity veins were obtained. COMPARISON: None. FINDINGS: The visualized portions of right common femoral vein, profunda (deep) femoral vein, femoral vein, popliteal vein, posterior tibial veins, peroneal veins, gastrocnemius vein and greater saphenous vein outflow are patent. The visualized portions of left common femoral vein, profunda femoral vein, femoral vein, popliteal vein, posterior tibial veins, peroneal veins, gastrocnemius vein and greater saphenous vein outflow are patent. IMPRESSION: 1. No deep venous thrombosis in either lower limb. Reviewed, dictated and finalized at location A.
--- NOTE | 2024-12-11 08:52 | ECG_ITS ---
Test Date: 2024-12-11 08:55:16 Measurements Intervals [place] Rate: 98 P: 71 LA: 176 QRS: -19 QRSD: 99 T: 71 QT: 336 QTc: 430 Interpretive Statements SINUS RHYTHM BORDERLINE ST-T WAVE ABNORMALITY- HIGH LATERAL LEADS BASELINE ARTIFACT- I, II, III, AVR, AVL, AVF, V1-V6 BORDERLINE ECG Compared to ECG 09/22/2024 04:32:48 PEAKED T WAVES NO LONGER PRESENT Electronically Signed On 12-11-2024 09:37:05 CDT by Edgar Guzman D.O.
--- NOTE | 2024-12-11 09:00 | ED.SOB ---
HPI - SOB/Dyspnea General Chief Complaint: Shortness of Breath/Dyspnea Stated Complaint: shortness of breath Time Seen by Provider: 12/11/24 08:52 Source: patient Mode of arrival: wheelchair Limitations: no limitations History of Present Illness HPI Narrative: This is a 64-year-old male with history of COPD, CKD, hypertension, alcohol abuse who presents to the ED for shortness of breath. Patient states that he began to feel short of breath a few days ago. He is unable to give much history beyond this due to his dyspnea at this time. Related Data Allergies Allergy/AdvReac Type Severity Reaction Status Date / Time No Known Allergies Allergy Verified 12/11/24 15:06 Review of Systems Review of Systems: ROS unobtainable: Yes unobtainable due to medical condition PMFSH Past Medical History Medical History Gastric ulcer Chronic gastric ulcer Noted on EGD 11/2023 Melena Bilateral hearing loss Essential hypertension Colorectal cancer (~2019) Treated with colectomy, radiation therapy and chemotherapy. Patient received care in [place] Surgical History Surgical History Status post cataract extraction and insertion of intraocular lens of left eye Status post colostomy (~2019) Family History Family History Father , Age 62 Cancer ?stomach cancer? Mother Breast cancer, Onset Age: 44 Sibling Cancer ?stomach cancer? 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 Since that time he and his (for over 20 years been for only few years) have been traveling around the [place] They are currently living with the patient's brother for while he helps brother remodel a house. He has smoked between 0.5 up to 2 packs of cigarettes per day for about 40 years he reports that he quit smoking in April of 2024. He drinks 6-9 beers a day. He sometimes go a couple of months without drinking at all. He denies history of illicit substance use. Code status: Full code (patient states that he would not want long-term ventilation or feeding tube. He states he would not want to be on a ventilator from more than a couple of weeks.) Surrogate decision maker: Panda Amezquita (Brother) Smoking packs per day: 1.5 Smoking cigarettes per day: 30.0 Years smoked: 40 Smoking pack-years: 60.00 Smoking status: Current every day smoker Tobacco type: cigarettes Smoking end date: 04/11/24 Alcohol intake: current Drinks per week: 54 Substance use: unknown Substance use type: does not use Do You Feel Safe in your Home?: Yes Lack of Transportation: No Lack of Food: Never True Current Housing: I Have Housing Concerned About Future Housing: No Difficulty Paying Gas/Electric Bills: No Difficulty Paying for Meds: No Currently Unemployed: No Education: High School Diploma/GED Difficulty w/ Childcare or Family Care: No 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 Lip cyanosis RESPIRATORY: Tachypneic, audible rhonchi, diminished breath sounds throughout CARDIOVASCULAR: Regular rate and rhythm without murmurs rubs or gallops. ABDOMINAL: Soft, nontender, nondistended, no rebound or guarding. Ostomy in place into the left lower quadrant that is broken MUSCULOSKELETAl: Moves all extremities. No clubbing, cyanosis or edema. NEURO: Awake and alert. Following commands, speech normal, no focal deficits SKIN:: Warm, dry. No rashes lesions or abrasions PSYCHIATRIC: Normal affect/mood, Course Vital Signs Vital signs: Vital Signs Temperature 97.5 F L 12/11/24 09:00 Pulse Rate 98 12/11/24 09:00 Respiratory Rate 34 H 12/11/24 09:00 Blood Pressure 120/80 12/11/24 09:00 Pulse Oximetry 96 12/11/24 09:00 Oxygen Delivery Non-Rebreather Mask 12/11/24 09:00 Oxygen Flow Rate 15 12/11/24 09:00 Temperature 94.3 F L 12/11/24 17:43 Pulse Rate 0 L 12/11/24 17:59 Respiratory Rate 25 H 12/11/24 17:00 Blood Pressure 0/0 L 12/11/24 17:59 Pulse Oximetry 60 L 12/11/24 15:00 Oxygen Delivery Mechanical Ventilation 12/11/24 16:57 Oxygen Flow Rate 15 12/11/24 09:00 Fraction of Inspired Oxygen 100 12/11/24 16:57 Procedures Intubation Intubation #1: Intubation Date: 12/11/24 Intubation Time: 09:30 sedative: Etomidate Mg Given: 20 paralytic: Rocuronium Mg Given: 50 Laryngoscope: Manjula Tube Size (cm): Cuffed Method of Intubation: orotracheal Number of Attempts: 1 Tube Secured Depth (cm): 25 Tube Secured Location: teeth Tube Placement Confirmation: visualized tube passing through cords, equal breath sounds bilaterally, no breath sounds over epigastrium and confirmation by capnometry Patient Tolerated Procedure: no complications Intubation Complications: none MDM - SOB/Dyspnea MDM Narrative Medical decision making narrative: 64-year-old male Presenting for respiratory distress. On initial evaluation patient was toxic appearing, tachypneic, cyanotic to the lips. He was satting in the 70s on 6 L nasal cannula. Differentials include but are not limited to: ACS, CHF Exacerbation, COPD exacerbation, PE, PNA, PTX, bronchitis, viral syndrome Patient was trialed on a BiPAP initially but he continued to have significant respiratory distress so the decision was made to intubate the patient and he was amenable to this. Patient did have aspiration during intubation. Initial ABG shortly after intubation revealed a pH of 6.7 that was nearly entirely metabolic acidosis with some attempted respiratory compensation. He was started on a bicarb drip and given a push of bicarb. Chest x-ray revealed bilateral pneumonias with potential signs of PE. However, CMP revealed acute on chronic renal failure and patient is not on dialysis. Because of this, I did discuss the case with Dr. Munson, nephrology, did not think that the patient need to be dialyzed right now so preferred that CTA would not be obtained. I discussed the case with Dr. Guadarrama, pouch maker, did recommend additional bicarb push, recommended CT chest/abdomen/pelvis in the meantime and will manage the patient's ICU care. CTs showed diffuse lung disease. COVID/flu/RSV negative. Patient was given vanc/Zosyn. Lactic acid 18.4. Hyponatremic to 119. Creatinine 5.5 from baseline around 2.5. Anion gap was not calculable due to undetectable bicarb. Repeat ABG in revealed worsening acidosis despite bicarb is so his respiratory rate was increased to 20, after speaking with Dr. Guadarrama, this was increased to 25. Case was discussed with hospitalist who will admit the patient. CRITICAL CARE Indication: Time type: intermittent I provided a total of 60 minutes of critical care excluding separately billable procedures. This includes time w/ EMS, initial bedside evaluation, reviewing old records, review of testing done while under my care, discussion w/ the family, nurses, performance consultant and guiding the patient?s care while in the emergency department. Approximate time distribution: 15 minutes ? Initial evaluation, d/w involved parties, attempting to gather old records. 10 minutes ? Documenting medical record 10 minutes ? Review of results (EKGs, labs, imaging) 15 minutes ? Serial repeat bedside evaluation 10 minutes ? Discussing case with multiple providers Medical Records Attestation: I reviewed the patient's medical records. Lab Data Attestation: I reviewed the patient's lab results. 12/11/24 09:05 12/11/24 16:23 Labs: Lab Results 12/11/24 12/11/24 12/11/24 Range/Units 09:01 09:05 09:05 WBC 10.4 H (4.5-10.0) K/mm3 RBC 3.97 L (4.6-6.20) M/mm3 Hgb 12.3 L D (14.0-18.0) g/dL Hct 38.5 L (42.0-52.0) % MCV 97.0 (80-100) fl MCH 31.0 (26-34) pg MCHC 31.9 L (32-36) g/dl RDW 12.9 (11.5-14.5) % Plt Count 137 L (150-375) k/mm3 MPV 11.9 H (7.4-10.4) fl Immature Gran % (Auto) 0.3 (0-0.5) % Neut % (Auto) 75.9 H (45.5-73.1) % Lymph % (Auto) 13.5 L (18.3-44.2) % [place] % (Auto) 9.9 H (2.6-8.5) % Eos % (Auto) 0.2 (0-4.4) % Baso % (Auto) 0.2 (0.2-1.2) % Lymph # (Auto) 1.41 (0.9-3.2) K/mm3 [place] # (Auto) 1.0 H (0.1-0.6) K/mm3 Eos # (Auto) 0.0 (0-0.3) K/mm3 Baso # (Auto) 0.0 (0.0-0.1) K/mm3 Abs Immat Gran (auto) 0.03 (0.00-0.031) K/mm3 Absolute Neuts (auto) 7.9 H (1.3-6.7) K/mm3 Absolute Nucleated RBC 0.000 (0.0-0.012) K/mm3 Nucleated RBC % 0.0 (0.0-0.2) % PT 16.8 H (11.1-14.7) Seconds INR 1.4 APTT 43.2 H (22.3-36.8) Seconds Expiratory Pressure 6 cmH2O Inspiratory Pressure 12 cmH2O Sodium 119 L* (137-145) mmol/L Potassium 3.4 (3.4-5.0) mmol/L Chloride 85 L (98-107) mmol/L Carbon Dioxide < 5 L (22-30) mmol/L Anion Gap (4-12) mmol/L BUN 66 H D (9-20) mg/dL Creatinine 5.52 H (0.7-1.3) mg/dL Estim Creat Clear Calc 12 ml/min Estimated GFR 11 L (59 - ) Glucose 227 H (65-110) mg/dL POC Capillary Glucose (65-105) mg/dl Hemoglobin A1c 5.4 (<5.7) % Lactic Acid (0.7-2.0) mmol/L Calcium 7.7 L (8.4-10.2) mg/dL Total Bilirubin 1.3 (0.2-1.3) mg/dL AST 166 H (17-59) U/L ALT 117 H (6-50) U/L Alkaline Phosphatase 183 H (38-126) U/L Total Creatine Kinase 5275 H (55-170) U/L C-Reactive Protein 3.4 H (<1.0) mg/dL Total Protein 7.3 (6.3-8.2) g/dL Albumin 3.6 (3.5-5.1) g/dL Procalcitonin 25.2 ng/mL Nasal MRSA (PCR) (NOT DETECTE) Salicylates < 1.0 L (2-20) mg/dL Ethyl Alcohol 41 (<10) mg/dL Hep Bs Antigen Negative (Negative) Hep Bs Antibody Negative Hep B Core Total Ab Cancelled Pending Influenza A (RT-PCR) (Negative) Influenza B (RT-PCR) (Negative) RSV (RT-PCR) (Negative) SARS-CoV-2 RNA (RT-PCR) (Negative) 12/11/24 12/11/24 12/11/24 Range/Units 10:07 10:38 11:04 WBC (4.5-10.0) K/mm3 RBC (4.6-6.20) M/mm3 Hgb (14.0-18.0) g/dL Hct (42.0-52.0) % MCV (80-100) fl MCH (26-34) pg MCHC (32-36) g/dl RDW (11.5-14.5) % Plt Count (150-375) k/mm3 MPV (7.4-10.4) fl Immature Gran % (Auto) (0-0.5) % Neut % (Auto) (45.5-73.1) % Lymph % (Auto) (18.3-44.2) % [place] % (Auto) (2.6-8.5) % Eos % (Auto) (0-4.4) % Baso % (Auto) (0.2-1.2) % Lymph # (Auto) (0.9-3.2) K/mm3 [place] # (Auto) (0.1-0.6) K/mm3 Eos # (Auto) (0-0.3) K/mm3 Baso # (Auto) (0.0-0.1) K/mm3 Abs Immat Gran (auto) (0.00-0.031) K/mm3 Absolute Neuts (auto) (1.3-6.7) K/mm3 Absolute Nucleated RBC (0.0-0.012) K/mm3 Nucleated RBC % (0.0-0.2) % PT (11.1-14.7) Seconds INR APTT (22.3-36.8) Seconds Expiratory Pressure cmH2O Inspiratory Pressure cmH2O Sodium (137-145) mmol/L Potassium (3.4-5.0) mmol/L Chloride (98-107) mmol/L Carbon Dioxide (22-30) mmol/L Anion Gap (4-12) mmol/L BUN (9-20) mg/dL Creatinine (0.7-1.3) mg/dL Estim Creat Clear Calc ml/min Estimated GFR (59 - ) Glucose (65-110) mg/dL POC Capillary Glucose (65-105) mg/dl Hemoglobin A1c (<5.7) % Lactic Acid 18.4 H* (0.7-2.0) mmol/L Calcium (8.4-10.2) mg/dL Total Bilirubin (0.2-1.3) mg/dL AST (17-59) U/L ALT (6-50) U/L Alkaline Phosphatase (38-126) U/L Total Creatine Kinase (55-170) U/L C-Reactive Protein (<1.0) mg/dL Total Protein (6.3-8.2) g/dL Albumin (3.5-5.1) g/dL Procalcitonin ng/mL Nasal MRSA (PCR) Not detected (NOT DETECTE) Salicylates (2-20) mg/dL Ethyl Alcohol (<10) mg/dL Hep Bs Antigen (Negative) Hep Bs Antibody Hep B Core Total Ab Influenza A (RT-PCR) Negative (Negative) Influenza B (RT-PCR) Negative (Negative) RSV (RT-PCR) Negative (Negative) SARS-CoV-2 RNA (RT-PCR) Negative (Negative) 12/11/24 Range/Units 11:22 WBC (4.5-10.0) K/mm3 RBC (4.6-6.20) M/mm3 Hgb (14.0-18.0) g/dL Hct (42.0-52.0) % MCV (80-100) fl MCH (26-34) pg MCHC (32-36) g/dl RDW (11.5-14.5) % Plt Count (150-375) k/mm3 MPV (7.4-10.4) fl Immature Gran % (Auto) (0-0.5) % Neut % (Auto) (45.5-73.1) % Lymph % (Auto) (18.3-44.2) % [place] % (Auto) (2.6-8.5) % Eos % (Auto) (0-4.4) % Baso % (Auto) (0.2-1.2) % Lymph # (Auto) (0.9-3.2) K/mm3 [place] # (Auto) (0.1-0.6) K/mm3 Eos # (Auto) (0-0.3) K/mm3 Baso # (Auto) (0.0-0.1) K/mm3 Abs Immat Gran (auto) (0.00-0.031) K/mm3 Absolute Neuts (auto) (1.3-6.7) K/mm3 Absolute Nucleated RBC (0.0-0.012) K/mm3 Nucleated RBC % (0.0-0.2) % PT (11.1-14.7) Seconds INR APTT (22.3-36.8) Seconds Expiratory Pressure cmH2O Inspiratory Pressure cmH2O Sodium (137-145) mmol/L Potassium (3.4-5.0) mmol/L Chloride (98-107) mmol/L Carbon Dioxide (22-30) mmol/L Anion Gap (4-12) mmol/L BUN (9-20) mg/dL Creatinine (0.7-1.3) mg/dL Estim Creat Clear Calc ml/min Estimated GFR (59 - ) Glucose (65-110) mg/dL POC Capillary Glucose 214 H (65-105) mg/dl Hemoglobin A1c (<5.7) % Lactic Acid (0.7-2.0) mmol/L Calcium (8.4-10.2) mg/dL Total Bilirubin (0.2-1.3) mg/dL AST (17-59) U/L ALT (6-50) U/L Alkaline Phosphatase (38-126) U/L Total Creatine Kinase (55-170) U/L C-Reactive Protein (<1.0) mg/dL Total Protein (6.3-8.2) g/dL Albumin (3.5-5.1) g/dL Procalcitonin ng/mL Nasal MRSA (PCR) (NOT DETECTE) Salicylates (2-20) mg/dL Ethyl Alcohol (<10) mg/dL Hep Bs Antigen (Negative) Hep Bs Antibody Hep B Core Total Ab Influenza A (RT-PCR) (Negative) Influenza B (RT-PCR) (Negative) RSV (RT-PCR) (Negative) SARS-CoV-2 RNA (RT-PCR) (Negative) ABG Data ABG results: 12/11/24 12/11/24 09:01 10:04 Puncture Site Not Reportable Left radial ABG pH 6.792 L* < 6.700 L* ABG pCO2 28.8 L 56.5 H ABG pO2 191.2 H 175.7 H ABG PO2/FiO2 Ratio 1.91 1.76 ABG HCO3 4.3 L Not Reportable ABG O2 Saturation 97.9 Not Reportable ABG O2 Content 18.0 18.0 ABG Base Excess -29.8 Not Reportable A-a Gradient 493.0 480.8 Oxyhemoglobin 96.4 95.6 Total Hemoglobin 13.0 13.1 O2 Delivery Device Bipap Not Reportable O2 Liters/Min Not Reportable Not Reportable FiO2 60 100 Imaging Data Attestation: I personally reviewed and interpreted this imaging study as follows: Radiologist's impression: Impressions Chest X-Ray 12/11/24 09:09 Impression: Bilateral pneumonia Abdomen X-Ray 12/11/24 09:57 IMPRESSION: 1. Endotracheal tube tip just within the right mainstem bronchus. Recommend withdrawal by 2-[address] Nichole discussed these findings with Dr. Nichole who was aware of these findings at 9:55 AM. 2. Nasogastric tube in expected position within the markedly gas distended stomach which could be related to prior bag mask ventilation. 3. Large airspace opacities in the bilateral mid lung zones, new since 09/25/2024 which could represent pneumonia or pulmonary infarcts. Chest X-Ray 12/11/24 09:57 IMPRESSION: 1. Endotracheal tube tip just within the right mainstem bronchus. Recommend withdrawal by 2-[address] Nichole discussed these findings with Dr. Nichole who was aware of these findings at 9:55 AM. 2. Nasogastric tube in expected position within the markedly gas distended stomach which could be related to prior bag mask ventilation. 3. Large airspace opacities in the bilateral mid lung zones, new since 09/25/2024 which could represent pneumonia or pulmonary infarcts. Chest/Abdomen/Pelvis CT 12/11/24 10:56 IMPRESSION: 1. Diffuse lung disease, consistent with pneumonia. 2. Cirrhosis of the liver. 3. Chronic thick-walled cavity in the presacral region containing gas. It is not clear if this finding is a Moustapha pouch with surrounding scarring or an extraluminal postsurgical cavity. Head CT 12/11/24 11:06 IMPRESSION: 1. Normal aging brain. ECG Data EKG #1: Attestation: I personally reviewed and interpreted this ECG as follows: ECG completion date: 12/11/24 ECG completion time: 08:55 Interpretation: Normal sinus rhythm rate of 98, normal axis, normal interval, no acute ST or T-wave changes Discharge Plan Discharge Clinical Impression: Septic shock, Acute hyponatremia Pneumonia Qualifiers: Pneumonia type: due to unspecified organism Laterality: right Lung location: lower lobe of lung Qualified Code(s): J18.9 - Pneumonia, unspecified organism Acute renal failure Qualifiers: Acute renal failure type: unspecified Qualified Code(s): N17.9 - Acute kidney failure, unspecified Acute respiratory failure Qualifiers: Respiratory failure complication: unspecified whether with hypoxia or hypercapnia Qualified Code(s): J96.00 - Acute respiratory failure, unspecified whether with hypoxia or hypercapnia Patient Disposition: Still a Patient Condition: Critical
--- OUTSIDE RECORDS SUMMARY | 2024-12-11 09:01 | XMS_ITS ---
Author Organization Unknown ENCOUNTERS Encounter Performer Location Date Diagnosis Diagnosis Status Pre Admit Juan Luis Nichole [facility] [address] [place] [address] [id number] Outpatient [facility] [address] [place] [address] [id number] REGINO Inpatient Stefany [facility] [address] [place] [address] [id number] REGINO [facility] [address] [place] [address] [id number] Pre Admit [facility] [address] [place] [address] [id number] Outpatient [facility] [address] [place] [address] [id number] REGINO In[facility] [address] [place] [address] [id number] REGINO Outpatient [facility] [address] [place] [address] [id number] Pre Admit [facility] [address] [place] [address] [id number] Emergency [facility] [address] [place] [address] [id number] Inpatient Aileen Trevino [facility] [address] [place] [address] [id number] REGINO Pre Admit [facility] [address] [place] [address] [id number] Emergency [facility] [address] [place] [address] [id number] PAT Outpatient [facility] [address] [place] [address] [id number] REGINO Inpatient Emory Will [facility] [address] [place] [address] [id number] REGINO Emergency [facility] [address] [place] [address] [id number] PAT Pre Admit [facility] [address] [place] [address] [id number] Inpatient Di Fermín [facility] [address] [place] [address] [id number] REGINO Outpatient Yoselyn Temple [facility] [address] [place] [address] [id number] Emergency [facility] [address] [place] [address] [id number] PAT Pre Admit [facility] [address] [place] [address] [id number] *Note: Encounters from your own facility or health system may be excluded. Allergies, Adverse Reactions, Alerts Allergen Type Severity Identification Date Medications Name Date Quantity Days Supplied [facility] Number
[2024-12-11 09:12] LABS: Alveolar/Arterial O2 Gradient 493.0 mmHg; HCO3 ABG 4.3 mEq/l (22.0-26.0); Oxygen Content ABG 18.0 %vol (16.0-22.0); Oxygen Saturation ABG 97.9 % (95.0-100.0); PCO2 ABG 28.8 mmHg (35.0-45.0); PO2 ABG 191.2 mmHg (80.0-100.0); PO2 FiO2 Ratio Arterial Blood 1.91 %
[2024-12-11 09:13] LABS: Hematocrit 38.5 % (42.0-52.0); Hemoglobin 12.3 g/dL (14.0-18.0); Immature Granulocyte Percent A 0.3 % (0-0.5); Lymphocytes Absolute Auto 1.41 K/mm3 (0.9-3.2); Mean Corpuscular HGB Conc 31.9 g/dl (32-36); Mean Corpuscular Hemoglobin 31.0 pg (26-34); Mean Corpuscular Volume 97.0 fl (80-100); Nucleated Red Blood Cells Absolute Auto 0.000 K/mm3 (0.0-0.012); Nucleated Red Blood Cells Perc 0.0 % (0.0-0.2); Platelet Count Result 137 k/mm3 (150-375); Red Blood Count 3.97 M/mm3 (4.6-6.20); White Blood Count 10.4 K/mm3 (4.5-10.0)
--- NOTE | 2024-12-11 09:30 | PC.NURSE ---
09 20mg Etomidate given IVP 926 50mg Rocuronium given IVP Pt intubated by EDP using size 8 ET tube OG tube inserted Costa catheter inserted ET tube measuring 24 at the teeth OG tube 65 at the lip
[2024-12-11 09:48] LABS: Fractional Inspired Oxygen 60 %
[2024-12-11 10:02] LABS: Alanine Aminotransferase 117 U/L (6-50); Albumin Level 3.6 g/dL (3.5-5.1); Alkaline Phosphatase 183 U/L (38-126); Aspartate Amino Transferase 166 U/L (17-59); Bilirubin,Total 1.3 mg/dL (0.2-1.3); Blood Urea Nitrogen 66 mg/dL (9-20); Calcium 7.7 mg/dL (8.4-10.2); Carbon Dioxide < 5 mmol/L (22-30); Chloride 85 mmol/L (98-107); Estimated CRCL calculation 12 ml/min; Estimated Glomerular Filt Rate 11; Glucose 227 mg/dL (65-110); Potassium 3.4 mmol/L (3.4-5.0); Sodium 119 mmol/L (137-145); Total Protein 7.3 g/dL (6.3-8.2)
[2024-12-11 10:21] LABS: Alveolar/Arterial O2 Gradient 480.8 mmHg; Fractional Inspired Oxygen 100 %; Oxygen Content ABG 18.0 %vol (16.0-22.0); PCO2 ABG 56.5 mmHg (35.0-45.0); PO2 ABG 175.7 mmHg (80.0-100.0); PO2 FiO2 Ratio Arterial Blood 1.76 %
[2024-12-11 10:23] LABS: Modified Allen's Test Pass; Site Drawn LEFT RADIAL
[2024-12-11] MEDS: SODIUM BICARBONATE 8.4% 150 MEQ in WATER, STERILE FOR INJECTION 950 ML 50 MEQ IV CONT (10:30)
[2024-12-11] MEDS: SODIUM CHLORIDE 0.9% IV 300 ML 999 ML IV CONT (10:30)
[2024-12-11] MEDS: CRASH CART LOCKS 1 EACH XX (10:32)
[2024-12-11] MEDS: SODIUM BICARBONATE 8.4% 50 MEQ/50 ML SYRINGE IV PUSH ×5 (10:34→15:00)
[2024-12-11 10:46] LABS: CRP 3.4 mg/dL (<1.0)
[2024-12-11] MEDS: SODIUM CHLORIDE 0.9% IV 1,000 ML 999 ML IV CONT ×2 (10:58)
[2024-12-11] MEDS: IPRATROPIUM 0.5 MG/ALBUTEROL SULFATE 2.5 MG (BASE) AMPUL.NEB 3 ML INHALATION (11:00)
[2024-12-11 11:01] LABS: INR 1.4; Prothrombin Time 16.8 Seconds (11.1-14.7)
[2024-12-11 11:02] LABS: Partial Thromboplastin Time 43.2 Seconds (22.3-36.8)
[2024-12-11] MEDS: PROPOFOL IV EMULSION 100 ML 2.28 MG IV CONT (11:04)
--- NOTE | 2024-12-11 11:11 | P.CONIN_ITS ---
Assessment and Plan Assessment and plan (1) Acute respiratory failure: Code(s): J96.00 - Acute respiratory failure, unspecified whether with hypoxia or hypercapnia Status: Acute Assessment and Plan: Acute respiratory failure secondary to bilateral pneumonia in a setting of underlying COPD Patient now intubated I have reviewed vent settings and I will increase respiratory rate to 25. Patient will be hyperventilated for now since she has severe metabolic acidosis which has been compensated by hyperventilation prior to intubation. Repeat ABG ordered Antibiotics as below Bronchodilator (2) Sepsis: Code(s): A41.9 - Sepsis, unspecified organism Status: Acute Assessment and Plan: Severe sepsis secondary to bilateral pneumonia. ? Aspiration Blood cultures Urine Legionella and pneumococcal and Empiric vancomycin, doxy and meropenem IV fluid bolus 30 mL/kg followed by maintenance IV fluid May need vasopressors (3) Pneumonia: Qualifiers: Laterality: right Lung location: lower lobe of lung Pneumonia type: d ue to unspecified organism Qualified Code(s): J18.9 - Pneumonia, unspecified organism Code(s): J18.9 - Pneumonia, unspecified organism Status: Acute Assessment and Plan: See above (4) ETOH abuse: Code(s): F10.10 - Alcohol abuse, uncomplicated Status: Chronic Assessment and Plan: History of heavy alcohol abuse. I will start patient on thiamine and folic his (5) Hyponatremia: Code(s): E87.1 - Hypo-osmolality and hyponatremia Status: Acute Assessment and Plan: History of hyponatremia secondary to heavy alcohol abuse and intake. Sodium 119 Patient was alert awake when he arrived Nephrology consult Q4H BMP (6) ELIA (acute kidney injury): Code(s): N17.9 - Acute kidney failure, unspecified Status: Acute Assessment and Plan: Acute kidney injury in setting of chronic kidney disease Likely secondary to sepsis CT abdomen pelvis to rule out any obstruction as patient has history of hydronephrosis and stent placement Nephrology consultation Costa catheter for accurate I&Os Monitor urine output electrolytes and creatinine Check CK level Fluid bolus 30 mL/kg for sepsis followed by infusion Treatment of acidosis as below (7) Stage 4 chronic kidney disease: Code(s): N18.4 - Chronic kidney disease, stage 4 (severe) Status: Acute (8) Metabolic acidosis: Code(s): E87.20 - Acidosis, unspecified Status: Acute Assessment and Plan: Severe metabolic acidosis secondary to sepsis ELIA, CKD Patient received 2 amps of bicarb and will be on IV fluids with bicarb Repeat ABG ordered Plan DVT prophylaxis -Lovenox Stress ulcer prophylaxis -PPI Nutrition - NPO Code Status - Full Code Total Critical Care Time - 36 minutes Due to a high probability of clinically significant, life threatening deterioration, the patient required my highest level of preparedness to intervene emergently and I personally spent this critical care time directly and personally managing the patient. This critical care time included obtaining a history; examining the patient; pulse oximetry; ordering and review of studies; arranging urgent treatment with development of a management plan; evaluation of patient's response to treatment; frequent reassessment; and discussions with other providers. It was exclusive of separately billable procedures and treating other patients and teaching time. Please see Assessment and Plan section and the rest of the note for further information on patient assessment and treatment [employer] Consult Note Consult date: 12/11/24 Reason for consult: Acute respiratory failure, pneumonia, ELIA, alcohol abuse HPI: Chuy Amezquita is a 64 year old male with past medical history of alcohol abuse, hyponatremia, chronic kidney disease, hypertension, COPD, smoking, colorectal cancer status post colectomy radiation therapy chemotherapy and colostomy, bilateral hydronephrosis with UPJ stent, gastric ulcer presented to ER with chief complaint of shortness of breath patient was in respiratory distress and was unable to provide any meaningful history. Patient was emergently intubated by ER physician. Patient was sedated intubated. When I saw the patient he was already intubated and chemically paralyzed. History was not obtainable. I spoke to his who also was able to provide only limited history. She states that she does not live with him but she saw him this morning and he was feeling short of breath and dizzy apart from that she was unable to give me any further history review of system. Workup in the ER showed patient was fairly hypoxic and respiratory distress. He was intubated emergently workup showed sodium 119 potassium 3.4 creatinine 5.52 glucose was elevated, BUN 66 sees lactic acid 18.4 calcium 7.7 CRP 3.4 Initial ABG 6.79/28/191/4.3 Repeat ABG after intubation showed pH less than 6.7/56/175/bicarb was non calculable I evaluated patient in the ER room 14 after he came back from CT scan and placed orders Review of Systems 2 Review of Systems: ROS unobtainable: Yes unobtainable due to endotracheal tube, unobtainable due to medical condition and unobtainable due to mental status PMFSH Past Medical History Medical History Gastric ulcer Chronic gastric ulcer Noted on EGD 11/2023 Melena Bilateral hearing loss Essential hypertension Colorectal cancer (~2019) Treated with colectomy, radiation therapy and chemotherapy. Patient received care in [place] Surgical History Surgical History Status post cataract extraction and insertion of intraocular lens of left eye Status post colostomy (~2019) Family History Family History Father , Age 62 Cancer ?stomach cancer? Mother Breast cancer, Onset Age: 44 Sibling Cancer ?stomach cancer? 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 Since that time he and his (for over 20 years been for only few years) have been traveling around the [place] They are currently living with the patient's brother for while he helps brother remodel a house. He has smoked between 0.5 up to 2 packs of cigarettes per day for about 40 years he reports that he quit smoking in April of 2024. He drinks 6-9 beers a day. He sometimes go a couple of months without drinking at all. He denies history of illicit substance use. Code status: Full code (patient states that he would not want long-term ventilation or feeding tube. He states he would not want to be on a ventilator from more than a couple of weeks.) Surrogate decision maker: Panda Amezquita (Brother) Smoking packs per day: 1.5 Smoking cigarettes per day: 30.0 Years smoked: 40 Smoking pack-years: 60.00 Smoking status: Current every day smoker Tobacco type: cigarettes Smoking end date: 04/11/24 Alcohol intake: current Drinks per week: 54 Substance use: never Substance use type: does not use Do You Feel Safe in your Home?: Yes Lack of Transportation: No Lack of Food: Never True Current Housing: I Have Housing Concerned About Future Housing: No Difficulty Paying Gas/Electric Bills: No Difficulty Paying for Meds: No Currently Unemployed: No Education: High School Diploma/GED Difficulty w/ Childcare or Family Care: No 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 Gender identity (if verbalized by the patient): Male Spiritual care concerns: No Meds Home Medications and Allergies Home Medications ?Medication ?Instructions ?Recorded ?Confirmed ?Type amlodipine 10 mg tablet 10 mg PO DAILY #30 tabs 09/1110/15/24 Rx multivitamin,tx-minerals 1 cap PO DAILY #90 caps 09/1110/15/24 Rx (Multi-Vitamin HP/Minerals capsule) Allergies Allergy/AdvReac Type Severity Reaction Status Date / Time No Known Allergies Allergy Verified 12/11/24 09:08 Vital Signs Vital Signs - 24 hr 12/11/24 09:00 12/11/24 10:12 12/11/24 10:22 Temperature 36.4 C L Pulse Rate 98 108 H Respiratory Rate 34 H Blood Pressure 120/80 Pulse Oximetry 96 97 Oxygen Delivery Non-Rebreather Mask Mechanical Ventilation Oxygen Flow Rate 15 Fraction of Inspired Oxygen 12/11/24 10:22 12/11/24 10:26 12/11/24 11:01 Temperature Pulse Rate 106 H 106 H 104 H Respiratory Rate 10 L Blood Pressure 154/87 H Pulse Oximetry 97 98 Oxygen Delivery Mechanical Ventilation Oxygen Flow Rate Fraction of Inspired Oxygen 100 12/11/24 11:04 Temperature Pulse Rate 103 H Respiratory Rate 21 H Blood Pressure Pulse Oximetry Oxygen Delivery Oxygen Flow Rate Fraction of Inspired Oxygen Exam 2 Narrative: General: Pt is sedated, chemically paralyzed, intubated and on mechanical ventilation Lungs/Chest: Trachea central , coarse breath sounds bilateral Cardiac: RRR. Normal S1 S2. No murmurs Circulation: Pedal pulses are weak but palpable Abdomen: Decreased bowel sounds. Colostomy in left lower quadrant with empty bag, midline scar from past incision Extremities: No clubbing, cyanosis or edema. Warm : Costa in place Neurologic: Unable to assess due to and chemical prior. Will right pupil is slightly bigger than left but both are reactive light Results Labs 12/11/24 09:05 12/11/24 12:20 Labs: Short CBC 12/11/24 Range/Units 09:05 WBC 10.4 H (4.5-10.0) K/mm3 Hgb 12.3 L D (14.0-18.0) g/dL Hct 38.5 L (42.0-52.0) % Plt Count 137 L (150-375) k/mm3 BMP 12/11/24 09:05 Sodium 119 L* Potassium 3.4 Chloride 85 L Carbon Dioxide < 5 L BUN 66 H D Creatinine 5.52 H Glucose 227 H Calcium 7.7 L Liver Function 12/11/24 Range/Units 09:05 Total Bilirubin 1.3 (0.2-1.3) mg/dL AST 166 H (17-59) U/L ALT 117 H (6-50) U/L Alkaline Phosphatase 183 H (38-126) U/L Albumin 3.6 (3.5-5.1) g/dL Quality VTE Prophylaxis VTE prophylaxis: pharmacologic ordered Hospitalist MIPS Advance Care Plan I have confirmed that the patient's Advanced Care Plan is present, code status is documented, or surrogate decision maker is listed in patient medical record.: Yes Medication Reconciliation I have utilized all available resources to obtain, update and review the patients current medications (includes all prescriptions, OTC, herbals, cannabis, and nutritional supplements).: Yes
[2024-12-11] MEDS: PIPERACILLIN/TAZOBACTAM SOD 4.5 GM in SODIUM CHLORIDE 0.9% IV 100 ML 200 ML IVPB (11:14)
[2024-12-11 11:17] LABS: Salicylate < 1.0 mg/dL (2-20)
[2024-12-11 11:18] LABS: Hemoglobin A1C 5.4 % (<5.7)
[2024-12-11] MEDS: INSULIN ASPART (*BKC) 100 UNITS/ML SUB-Q (11:40)
[2024-12-11] MEDS: CALCIUM GLUC 2,000 MG/NS 100ML 2,000 MG/100 ML BAG 100 MG IVPB (11:44)
[2024-12-11] MEDS: FENTANYL 2,500MCG/NS250ML(*CRX 2,500 MCG/250 ML BAG IV CONT (11:47)
[2024-12-11] MEDS: MIDAZOLAM 100MG/NS 100ML(*CRX) 100 MG/100 ML BAG IV CONT (11:47)
[2024-12-11 11:50] LABS: Influenza A QL RT-PCR Negative (Negative); Influenza B QL RT-PCR Negative (Negative); RSV RNA, RT-PCR Negative (Negative); SARS-CoV-2 RNA PCR Negative (Negative)
[2024-12-11] MEDS: VANCOMYCIN 1,250 MG/NS 250 ML 1,250 MG/250 ML BAG 166.67 MG IVPB (11:51)
[2024-12-11 11:53] LABS: Creatine Kinase 5275 U/L (55-170)
[2024-12-11 11:56] LABS: MRSA (PCR) NOT DETECTED (NOT DETECTE)
[2024-12-11] MEDS: FOLIC ACID 1 MG/0.2 ML INJ IV PUSH (12:01)
[2024-12-11 12:07] LABS: Alveolar/Arterial O2 Gradient 394.5 mmHg; Fractional Inspired Oxygen 75 %; HCO3 ABG 8.1 mEq/l (22.0-26.0); Oxygen Content ABG 12.8 %vol (16.0-22.0); PCO2 ABG 50.4 mmHg (35.0-45.0); PO2 ABG 86.7 mmHg (80.0-100.0); PO2 FiO2 Ratio Arterial Blood 1.16 %
[2024-12-11 12:09] LABS: Oxygen Saturation ABG 85.1 % (95.0-100.0)
[2024-12-11 12:10] LABS: Arterial Blood Gas Tidal Volume 450 ml; Arterial Blood Gas Ventilator rate 25 /MIN; Modified Allen's Test Pass; Site Drawn LEFT RADIAL
[2024-12-11 12:15] LABS: Procalcitonin 25.2 ng/mL
[2024-12-11 12:35] LABS: Anion Gap 25 mmol/L (4-12); Blood Urea Nitrogen 65 mg/dL (9-20); Calcium 6.8 mg/dL (8.4-10.2); Carbon Dioxide 7 mmol/L (22-30); Chloride 91 mmol/L (98-107); Glucose 150 mg/dL (65-110); Potassium 3.1 mmol/L (3.4-5.0); Sodium 123 mmol/L (137-145)
[2024-12-11 12:43] LABS: Estimated CRCL calculation 13 ml/min; Estimated Glomerular Filt Rate 12
--- NOTE | 2024-12-11 12:55 | PC.NURSE ---
Per Dr.Sahni REYNOLDS pt started on norepinephrine 5mcg/min due to hypotension, states once med is started pt can be transported to the floor
[2024-12-11] MEDS: NOREPINEPHRINE 8 MG/D5W 250 ML 8 MG/250 ML BAG 9.38 MG IV CONT (13:00)
[2024-12-11 13:17] LABS: Hepatitis B Surface Antigen Negative (Negative)
[2024-12-11] MEDS: SODIUM BICARBONATE 8.4% 50 MEQ/50 ML SYRINGE 100 MEQ IV PUSH ×4 (13:28→16:20)
[2024-12-11 13:35] LABS: Hepatitis B Surface Anti Res Negative
--- NOTE | 2024-12-11 13:38 | ADMGEN ---
This patient, Chuy Amezquita, was admitted to Intensive Care Unit-3 at 1316. Patient/family oriented to hospital policies and general routines including ID bracelet, bed and alarms, visiting hours, pain management, procedures, bathroom and other care routines, personal items, smoking policy, room service/diet, and visiting hours. Information on how to activate the Rapid Response Team has been discussed. Patient/Family are encouraged to report perceived risks to care and to ask questions if they do not understand what they are told or what they should do.
[2024-12-11 14:10] LABS: Alveolar/Arterial O2 Gradient 563.2 mmHg; Fractional Inspired Oxygen 100 %; HCO3 ABG 14.9 mEq/l (22.0-26.0); Oxygen Content ABG 13.4 %vol (16.0-22.0); PO2 ABG 67.1 mmHg (80.0-100.0); PO2 FiO2 Ratio Arterial Blood 0.67 %
[2024-12-11 14:13] LABS: Oxygen Saturation ABG 74.6 % (95.0-100.0); PCO2 ABG 82.7 mmHg (35.0-45.0)
[2024-12-11 14:14] LABS: Arterial Blood Gas Tidal Volume 400 ml; Arterial Blood Gas Ventilator rate 25 /MIN; Site Drawn ARTLINE
[2024-12-11] MEDS: VASOPRESSIN INJ 100 UNITS in DEXTROSE 5% 95 ML IV CONT (14:17)
[2024-12-11] MEDS: EPINEPHrine HCL INJ 1 MG in DEXTROSE 5% IN WATER 250 ML 15.06 MG IV CONT (14:24)
[2024-12-11] MEDS: KCL 40 MEQ/WATER 100 ML 100 ML 25 ML IVPB (14:26)
--- NOTE | 2024-12-11 14:31 | WPDPROCEDUR ---
Procedures Arterial Line Arterial Line Date: 12/11/24 Arterial Line Time: 13:30 Perfomed Emergently - Given emergent patient conditions, temporal constraints may have precluded informed consent: Yes Time Out Performed: Yes Patient Position: supine Industrial Pharmacist Prep: sterile gloves, mask and hat Site: right Site Prep: chlorhexidine Technique used: guide wire technique Length: 12 cm Closure/Dressing: suture Patient tolerated procedure: well Complications: none
--- NOTE | 2024-12-11 14:34 | WPDPROCEDUR ---
Procedures Central Line Placement Left Femoral: Central Line Date: 12/11/24 Central Line Time: 14:00 Performed Emergently - Given emergent patient condition, temporal constraints may have precluded informed consent.: Yes Consent: Patient respiratory failure, septic shock and cardiac arrest needed better IV access. No family available. Emergent situation. Procedure done as medical necessity Time Out Performed: Yes Patient Position: supine Patient placed on monitor/pulse ox: Yes Provider Prep: mask, sterile gown, sterile gloves, Max. sterile barrier precautions, cap and hand hygiene with conventional soap/water or alcohol based hand rub Central line prep: Povidone-Iodine 1% Sterile US Technique with sterile gel/sterile probe covers: Yes Central line lumen inserted: triple Length (cm): 16 Depth of Insertion (cm): 16 Post Procedure: sutured in place, good blood return, all ports aspirated, flushed, capped, transparent dressing and aseptic technique maintained throughout procedure Patient tolerated procedure: well Complications: none
--- NOTE | 2024-12-11 14:35 | PDCODEBLUE ---
Code Blue Note Code Blue Note Time Arrived at Code Blue: 1345 Initial Rhythm on Arrival: PEA Airway Management: Pt being bagged on arrival Chest Compressions: Initiated upon arrival Result of Code Blue: See below Cardiac Rhythm Post Code: Sinus tachycardia Code Blue Summary: See progress note for all the details.
--- NOTE | 2024-12-11 14:37 | PM.EVENT ---
Event Note Event Note Event Note: Patient was evaluated in the ER by myself and orders are placed. Patient in the ER after that. Patient was given fluid bolus and care prior to transfer patient was hypotensive as per report given to us. I was called from the ER for directions I requested them to start Levophed and transfer the patient to ICU immediately. On arrival to ICU patient was hypotensive and desaturating. Patient was placed on a bed and started on Levophed which was of great decreased to 15 mcg. His sats were low ranging from 60s to 70s. I increase the PEEP and FiO2 on the ventilator but his saturation remained low. We then took him off the ventilator and ventilated him with an Ambu bag and PEEP valve. Soon patient became bradycardic and lost his pulse. CPR was initiated. Patient was given to use of epinephrine, 1 dose of calcium chloride and 1 amp of bicarb before ROSC was obtained. Resuscitation process took approximately 4 minutes. Post that patient had a pulse but remained hypotensive. Patient was started on vasopressin and epinephrine was also ordered. Sedation was discontinued. Patient was given additional bicarb. ABG was obtained showed severe metabolic and respiratory acidosis and hypoxia. Vent had already been adjusted due to patient's COPD patient has high pressures. I was unable to increase ventilation for the significantly. Patient is on 400 tidal volume peep was slowly increased to 12. Rate is at 25. FiO2 is 100%. Patient was given additional bicarb. For severe acidosis. Potassium is already ordered but replace that had not been started yet. Due to shock and hypoxia I placed a right femoral arterial line emergently. I also placed a left femoral central venous catheter. I will repeat an ABG in 30 minutes. Will treat acidosis with bicarb as further modification and ventilation is difficult to considering patient's COPD and high pressures. A chest x-ray was repeated post code and showed ET tube in good position with unchanged bilateral airspace disease with no pneumothorax. Sedation is currently on hold. I have added hydrocortisone. Continue IV fluids with bicarb with sodium monitor. Patient is critically ill with high risk of mortality in next 24 hours. Additional critical care time except separately billed procedures. 60 minutes
[2024-12-11] MEDS: CALCIUM CHLORIDE 1,000 MG/10 ML SYRINGE 1000 MG IV PUSH (14:59)
--- NOTE | 2024-12-11 15:01 | P.PNCROSS_ITS ---
Event Note Event Note Event Note: Patient continues to be hypotensive and hypoxic. I placed patient in prone pos ition to help with hypoxia. Obviously this will further impact his ventilation considering severe COPD and now prone position. We will try to manage acidosis with bicarb. Repeat ABGs ordered. Patient is extremely sensitive to bicarb pushes and has been requiring frequent sodium bicarbonate IV push to help his blood pressure. Patient is on multiple vasopressors including high dose of Levophed vasopressin and epinephrine. Potassium is being replaced at higher than usual rate considering lower level and and additional administration of bicarb which will further lower the potassium. Patient as above mentioned remains critically ill with high risk of mortality next 24 hours.
--- NOTE | 2024-12-11 15:13 | PM.CNGS ---
Assessment and Plan Assessment and plan (1) Abnormal CT of the abdomen: Code(s): R93.5 - Abnormal findings on diagnostic imaging of other abdominal regions, including retroperitoneum Status: Acute Assessment and Plan: Patient presented to ED with shortness of breath and was found to be cyanotic on exam. He was sedated and intubated and transferred to the ICU. Code ebony was called on the patient due to bradycardia and then loss of pulse. CT of the chest abdomen and pelvis demonstrated chronic thick-walled cavity in the presacral region containing gas. Unclear if finding is a Moustapha pouch with surrounding scarring or an extraluminal postsurgical cavity. Being that patient has a surgically closed anus following colectomy, it is unlikely that this finding is related to the colon. Could consider cystogram to rule out bladder perforation. However, this would obviously require improved hemodynamic stability prior to consideration of procedures. Currently intubated and sedated in prone position. (2) ETOH abuse: Code(s): F10.10 - Alcohol abuse, uncomplicated Status: Chronic (3) Acute respiratory failure: Code(s): J96.00 - Acute respiratory failure, unspecified whether with hypoxia or hypercapnia Status: Acute Assessment and Plan: Intubated and sedated in prone position. (4) Pneumonia: Qualifiers: Laterality: right Lung location: lower lobe of lung Pneumonia type: due to unspecified organism Qualified Code(s): J18.9 - Pneumonia, unspecified organism Code(s): J18.9 - Pneumonia, unspecified organism Status: Acute Assessment and Plan: Diffuse lung disease consistent with pneumonia identified on CT. (5) Sepsis: Code(s): A41.9 - Sepsis, unspecified organism Status: Acute (6) Hyponatremia: Code(s): E87.1 - Hypo-osmolality and hyponatremia Status: Acute (7) ELIA (acute kidney injury): Code(s): N17.9 - Acute kidney failure, unspecified Status: Acute (8) Chronic kidney disease, stage IV (severe): Code(s): N18.4 - Chronic kidney disease, stage 4 (severe) Status: Chronic (9) Metabolic acidosis: Code(s): E87.20 - Acidosis, unspecified Status: Acute Plan Discussed patient's case and plan of care with Dr. Green. History of Present Illness Consult details Consult date: 12/11/24 Reason for consult: other (Abnormal CT abdomen, post colectomy) Requesting physician: Markell Guadarrama MD Narrative: Patient is a 64-year-old male with history of colorectal cancer (status post colectomy, radiation therapy and chemotherapy, colostomy. Patient received care in [place] around 2019.), alcohol abuse, COPD, CKD, hypertension, hyponatremia, bilateral hydronephrosis with UPJ stent, gastric ulcer who we have been asked to see in surgical consultation after an abnormal abdominal CT read. Upon my interview, patient is intubated and heavily sedated so most of the history was obtained from ICU staff and chart review. Reportedly, patient was drove his to the emergency department for a wound, and was found to be cyanotic while in the ER. Patient became very short of breath. Vital signs demonstrated tachycardia and tachypnea. He was put on non-rebreather mask, and shortly after intubated and placed on mechanical ventilation. Labs revealed slightly elevated white blood cell count of 10.4. Critical sodium level of 119. Critical lactic acid level of 18.4 (now down to 15.9). Hypokalemia at 3.1. Hypocalcemia at 6.8. Chronically elevated BUN and creatinine. Elevated liver enzymes. Elevated CRP at 3.4. Elevated CK at 5275. ABG was obtained and demonstrated severe metabolic and respiratory acidosis and hypoxia. Given fluid bolus due to hypotension. A CT of the chest abdomen and pelvis was obtained and demonstrated diffuse lung disease consistent with pneumonia. Cirrhosis of the liver. Chronic thick-walled cavity in the presacral region containing gas. Unclear if this is a Moustapha pouch with surrounding scarring or an extraluminal postsurgical cavity. General surgery team consulted at this time. Patient was transferred to ICU after intubation. Levophed started. Shortly after, a code blue was called on the patient. Patient's O2 levels became low ranging from 60s to 70s. PEEP and FiO2 or increased on the ventilator, but saturation remained low. He was taken off the ventilator and then ventilated with an Ambu bag and PEEP valve. He became bradycardic and lost his pulse. CPR was initiated. ROSC was obtained after approximately 4 minutes. Started on vasopressin and epinephrine. Arterial line was placed as well as central line. Patient placed in prone position to help with hypoxia. [facility] Past Medical History Medical History Gastric ulcer Chronic gastric ulcer Noted on EGD 11/2023 Melena Bilateral hearing loss Essential hypertension Colorectal cancer (~2019) Treated with colectomy, radiation therapy and chemotherapy. Patient received care in [place] Surgical History Surgical History Status post cataract extraction and insertion of intraocular lens of left eye Status post colostomy (~2019) Family History Family History Father , Age 62 Cancer ?stomach cancer? Mother Breast cancer, Onset Age: 44 Sibling Cancer ?stomach cancer? 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 Since that time he and his (for over 20 years been for only few years) have been traveling around the [place] They are currently living with the patient's brother for while he helps brother remodel a house. He has smoked between 0.5 up to 2 packs of cigarettes per day for about 40 years he reports that he quit smoking in April of 2024. He drinks 6-9 beers a day. He sometimes go a couple of months without drinking at all. He denies history of illicit substance use. Code status: Full code (patient states that he would not want long-term ventilation or feeding tube. He states he would not want to be on a ventilator from more than a couple of weeks.) Surrogate decision maker: Panda Amezquita (Brother) Smoking packs per day: 1.5 Smoking cigarettes per day: 30.0 Years smoked: 40 Smoking pack-years: 60.00 Smoking status: Current every day smoker Tobacco type: cigarettes Smoking end date: 04/11/24 Alcohol intake: current Drinks per week: 54 Substance use: never Substance use type: does not use Do You Feel Safe in your Home?: Yes Lack of Transportation: No Lack of Food: Never True Current Housing: I Have Housing Concerned About Future Housing: No Difficulty Paying Gas/Electric Bills: No Difficulty Paying for Meds: No Currently Unemployed: No Education: High School Diploma/GED Difficulty w/ Childcare or Family Care: No 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 Gender identity (if verbalized by the patient): Male Spiritual care concerns: No Meds Home Medications and Allergies Home Medications ?Medication ?Instructions ?Recorded ?Confirmed ?Type amlodipine 10 mg tablet 10 mg PO DAILY #30 tabs 09/24/24 10/15/24 Rx multivitamin,tx-minerals 1 cap PO DAILY #90 caps 09/24/24 10/15/24 Rx (Multi-Vitamin HP/Minerals capsule) Allergies Allergy/AdvReac Type Severity Reaction Status Date / Time No Known Allergies Allergy Verified 12/11/24 15:06 Vital Signs Vital Signs - 24 hr 12/11/24 09:00 12/11/24 09:45 12/11/24 10:12 Temperature 97.5 F L Pulse Rate 98 113 H 108 H Respiratory Rate 34 H 20 Blood Pressure 120/80 121/84 Pulse Oximetry 96 Oxygen Delivery Non-Rebreather Mask Oxygen Flow Rate 15 Fraction of Inspired Oxygen 12/11/24 10:22 12/11/24 10:22 12/11/24 10:26 Temperature Pulse Rate 106 H 106 H Respiratory Rate 10 L Blood Pressure 154/87 H Pulse Oximetry 97 97 98 Oxygen Delivery Mechanical Ventilation Mechanical Ventilation Oxygen Flow Rate Fraction of Inspired Oxygen 100 12/11/24 11:01 12/11/24 11:04 12/11/24 11:16 Temperature Pulse Rate 104 H 103 H 104 H Respiratory Rate 21 H 25 H Blood Pressure 118/65 Pulse Oximetry 92 Oxygen Delivery Oxygen Flow Rate Fraction of Inspired Oxygen 12/11/24 11:33 12/11/24 11:36 12/11/24 11:45 Temperature Pulse Rate 99 97 97 Respiratory Rate 24 H 25 H 25 H Blood Pressure 103/63 103/63 Pulse Oximetry 92 93 Oxygen Delivery Oxygen Flow Rate Fraction of Inspired Oxygen 12/11/24 11:47 12/11/24 11:47 12/11/24 12:00 Temperature Pulse Rate 98 97 96 Respiratory Rate 25 H 25 H 22 H Blood Pressure 99/64 L Pulse Oximetry 91 Oxygen Delivery Oxygen Flow Rate Fraction of Inspired Oxygen 12/11/24 12:15 12/11/24 12:30 12/11/24 12:32 Temperature Pulse Rate 95 93 95 Respiratory Rate 25 H 25 H 24 H Blood Pressure 97/62 L 81/54 L 87/55 L Pulse Oximetry Oxygen Delivery Oxygen Flow Rate Fraction of Inspired Oxygen 12/11/24 12:35 12/11/24 12:45 12/11/24 12:49 Temperature Pulse Rate 90 89 88 Respiratory Rate 25 H 22 H 25 H Blood Pressure 84/54 L 78/52 L 72/51 L Pulse Oximetry Oxygen Delivery Oxygen Flow Rate Fraction of Inspired Oxygen 12/11/24 12:51 12/11/24 12:58 12/11/24 13:00 Temperature Pulse Rate 88 87 86 Respiratory Rate 25 H 25 H Blood Pressure 72/50 L 71/49 L Pulse Oximetry Oxygen Delivery Oxygen Flow Rate Fraction of Inspired Oxygen 12/11/24 13:00 12/11/24 13:10 12/11/24 13:25 Temperature Pulse Rate 87 85 95 Respiratory Rate 25 H Blood Pressure 71/49 L 67/49 L 75/52 L Pulse Oximetry Oxygen Delivery Oxygen Flow Rate Fraction of Inspired Oxygen 12/11/24 13:26 12/11/24 13:30 12/11/24 13:30 Temperature Pulse Rate 90 84 87 Respiratory Rate 25 H 25 H Blood Pressure 74/50 L 75/52 L Pulse Oximetry 98 Oxygen Delivery Mechanical Ventilation Oxygen Flow Rate Fraction of Inspired Oxygen 75 12/11/24 13:34 12/11/24 13:35 12/11/24 13:36 Temperature Pulse Rate 95 95 Respiratory Rate 25 H 25 H Blood Pressure Pulse Oximetry Oxygen Delivery Oxygen Flow Rate Fraction of Inspired Oxygen 100 12/11/24 13:38 12/11/24 13:42 12/11/24 13:43 Temperature Pulse Rate 94 88 52 L Respiratory Rate 25 H 25 H Blood Pressure 75/52 L 73/50 L 53/36 L Pulse Oximetry 60 L Oxygen Delivery Oxygen Flow Rate Fraction of Inspired Oxygen 12/11/24 14:00 12/11/24 14:00 12/11/24 14:00 Temperature Pulse Rate 96 111 H 107 H Respiratory Rate 25 H 22 H Blood Pressure 97/50 L Pulse Oximetry 60 L Oxygen Delivery Oxygen Flow Rate Fraction of Inspired Oxygen 12/11/24 14:02 12/11/24 14:15 12/11/24 14:16 Temperature Pulse Rate 102 H 97 Respiratory Rate 26 H Blood Pressure 179/67 H Pulse Oximetry Oxygen Delivery Mechanical Ventilation Oxygen Flow Rate Fraction of Inspired Oxygen 100 12/11/24 14:17 12/11/24 14:20 12/11/24 14:24 Temperature Pulse Rate 97 100 100 Respiratory Rate Blood Pressure 109/47 L 87/41 L 87/40 L Pulse Oximetry Oxygen Delivery Oxygen Flow Rate Fraction of Inspired Oxygen 12/11/24 14:57 12/11/24 14:58 12/11/24 15:00 Temperature Pulse Rate 106 H 107 H 108 H Respiratory Rate 25 H Blood Pressure 74/42 L 87/44 L 94/49 L Pulse Oximetry 60 L Oxygen Delivery Oxygen Flow Rate Fraction of Inspired Oxygen Exam Const: Other: Intubated and sedated. Prone position. Resp: Other: tachypneic Cardio: Rate: tachycardic GI: Other: Surgically absent anal opening status post colectomy with end colostomy Skin: Other: Mottled and cold lower limbs Results Labs 12/11/24 09:05 12/11/24 12:20 Labs: Abnormal lab results 12/11/24 12/11/24 12/11/24 Range/Units 09:01 09:05 10:04 WBC 10.4 H (4.5-10.0) K/mm3 RBC 3.97 L (4.6-6.20) M/mm3 Hgb 12.3 L D (14.0-18.0) g/dL Hct 38.5 L (42.0-52.0) % MCHC 31.9 L (32-36) g/dl Plt Count 137 L (150-375) k/mm3 MPV 11.9 H (7.4-10.4) fl Neut % (Auto) 75.9 H (45.5-73.1) % Lymph % (Auto) 13.5 L (18.3-44.2) % Mayes % (Auto) 9.9 H (2.6-8.5) % Mayes # (Auto) 1.0 H (0.1-0.6) K/mm3 Absolute Neuts (auto) 7.9 H (1.3-6.7) K/mm3 PT 16.8 H (11.1-14.7) Seconds APTT 43.2 H (22.3-36.8) Seconds ABG pH 6.792 L* < 6.700 L* (7.350-7.450) ABG pCO2 28.8 L 56.5 H (35.0-45.0) mmHg ABG pO2 191.2 H 175.7 H (80.0-100.0) mmHg ABG HCO3 4.3 L (22.0-26.0) mEq/l ABG O2 Saturation (95.0-100.0) % ABG O2 Content (16.0-22.0) %vol Oxyhemoglobin (90.0-100.0) % THb Total Hemoglobin (12.0-18.0) g/dL Sodium 119 L* (137-145) mmol/L Potassium (3.4-5.0) mmol/L Chloride 85 L (98-107) mmol/L Carbon Dioxide < 5 L (22-30) mmol/L Anion Gap (4-12) mmol/L BUN 66 H D (9-20) mg/dL Creatinine 5.52 H (0.7-1.3) mg/dL Estimated GFR 11 L (59 - ) Glucose 227 H (65-110) mg/dL POC Capillary Glucose (65-105) mg/dl Lactic Acid (0.7-2.0) mmol/L Calcium 7.7 L (8.4-10.2) mg/dL AST 166 H (17-59) U/L ALT 117 H (6-50) U/L Alkaline Phosphatase 183 H (38-126) U/L Total Creatine Kinase 5275 H (55-170) U/L C-Reactive Protein 3.4 H (<1.0) mg/dL Salicylates < 1.0 L (2-20) mg/dL 12/11/24 12/11/24 12/11/24 Range/Units 10:07 11:22 11:59 WBC (4.5-10.0) K/mm3 RBC (4.6-6.20) M/mm3 Hgb (14.0-18.0) g/dL Hct (42.0-52.0) % MCHC (32-36) g/dl Plt Count (150-375) k/mm3 MPV (7.4-10.4) fl Neut % (Auto) (45.5-73.1) % Lymph % (Auto) (18.3-44.2) % Mayes % (Auto) (2.6-8.5) % Mayes # (Auto) (0.1-0.6) K/mm3 Absolute Neuts (auto) (1.3-6.7) K/mm3 PT (11.1-14.7) Seconds APTT (22.3-36.8) Seconds ABG pH 6.826 L* (7.350-7.450) ABG pCO2 50.4 H (35.0-45.0) mmHg ABG pO2 (80.0-100.0) mmHg ABG HCO3 8.1 L (22.0-26.0) mEq/l ABG O2 Saturation 85.1 L* (95.0-100.0) % ABG O2 Content 12.8 L (16.0-22.0) %vol Oxyhemoglobin 87.3 L* (90.0-100.0) % THb Total Hemoglobin 10.3 L (12.0-18.0) g/dL Sodium (137-145) mmol/L Potassium (3.4-5.0) mmol/L Chloride (98-107) mmol/L Carbon Dioxide (22-30) mmol/L Anion Gap (4-12) mmol/L BUN (9-20) mg/dL Creatinine (0.7-1.3) mg/dL Estimated GFR (59 - ) Glucose (65-110) mg/dL POC Capillary Glucose 214 H (65-105) mg/dl Lactic Acid 18.4 H* (0.7-2.0) mmol/L Calcium (8.4-10.2) mg/dL AST (17-59) U/L ALT (6-50) U/L Alkaline Phosphatase (38-126) U/L Total Creatine Kinase (55-170) U/L C-Reactive Protein (<1.0) mg/dL Salicylates (2-20) mg/dL 12/11/24 12/11/24 Range/Units 12:20 14:01 WBC (4.5-10.0) K/mm3 RBC (4.6-6.20) M/mm3 Hgb (14.0-18.0) g/dL Hct (42.0-52.0) % MCHC (32-36) g/dl Plt Count (150-375) k/mm3 MPV (7.4-10.4) fl Neut % (Auto) (45.5-73.1) % Lymph % (Auto) (18.3-44.2) % Mayes % (Auto) (2.6-8.5) % Mayes # (Auto) (0.1-0.6) K/mm3 Absolute Neuts (auto) (1.3-6.7) K/mm3 PT (11.1-14.7) Seconds APTT (22.3-36.8) Seconds ABG pH 6.873 L* (7.350-7.450) ABG pCO2 82.7 H* (35.0-45.0) mmHg ABG pO2 67.1 L (80.0-100.0) mmHg ABG HCO3 14.9 L (22.0-26.0) mEq/l ABG O2 Saturation 74.6 L* (95.0-100.0) % ABG O2 Content 13.4 L (16.0-22.0) %vol Oxyhemoglobin 78.4 L* (90.0-100.0) % THb Total Hemoglobin (12.0-18.0) g/dL Sodium 123 L (137-145) mmol/L Potassium 3.1 L (3.4-5.0) mmol/L Chloride 91 L (98-107) mmol/L Carbon Dioxide 7 L (22-30) mmol/L Anion Gap 25 H (4-12) mmol/L BUN 65 H (9-20) mg/dL Creatinine 5.04 H (0.7-1.3) mg/dL Estimated GFR 12 L (59 - ) Glucose 150 H (65-110) mg/dL POC Capillary Glucose (65-105) mg/dl Lactic Acid 15.9 H* (0.7-2.0) mmol/L Calcium 6.8 L (8.4-10.2) mg/dL AST (17-59) U/L ALT (6-50) U/L Alkaline Phosphatase (38-126) U/L Total Creatine Kinase (55-170) U/L C-Reactive Protein (<1.0) mg/dL Salicylates (2-20) mg/dL Diabetes panel 12/11/24 12/11/24 Range/Units 09:05 12:20 Sodium 119 L* 123 L (137-145) mmol/L Potassium 3.4 3.1 L (3.4-5.0) mmol/L Chloride 85 L 91 L (98-107) mmol/L Carbon Dioxide < 5 L 7 L (22-30) mmol/L BUN 66 H D 65 H (9-20) mg/dL Creatinine 5.52 H 5.04 H (0.7-1.3) mg/dL Glucose 227 H 150 H (65-110) mg/dL Hemoglobin A1c 5.4 (<5.7) % Calcium 7.7 L 6.8 L (8.4-10.2) mg/dL AST 166 H (17-59) U/L ALT 117 H (6-50) U/L Alkaline Phosphatase 183 H (38-126) U/L Total Protein 7.3 (6.3-8.2) g/dL Albumin 3.6 (3.5-5.1) g/dL Calcium panel 12/11/24 12/11/24 Range/Units 09:05 12:20 Calcium 7.7 L 6.8 L (8.4-10.2) mg/dL Albumin 3.6 (3.5-5.1) g/dL Pituitary panel 12/11/24 12/11/24 Range/Units 09:05 12:20 Sodium 119 L* 123 L (137-145) mmol/L Potassium 3.4 3.1 L (3.4-5.0) mmol/L Chloride 85 L 91 L (98-107) mmol/L Carbon Dioxide < 5 L 7 L (22-30) mmol/L BUN 66 H D 65 H (9-20) mg/dL Creatinine 5.52 H 5.04 H (0.7-1.3) mg/dL Glucose 227 H 150 H (65-110) mg/dL Calcium 7.7 L 6.8 L (8.4-10.2) mg/dL Adrenal panel 12/11/24 12/11/24 Range/Units 09:05 12:20 Sodium 119 L* 123 L (137-145) mmol/L Potassium 3.4 3.1 L (3.4-5.0) mmol/L Chloride 85 L 91 L (98-107) mmol/L Carbon Dioxide < 5 L 7 L (22-30) mmol/L BUN 66 H D 65 H (9-20) mg/dL Creatinine 5.52 H 5.04 H (0.7-1.3) mg/dL Glucose 227 H 150 H (65-110) mg/dL Calcium 7.7 L 6.8 L (8.4-10.2) mg/dL Total Bilirubin 1.3 (0.2-1.3) mg/dL AST 166 H (17-59) U/L ALT 117 H (6-50) U/L Alkaline Phosphatase 183 H (38-126) U/L Total Protein 7.3 (6.3-8.2) g/dL Albumin 3.6 (3.5-5.1) g/dL All other labs normal.
[2024-12-11 15:27] LABS: Alveolar/Arterial O2 Gradient 539.3 mmHg; Fractional Inspired Oxygen 100 %; HCO3 ABG 20.6 mEq/l (22.0-26.0); Oxygen Content ABG 14.8 %vol (16.0-22.0); PO2 ABG 76.3 mmHg (80.0-100.0); PO2 FiO2 Ratio Arterial Blood 0.76 %
[2024-12-11] MEDS: EPINEPHrine HCL INJ 4 MG in DEXTROSE 5% IN WATER 250 ML 57.15 MG IV CONT (15:28)
[2024-12-11] MEDS: SODIUM BICARBONATE 8.4% 100 MEQ in WATER, STERILE FOR INJECTION 1,000 ML 150 MEQ IV CONT (15:28)
[2024-12-11 15:30] LABS: PCO2 ABG 97.4 mmHg (35.0-45.0)
[2024-12-11 15:32] LABS: Oxygen Saturation ABG 83.8 % (95.0-100.0); Site Drawn ARTLINE
[2024-12-11 15:33] LABS: Arterial Blood Gas Tidal Volume 400 ml; Arterial Blood Gas Ventilator rate 25 /MIN
[2024-12-11] MEDS: HYDROCORTISONE SODIUM SUCCINATE 100 MG/2 ML VIAL IV PUSH (15:38)
--- NOTE | 2024-12-11 15:41 | P.PNCROSS_ITS ---
Event Note Event Note Event Note: Patient was placed in prone position. Repeat ABG was done and reviewed. Hypox ia has improved with PO2 improved to 76 but patient's ABG shows worsening respiratory acidosis with hypercarbia. I will give additional bicarb push and continue patient on bicarb infusion. Patient will be given potassium replacement. Repeat ABG and labs ordered Additional critical care time 30 minutes
[2024-12-11] MEDS: PHENYLEPHRINE HCL INJ 50 MG in SODIUM CHLORIDE 0.9% IV 245 ML 12 ML IV CONT (15:44)
[2024-12-11] MEDS: MEROPENEM 1 GM in SODIUM CHLORIDE 0.9% IV 100 ML 200 ML IVPB (15:52)
[2024-12-11] MEDS: ENOXAPARIN 30 MG/0.3 ML SYRINGE SUB-Q (15:52)
[2024-12-11] MEDS: PANTOPRAZOLE SODIUM IV 40 MG VIAL IV PUSH (15:53)
[2024-12-11] MEDS: THIAMINE HCL 200 MG/2 ML VIAL 100 MG IV PUSH (15:53)
[2024-12-11] MEDS: NOREPINEPHRINE BITARTRATE 16 MG in DEXTROSE 5% IN WATER 250 ML 49.88 MG IV CONT (15:57)
--- NOTE | 2024-12-11 16:14 | P.CONNP_ITS ---
Assessment and Plan Assessment and plan (1) ELIA (acute kidney injury): Code(s): N17.9 - Acute kidney failure, unspecified Status: Acute Assessment and Plan: * Acute kidney injury in setting of chronic kidney disease * Likely secondary to sepsis * CT abdomen pelvis to rule out any obstruction as patient has history of hydronephrosis and stent placement * Costa catheter for accurate I&Os * Monitor urine output electrolytes and creatinine (2) Hyponatremia: Code(s): E87.1 - Hypo-osmolality and hyponatremia Status: Acute Assessment and Plan: * History of hyponatremia secondary to heavy alcohol abuse and intake. Sodium 119 * Patient was alert awake when he arrived * follow trend of sodiums (3) Stage 4 chronic kidney disease: Code(s): N18.4 - Chronic kidney disease, stage 4 (severe) Status: Acute (4) Acute respiratory failure: Code(s): J96.00 - Acute respiratory failure, unspecified whether with hypoxia or hypercapnia Status: Acute Assessment and Plan: * Acute respiratory failure secondary to bilateral pneumonia in a setting of underlying COPD * Patient now intubated * follow ABG * antibiotics as below * bronchodilator therapy (5) Sepsis: Code(s): A41.9 - Sepsis, unspecified organism Status: Acute Assessment and Plan: * Severe sepsis secondary to bilateral pneumonia. ? Aspiration * Blood cultures * Urine Legionella and pneumococcal and * Empiric vancomycin, doxy and meropenem * IV fluid bolus 30 mL/kg followed by maintenance IV fluid * vasopressor therapy (6) Pneumonia: Qualifiers: Laterality: right Lung location: lower lobe of lung Pneumonia type: d ue to unspecified organism Qualified Code(s): J18.9 - Pneumonia, unspecified organism Code(s): J18.9 - Pneumonia, unspecified organism Status: Acute Assessment and Plan: * see above (7) Metabolic acidosis: Code(s): E87.20 - Acidosis, unspecified Status: Acute Assessment and Plan: * evere metabolic acidosis secondary to sepsis ELIA, CKD * on bicarb gtt (8) ETOH abuse: Code(s): F10.10 - Alcohol abuse, uncomplicated Status: Chronic Assessment and Plan: * known history of heavy alcohol abuse * on thiamine and folic acid I will continue to follow the patient with you while he remains hospitalized and make further recommendations as deemed necessary. Thank you for allowing me to participate in the care of this patient. L History of Present Illness Reason for Consult Consult date: 12/11/24 Reason for consult: acute renal failure (on chronic kidney disease) Chief Complaint Chief complaint: acute respiratory failure,pneumonia,sepsis History of Present Illness Narrative: The patient is a 64 year old male with past medical history as noted belwo presented to ER with chief complaint of shortness of breath. The patient was in respiratory distress and was unable to provide any meaningful history and given his presnetion, he was was emergently intubated by ER physician. Workup in the ER showed a sodium 119, potassium 3.4, creatinine 5.52, glucose was elevated, BUN 66, lactic acid 18.4, calcium 7.7, CRP 3.4 Initial ABG 6.79/28/191/4.3 Repeat ABG after intubation showed pH less than 6.7/56/175/bicarb was non calculable. His condition continued to deteriorate and the patient was eventually transferred to the ICU for further management. Code blue was initiated on arrival to the emergency room and the patient received a central line with initiation of vasopressor therapy due to his hemodynamic instability. In spite of these interventions, his overall clinical condition continued to deteriorate. His respiratory status and oxygenation was difficult to control and the patient even required prone positioning an effort to control this issue. Furthermore, he remains significantly acidotic requiring multiple pushes of IV bicarb and subsequently initiation of a bicarb drip. He continued to remain quite acidotic with ongoing lactic acidosis and was discussed with the patient's family that he was at high risk for in the next 24 hours given his overall worsening clinical condition. Renal consultation was requested due to his acute hyponatremia in conjunction with his acute kidney injury on top of his chronic kidney disease. The patient is somewhat familiar to me as I have taken care of him before on previous hospitalizations here at [facility] and see him in the office for management of his chronic kidney disease. His baseline creatinine usually runs around 2.6-3.1 mg/dL but does fluctuate depending on his hydration status in general. He has had numerous admissions here at [facility] for electrolyte derangements as noted on this admission particularly with regard to hyponatremia. His acute hyponatremia is usually due to a combination of mild volume overload, alcohol intake/abuse, his underlying COPD, and his ongoing smoking history in conjunction with his underlying kidney disease. From review his records, his sodium level has been as low as 107 millimoles per L on a previous hospitalization. Is difficult to say if his sodium level of 112 millimoles per L on admission was symptomatic. Currently, at the time of my visit, he is inutbated/sedated/paralyzed and on mechanical venitlation. Review of Systems 2 Review of Systems: As per HPI. [facility] Past Medical History Medical History Gastric ulcer Chronic gastric ulcer Noted on EGD 11/2023 Melena Bilateral hearing loss Essential hypertension Colorectal cancer (~2019) Treated with colectomy, radiation therapy and chemotherapy. Patient received care in [place] Surgical History Surgical History Status post cataract extraction and insertion of intraocular lens of left eye Status post colostomy (~2019) Family History Family History Father , Age 62 Cancer ?stomach cancer? Mother Breast cancer, Onset Age: 44 Sibling Cancer ?stomach cancer? 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 Since that time he and his (for over 20 years been for only few years) have been traveling around the [place] They are currently living with the patient's brother for while he helps brother remodel a house. He has smoked between 0.5 up to 2 packs of cigarettes per day for about 40 years he reports that he quit smoking in April of 2024. He drinks 6-9 beers a day. He sometimes go a couple of months without drinking at all. He denies history of illicit substance use. Code status: Full code (patient states that he would not want long-term ventilation or feeding tube. He states he would not want to be on a ventilator from more than a couple of weeks.) Surrogate decision maker: Panda Amezquita (Brother) Smoking packs per day: 1.5 Smoking cigarettes per day: 30.0 Years smoked: 40 Smoking pack-years: 60.00 Smoking status: Current every day smoker Tobacco type: cigarettes Smoking end date: 04/11/24 Alcohol intake: current Drinks per week: 54 Substance use: unknown Substance use type: does not use Do You Feel Safe in your Home?: Yes Lack of Transportation: No Lack of Food: Never True Current Housing: I Have Housing Concerned About Future Housing: No Difficulty Paying Gas/Electric Bills: No Difficulty Paying for Meds: No Currently Unemployed: No Education: High School Diploma/GED Difficulty w/ Childcare or Family Care: No 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 Gender identity (if verbalized by the patient): Male Spiritual care concerns: No Meds Home Medications and Allergies Home Medications ?Medication ?Instructions ?Recorded ?Confirmed ?Type amlodipine 10 mg tablet 10 mg PO DAILY #30 tabs 09/1110/15/24 Rx multivitamin,tx-minerals 1 cap PO DAILY #90 caps 09/1110/15/24 Rx (Multi-Vitamin HP/Minerals capsule) Allergies Allergy/AdvReac Type Severity Reaction Status Date / Time No Known Allergies Allergy Verified 12/11/24 15:06 Vital Signs Vital Signs Temp Pulse Resp BP Pulse Ox O2 Del Method O2 Flow Rate 12/11/24 16:00 92.4 F L 103 H 25 H 76/41 L Mechanical Ventilation 12/11/24 16:00 105 H 57/34 L 12/11/24 16:00 105 H 57/34 L 12/11/24 16:00 105 H 57/34 L 12/11/24 16:00 103 H 56/34 L 12/11/24 15:57 106 H 58/35 L 12/11/24 15:55 106 H 65/39 L 12/11/24 15:50 108 H 68/40 L 12/11/24 15:44 107 H 12/11/24 15:43 106 H 77/43 L 12/11/24 15:28 103 H 65/39 L 12/11/24 15:00 108 H 25 H 94/49 L 60 L 12/11/24 14:58 107 H 87/44 L 12/11/24 14:57 106 H 74/42 L 12/11/24 14:24 100 87/40 L 12/11/24 14:20 100 87/41 L 12/11/24 14:17 97 26 H 12/11/24 14:17 97 109/47 L 12/11/24 14:16 97 26 H 12/11/24 14:15 Mechanical Ventilation 12/11/24 14:02 102 H 179/67 H 12/11/24 14:01 96 25 H 12/11/24 14:00 107 H 12/11/24 14:00 111 H 22 H 97/50 L 60 L 12/11/24 14:00 96 25 H 12/11/24 13:43 52 L 53/36 L 12/11/24 13:42 88 25 H 73/50 L 12/11/24 13:38 94 25 H 75/52 L 60 L 12/11/24 13:36 12/11/24 13:35 95 25 H 12/11/24 13:34 95 25 H 12/11/24 13:30 87 98 Mechanical Ventilation 12/11/24 13:30 84 25 H 75/52 L 12/11/24 13:26 90 25 H 74/50 L 12/11/24 13:25 95 75/52 L 12/11/24 13:10 85 67/49 L 12/11/24 13:00 87 25 H 71/49 L 12/11/24 13:00 86 71/49 L 12/11/24 12:58 87 25 H 12/11/24 12:51 88 25 H 72/50 L 12/11/24 12:49 88 25 H 72/51 L 12/11/24 12:45 89 22 H 78/52 L 12/11/24 12:35 90 25 H 84/54 L 12/11/24 12:32 95 24 H 87/55 L 12/11/24 12:30 93 25 H 81/54 L 12/11/24 12:15 95 25 H 97/62 L 12/11/24 12:00 96 22 H 99/64 L 91 12/11/24 11:47 97 25 H 12/11/24 11:47 98 25 H 12/11/24 11:45 97 25 H 103/63 93 12/11/24 11:36 97 25 H 103/63 92 12/11/24 11:33 99 24 H 12/11/24 11:16 104 H 25 H 118/65 92 12/11/24 11:04 103 H 21 H 12/11/24 11:01 104 H 10/31/25 10:26 106 H 98 Mechanical Ventilation 12/11/24 10:22 106 H 10 L 154/87 H 97 12/11/24 10:22 97 Mechanical Ventilation 12/11/24 10:12 108 H 12/11/24 09:45 113 H 20 121/84 12/11/24 09:00 97.5 F L 98 34 H 120/80 96 Non-Rebreather Mask 15 Exam 2 Narrative: General: Pt is sedated, chemically paralyzed, intubated and on mechanical ventilation Lungs/Chest: Trachea central , coarse breath sounds bilateral Cardiac: RRR. Normal S1 S2. No murmurs Circulation: Pedal pulses are weak but palpable Abdomen: Decreased bowel sounds. Colostomy in left lower quadrant with empty bag, midline scar from past incision Extremities: No clubbing, cyanosis or edema. Warm : Costa in place Neurologic: Unable to assess due to and chemical prior. Will right pupil is slightly bigger than left but both are reactive light Results Lab Results 12/11/24 09:05 12/11/24 16:23 Lab results: Most recent lab results ABG pH 6.944 (7.350-7.450) L* 12/11/24 15:20 ABG pCO2 97.4 mmHg (35.0-45.0) H* 12/11/24 15:20 ABG pO2 76.3 mmHg (80.0-100.0) L 12/11/24 15:20 ABG HCO3 20.6 mEq/l (22.0-26.0) L 12/11/24 15:20 ABG O2 Saturation 83.8 % (95.0-100.0) L* 12/11/24 15:20 Calcium 8.0 mg/dL (8.4-10.2) L 12/11/24 16:23
[2024-12-11] MEDS: DOXYCYCLINE IV 100 MG in SODIUM CHLORIDE 0.9% IV 100 ML IVPB (16:35)
[2024-12-11] MEDS: KCL 40 MEQ/WATER 100 ML 100 ML 50 ML IVPB (16:43)
[2024-12-11 16:49] LABS: Anion Gap 22 mmol/L (4-12); Blood Urea Nitrogen 69 mg/dL (9-20); Calcium 8.0 mg/dL (8.4-10.2); Carbon Dioxide 26 mmol/L (22-30); Chloride 83 mmol/L (98-107); Glucose 122 mg/dL (65-110); Potassium 3.6 mmol/L (3.4-5.0); Sodium 131 mmol/L (137-145)
[2024-12-11 16:56] LABS: Estimated CRCL calculation 14 ml/min; Estimated Glomerular Filt Rate 12
[2024-12-11 17:40] LABS: MRSA (PCR) NOT DETECTED (NOT DETECTE)
--- NOTE | 2024-12-11 18:42 | PM.DDS ---
Discharge Summary Date and Time Date of : 12/11/24 Time of : 17:54 Provider Pronounced By: Provider Name of Provider That Pronounced: Tiesha Boudreaux NP Probable Cause of Probable Cause of : Septic shock Summary Hospital Course: Presented to ED on 12/11/2024 with shortness of breath and quickly decompensated while in the ED requiring intubation. Labs are significant for multi-system organ failure likely due to septic shock. Levophed started in the ED and patient transferred to ICU. On arrival to ICU patient was hypotensive and desaturating. Sats ranging from low 60s to 70s. Soon after, patient became bradycardic and lost pulse. CPR initiated. epinephrine, 1 dose of calcium chloride and 1 amp of bicarb before ROSC was obtained. Resuscitation process took approximately 4 minutes. Post arrest, patient had a pulse but remained profoundly hypotensive despite norepinephrine. Vasopressin and epinephrine ordered. Sedation discontinued. ABG was obtained showed severe metabolic and respiratory acidosis and hypoxia. Vent had already been adjusted due to patient's COPD patient has high pressures. FiO2 100%. Additional bicarb given for severe acidosis. Right femoral art line emergently placed along with a left fem CVC. Patient continued to be profoundly hypotensive and hypoxic despite multiple pressors and vent settings. Patient prone to assist with hypoxia. More bicarb pushes as they assist with blood pressure. Patient continues to be hypotensive and hypoxic despite prone position, multiple vasopressors at high levels, and bicarb pushes. Map is remaining in 40s and 50s. Cardiac arrest is imminent. Patient returned to supine position around 1700. Call to update son Johnie on patient's condition. He is unwilling to change the code status at this time stating he is uncomfortable with doing so. Patient again rest at 1723. ROSC achieved after 12 minutes of ACLS. Patient arrest again at 1748. Time of called at 1754. Additional Data Confirmation of as documented by pronouncing clinician: Pupillary Reflex, Palpable Pulses, Response to Stimuli, Heart Tones and Breath Sounds Name of Provider Notified: Thierry Time Provider Notified: 18:04 Provider Requests Autopsy: No Family Requests Autopsy: No System Validation Engineer Notified: Yes Date [facility] Notified of : 12/11/24 Time [facility] Notified of : 18:30
--- NOTE | 2024-12-11 18:42 | PM.IMHP ---
H&P: HPI History of Present Illness Date/Time: 12/11/24 1330 Chief Complaint: Shortness of breath Narrative: 64-year-old male with past medical history of COPD, CKD, colorectal cancer s/p colostomy, HTN, alcohol abuse who presents to the ED for shortness of breath on 12/11/2024. Patient states he began to feel short of breath a few days ago but is unable to give more history due to his dyspnea. Patient was cyanotic around the lips and trialed on BiPAP for a short time before ultimately requiring intubation. Initial labs and imaging as below. Review of Systems Review of Systems: ROS unobtainable: Yes unobtainable due to endotracheal tube PMFSH Past Medical History Medical History Gastric ulcer Chronic gastric ulcer Noted on EGD 11/2023 Melena Bilateral hearing loss Essential hypertension Colorectal cancer (~2019) Treated with colectomy, radiation therapy and chemotherapy. Patient received care in [place] Surgical History Surgical History Status post cataract extraction and insertion of intraocular lens of left eye Status post colostomy (~2019) Family History Family History Father , Age 62 Cancer ?stomach cancer? Mother Breast cancer, Onset Age: 44 Sibling Cancer ?stomach cancer? 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 Since that time he and his (for over 20 years been for only few years) have been traveling around the [place] They are currently living with the patient's brother for while he helps brother remodel a house. He has smoked between 0.5 up to 2 packs of cigarettes per day for about 40 years he reports that he quit smoking in April of 2024. He drinks 6-9 beers a day. He sometimes go a couple of months without drinking at all. He denies history of illicit substance use. Code status: Full code (patient states that he would not want long-term ventilation or feeding tube. He states he would not want to be on a ventilator from more than a couple of weeks.) Surrogate decision maker: Panda Amezquita (Brother) Smoking packs per day: 1.5 Smoking cigarettes per day: 30.0 Years smoked: 40 Smoking pack-years: 60.00 Smoking status: Current every day smoker Tobacco type: cigarettes Smoking end date: 04/11/24 Alcohol intake: current Drinks per week: 54 Substance use: unknown Substance use type: does not use Do You Feel Safe in your Home?: Yes Lack of Transportation: No Lack of Food: Never True Current Housing: I Have Housing Concerned About Future Housing: No Difficulty Paying Gas/Electric Bills: No Difficulty Paying for Meds: No Currently Unemployed: No Education: High School Diploma/GED Difficulty w/ Childcare or Family Care: No 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 Gender identity (if verbalized by the patient): Male Spiritual care concerns: No Meds Home Medications and Allergies Home Medications ?Medication ?Instructions ?Recorded ?Confirmed ?Type amlodipine 10 mg tablet 10 mg PO DAILY #30 tabs 09/24/24 10/15/24 Rx multivitamin,tx-minerals 1 cap PO DAILY #90 caps 09/24/24 10/15/24 Rx (Multi-Vitamin HP/Minerals capsule) Allergies Allergy/AdvReac Type Severity Reaction Status Date / Time No Known Allergies Allergy Verified 12/11/24 15:06 Vital Signs Vital Signs - 24 hr 12/11/24 09:00 12/11/24 09:45 12/11/24 10:12 Temperature 97.5 F L Pulse Rate 98 113 H 108 H Respiratory Rate 34 H 20 Blood Pressure 120/80 121/84 Pulse Oximetry 96 Oxygen Delivery Non-Rebreather Mask Oxygen Flow Rate 15 Fraction of Inspired Oxygen 12/11/24 10:22 12/11/24 10:22 12/11/24 10:26 Temperature Pulse Rate 106 H 106 H Respiratory Rate 10 L Blood Pressure 154/87 H Pulse Oximetry 97 97 98 Oxygen Delivery Mechanical Ventilation Mechanical Ventilation Oxygen Flow Rate Fraction of Inspired Oxygen 100 12/11/24 11:01 12/11/24 11:04 12/11/24 11:16 Temperature Pulse Rate 104 H 103 H 104 H Respiratory Rate 21 H 25 H Blood Pressure 118/65 Pulse Oximetry 92 Oxygen Delivery Oxygen Flow Rate Fraction of Inspired Oxygen 12/11/24 11:33 12/11/24 11:36 12/11/24 11:45 Temperature Pulse Rate 99 97 97 Respiratory Rate 24 H 25 H 25 H Blood Pressure 103/63 103/63 Pulse Oximetry 92 93 Oxygen Delivery Oxygen Flow Rate Fraction of Inspired Oxygen 12/11/24 11:47 12/11/24 11:47 12/11/24 12:00 Temperature Pulse Rate 98 97 96 Respiratory Rate 25 H 25 H 22 H Blood Pressure 99/64 L Pulse Oximetry 91 Oxygen Delivery Oxygen Flow Rate Fraction of Inspired Oxygen 12/11/24 12:15 12/11/24 12:30 12/11/24 12:32 Temperature Pulse Rate 95 93 95 Respiratory Rate 25 H 25 H 24 H Blood Pressure 97/62 L 81/54 L 87/55 L Pulse Oximetry Oxygen Delivery Oxygen Flow Rate Fraction of Inspired Oxygen 12/11/24 12:35 12/11/24 12:45 12/11/24 12:49 Temperature Pulse Rate 90 89 88 Respiratory Rate 25 H 22 H 25 H Blood Pressure 84/54 L 78/52 L 72/51 L Pulse Oximetry Oxygen Delivery Oxygen Flow Rate Fraction of Inspired Oxygen 12/11/24 12:51 12/11/24 12:58 12/11/24 13:00 Temperature Pulse Rate 88 87 86 Respiratory Rate 25 H 25 H Blood Pressure 72/50 L 71/49 L Pulse Oximetry Oxygen Delivery Oxygen Flow Rate Fraction of Inspired Oxygen 12/11/24 13:00 12/11/24 13:10 12/11/24 13:25 Temperature Pulse Rate 87 85 95 Respiratory Rate 25 H Blood Pressure 71/49 L 67/49 L 75/52 L Pulse Oximetry Oxygen Delivery Oxygen Flow Rate Fraction of Inspired Oxygen 12/11/24 13:26 12/11/24 13:30 12/11/24 13:30 Temperature Pulse Rate 90 84 87 Respiratory Rate 25 H 25 H Blood Pressure 74/50 L 75/52 L Pulse Oximetry 98 Oxygen Delivery Mechanical Ventilation Oxygen Flow Rate Fraction of Inspired Oxygen 75 12/11/24 13:34 12/11/24 13:35 12/11/24 13:36 Temperature Pulse Rate 95 95 Respiratory Rate 25 H 25 H Blood Pressure Pulse Oximetry Oxygen Delivery Oxygen Flow Rate Fraction of Inspired Oxygen 100 12/11/24 13:38 12/11/24 13:42 12/11/24 13:43 Temperature Pulse Rate 94 88 52 L Respiratory Rate 25 H 25 H Blood Pressure 75/52 L 73/50 L 53/36 L Pulse Oximetry 60 L Oxygen Delivery Oxygen Flow Rate Fraction of Inspired Oxygen 12/11/24 14:00 12/11/24 14:00 12/11/24 14:00 Temperature Pulse Rate 96 111 H 107 H Respiratory Rate 25 H 22 H Blood Pressure 97/50 L Pulse Oximetry 60 L Oxygen Delivery Oxygen Flow Rate Fraction of Inspired Oxygen 12/11/24 14:01 12/11/24 14:02 12/11/24 14:15 Temperature Pulse Rate 96 102 H Respiratory Rate 25 H Blood Pressure 179/67 H Pulse Oximetry Oxygen Delivery Mechanical Ventilation Oxygen Flow Rate Fraction of Inspired Oxygen 100 12/11/24 14:16 12/11/24 14:17 12/11/24 14:17 Temperature Pulse Rate 97 97 97 Respiratory Rate 26 H 26 H Blood Pressure 109/47 L Pulse Oximetry Oxygen Delivery Oxygen Flow Rate Fraction of Inspired Oxygen 12/11/24 14:20 12/11/24 14:24 12/11/24 14:57 Temperature Pulse Rate 100 100 106 H Respiratory Rate Blood Pressure 87/41 L 87/40 L 74/42 L Pulse Oximetry Oxygen Delivery Oxygen Flow Rate Fraction of Inspired Oxygen 12/11/24 14:58 12/11/24 15:00 12/11/24 15:28 Temperature Pulse Rate 107 H 108 H 103 H Respiratory Rate 25 H Blood Pressure 87/44 L 94/49 L 65/39 L Pulse Oximetry 60 L Oxygen Delivery Oxygen Flow Rate Fraction of Inspired Oxygen 12/11/24 15:43 12/11/24 15:44 12/11/24 15:50 Temperature Pulse Rate 106 H 107 H 108 H Respiratory Rate Blood Pressure 77/43 L 68/40 L Pulse Oximetry Oxygen Delivery Oxygen Flow Rate Fraction of Inspired Oxygen 12/11/24 15:55 12/11/24 15:57 12/11/24 16:00 Temperature Pulse Rate 106 H 106 H 103 H Respiratory Rate Blood Pressure 65/39 L 58/35 L 56/34 L Pulse Oximetry Oxygen Delivery Oxygen Flow Rate Fraction of Inspired Oxygen 12/11/24 16:00 12/11/24 16:00 12/11/24 16:00 Temperature Pulse Rate 105 H 105 H 105 H Respiratory Rate Blood Pressure 57/34 L 57/34 L 57/34 L Pulse Oximetry Oxygen Delivery Oxygen Flow Rate Fraction of Inspired Oxygen 12/11/24 16:00 12/11/24 16:00 12/11/24 16:00 Temperature 92.4 F L Pulse Rate 103 H 107 H Respiratory Rate 25 H 25 H Blood Pressure 76/41 L Pulse Oximetry Oxygen Delivery Oxygen Flow Rate Fraction of Inspired Oxygen 100 100 12/11/24 16:00 12/11/24 16:00 12/11/24 16:13 Temperature 92.4 F L Pulse Rate 99 102 H Respiratory Rate 25 H Blood Pressure Pulse Oximetry Oxygen Delivery Mechanical Ventilation Oxygen Flow Rate Fraction of Inspired Oxygen 100 12/11/24 16:14 12/11/24 16:15 12/11/24 16:28 Temperature 94 F L Pulse Rate 98 99 Respiratory Rate Blood Pressure 48/31 L 56/34 L Pulse Oximetry Oxygen Delivery Oxygen Flow Rate Fraction of Inspired Oxygen 12/11/24 16:43 12/11/24 16:57 12/11/24 17:00 Temperature 94.3 F L 94.4 F L Pulse Rate 98 Respiratory Rate 25 H Blood Pressure Pulse Oximetry Oxygen Delivery Mechanical Ventilation Oxygen Flow Rate Fraction of Inspired Oxygen 100 12/11/24 17:00 12/11/24 17:13 12/11/24 17:43 Temperature 94.4 F L 94.4 F L 94.3 F L Pulse Rate 97 Respiratory Rate 25 H Blood Pressure 51/31 L Pulse Oximetry Oxygen Delivery Oxygen Flow Rate Fraction of Inspired Oxygen 12/11/24 17:59 12/11/24 17:59 12/11/24 17:59 Temperature Pulse Rate 0 L 0 L 0 L Respiratory Rate Blood Pressure 0/0 L 0/0 L 0/0 L Pulse Oximetry Oxygen Delivery Oxygen Flow Rate Fraction of Inspired Oxygen 12/11/24 17:59 Temperature Pulse Rate 0 L Respiratory Rate Blood Pressure 0/0 L Pulse Oximetry Oxygen Delivery Oxygen Flow Rate Fraction of Inspired Oxygen Exam Narrative: GENERAL: Critically ill. On the vent and sedated. Poor hygiene HEAD: Normocephalic, atraumatic. THROAT: ETT in place NECK: Trachea midline. RESPIRATORY: Airway patent, mechanical ventilation. Coarse breath sounds bilaterally CARDIOVASCULAR: Regular rate and rhythm GASTROINTESTINAL: Abdomen is soft. Decreased bowel sounds throughout. Colostomy left lower quadrant with maceration around bag. Stoma pink GENITOURINARY: Costa in place MUSCULOSKELETAL: Unable to assess SKIN: Cool to touch. Pale hands and feet NEURO: Intubated and Sedated PSYCHIATRIC: Unable to assess H&P: Results Labs Labs: Short CBC 12/11/24 Range/Units 09:05 WBC 10.4 H (4.5-10.0) K/mm3 Hgb 12.3 L D (14.0-18.0) g/dL Hct 38.5 L (42.0-52.0) % Plt Count 137 L (150-375) k/mm3 BMP 12/11/24 12/11/24 12/11/24 09:05 12:20 16:23 Sodium 119 L* 123 L 131 L Potassium 3.4 3.1 L 3.6 Chloride 85 L 91 L 83 L Carbon Dioxide < 5 L 7 L 26 BUN 66 H D 65 H 69 H Creatinine 5.52 H 5.04 H 4.85 H Glucose 227 H 150 H 122 H Calcium 7.7 L 6.8 L 8.0 L Cardiac Enzymes 12/11/24 Range/Units 09:05 Total Creatine Kinase 5275 H (55-170) U/L Liver Function 12/11/24 Range/Units 09:05 Total Bilirubin 1.3 (0.2-1.3) mg/dL AST 166 H (17-59) U/L ALT 117 H (6-50) U/L Alkaline Phosphatase 183 H (38-126) U/L Albumin 3.6 (3.5-5.1) g/dL Assessment and Plan Assessment and plan (1) Acute respiratory failure: Qualifiers: Respiratory failure complication: unspecified whether with hypoxia or hypercapnia Qualified Code(s): J96.00 - Acute respiratory failure, unspecified whether with hypoxia or hypercapnia Code(s): J96.00 - Acute respiratory failure, unspecified whether with hypoxia or hypercapnia Status: Acute Assessment and Plan: Bilateral pneumonia with underlying COPD. Quickly decompensated in the ED requiring intubation. -severe metabolic acidosis -patient hyperventilated on the vent to compensate for severe metabolic acidosis -continue to trend ABGs and adjust vent settings as needed -bronchodilators (2) Septic shock: Code(s): A41.9 - Sepsis, unspecified organism; R65.21 - Severe sepsis with septic shock Status: Acute Assessment and Plan: Sepsis secondary to bilateral pneumonia and possible aspiration. Evidence of multi-system organ failure on initial labs on presentation. -blood cultures pending -urine Legionella and pneumococcal -empiric vancomycin, doxycycline, meropenem -IV fluid bolus 30 mL/kg -continue fluids -will likely need pressors -trend CBC, BMP (3) Pneumonia: Qualifiers: Pneumonia type: due to unspecified organism Laterality: unspecified laterality Lung location: unspecified part of lung Qualified Code(s): J18.9 - Pneumonia, unspecified organism Code(s): J18.9 - Pneumonia, unspecified organism Status: Acute Assessment and Plan: Initial chest x-ray with bilateral pneumonia. Required intubation in the ED soon after arrival. Antibiotics as above. (4) Acute renal failure: Qualifiers: Acute renal failure type: unspecified Qualified Code(s): N17.9 - Acute kidney failure, unspecified Code(s): N17.9 - Acute kidney failure, unspecified Status: Acute Assessment and Plan: Acute on chronic renal failure likely secondary to sepsis. Patient does have a history of hydronephrosis with a stent placement. -nephrology consult -Costa placed for accurate I&Os -check CK (5) Metabolic acidosis: Code(s): E87.20 - Acidosis, unspecified Status: Acute Assessment and Plan: Severe metabolic acidosis secondary to sepsis, acute on chronic kidney failure -received 2 amps of bicarb -IV fluids with bicarb -monitor ABGs Plan Diet: NPO GI prophylaxis: Protonix DVT prophylaxis: Lovenox lines/drains: PIV-central line planned Fluids: 30 mL/kg-maintenance fluids on arrival to ED Code status: Quality VTE Prophylaxis VTE prophylaxis: pharmacologic ordered Hospitalist MIPS Advance Care Plan I have confirmed that the patient's Advanced Care Plan is present, code status is documented, or surrogate decision maker is listed in patient medical record.: Yes Medication Reconciliation I have utilized all available resources to obtain, update and review the patients current medications (includes all prescriptions, OTC, herbals, cannabis, and nutritional supplements).: Yes
[2024-12-12 08:09] LABS: Hep B Core Ab, Total Negative (Negative)
== END 2024-12-11 17:54 | disposition expired | DRG 871 ==
LOC: ANHED 09:59 → ANHICU 15:23
PROVIDERS: Internal Medicine; Internal Medicine Nephrology; Admitting Provider Internal Medicine; Emergency Provider Student in an Organized Health Care Education/Training Program; Visit Provider Nurse Practitioner Adult Health
DX: A41.9 Sepsis, unspecified organism (principal); J18.9 Pneumonia, unspecified organism; R65.21 Severe sepsis with septic shock; J96.02 Acute respiratory failure with hypercapnia; J96.01 Acute respiratory failure with hypoxia; J69.0 Pneumonitis due to inhalation of food and vomit; J44.0 Chronic obstructive pulmonary disease with (acute) lower respiratory infection; E87.22 Chronic metabolic acidosis; E87.1 Hypo-osmolality and hyponatremia; N17.9 Acute kidney failure, unspecified; N18.4 Chronic kidney disease, stage 4 (severe); I46.9 Cardiac arrest, cause unspecified; I12.9 Hypertensive chronic kidney disease with stage 1 through stage 4 chronic kidney disease, or unspecified chronic kidney disease; I95.9 Hypotension, unspecified; E87.6 Hypokalemia; E83.51 Hypocalcemia; K74.60 Unspecified cirrhosis of liver; H91.93 Unspecified hearing loss, bilateral; F10.10 Alcohol abuse, uncomplicated; Z96.1 Presence of intraocular lens; Z87.891 Personal history of nicotine dependence; Z85.038 Personal history of other malignant neoplasm of large intestine; Z93.3 Colostomy status; Z87.19 Personal history of other diseases of the digestive system
CPT/HCPCS: 31500; 36415; 36600; 70450; 71045; 71250; 74176; 80048; 80053; 80179; 82077; 82550; 82805; 82948; 83036; 83605; 84145; 85018; 85025; 85610; 85730; 86140; 86704; 86706; 87040; 87186; 87340; 87637; 87641; 92950; 93005; 93970; 94002; 94640; 96361; 96374; 96375; 96376; 99285; C1751; J0166; J0168; J0613; J1650; J1720; J1815; J2185; J2250; J2371; J2470; J2543; J2704; J2919; J3010; J3373; J3411; J3480; J7030; J7050; J7060